=== PATIENT | male | born 1965 | race Caucasian/White ===

== ENCOUNTER 2019-02-21 02:42 | Inpatient (IN) | payer OTHER ==
[2019-02-21] VITALS (13 sets, daily range): BP systolic 119–141; BP diastolic 60–78
[~2019-02-21] VITALS: Ht 182.9 cm; Wt 207.9 kg
[2019-02-21] MEDS ORDERED: DEXTROSE 50% 25 GM / 50ML DISP.SYRIN. IV ONE ×2 (03:08→04:30)
[2019-02-21 03:31] LABS: BASO # 0.1 x10^3/uL (0.0-0.2); BASO % 0 % (0-3); EOS # 0.3 x10^3/uL (0.0-0.7); EOS % 1 % (0-3); HEMATOCRIT 38.1 % (39.0-53.0); HEMOGLOBIN 12.5 g/dL (13.0-17.5); LYMPH # 1.2 x10^3/uL (1.0-4.8); LYMPH % 4 % (24-48); MEAN CORPUSCULAR HEMOGLOBIN 31 pg (25-35); MEAN CORPUSCULAR HGB CONC 33 g/dL (31-37); MEAN CORPUSCULAR VOLUME 94 fL (79-100); MONO # 0.1 x10^3/uL (0.0-1.1); MONO % 0 % (0-9); NEUT # 27.2 x10^3/uL (1.8-7.7); NEUT % 94 % (31-73); PLATELET COUNT 352 x10^3/uL (140-400); RED BLOOD COUNT 4.07 x10^6/uL (4.30-5.70); RED CELL DISTRIBUTION WIDTH 15.9 % (11.5-14.5); WHITE BLOOD COUNT 28.8 x10^3/uL (4.0-11.0)
[2019-02-21 03:44] LABS: PROTHROMBIN TIME PATIENT 17.1 SEC (11.7-14.0)
[2019-02-21 04:07] LABS: % BANDS 9 % (0-9); % LYMPHS 5 % (24-48); % METAS 1 % (0-0); % MONOS 3 % (0-10); % SEGS 82 % (35-66); PLT ESTIMATE ADEQUATE (ADEQUATE); TOXIC GRANULATION MOD; TOXIC VACUOLATION MOD
[2019-02-21 04:16] LABS: CALCIUM 8.9 mg/dL (8.5-10.1); CREATININE 2.8 mg/dL (0.7-1.3); GFR 23.7; POTASSIUM 3.3 mmol/L (3.5-5.1)
--- NOTE | 2019-02-21 04:23 | PHYS DOC ---
Past Medical History Past Medical History: Anxiety, Arthritis, Depression, Diabetes-Type II, High Cholesterol, Vascular Disease, Other Past Surgical History: Other Additional Past Surgical Histo: Knees Alcohol Use: Heavy Additional Information: States he drinks ETOH everyday Drug Use: None Adult General Chief Complaint Chief Complaint: HYPOGLYCEMIA HPI HPI Patient is a 53 year old male who was brought here from home by EMS after he was found on the floor at his house by his neighbor. he said he was probably on the floor for about 12 hours. He was too weak to get up. He was not sure why he was on the floor. Patient has not eating anything all day. His blood sugar was in the 20 per EMS. They tried to give him oral glucose and he was gradually woke up, became awake, alert then. Patient denies any headache or neck pain. Patient complaint of aching and cramping in his muscle. He denies any chest pain, Appear to have trouble breathing however he is very poor historian. aLL OTHER ros IS NEGATIVE UNLESS OTHERWISE NOTED IN hpi Review of Systems Review of Systems See above Current Medications Current Medications Current Medications Medications (Trade) Dose Ordered Sig/Lilliam Start Time Stop Time Status Last Admin Dose Admin Acetaminophen (Tylenol) 650 mg PRN Q4HRS PRN 02/21/19 05:30 02/22/19 05:29 Albuterol/ Ipratropium (Duoneb) 3 ml RTQID 02/21/19 08:00 02/22/19 07:59 Dextrose 500 ml @ 150 mls/hr 1X ONCE 02/21/19 04:30 02/21/19 07:49 02/21/19 04:30 150 MLS/HR Dextrose (Dextrose 50%-Water Syringe) 25 gm 1X ONCE 02/21/19 04:30 02/21/19 04:31 DC Methylprednisolone Sodium Succinate (SOLU-Medrol 125MG VIAL) 125 mg 1X ONCE 02/21/19 04:30 02/21/19 04:31 DC 02/21/19 04:11 125 MG Morphine Sulfate (Morphine Sulfate) 4 mg PRN Q2HR PRN 02/21/19 05:30 02/22/19 05:29 Ondansetron HCl (Zofran) 4 mg PRN Q8HRS PRN 02/21/19 05:30 02/22/19 05:29 Piperacillin Sod/ Tazobactam Sod 3.375 gm/Sodium Chloride 50 ml @ 100 mls/hr 1X ONCE 02/21/19 06:00 02/21/19 06:29 02/21/19 05:47 100 MLS/HR Sodium Chloride 1,000 ml @ 100 mls/hr Q10H 02/21/19 06:00 02/22/19 05:59 Vancomycin HCl 2 gm/Sodium Chloride 500 ml @ 250 mls/hr 1X ONCE 02/21/19 04:30 02/21/19 06:29 02/21/19 04:49 250 MLS/HR Allergies Allergies Allergies Coded Allergies Type Severity Reaction Last Updated Verified No Known Drug Allergies 02/21/19 No Physical Exam Physical Exam See above Constitutional: Well developed, well nourished, no acute distress, non-toxic appearance. OBESE. HENT: Normocephalic, atraumatic, bilateral external ears normal, oropharynx moist, no oral exudates, nose normal. NO EVIDENCE OF HEAD INJURY, NO SCALP CONTUSION. Eyes: PERRLA, EOMI, conjunctiva normal, no discharge. [] Neck: Normal range of motion, no tenderness, supple, no stridor. [] Cardiovascular:Heart rate regular rhythm, no murmur [] Lungs & Thorax: DIFFUSED WHEEZING IN ALL LUNG SOLIZ, TACHYPNIC. Abdomen: Bowel sounds normal, soft, no tenderness, no masses, no pulsatile masses. [] Skin: Warm, dry Back: No tenderness, no CVA tenderness. [] Extremities: RIGHT LEG WITH CHRONIC LYMPHADEMA SWELLING. There is a large nonhealing wound with purulent drainage on anterior RIGHT leg area. There is erythema from the inner part of right thigh spreading to right leg. There is skin abrasion on anterior part of left knee. BILATERAL ELBOWS ARE TENDER TO PALPATION, NO DEFORMITY.... Neurologic: Alert but confused, normal motor function, normal sensory function, no focal deficits noted. [] Psychologic: Affect normal, judgement normal, mood normal. [] Current Patient Data Vital Signs Vital Signs Date Time Temp Pulse Resp B/P (MAP) Pulse Ox O2 Delivery O2 Flow Rate FiO2 02/21/19 04:17 BiPAP/CPAP 02/21/19 03:08 97.5 85 28 133/71 (91) 97 2.0 97.5 Lab Values Laboratory Tests Test 02/21/19 02:58 02/21/19 03:12 02/21/19 03:15 02/21/19 03:50 Glucose (Fingerstick) 29 mg/dL (70-99) *L 93 mg/dL (70-99) 63 mg/dL (70-99) L White Blood Count 28.8 x10^3/uL (4.0-11.0) H Red Blood Count 4.07 x10^6/uL (4.30-5.70) L Hemoglobin 12.5 g/dL (13.0-17.5) L Hematocrit 38.1 % (39.0-53.0) L Mean Corpuscular Volume 94 fL (79-100) Mean Corpuscular Hemoglobin 31 pg (25-35) Mean Corpuscular Hemoglobin Concent 33 g/dL (31-37) Red Cell Distribution Width 15.9 % (11.5-14.5) H Platelet Count 352 x10^3/uL (140-400) Neutrophils (%) (Auto) 94 % (31-73) H Lymphocytes (%) (Auto) 4 % (24-48) L Monocytes (%) (Auto) 0 % (0-9) Eosinophils (%) (Auto) 1 % (0-3) Basophils (%) (Auto) 0 % (0-3) Neutrophils # (Auto) 27.2 x10^3/uL (1.8-7.7) H Lymphocytes # (Auto) 1.2 x10^3/uL (1.0-4.8) Monocytes # (Auto) 0.1 x10^3/uL (0.0-1.1) Eosinophils # (Auto) 0.3 x10^3/uL (0.0-0.7) Basophils # (Auto) 0.1 x10^3/uL (0.0-0.2) Segmented Neutrophils % 82 % (35-66) H Band Neutrophils % 9 % (0-9) Lymphocytes % 5 % (24-48) L Monocytes % 3 % (0-10) Metamyelocytes % 1 % (0-0) H Toxic Granulation Mod Toxic Vacuolation Mod Platelet Estimate Adequate (ADEQUATE) Prothrombin Time 17.1 SEC (11.7-14.0) H Prothrombin Time INR 1.4 (0.8-1.1) H Test 02/21/19 03:55 Sodium Level 135 mmol/L (136-145) L Potassium Level 3.3 mmol/L (3.5-5.1) L Chloride Level 96 mmol/L (98-107) L Carbon Dioxide Level 27 mmol/L (21-32) Anion Gap 12 (6-14) Blood Urea Nitrogen 56 mg/dL (8-26) H Creatinine 2.8 mg/dL (0.7-1.3) H Estimated GFR (Cockcroft-Gault) 23.7 BUN/Creatinine Ratio 20 (6-20) Glucose Level 76 mg/dL (70-99) Lactic Acid Level 2.2 mmol/L (0.4-2.0) H Calcium Level 8.9 mg/dL (8.5-10.1) Magnesium Level 2.0 mg/dL (1.8-2.4) Total Bilirubin 0.7 mg/dL (0.2-1.0) Aspartate Amino Transferase (AST) 91 U/L (15-37) H Alanine Aminotransferase (ALT) 30 U/L (16-63) Alkaline Phosphatase 98 U/L (46-116) Creatine Kinase 633 U/L (39-308) H Creatine Kinase MB (Mass) 3.1 ng/mL (0.0-3.6) Creatine Kinase MB Relative Index 0.5 % (0-4) Troponin I Quantitative < 0.017 ng/mL (0.000-0.055) JK-[id number]-M-Type Natriuretic Peptide 5369 pg/mL (0-124) H Total Protein 8.9 g/dL (6.4-8.2) H Albumin 1.5 g/dL (3.4-5.0) L Albumin/Globulin Ratio 0.2 (1.0-1.7) L Lipase 92 U/L (73-393) Ethyl Alcohol Level < 10 mg/dL (0-10) Laboratory Tests 02/21/19 03:15 Laboratory Tests 02/21/19 03:55 EKG EKG EKG WAS READ BY THIS PHYSICIAN AT 0346, RATE OF 87 BPM, NO STEMI. Radiology/Procedures Radiology/Procedures [][facility] [address] [place] [address] IMAGING REPORT Signed PATIENT: DANIELLE LOPEZ ACCOUNT: [id number] : 1965 LOCATION: ER AGE: 53 SEX: M EXAM STATUS: REG ER ORD. PHYSICIAN: JIMMY ZULETA DO REASON: FOUND UNRESPONSIVE ON FLOOR AT HIS HOUSE, HEADACHE, NECK PAIN, CONFUSED PROCEDURE: CT HEAD AND CERVICAL SPINE WO STUDY: CT head and cervical spine without contrast INDICATION: Found unresponsive. Headache, neck pain and confusion. COMPARISON: None. TECHNIQUE: Axial CT imaging through the head and cervical spine without the use of intravenous contrast. Sagittal and coronal reformats were obtained. One or more of the following individualized dose reduction techniques were utilized for this examination: 1. Automated exposure control 2. Adjustment of the mA and/or kV according to patient size 3. Use of iterative reconstruction technique. FINDINGS: CT head: No acute intracranial hemorrhage. No CT evidence for an acute cortical infarction. No mass effect, midline shift or hydrocephalus. White matter findings often seen in the setting of chronic microvascular ischemic change. Intact calvarium, visualized facial bones and skull base. No layering fluid within the paranasal sinuses. CT cervical spine: Significantly degraded study secondary to patient body habitus. This particularly limits evaluation of the osseous structures and central canal contents below C3. Maintained craniocervical and atlantoaxial alignment. No suspicious vertebral body height loss. Grossly maintained facet alignment. Prominent ventral osteophytes from C4 to C5 through C6-C7. Scattered degenerative changes. Bony neural foraminal encroachment at multiple levels. No large paraspinous hematoma. IMPRESSION: CT head: 1. No acute intracranial abnormality is identified by CT. CT cervical spine: 1. Degraded study secondary to patient body habitus. Limited evaluation for subtle fractures particularly below C3. Taking this into consideration, no acute fracture or traumatic malalignment. 2. Scattered degenerative changes without evidence for severe osseous central canal encroachment. Electronically signed by: TARIQ TRAVIS MD (02/21/2019 5:24 AM) [facility] DICTATED and SIGNED BY: TARIQ TRAVIS MD DATE: 02/21/19 0524 Course & Med Decision Making Course & Med Decision Making Pertinent Labs and Imaging studies reviewed. (See chart for details) Patient was found to met criteria for severe sepsis due to infected right leg wound, cellulitis. Patient is morbidly obese. Patient has dyspnea, chest xray shown some pulmomary edema pattern, Will treat his severe sepsis fluid requirement base on ideal body weight of 70 kg. Critical care time was [60] minutes which includes time at bedside, spent in discussion of patient's care with specialist and/or family members, with interpretation of laboratory and/or radiological studies and is exclusive of procedures. Dragon Disclaimer Dragon Disclaimer This electronic medical record was generated, in whole or in part, using a voice recognition dictation system. Departure Departure Impression: Primary Impression: Severe sepsis Additional Impressions: Cellulitis of right leg Hypoglycemia Acute renal failure Dehydration Dyspnea Disposition: ADMITTED INPATIENT Admitting Physician: LUCIANO (DR. DUKES) Condition: STABLE Referrals: NO PCP (PCP) Problem Qualifiers JIMMY ZULETA DO Feb 21, 2019 04:23
[2019-02-21 04:25] LABS: ALBUMIN 1.5 g/dL (3.4-5.0); ALBUMIN/GLOBULIN RATIO 0.2 (1.0-1.7); TOTAL BILIRUBIN 0.7 mg/dL (0.2-1.0); TOTAL PROTEIN 8.9 g/dL (6.4-8.2)
[2019-02-21] MEDS ORDERED: IV NORMAL SALINE 1000ML BAG 1,000 ML IV SCH ×2 (04:30→06:00)
[2019-02-21] MEDS ORDERED: IPRATRPIUM/ALBUTEROL 0.5/2.5MG 3 ML NEBU. NEB ONE (04:30)
[2019-02-21] MEDS ORDERED: methylPREDNISolone SOD SUCC PF 125 MG/2 ML VIAL. IV ONE (04:30)
[2019-02-21] MEDS ORDERED: IV DEXTROSE 10% 500 ML IV ONE (04:30)
[2019-02-21] MEDS ORDERED: VANCOMYCIN 2 GM in IV NORMAL SALINE 500ML BAG 500 ML IV ONE (04:30)
--- NOTE | 2019-02-21 05:26 | RAD ---
STUDY: CT head and cervical spine without contrast INDICATION: Found unresponsive. Headache, neck pain and confusion. COMPARISON: None. TECHNIQUE: Axial CT imaging through the head and cervical spine without the use of intravenous contrast. Sagittal and coronal reformats were obtained. One or more of the following individualized dose reduction techniques were utilized for this examination: 1. Automated exposure control 2. Adjustment of the mA and/or kV according to patient size 3. Use of iterative reconstruction technique. FINDINGS: CT head: No acute intracranial hemorrhage. No CT evidence for an acute cortical infarction. No mass effect, midline shift or hydrocephalus. White matter findings often seen in the setting of chronic microvascular ischemic change. Intact calvarium, visualized facial bones and skull base. No layering fluid within the paranasal sinuses. CT cervical spine: Significantly degraded study secondary to patient body habitus. This particularly limits evaluation of the osseous structures and central canal contents below C3. Maintained craniocervical and atlantoaxial alignment. No suspicious vertebral body height loss. Grossly maintained facet alignment. Prominent ventral osteophytes from C4 to C5 through C6-C7. Scattered degenerative changes. Bony neural foraminal encroachment at multiple levels. No large paraspinous hematoma. IMPRESSION: CT head: 1. No acute intracranial abnormality is identified by CT. CT cervical spine: 1. Degraded study secondary to patient body habitus. Limited evaluation for subtle fractures particularly below C3. Taking this into consideration, no acute fracture or traumatic malalignment. 2. Scattered degenerative changes without evidence for severe osseous central canal encroachment. Electronically signed by: TARIQ TRAVIS MD (02/21/2019 5:24 AM) [facility]
[2019-02-21] MEDS ORDERED: ONDANSETRON PF 4 MG/2 ML VIAL. IV PRN ×2 (05:30→11:15)
[2019-02-21] MEDS ORDERED: MORPHINE SULFATE 4 MG/ML VIAL. IV PRN (05:30)
[2019-02-21] MEDS ORDERED: ACETAMINOPHEN 325 MG TABLET. PO PRN (05:30)
[2019-02-21] MEDS ORDERED: IV NORMAL SALINE 1000ML BAG 1,000 ML IV ONE (05:30)
[2019-02-21] MEDS ORDERED: PIPERACILLIN/TAZOBACTAM 3.375 GM in IV NORMAL SALINE 50ML 50 ML IV ONE (06:00)
--- NOTE | 2019-02-21 07:21 | RAD ---
EXAM: CHEST ONE VIEW. HISTORY: Shortness of breath. COMPARISON: None. FINDINGS: A frontal view of the chest is obtained. Inspiration is small with mild basilar atelectasis. There are no confluent infiltrates. There is no pneumothorax or pleural effusion. The heart is moderately enlarged. IMPRESSION: 1. Small inspiration. Moderate cardiomegaly. Electronically signed by: Rosales To MD (02/21/2019 7:19 AM) [facility]
--- NOTE | 2019-02-21 07:24 | RAD ---
EXAM: LEFT KNEE, 3 VIEWS. HISTORY: Left knee pain after injury. COMPARISON: None. FINDINGS: No fractures are identified. There are moderate osteophytes along all 3 compartments, most notably along the patella. The medial and lateral compartmental joint spaces appear preserved. The patellofemoral compartmental joint space is at least mildly narrowed. Alignment is normal. There is no joint effusion. There is diffuse subcutaneous edema. IMPRESSION: 1. [id number] tricompartmental osteoarthritis. 2. Diffuse subcutaneous edema. Correlate for a regional or systemic edematous process. Electronically signed by: Rosales To MD (02/21/2019 7:21 AM) [facility]
--- NOTE | 2019-02-21 07:26 | RAD ---
EXAM: ELBOW BILAT 3V. HISTORY: Fall. Bilateral elbow pain. COMPARISON: None. FINDINGS: No fractures are appreciated at the left elbow. There are small to moderate osteophytes along all 3 compartments with relative preservation of joint spaces. There is ossification at the triceps tendon insertion. There is no joint effusion. Alignment is maintained. No fractures are appreciated at the right elbow. There are small osteophytes. Ossification is noted at the insertion of the triceps tendon. There is no joint effusion. Alignment is maintained. IMPRESSION: 1. No fracture bilaterally. 2. Mild osteoarthritis on the left greater than right. Electronically signed by: Rosales To MD (02/21/2019 7:23 AM) [facility]
--- NOTE | 2019-02-21 09:11 | PDOC1 ---
History and Physical Date of Admission Date of Admission DATE: 02/21/19 TIME: 09:11 Identification/Chief Complaint Chief Complaint SEEN IN ER , Patient is a 53 year old male who was brought here from home by EMS after he was found on the floor at his house by his neighbor. he said he was probably on the floor for about 12 hours. He was too weak to get up. He was not sure why he was on the floor. Patient has not eating anything all day. His blood sugar was in the 20 per EMS. They tried to give him oral glucose and he was gradually woke up, became awake, alert, DRINKS 14 OZ WHISKY A DAY USES CPAP Q HS SINCE 2010, HAS NO DOCTOR PCP NOW Past Medical History Past Medical History Past Medical History Past Medical History Past Medical History: Anxiety, Arthritis, Depression, Diabetes-Type II, High Cholesterol, Vascular Disease, Other Past Surgical History: Other Additional Past Surgical Histo: Knees Alcohol Use: Heavy Additional Information: States he drinks ETOH everyday Drug Use: None FHX OBESITY Cardiovascular: HTN, Hyperlipidemia Endocrine: Diabetes Family History Family History: High Cholestrol, Hypertension Social History Smoke: No ALCOHOL: heavy Drugs: None Current Problem List Problem List Problems Medical Problems: (1) Acute renal failure Status: Acute (2) Cellulitis of right leg Status: Acute (3) Dehydration Status: Acute (4) Dyspnea Status: Acute (5) Hypoglycemia Status: Acute (6) Severe sepsis Status: Acute Current Medications Current Medications Current Medications Dextrose (Dextrose 50%-Water Syringe) 25 gm STK-MED ONCE IV ; Start 02/21/19 at 03:08; Stop 02/21/19 at 03:08; Status DC Dextrose (Dextrose 50%-Water Syringe) 25 gm 1X ONCE IV Last administered on 02/21/19at 05:59; Start 02/21/19 at 04:30; Stop 02/21/19 at 04:31; Status DC Sodium Chloride 1,000 ml @ 1,000 mls/hr Q1H IV Last administered on 02/21/19at 04:44; Start 02/21/19 at 04:30; Stop 02/21/19 at 05:29; Status DC Albuterol/ Ipratropium (Duoneb) 3 ml 1X ONCE NEB Last administered on 02/21/19at 04:19; Start 02/21/19 at 04:30; Stop 02/21/19 at 04:31; Status DC Methylprednisolone Sodium Succinate (SOLU-Medrol 125MG VIAL) 125 mg 1X ONCE IV Last administered on 02/21/19at 04:11; Start 02/21/19 at 04:30; Stop 02/21/19 at 04:31; Status DC Dextrose 500 ml @ 150 mls/hr 1X ONCE IV Last administered on 02/21/19at 04:30; Start 02/21/19 at 04:30; Stop 02/21/19 at 07:49; Status DC Vancomycin HCl 2 gm/Sodium Chloride 500 ml @ 250 mls/hr 1X ONCE IV Last administered on 02/21/19at 04:49; Start 02/21/19 at 04:30; Stop 02/21/19 at 06:29; Status DC Sodium Chloride 1,000 ml @ 1,000 mls/hr 1X ONCE IV ; Start 02/21/19 at 05:30; Stop 02/21/19 at 06:29; Status DC Ondansetron HCl (Zofran) 4 mg PRN Q8HRS PRN IV NAUSEA/VOMITING 1ST CHOICE; Start 02/21/19 at 05:30; Stop 02/22/19 at 05:29 Morphine Sulfate (Morphine Sulfate) 4 mg PRN Q2HR PRN IV SEVERE PAIN 7-10 Last administered on 02/21/19at 09:07; Start 02/21/19 at 05:30; Stop 02/22/19 at 05:29 Sodium Chloride 1,000 ml @ 100 mls/hr Q10H IV ; Start 02/21/19 at 06:00; Stop 02/22/19 at 05:59 Acetaminophen (Tylenol) 650 mg PRN Q4HRS PRN PO FEVER; Start 02/21/19 at 05:30; Stop 02/22/19 at 05:29 Albuterol/ Ipratropium (Duoneb) 3 ml RTQID NEB ; Start 02/21/19 at 08:00; Stop 02/22/19 at 07:59 Piperacillin Sod/ Tazobactam Sod 3.375 gm/Sodium Chloride 50 ml @ 100 mls/hr 1X ONCE IV Last administered on 02/21/19at 05:47; Start 02/21/19 at 06:00; Stop 02/21/19 at 06:29; Status DC Allergies Allergies: Coded Allergies: No Known Drug Allergies (Unverified , 1/4/20) Physical Exam Physical Exam Constitutional: Well developed, well nourished, no acute distress, non-toxic appearance. OBESE. POOR DENTITION HENT: Normocephalic, atraumatic, bilateral external ears normal, oropharynx moist, no oral exudates, nose normal. NO EVIDENCE OF HEAD INJURY, NO SCALP CONTUSION. Eyes: PERRLA, EOMI, conjunctiva normal, no discharge. [] Neck: Normal range of motion, no tenderness, supple, no stridor. [] Cardiovascular:Heart rate regular rhythm, no murmur [] Lungs & Thorax: DIFFUSE, LESS WHEEZING IN ALL LUNG SOLIZ, Abdomen: Bowel sounds normal, soft, no tenderness, no masses, no pulsatile masses VERY OBESE. [] Skin: Warm, dry Back: No tenderness, no CVA tenderness. [] Extremities: RIGHT LEG WITH CHRONIC LYMPHEDEMA SWELLING. There is a large nonhealing wound with purulent drainage on anterior RIGHT leg area. There is erythema from the inner part of right thigh spreading to right leg. There is skin abrasion on anterior part of left knee. BILATERAL ELBOWS ARE TENDER TO PALPATION, NO DEFORMITY.... General: Alert, Oriented X3, Cooperative, mild distress Lungs: Normal air movement Heart: RRR Breasts: Not examined Abdomen: Normal bowel sounds, Soft Rectal Exam: not examined Neuro: Normal speech, Cranial nerves 3-12 NL Psych/Mental Status: Mental status NL, Mood NL Vitals Vitals Vital Signs Date Time Temp Pulse Resp B/P (MAP) Pulse Ox O2 Delivery O2 Flow Rate FiO2 02/21/19 09:07 16 94 Nasal Cannula 2.0 02/21/19 08:34 97.5 104 119/60 (79) 97.5 Labs Labs Laboratory Tests Test 02/21/19 02:58 02/21/19 03:12 02/21/19 03:15 02/21/19 03:50 Glucose (Fingerstick) 29 mg/dL (70-99) 93 mg/dL (70-99) 63 mg/dL (70-99) White Blood Count 28.8 x10^3/uL (4.0-11.0) Red Blood Count 4.07 x10^6/uL (4.30-5.70) Hemoglobin 12.5 g/dL (13.0-17.5) Hematocrit 38.1 % (39.0-53.0) Mean Corpuscular Volume 94 fL (79-100) Mean Corpuscular Hemoglobin 31 pg (25-35) Mean Corpuscular Hemoglobin Concent 33 g/dL (31-37) Red Cell Distribution Width 15.9 % (11.5-14.5) Platelet Count 352 x10^3/uL (140-400) Neutrophils (%) (Auto) 94 % (31-73) Lymphocytes (%) (Auto) 4 % (24-48) Monocytes (%) (Auto) 0 % (0-9) Eosinophils (%) (Auto) 1 % (0-3) Basophils (%) (Auto) 0 % (0-3) Neutrophils # (Auto) 27.2 x10^3/uL (1.8-7.7) Lymphocytes # (Auto) 1.2 x10^3/uL (1.0-4.8) Monocytes # (Auto) 0.1 x10^3/uL (0.0-1.1) Eosinophils # (Auto) 0.3 x10^3/uL (0.0-0.7) Basophils # (Auto) 0.1 x10^3/uL (0.0-0.2) Segmented Neutrophils % 82 % (35-66) Band Neutrophils % 9 % (0-9) Lymphocytes % 5 % (24-48) Monocytes % 3 % (0-10) Metamyelocytes % 1 % (0-0) Toxic Granulation Mod Toxic Vacuolation Mod Platelet Estimate Adequate (ADEQUATE) Prothrombin Time 17.1 SEC (11.7-14.0) Prothromb Time International Ratio 1.4 (0.8-1.1) Test 02/21/19 03:55 02/21/19 05:41 02/21/19 06:06 Sodium Level 135 mmol/L (136-145) Potassium Level 3.3 mmol/L (3.5-5.1) Chloride Level 96 mmol/L (98-107) Carbon Dioxide Level 27 mmol/L (21-32) Anion Gap 12 (6-14) Blood Urea Nitrogen 56 mg/dL (8-26) Creatinine 2.8 mg/dL (0.7-1.3) Estimated GFR (Cockcroft-Gault) 23.7 BUN/Creatinine Ratio 20 (6-20) Glucose Level 76 mg/dL (70-99) Lactic Acid Level 2.2 mmol/L (0.4-2.0) Calcium Level 8.9 mg/dL (8.5-10.1) Magnesium Level 2.0 mg/dL (1.8-2.4) Total Bilirubin 0.7 mg/dL (0.2-1.0) Aspartate Amino Transf (AST/SGOT) 91 U/L (15-37) Alanine Aminotransferase (ALT/SGPT) 30 U/L (16-63) Alkaline Phosphatase 98 U/L (46-116) Creatine Kinase 633 U/L (39-308) Creatine Kinase MB (Mass) 3.1 ng/mL (0.0-3.6) Creatine Kinase MB Relative Index 0.5 % (0-4) Troponin I Quantitative < 0.017 ng/mL (0.000-0.055) KP-Ofe-W-Type Natriuretic Peptide 5369 pg/mL (0-124) Total Protein 8.9 g/dL (6.4-8.2) Albumin 1.5 g/dL (3.4-5.0) Albumin/Globulin Ratio 0.2 (1.0-1.7) Lipase 92 U/L (73-393) Ethyl Alcohol Level < 10 mg/dL (0-10) Glucose (Fingerstick) 48 mg/dL (70-99) 114 mg/dL (70-99) Laboratory Tests Test 02/21/19 02:58 02/21/19 03:12 02/21/19 03:15 02/21/19 03:50 Glucose (Fingerstick) 29 mg/dL (70-99) 93 mg/dL (70-99) 63 mg/dL (70-99) White Blood Count 28.8 x10^3/uL (4.0-11.0) Red Blood Count 4.07 x10^6/uL (4.30-5.70) Hemoglobin 12.5 g/dL (13.0-17.5) Hematocrit 38.1 % (39.0-53.0) Mean Corpuscular Volume 94 fL (79-100) Mean Corpuscular Hemoglobin 31 pg (25-35) Mean Corpuscular Hemoglobin Concent 33 g/dL (31-37) Red Cell Distribution Width 15.9 % (11.5-14.5) Platelet Count 352 x10^3/uL (140-400) Neutrophils (%) (Auto) 94 % (31-73) Lymphocytes (%) (Auto) 4 % (24-48) Monocytes (%) (Auto) 0 % (0-9) Eosinophils (%) (Auto) 1 % (0-3) Basophils (%) (Auto) 0 % (0-3) Neutrophils # (Auto) 27.2 x10^3/uL (1.8-7.7) Lymphocytes # (Auto) 1.2 x10^3/uL (1.0-4.8) Monocytes # (Auto) 0.1 x10^3/uL (0.0-1.1) Eosinophils # (Auto) 0.3 x10^3/uL (0.0-0.7) Basophils # (Auto) 0.1 x10^3/uL (0.0-0.2) Segmented Neutrophils % 82 % (35-66) Band Neutrophils % 9 % (0-9) Lymphocytes % 5 % (24-48) Monocytes % 3 % (0-10) Metamyelocytes % 1 % (0-0) Toxic Granulation Mod Toxic Vacuolation Mod Platelet Estimate Adequate (ADEQUATE) Prothrombin Time 17.1 SEC (11.7-14.0) Prothromb Time International Ratio 1.4 (0.8-1.1) Test 02/21/19 03:55 02/21/19 05:41 02/21/19 06:06 Sodium Level 135 mmol/L (136-145) Potassium Level 3.3 mmol/L (3.5-5.1) Chloride Level 96 mmol/L (98-107) Carbon Dioxide Level 27 mmol/L (21-32) Anion Gap 12 (6-14) Blood Urea Nitrogen 56 mg/dL (8-26) Creatinine 2.8 mg/dL (0.7-1.3) Estimated GFR (Cockcroft-Gault) 23.7 BUN/Creatinine Ratio 20 (6-20) Glucose Level 76 mg/dL (70-99) Lactic Acid Level 2.2 mmol/L (0.4-2.0) Calcium Level 8.9 mg/dL (8.5-10.1) Magnesium Level 2.0 mg/dL (1.8-2.4) Total Bilirubin 0.7 mg/dL (0.2-1.0) Aspartate Amino Transf (AST/SGOT) 91 U/L (15-37) Alanine Aminotransferase (ALT/SGPT) 30 U/L (16-63) Alkaline Phosphatase 98 U/L (46-116) Creatine Kinase 633 U/L (39-308) Creatine Kinase MB (Mass) 3.1 ng/mL (0.0-3.6) Creatine Kinase MB Relative Index 0.5 % (0-4) Troponin I Quantitative < 0.017 ng/mL (0.000-0.055) PM-Kla-Z-Type Natriuretic Peptide 5369 pg/mL (0-124) Total Protein 8.9 g/dL (6.4-8.2) Albumin 1.5 g/dL (3.4-5.0) Albumin/Globulin Ratio 0.2 (1.0-1.7) Lipase 92 U/L (73-393) Ethyl Alcohol Level < 10 mg/dL (0-10) Glucose (Fingerstick) 48 mg/dL (70-99) 114 mg/dL (70-99) Images Images EXAM: ELBOW BILAT 3V. HISTORY: Fall. Bilateral elbow pain. COMPARISON: None. FINDINGS: No fractures are appreciated at the left elbow. There are small to moderate osteophytes along all 3 compartments with relative preservation of joint spaces. There is ossification at the triceps tendon insertion. There is no joint effusion. Alignment is maintained. No fractures are appreciated at the right elbow. There are small osteophytes. Ossification is noted at the insertion of the triceps tendon. There is no joint effusion. Alignment is maintained. IMPRESSION: 1. No fracture bilaterally. 2. Mild osteoarthritis on the left greater than right. Electronically signed by: Rosales To MD (02/21/2019 7:23 AM) [facility] DICTATED and SIGNED BY: MUSTAPHA TO MD EXAM: LEFT KNEE, 3 VIEWS. HISTORY: Left knee pain after injury. COMPARISON: None. FINDINGS: No fractures are identified. There are moderate osteophytes along all 3 compartments, most notably along the patella. The medial and lateral compartmental joint spaces appear preserved. The patellofemoral compartmental joint space is at least mildly narrowed. Alignment is normal. There is no joint effusion. There is diffuse subcutaneous edema. IMPRESSION: 1. [id number] tricompartmental osteoarthritis. 2. Diffuse subcutaneous edema. Correlate for a regional or systemic edematous process. Electronically signed by: Rosales To MD (02/21/2019 7:21 AM) [facility] DICTATED and SIGNED BY: MUSTAPHA TO MD DATE: 02/21/19 0721 STUDY: CT head and cervical spine without contrast INDICATION: Found unresponsive. Headache, neck pain and confusion. COMPARISON: None. TECHNIQUE: Axial CT imaging through the head and cervical spine without the use of intravenous contrast. Sagittal and coronal reformats were obtained. One or more of the following individualized dose reduction techniques were utilized for this examination: 1. Automated exposure control 2. Adjustment of the mA and/or kV according to patient size 3. Use of iterative reconstruction technique. FINDINGS: CT head: No acute intracranial hemorrhage. No CT evidence for an acute cortical infarction. No mass effect, midline shift or hydrocephalus. White matter findings often seen in the setting of chronic microvascular ischemic change. Intact calvarium, visualized facial bones and skull base. No layering fluid within the paranasal sinuses. CT cervical spine: Significantly degraded study secondary to patient body habitus. This particularly limits evaluation of the osseous structures and central canal contents below C3. Maintained craniocervical and atlantoaxial alignment. No suspicious vertebral body height loss. Grossly maintained facet alignment. Prominent ventral osteophytes from C4 to C5 through C6-C7. Scattered degenerative changes. Bony neural foraminal encroachment at multiple levels. No large paraspinous hematoma. IMPRESSION: CT head: 1. No acute intracranial abnormality is identified by CT. CT cervical spine: 1. Degraded study secondary to patient body habitus. Limited evaluation for subtle fractures particularly below C3. Taking this into consideration, no acute fracture or traumatic malalignment. 2. Scattered degenerative changes without evidence for severe osseous central canal encroachment. Electronically signed by: TARIQ TRAVIS MD (02/21/2019 5:24 AM) [facility] DICTATED and SIGNED BY: TARIQ TRAVIS MD DATE: 02/21/19 0524 EXAM: CHEST ONE VIEW. HISTORY: Shortness of breath. COMPARISON: None. FINDINGS: A frontal view of the chest is obtained. Inspiration is small with mild basilar atelectasis. There are no confluent infiltrates. There is no pneumothorax or pleural effusion. The heart is moderately enlarged. IMPRESSION: 1. Small inspiration. Moderate cardiomegaly. Electronically signed by: Rosales To MD (02/21/2019 7:19 AM) [facility] DICTATED and SIGNED BY: MUSTAPHA TO MD DATE: 02/21/19 0719 VTE Prophylaxis Ordered VTE Prophylaxis Devices: Contraindicated VTE Pharmacological Prophylaxi: Yes Assessment/Plan Assessment/Plan Impression: Severe sepsis EXTREME MORBID OBESITY SLEEP APNEA Cellulitis of right leg, severe with lymphedema, chronic venous stasis Hypoglycemia SEC TO METFORMIN, GLIPIZIDE Acute renal failure Dehydration Dyspnea HYPOGLYCEMIA SEVERE ALCOHOL ABUSE FALL AT HOME SEVERE DEBILITY CHF ADMITTED ICU BED CONSULT PULM CONSULT ID BLOOD CULT ABG ciwa protocol hold metformin and glipizide consult CARDIOLOGY PT/OT WOUND CARE NURSE CONSULT CONSIDER ECHO DVT PROPHYLAXIS GI PROPHYLAXIS NEPHROLOGY CONSULT 33 min cc time CORTNEY PEÑA MD Feb 21, 2019 09:11
[2019-02-21] MEDS: IPRATRPIUM/ALBUTEROL 0.5/2.5MG 3 ML NEBU. NEB SCH ×4 (09:28→20:16)
[2019-02-21 09:31] LABS: BASE EXCESS COOX -2 mmol/L (-3-3); HCO3 COOX 23 mmol/L (21-28); METHEMOGLOBIN 0.3 % (0.0-1.9); OXYHEMOGLOBIN 92.8 %; PCO2 COOX 39 mmHg (35-46); PO2 COOX 78 mmHg (75-108); SAT O2 COOX 94 % (92-99)
[2019-02-21] MEDS ORDERED: METF10007 PO (09:50)
[2019-02-21] MEDS ORDERED: ATEN50TA PO (09:50)
[2019-02-21] MEDS ORDERED: CHLO25TA10 PO (09:50)
[2019-02-21] MEDS ORDERED: GLIP5TAB10 PO (09:50)
[2019-02-21] MEDS ORDERED: BISACODYL 10 MG SUPP.RECT. PR PRN (11:15)
[2019-02-21] MEDS ORDERED: 0.9 % SODIUM CHLORIDE 10 ML DISP.SYRIN. IV PRN (11:15)
[2019-02-21] MEDS ORDERED: LORazepam 1 MG TABLET PO PRN ×2 (11:30)
[2019-02-21] MEDS ORDERED: cloNIDine HCL 0.1 MG TABLET PO PRN (11:30)
[2019-02-21] MEDS ORDERED: HALOPERIDOL LACTATE 5 MG/ML VIAL. IVP PRN (11:30)
--- NOTE | 2019-02-21 11:49 | NUR ---
PT ORIENTED TO ROOM AND UNIT, JOVITA LOW AND LOCKED, SIDE RAILS UP X3, MILLER AND CENTRAL LINE PLACED. ALL CONSULTS CALLED IN. WILL CONTINUE TO ASSESS.
--- NOTE | 2019-02-21 11:52 | PDOC ---
Date and Time Called for central line about 0800. I was supervising a section until 914 and was aked to first place another (difficult) central line from 0930- 1100. Patient with ED diagnosis of severe sepsis transferred to ICU with inadequate IV access R neck ultrasound unable to obtain adequate view of carotid or IJ (6cm max depth on Sono). Cecil approach after sterile prep, large drape and 1% lidocaine local. Mask,Hat,Gloves and gown. RIJ identified on first attempt, wire, 3 lumen placed and sutured in. Free flow all 3 ports, biopatch and sterile dressing. No apparent complications CXR tip at SVC RA junction. No pneumothorax. Current Medications Current Medications Dextrose (Dextrose 50%-Water Syringe) 25 gm STK-MED ONCE IV ; Start 02/21/19 at 03:08; Stop 02/21/19 at 03:08; Status DC Dextrose (Dextrose 50%-Water Syringe) 25 gm 1X ONCE IV Last administered on 02/21/19at 05:59; Start 02/21/19 at 04:30; Stop 02/21/19 at 04:31; Status DC Sodium Chloride 1,000 ml @ 1,000 mls/hr Q1H IV Last administered on 02/21/19at 04:44; Start 02/21/19 at 04:30; Stop 02/21/19 at 05:29; Status DC Albuterol/ Ipratropium (Duoneb) 3 ml 1X ONCE NEB Last administered on 02/21/19at 04:19; Start 02/21/19 at 04:30; Stop 02/21/19 at 04:31; Status DC Methylprednisolone Sodium Succinate (SOLU-Medrol 125MG VIAL) 125 mg 1X ONCE IV Last administered on 02/21/19at 04:11; Start 02/21/19 at 04:30; Stop 02/21/19 at 04:31; Status DC Dextrose 500 ml @ 150 mls/hr 1X ONCE IV Last administered on 02/21/19at 04:30; Start 02/21/19 at 04:30; Stop 02/21/19 at 07:49; Status DC Vancomycin HCl 2 gm/Sodium Chloride 500 ml @ 250 mls/hr 1X ONCE IV Last administered on 02/21/19at 04:49; Start 02/21/19 at 04:30; Stop 02/21/19 at 06:29; Status DC Sodium Chloride 1,000 ml @ 1,000 mls/hr 1X ONCE IV ; Start 02/21/19 at 05:30; Stop 02/21/19 at 06:29; Status DC Ondansetron HCl (Zofran) 4 mg PRN Q8HRS PRN IV NAUSEA/VOMITING 1ST CHOICE; Start 02/21/19 at 05:30; Stop 02/21/19 at 11:17; Status DC Morphine Sulfate (Morphine Sulfate) 4 mg PRN Q2HR PRN IV SEVERE PAIN 7-10 Last administered on 02/21/19at 09:07; Start 02/21/19 at 05:30; Stop 02/22/19 at 05:29 Sodium Chloride 1,000 ml @ 100 mls/hr Q10H IV ; Start 02/21/19 at 06:00; Stop 02/22/19 at 05:59 Acetaminophen (Tylenol) 650 mg PRN Q4HRS PRN PO FEVER; Start 02/21/19 at 05:30; Stop 02/21/19 at 11:18; Status DC Albuterol/ Ipratropium (Duoneb) 3 ml RTQID NEB Last administered on 02/21/19at 09:28; Start 02/21/19 at 08:00; Stop 02/22/19 at 07:59 Piperacillin Sod/ Tazobactam Sod 3.375 gm/Sodium Chloride 50 ml @ 100 mls/hr 1X ONCE IV Last administered on 02/21/19at 05:47; Start 02/21/19 at 06:00; Stop 02/21/19 at 06:29; Status DC Acetaminophen (Tylenol) 650 mg PRN Q6HRS PRN PO Headaches, Temp > 101.5'; Start 02/21/19 at 11:15 Ondansetron HCl (Zofran) 4 mg PRN Q6HRS PRN IV NAUSEA/VOMITING; Start 02/21/19 at 11:15 Famotidine (Pepcid Vial) 20 mg BID IVP ; Start 02/21/19 at 11:30 Info (Icu Electrolyte Protocol) 1 ea DAILY MC ; Start 02/22/19 at 09:00 Heparin Sodium (Porcine) (Heparin Sodium) 5,000 unit Q8HRS SQ ; Start 02/21/19 at 14:00 Sodium Chloride (Normal Saline Flush) 3 ml QSHIFT PRN IV AFTER MEDS AND BLOOD DRAWS; Start 02/21/19 at 11:15 Docusate Sodium (Colace) 100 mg BID PO ; Start 02/21/19 at 12:00 Bisacodyl (Dulcolax Supp) 10 mg PRN DAILY PRN [place] CONSTIPATION; Start 02/21/19 at 11:15 Atenolol (Tenormin) 50 mg DAILY PO ; Start 02/21/19 at 12:00 Chlorthalidone (Thalitone) 25 mg DAILY PO ; Start 02/21/19 at 12:00 Multivitamins (Thera M Plus) 1 tab DAILY PO ; Start 02/21/19 at 12:00 Folic Acid (Folic Acid) 1 mg DAILY PO ; Start 02/21/19 at 12:00 Thiamine Mononitrate (Vitamin B-1) 100 mg DAILY PO ; Start 02/21/19 at 12:00 Lorazepam (Ativan) 4 mg PRN Q1HR PRN PO For CIWA 8-14; Start 02/21/19 at 11:30 Lorazepam (Ativan) 8 mg PRN Q1HR PRN PO For CIWA 15 or greater; Start 02/21/19 at 11:30 Lorazepam (Ativan Inj) 2 mg PRN Q1HR PRN IV For CIWA 8-14; Start 02/21/19 at 11:30 Lorazepam (Ativan Inj) 4 mg PRN Q1HR PRN IV For CIWA 15 or greater; Start 02/21/19 at 11:30 Haloperidol Lactate (Haldol Inj) 5 mg PRN Q4HRS PRN IVP Hallucinatns,Confusn,Delirium; Start 02/21/19 at 11:30 Clonidine HCl (Catapres) 0.1 mg PRN Q1HR PRN PO SBP > 180 or DBP > 100, MRX3; Start 02/21/19 at 11:30 Lorazepam (Ativan Inj) 2 mg PRN Q15MIN PRN IV SEE COMMENTS; Start 02/21/19 at 11:30 Lorazepam (Ativan Inj) 4 mg PRN Q15MIN PRN IV SEE COMMENTS; Start 02/21/19 at 11:30 Potassium Chloride (Klor-Con) 20 meq 1X ONCE PO ; Start 02/21/19 at 12:00; Stop 02/21/19 at 12:01 Active Scripts Active Reported Glipizide 5 Mg Tablet 1 Tab PO BID Metformin Hcl 1,000 Mg Tablet 1,000 Mg PO BIDWMEALS Atenolol 50 Mg Tablet 1 Tab PO DAILY Chlorthalidone (Chlorthalidone) 25 Mg Tablet 25 Mg PO DAILY Pertinent Labs/Test Laboratory Tests Test 02/21/19 02:58 02/21/19 03:12 02/21/19 03:15 02/21/19 03:50 Glucose (Fingerstick) 29 mg/dL (70-99) 93 mg/dL (70-99) 63 mg/dL (70-99) White Blood Count 28.8 x10^3/uL (4.0-11.0) Red Blood Count 4.07 x10^6/uL (4.30-5.70) Hemoglobin 12.5 g/dL (13.0-17.5) Hematocrit 38.1 % (39.0-53.0) Mean Corpuscular Volume 94 fL (79-100) Mean Corpuscular Hemoglobin 31 pg (25-35) Mean Corpuscular Hemoglobin Concent 33 g/dL (31-37) Red Cell Distribution Width 15.9 % (11.5-14.5) Platelet Count 352 x10^3/uL (140-400) Neutrophils (%) (Auto) 94 % (31-73) Lymphocytes (%) (Auto) 4 % (24-48) Monocytes (%) (Auto) 0 % (0-9) Eosinophils (%) (Auto) 1 % (0-3) Basophils (%) (Auto) 0 % (0-3) Neutrophils # (Auto) 27.2 x10^3/uL (1.8-7.7) Lymphocytes # (Auto) 1.2 x10^3/uL (1.0-4.8) Monocytes # (Auto) 0.1 x10^3/uL (0.0-1.1) Eosinophils # (Auto) 0.3 x10^3/uL (0.0-0.7) Basophils # (Auto) 0.1 x10^3/uL (0.0-0.2) Segmented Neutrophils % 82 % (35-66) Band Neutrophils % 9 % (0-9) Lymphocytes % 5 % (24-48) Monocytes % 3 % (0-10) Metamyelocytes % 1 % (0-0) Toxic Granulation Mod Toxic Vacuolation Mod Platelet Estimate Adequate (ADEQUATE) Prothrombin Time 17.1 SEC (11.7-14.0) Prothromb Time International Ratio 1.4 (0.8-1.1) Test 02/21/19 03:55 02/21/19 05:41 02/21/19 06:06 02/21/19 08:55 Sodium Level 135 mmol/L (136-145) Potassium Level 3.3 mmol/L (3.5-5.1) Chloride Level 96 mmol/L (98-107) Carbon Dioxide Level 27 mmol/L (21-32) Anion Gap 12 (6-14) Blood Urea Nitrogen 56 mg/dL (8-26) Creatinine 2.8 mg/dL (0.7-1.3) Estimated GFR (Cockcroft-Gault) 23.7 BUN/Creatinine Ratio 20 (6-20) Glucose Level 76 mg/dL (70-99) Lactic Acid Level 2.2 mmol/L (0.4-2.0) 1.9 mmol/L (0.4-2.0) Calcium Level 8.9 mg/dL (8.5-10.1) Magnesium Level 2.0 mg/dL (1.8-2.4) Total Bilirubin 0.7 mg/dL (0.2-1.0) Aspartate Amino Transf (AST/SGOT) 91 U/L (15-37) Alanine Aminotransferase (ALT/SGPT) 30 U/L (16-63) Alkaline Phosphatase 98 U/L (46-116) Creatine Kinase 633 U/L (39-308) Creatine Kinase MB (Mass) 3.1 ng/mL (0.0-3.6) Creatine Kinase MB Relative Index 0.5 % (0-4) Troponin I Quantitative < 0.017 ng/mL (0.000-0.055) IZ-Maz-H-Type Natriuretic Peptide 5369 pg/mL (0-124) Total Protein 8.9 g/dL (6.4-8.2) Albumin 1.5 g/dL (3.4-5.0) Albumin/Globulin Ratio 0.2 (1.0-1.7) Lipase 92 U/L (73-393) Ethyl Alcohol Level < 10 mg/dL (0-10) Glucose (Fingerstick) 48 mg/dL (70-99) 114 mg/dL (70-99) Test 02/21/19 09:13 02/21/19 09:29 O2 Saturation 94 % (92-99) Arterial Blood pH 7.38 (7.35-7.45) Arterial Blood pCO2 at Patient Temp 39 mmHg (35-46) Arterial Blood pO2 at Patient Temp 78 mmHg (75-108) Arterial Blood HCO3 23 mmol/L (21-28) Arterial Blood Base Excess -2 mmol/L (-3-3) Oxyhemoglobin 92.8 % Methemoglobin 0.3 % (0.0-1.9) Carbon Monoxide, Quantitative 0.7 % (0.0-1.9) FiO2 2l n.c. Glucose (Fingerstick) 126 mg/dL (70-99) Laboratory Tests Test 02/21/19 02:58 02/21/19 03:12 02/21/19 03:15 02/21/19 03:50 Glucose (Fingerstick) 29 mg/dL (70-99) 93 mg/dL (70-99) 63 mg/dL (70-99) White Blood Count 28.8 x10^3/uL (4.0-11.0) Red Blood Count 4.07 x10^6/uL (4.30-5.70) Hemoglobin 12.5 g/dL (13.0-17.5) Hematocrit 38.1 % (39.0-53.0) Mean Corpuscular Volume 94 fL (79-100) Mean Corpuscular Hemoglobin 31 pg (25-35) Mean Corpuscular Hemoglobin Concent 33 g/dL (31-37) Red Cell Distribution Width 15.9 % (11.5-14.5) Platelet Count 352 x10^3/uL (140-400) Neutrophils (%) (Auto) 94 % (31-73) Lymphocytes (%) (Auto) 4 % (24-48) Monocytes (%) (Auto) 0 % (0-9) Eosinophils (%) (Auto) 1 % (0-3) Basophils (%) (Auto) 0 % (0-3) Neutrophils # (Auto) 27.2 x10^3/uL (1.8-7.7) Lymphocytes # (Auto) 1.2 x10^3/uL (1.0-4.8) Monocytes # (Auto) 0.1 x10^3/uL (0.0-1.1) Eosinophils # (Auto) 0.3 x10^3/uL (0.0-0.7) Basophils # (Auto) 0.1 x10^3/uL (0.0-0.2) Segmented Neutrophils % 82 % (35-66) Band Neutrophils % 9 % (0-9) Lymphocytes % 5 % (24-48) Monocytes % 3 % (0-10) Metamyelocytes % 1 % (0-0) Toxic Granulation Mod Toxic Vacuolation Mod Platelet Estimate Adequate (ADEQUATE) Prothrombin Time 17.1 SEC (11.7-14.0) Prothromb Time International Ratio 1.4 (0.8-1.1) Test 02/21/19 03:55 02/21/19 05:41 02/21/19 06:06 02/21/19 08:55 Sodium Level 135 mmol/L (136-145) Potassium Level 3.3 mmol/L (3.5-5.1) Chloride Level 96 mmol/L (98-107) Carbon Dioxide Level 27 mmol/L (21-32) Anion Gap 12 (6-14) Blood Urea Nitrogen 56 mg/dL (8-26) Creatinine 2.8 mg/dL (0.7-1.3) Estimated GFR (Cockcroft-Gault) 23.7 BUN/Creatinine Ratio 20 (6-20) Glucose Level 76 mg/dL (70-99) Lactic Acid Level 2.2 mmol/L (0.4-2.0) 1.9 mmol/L (0.4-2.0) Calcium Level 8.9 mg/dL (8.5-10.1) Magnesium Level 2.0 mg/dL (1.8-2.4) Total Bilirubin 0.7 mg/dL (0.2-1.0) Aspartate Amino Transf (AST/SGOT) 91 U/L (15-37) Alanine Aminotransferase (ALT/SGPT) 30 U/L (16-63) Alkaline Phosphatase 98 U/L (46-116) Creatine Kinase 633 U/L (39-308) Creatine Kinase MB (Mass) 3.1 ng/mL (0.0-3.6) Creatine Kinase MB Relative Index 0.5 % (0-4) Troponin I Quantitative < 0.017 ng/mL (0.000-0.055) PO-Bfp-S-Type Natriuretic Peptide 5369 pg/mL (0-124) Total Protein 8.9 g/dL (6.4-8.2) Albumin 1.5 g/dL (3.4-5.0) Albumin/Globulin Ratio 0.2 (1.0-1.7) Lipase 92 U/L (73-393) Ethyl Alcohol Level < 10 mg/dL (0-10) Glucose (Fingerstick) 48 mg/dL (70-99) 114 mg/dL (70-99) Test 02/21/19 09:13 02/21/19 09:29 O2 Saturation 94 % (92-99) Arterial Blood pH 7.38 (7.35-7.45) Arterial Blood pCO2 at Patient Temp 39 mmHg (35-46) Arterial Blood pO2 at Patient Temp 78 mmHg (75-108) Arterial Blood HCO3 23 mmol/L (21-28) Arterial Blood Base Excess -2 mmol/L (-3-3) Oxyhemoglobin 92.8 % Methemoglobin 0.3 % (0.0-1.9) Carbon Monoxide, Quantitative 0.7 % (0.0-1.9) FiO2 2l n.c. Glucose (Fingerstick) 126 mg/dL (70-99) LAST VITALS Vital Signs Date Time Temp Pulse Resp B/P (MAP) Pulse Ox O2 Delivery O2 Flow Rate FiO2 02/21/19 09:33 97.5 103 20 122/65 (84) 94 Nasal Cannula 2.0 97.5 ISABEL HAINES MD Feb 21, 2019 11:52
--- NOTE | 2019-02-21 11:58 | RAD ---
AP chest. HISTORY: Right IJ line placement AP view was taken of the chest. There is a right jugular line which extends to the distal brachiocephalic vein or just into the superior vena cava. The heart is enlarged. There is no pneumothorax. No new infiltrates are noted. IMPRESSION: 1. Right IJ line extends to the top of the superior vena cava. 2. No other change. Electronically signed by: Arik Pearson MD (02/21/2019 11:55 AM) [id number]
[2019-02-21] MEDS ORDERED: POTASSIUM CHLORIDE 20 MEQ TABLET.ER. PO ONE (12:00)
[2019-02-21] MEDS ORDERED: CHLORTHALIDONE 25 MG TABLET. PO SCH (12:00)
--- NOTE | 2019-02-21 12:18 | PDOC2 ---
CONSULT Date of Consult Date of Consult DATE: 02/21/19 TIME: 12:18 Reason for Consult Reason for Consult: possible congestive heart failure Referring Physician Referring Physician: Dr. Larson Identification/Chief Complaint Chief Complaint Cellulitis Source Source: Chart review, Patient History of Present Illness Reason for Visit: 53-year-old male was brought by EMS after he was found on the floor of his house by his neighbor. He was apparently on the floor for approximately 12 hours since she was weak to get up. He was diagnosed with hypoglycemia with BMS 20 per EMS. He he has history of diabetes and takes metformin and glipizide but apparently was not eating anything all day. He was also diagnosed with cellulitis of right leg and admitted for further management. Cardiology has been consulted for el evated BNP level. Patient denied any change in his baseline dyspnea on exertion. He also denied any chest pain or palpitations. He does not have any previous cardiac history. Past Medical History Cardiovascular: HTN, Hyperlipidemia Endocrine: Diabetes Family History Family History: High Cholestrol, Hypertension Social History No ALCOHOL: heavy Drugs: None Current Problem List Problem List Problems Medical Problems: (1) Acute renal failure Status: Acute (2) Cellulitis of right leg Status: Acute (3) Dehydration Status: Acute (4) Dyspnea Status: Acute (5) Hypoglycemia Status: Acute (6) Severe sepsis Status: Acute Current Medications Current Medications Current Medications Dextrose (Dextrose 50%-Water Syringe) 25 gm STK-MED ONCE IV ; Start 02/21/19 at 03:08; Stop 02/21/19 at 03:08; Status DC Dextrose (Dextrose 50%-Water Syringe) 25 gm 1X ONCE IV Last administered on 02/21/19at 05:59; Start 02/21/19 at 04:30; Stop 02/21/19 at 04:31; Status DC Sodium Chloride 1,000 ml @ 1,000 mls/hr Q1H IV Last administered on 02/21/19at 04:44; Start 02/21/19 at 04:30; Stop 02/21/19 at 05:29; Status DC Albuterol/ Ipratropium (Duoneb) 3 ml 1X ONCE NEB Last administered on 02/21/19at 04:19; Start 02/21/19 at 04:30; Stop 02/21/19 at 04:31; Status DC Methylprednisolone Sodium Succinate (SOLU-Medrol 125MG VIAL) 125 mg 1X ONCE IV Last administered on 02/21/19at 04:11; Start 02/21/19 at 04:30; Stop 02/21/19 at 04:31; Status DC Dextrose 500 ml @ 150 mls/hr 1X ONCE IV Last administered on 02/21/19at 04:30; Start 02/21/19 at 04:30; Stop 02/21/19 at 07:49; Status DC Vancomycin HCl 2 gm/Sodium Chloride 500 ml @ 250 mls/hr 1X ONCE IV Last administered on 02/21/19at 04:49; Start 02/21/19 at 04:30; Stop 02/21/19 at 06:29; Status DC Sodium Chloride 1,000 ml @ 1,000 mls/hr 1X ONCE IV ; Start 02/21/19 at 05:30; Stop 02/21/19 at 06:29; Status DC Ondansetron HCl (Zofran) 4 mg PRN Q8HRS PRN IV NAUSEA/VOMITING 1ST CHOICE; Start 02/21/19 at 05:30; Stop 02/21/19 at 11:17; Status DC Morphine Sulfate (Morphine Sulfate) 4 mg PRN Q2HR PRN IV SEVERE PAIN 7-10 Last administered on 02/21/19at 09:07; Start 02/21/19 at 05:30; Stop 02/22/19 at 05:29 Sodium Chloride 1,000 ml @ 100 mls/hr Q10H IV ; Start 02/21/19 at 06:00; Stop 02/22/19 at 05:59 Acetaminophen (Tylenol) 650 mg PRN Q4HRS PRN PO FEVER; Start 02/21/19 at 05:30; Stop 02/21/19 at 11:18; Status DC Albuterol/ Ipratropium (Duoneb) 3 ml RTQID NEB Last administered on 02/21/19at 12:00; Start 02/21/19 at 08:00; Stop 02/22/19 at 07:59 Piperacillin Sod/ Tazobactam Sod 3.375 gm/Sodium Chloride 50 ml @ 100 mls/hr 1X ONCE IV Last administered on 02/21/19at 05:47; Start 02/21/19 at 06:00; Stop 02/21/19 at 06:29; Status DC Acetaminophen (Tylenol) 650 mg PRN Q6HRS PRN PO Headaches, Temp > 101.5'; Start 02/21/19 at 11:15 Ondansetron HCl (Zofran) 4 mg PRN Q6HRS PRN IV NAUSEA/VOMITING; Start 02/21/19 at 11:15 Famotidine (Pepcid Vial) 20 mg BID IVP ; Start 02/21/19 at 11:30 Info (Icu Electrolyte Protocol) 1 ea DAILY MC ; Start 02/22/19 at 09:00 Heparin Sodium (Porcine) (Heparin Sodium) 5,000 unit Q8HRS SQ ; Start 02/21/19 at 14:00 Sodium Chloride (Normal Saline Flush) 3 ml QSHIFT PRN IV AFTER MEDS AND BLOOD DRAWS; Start 02/21/19 at 11:15 Docusate Sodium (Colace) 100 mg BID PO ; Start 02/21/19 at 12:00 Bisacodyl (Dulcolax Supp) 10 mg PRN DAILY PRN [place] CONSTIPATION; Start 02/21/19 at 11:15 Atenolol (Tenormin) 50 mg DAILY PO ; Start 02/21/19 at 12:00 Chlorthalidone (Thalitone) 25 mg DAILY PO ; Start 02/21/19 at 12:00 Multivitamins (Thera M Plus) 1 tab DAILY PO ; Start 02/21/19 at 12:00 Folic Acid (Folic Acid) 1 mg DAILY PO ; Start 02/21/19 at 12:00 Thiamine Mononitrate (Vitamin B-1) 100 mg DAILY PO ; Start 02/21/19 at 12:00 Lorazepam (Ativan) 4 mg PRN Q1HR PRN PO For CIWA 8-14; Start 02/21/19 at 11:30 Lorazepam (Ativan) 8 mg PRN Q1HR PRN PO For CIWA 15 or greater; Start 02/21/19 at 11:30 Lorazepam (Ativan Inj) 2 mg PRN Q1HR PRN IV For CIWA 8-14; Start 02/21/19 at 11:30 Lorazepam (Ativan Inj) 4 mg PRN Q1HR PRN IV For CIWA 15 or greater; Start 02/21/19 at 11:30 Haloperidol Lactate (Haldol Inj) 5 mg PRN Q4HRS PRN IVP Hallucinatns,Confu sn,Delirium; Start 02/21/19 at 11:30 Clonidine HCl (Catapres) 0.1 mg PRN Q1HR PRN PO SBP > 180 or DBP > 100, MRX3; Start 02/21/19 at 11:30 Lorazepam (Ativan Inj) 2 mg PRN Q15MIN PRN IV SEE COMMENTS; Start 02/21/19 at 11:30 Lorazepam (Ativan Inj) 4 mg PRN Q15MIN PRN IV SEE COMMENTS; Start 02/21/19 at 11:30 Potassium Chloride (Klor-Con) 20 meq 1X ONCE PO ; Start 02/21/19 at 12:00; Stop 02/21/19 at 12:01; Status DC Active Scripts Active Reported Glipizide 5 Mg Tablet 1 Tab PO BID Metformin Hcl 1,000 Mg Tablet 1,000 Mg PO BIDWMEALS Atenolol 50 Mg Tablet 1 Tab PO DAILY Chlorthalidone (Chlorthalidone) 25 Mg Tablet 25 Mg PO DAILY Allergies Allergies: Coded Allergies: No Known Drug Allergies (Unverified , 02/21/19) ROS General: YES: Fatigue, Malaise, Appetite (loss of) PSYCHOLOGICAL ROS: No: Hallucinations Eyes: No Loss of vision HEENT: No: Epistaxis Respiratory: No: Hemoptysis Cardiovascular: No Chest Pain Gastrointestinal: No Vomiting Genitourinary: No Incontinence Musculoskeletal: Yes Other (3+ edema with cellulitis and chronic changes right leg, 1+ edema with pigmentation left leg) Vitals VITALS Vital Signs Date Time Temp Pulse Resp B/P (MAP) Pulse Ox O2 Delivery O2 Flow Rate FiO2 02/21/19 12:15 95 Nasal Cannula 2.0 02/21/19 09:33 97.5 103 20 122/65 (84) 97.5 Labs Labs Laboratory Tests Test 02/21/19 02:58 02/21/19 03:12 02/21/19 03:15 02/21/19 03:50 Glucose (Fingerstick) 29 mg/dL (70-99) 93 mg/dL (70-99) 63 mg/dL (70-99) White Blood Count 28.8 x10^3/uL (4.0-11.0) Red Blood Count 4.07 x10^6/uL (4.30-5.70) Hemoglobin 12.5 g/dL (13.0-17.5) Hematocrit 38.1 % (39.0-53.0) Mean Corpuscular Volume 94 fL (79-100) Mean Corpuscular Hemoglobin 31 pg (25-35) Mean Corpuscular Hemoglobin Concent 33 g/dL (31-37) Red Cell Distribution Width 15.9 % (11.5-14.5) Platelet Count 352 x10^3/uL (140-400) Neutrophils (%) (Auto) 94 % (31-73) Lymphocytes (%) (Auto) 4 % (24-48) Monocytes (%) (Auto) 0 % (0-9) Eosinophils (%) (Auto) 1 % (0-3) Basophils (%) (Auto) 0 % (0-3) Neutrophils # (Auto) 27.2 x10^3/uL (1.8-7.7) Lymphocytes # (Auto) 1.2 x10^3/uL (1.0-4.8) Monocytes # (Auto) 0.1 x10^3/uL (0.0-1.1) Eosinophils # (Auto) 0.3 x10^3/uL (0.0-0.7) Basophils # (Auto) 0.1 x10^3/uL (0.0-0.2) Segmented Neutrophils % 82 % (35-66) Band Neutrophils % 9 % (0-9) Lymphocytes % 5 % (24-48) Monocytes % 3 % (0-10) Metamyelocytes % 1 % (0-0) Toxic Granulation Mod Toxic Vacuolation Mod Platelet Estimate Adequate (ADEQUATE) Prothrombin Time 17.1 SEC (11.7-14.0) Prothromb Time International Ratio 1.4 (0.8-1.1) Test 02/21/19 03:55 02/21/19 05:41 02/21/19 06:06 02/21/19 08:55 Sodium Level 135 mmol/L (136-145) Potassium Level 3.3 mmol/L (3.5-5.1) Chloride Level 96 mmol/L (98-107) Carbon Dioxide Level 27 mmol/L (21-32) Anion Gap 12 (6-14) Blood Urea Nitrogen 56 mg/dL (8-26) Creatinine 2.8 mg/dL (0.7-1.3) Estimated GFR (Cockcroft-Gault) 23.7 BUN/Creatinine Ratio 20 (6-20) Glucose Level 76 mg/dL (70-99) Lactic Acid Level 2.2 mmol/L (0.4-2.0) 1.9 mmol/L (0.4-2.0) Calcium Level 8.9 mg/dL (8.5-10.1) Magnesium Level 2.0 mg/dL (1.8-2.4) Total Bilirubin 0.7 mg/dL (0.2-1.0) Aspartate Amino Transf (AST/SGOT) 91 U/L (15-37) Alanine Aminotransferase (ALT/SGPT) 30 U/L (16-63) Alkaline Phosphatase 98 U/L (46-116) Creatine Kinase 633 U/L (39-308) Creatine Kinase MB (Mass) 3.1 ng/mL (0.0-3.6) Creatine Kinase MB Relative Index 0.5 % (0-4) Troponin I Quantitative < 0.017 ng/mL (0.000-0.055) MY-Rpq-I-Type Natriuretic Peptide 5369 pg/mL (0-124) Total Protein 8.9 g/dL (6.4-8.2) Albumin 1.5 g/dL (3.4-5.0) Albumin/Globulin Ratio 0.2 (1.0-1.7) Lipase 92 U/L (73-393) Ethyl Alcohol Level < 10 mg/dL (0-10) Glucose (Fingerstick) 48 mg/dL (70-99) 114 mg/dL (70-99) Test 02/21/19 09:13 02/21/19 09:29 O2 Saturation 94 % (92-99) Arterial Blood pH 7.38 (7.35-7.45) Arterial Blood pCO2 at Patient Temp 39 mmHg (35-46) Arterial Blood pO2 at Patient Temp 78 mmHg (75-108) Arterial Blood HCO3 23 mmol/L (21-28) Arterial Blood Base Excess -2 mmol/L (-3-3) Oxyhemoglobin 92.8 % Methemoglobin 0.3 % (0.0-1.9) Carbon Monoxide, Quantitative 0.7 % (0.0-1.9) FiO2 2l n.c. Glucose (Fingerstick) 126 mg/dL (70-99) Laboratory Tests Test 02/21/19 02:58 02/21/19 03:12 02/21/19 03:15 02/21/19 03:50 Glucose (Fingerstick) 29 mg/dL (70-99) 93 mg/dL (70-99) 63 mg/dL (70-99) White Blood Count 28.8 x10^3/uL (4.0-11.0) Red Blood Count 4.07 x10^6/uL (4.30-5.70) Hemoglobin 12.5 g/dL (13.0-17.5) Hematocrit 38.1 % (39.0-53.0) Mean Corpuscular Volume 94 fL (79-100) Mean Corpuscular Hemoglobin 31 pg (25-35) Mean Corpuscular Hemoglobin Concent 33 g/dL (31-37) Red Cell Distribution Width 15.9 % (11.5-14.5) Platelet Count 352 x10^3/uL (140-400) Neutrophils (%) (Auto) 94 % (31-73) Lymphocytes (%) (Auto) 4 % (24-48) Monocytes (%) (Auto) 0 % (0-9) Eosinophils (%) (Auto) 1 % (0-3) Basophils (%) (Auto) 0 % (0-3) Neutrophils # (Auto) 27.2 x10^3/uL (1.8-7.7) Lymphocytes # (Auto) 1.2 x10^3/uL (1.0-4.8) Monocytes # (Auto) 0.1 x10^3/uL (0.0-1.1) Eosinophils # (Auto) 0.3 x10^3/uL (0.0-0.7) Basophils # (Auto) 0.1 x10^3/uL (0.0-0.2) Segmented Neutrophils % 82 % (35-66) Band Neutrophils % 9 % (0-9) Lymphocytes % 5 % (24-48) Monocytes % 3 % (0-10) Metamyelocytes % 1 % (0-0) Toxic Granulation Mod Toxic Vacuolation Mod Platelet Estimate Adequate (ADEQUATE) Prothrombin Time 17.1 SEC (11.7-14.0) Prothromb Time International Ratio 1.4 (0.8-1.1) Test 02/21/19 03:55 02/21/19 05:41 02/21/19 06:06 02/21/19 08:55 Sodium Level 135 mmol/L (136-145) Potassium Level 3.3 mmol/L (3.5-5.1) Chloride Level 96 mmol/L (98-107) Carbon Dioxide Level 27 mmol/L (21-32) Anion Gap 12 (6-14) Blood Urea Nitrogen 56 mg/dL (8-26) Creatinine 2.8 mg/dL (0.7-1.3) Estimated GFR (Cockcroft-Gault) 23.7 BUN/Creatinine Ratio 20 (6-20) Glucose Level 76 mg/dL (70-99) Lactic Acid Level 2.2 mmol/L (0.4-2.0) 1.9 mmol/L (0.4-2.0) Calcium Level 8.9 mg/dL (8.5-10.1) Magnesium Level 2.0 mg/dL (1.8-2.4) Total Bilirubin 0.7 mg/dL (0.2-1.0) Aspartate Amino Transf (AST/SGOT) 91 U/L (15-37) Alanine Aminotransferase (ALT/SGPT) 30 U/L (16-63) Alkaline Phosphatase 98 U/L (46-116) Creatine Kinase 633 U/L (39-308) Creatine Kinase MB (Mass) 3.1 ng/mL (0.0-3.6) Creatine Kinase MB Relative Index 0.5 % (0-4) Troponin I Quantitative < 0.017 ng/mL (0.000-0.055) NR-Rar-E-Type Natriuretic Peptide 5369 pg/mL (0-124) Total Protein 8.9 g/dL (6.4-8.2) Albumin 1.5 g/dL (3.4-5.0) Albumin/Globulin Ratio 0.2 (1.0-1.7) Lipase 92 U/L (73-393) Ethyl Alcohol Level < 10 mg/dL (0-10) Glucose (Fingerstick) 48 mg/dL (70-99) 114 mg/dL (70-99) Test 02/21/19 09:13 02/21/19 09:29 O2 Saturation 94 % (92-99) Arterial Blood pH 7.38 (7.35-7.45) Arterial Blood pCO2 at Patient Temp 39 mmHg (35-46) Arterial Blood pO2 at Patient Temp 78 mmHg (75-108) Arterial Blood HCO3 23 mmol/L (21-28) Arterial Blood Base Excess -2 mmol/L (-3-3) Oxyhemoglobin 92.8 % Methemoglobin 0.3 % (0.0-1.9) Carbon Monoxide, Quantitative 0.7 % (0.0-1.9) FiO2 2l n.c. Glucose (Fingerstick) 126 mg/dL (70-99) Assessment/Plan Assessment/Plan 1. Cellulitis right lower extremity: Continue antibiotics per ID team. Physical exam consistent with significant venous insufficiency and lymphedema. Consider venous reflux study as an outpatient. 2. Elevated BNP level. Chest x-ray however did not show any acute cardiopulmonary process. Check 2-D echo to assess LV systolic function. 3. Severe hypoglycemia in a patient with diabetes and loss of appetite: Improved. Hold metformin and glipizide. Further evaluation and treatment per IM 4. Acute on chronic renal insufficiency, mild rhabdomyolysis from fall: Nephr ology following 5. Alcohol abuse: Advised on abstinence. Monitor for withdrawal Thank you for your consultation YOBANI BROWN MD Feb 21, 2019 12:18
[2019-02-21 12:41] LABS: BILIRUBIN,URINE MODERATE (NEG); CLARITY,URINE TURBID; PROTEIN,URINE 30 mg/dL (NEG-TRACE)
--- NOTE | 2019-02-21 12:43 | PDOC2 ---
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 He told the ER that he was probably on the floor for about 12 hours. He appears to have been laying on his left upper extremity which he is having difficulty moving currently. He reports that he was too weak to get up himself. He was not sure why he was on the floor, or if he fell. He does not remember passing out. He admits that he's been weak for the last few days. He also feels like he was coming down with the flu. He was having some difficulty urinating. Patient had not been drinking or eating the last few days. His blood sugar was in the 20 per EMS. He responded to correction of the same. He does complaint of aching and cramping in his back. Presentation his CPK was noted to be 633 Patient is known to have diabetes for at least 10 years. He does not follow with a primary care provider that he is aware off area does not know what his A1c her baseline creatinine is. He does think he has had some recent visual difficulties. He is not aware of diabetic retinopathy per se. He does admit to recent Tylenol use and denies NSAIDs. He is felt to be a heavy drinker also. Kimbrough catheter was placed and is currently noted to drain significantly turbid discolored looking urine Past Medical History Past Medical History Morbid obesity Possible lymph edema right lower extremity Cardiovascular: HTN, Hyperlipidemia Musculoskeletal: low back pain, Osteoarthritis Endocrine: Diabetes Family History Family History: High Cholestrol, Hypertension, Kidney Disease (son has reflux nephropathy, required nephrectomy) Social History No ALCOHOL: heavy Drugs: None Lives: with Family Current Problem List Problem List Problems Medical Problems: (1) Acute renal failure Status: Acute (2) Cellulitis of right leg Status: Acute (3) Dehydration Status: Acute (4) Dyspnea Status: Acute (5) Hypoglycemia Status: Acute (6) Severe sepsis Status: Acute Current Medications Current Medications Current Medications Dextrose (Dextrose 50%-Water Syringe) 25 gm STK-MED ONCE IV ; Start 02/21/19 at 03:08; Stop 02/21/19 at 03:08; Status DC Dextrose (Dextrose 50%-Water Syringe) 25 gm 1X ONCE IV Last administered on 02/21/19at 05:59; Start 02/21/19 at 04:30; Stop 02/21/19 at 04:31; Status DC Sodium Chloride 1,000 ml @ 1,000 mls/hr Q1H IV Last administered on 02/21/19at 04:44; Start 02/21/19 at 04:30; Stop 02/21/19 at 05:29; Status DC Albuterol/ Ipratropium (Duoneb) 3 ml 1X ONCE NEB Last administered on 02/21/19at 04:19; Start 02/21/19 at 04:30; Stop 02/21/19 at 04:31; Status DC Methylprednisolone Sodium Succinate (SOLU-Medrol 125MG VIAL) 125 mg 1X ONCE IV Last administered on 02/21/19at 04:11; Start 02/21/19 at 04:30; Stop 02/21/19 at 04:31; Status DC Dextrose 500 ml @ 150 mls/hr 1X ONCE IV Last administered on 02/21/19at 04:30; Start 02/21/19 at 04:30; Stop 02/21/19 at 07:49; Status DC Vancomycin HCl 2 gm/Sodium Chloride 500 ml @ 250 mls/hr 1X ONCE IV Last administered on 02/21/19at 04:49; Start 02/21/19 at 04:30; Stop 02/21/19 at 06:29; Status DC Sodium Chloride 1,000 ml @ 1,000 mls/hr 1X ONCE IV ; Start 02/21/19 at 05:30; Stop 02/21/19 at 06:29; Status DC Ondansetron HCl (Zofran) 4 mg PRN Q8HRS PRN IV NAUSEA/VOMITING 1ST CHOICE; Start 02/21/19 at 05:30; Stop 02/21/19 at 11:17; Status DC Morphine Sulfate (Morphine Sulfate) 4 mg PRN Q2HR PRN IV SEVERE PAIN 7-10 Last administered on 02/21/19at 09:07; Start 02/21/19 at 05:30; Stop 02/22/19 at 05:29 Sodium Chloride 1,000 ml @ 100 mls/hr Q10H IV ; Start 02/21/19 at 06:00; Stop 02/22/19 at 05:59 Acetaminophen (Tylenol) 650 mg PRN Q4HRS PRN PO FEVER; Start 02/21/19 at 05:30; Stop 02/21/19 at 11:18; Status DC Albuterol/ Ipratropium (Duoneb) 3 ml RTQID NEB Last administered on 02/21/19at 12:00; Start 02/21/19 at 08:00; Stop 02/22/19 at 07:59 Piperacillin Sod/ Tazobactam Sod 3.375 gm/Sodium Chloride 50 ml @ 100 mls/hr 1X ONCE IV Last administered on 02/21/19at 05:47; Start 02/21/19 at 06:00; Stop 02/21/19 at 06:29; Status DC Acetaminophen (Tylenol) 650 mg PRN Q6HRS PRN PO Headaches, Temp > 101.5'; Start 02/21/19 at 11:15 Ondansetron HCl (Zofran) 4 mg PRN Q6HRS PRN IV NAUSEA/VOMITING; Start 02/21/19 at 11:15 Famotidine (Pepcid Vial) 20 mg BID IVP ; Start 02/21/19 at 11:30 Info (Icu Electrolyte Protocol) 1 ea DAILY MC ; Start 02/22/19 at 09:00 Heparin Sodium (Porcine) (Heparin Sodium) 5,000 unit Q8HRS SQ ; Start 02/21/19 at 14:00 Sodium Chloride (Normal Saline Flush) 3 ml QSHIFT PRN IV AFTER MEDS AND BLOOD DRAWS; Start 02/21/19 at 11:15 Docusate Sodium (Colace) 100 mg BID PO ; Start 02/21/19 at 12:00 Bisacodyl (Dulcolax Supp) 10 mg PRN DAILY PRN RI CONSTIPATION; Start 02/21/19 at 11:15 Atenolol (Tenormin) 50 mg DAILY PO ; Start 02/21/19 at 12:00 Chlorthalidone (Thalitone) 25 mg DAILY PO ; Start 02/21/19 at 12:00 Multivitamins (Thera M Plus) 1 tab DAILY PO ; Start 02/21/19 at 12:00 Folic Acid (Folic Acid) 1 mg DAILY PO ; Start 02/21/19 at 12:00 Thiamine Mononitrate (Vitamin B-1) 100 mg DAILY PO ; Start 02/21/19 at 12:00 Lorazepam (Ativan) 4 mg PRN Q1HR PRN PO For CIWA 8-14; Start 02/21/19 at 11:30 Lorazepam (Ativan) 8 mg PRN Q1HR PRN PO For CIWA 15 or greater; Start 02/21/19 at 11:30 Lorazepam (Ativan Inj) 2 mg PRN Q1HR PRN IV For CIWA 8-14; Start 02/21/19 at 11:30 Lorazepam (Ativan Inj) 4 mg PRN Q1HR PRN IV For CIWA 15 or greater; Start 02/21/19 at 11:30 Haloperidol Lactate (Haldol Inj) 5 mg PRN Q4HRS PRN IVP Hallucinatns,Confusn,Delirium; Start 02/21/19 at 11:30 Clonidine HCl (Catapres) 0.1 mg PRN Q1HR PRN PO SBP > 180 or DBP > 100, MRX3; Start 02/21/19 at 11:30 Lorazepam (Ativan Inj) 2 mg PRN Q15MIN PRN IV SEE COMMENTS; Start 02/21/19 at 11:30 Lorazepam (Ativan Inj) 4 mg PRN Q15MIN PRN IV SEE COMMENTS; Start 02/21/19 at 11:30 Potassium Chloride (Klor-Con) 20 meq 1X ONCE PO ; Start 02/21/19 at 12:00; Stop 02/21/19 at 12:01; Status DC Active Scripts Active Reported Glipizide 5 Mg Tablet 1 Tab PO BID Metformin Hcl 1,000 Mg Tablet 1,000 Mg PO BIDWMEALS Atenolol 50 Mg Tablet 1 Tab PO DAILY Chlorthalidone (Chlorthalidone) 25 Mg Tablet 25 Mg PO DAILY Allergies Allergies: Coded Allergies: No Known Drug Allergies (Unverified , 02/21/19) ROS Review of System 14 point systems were reviewed with the patient and positives are as in history of present illness otherwise negative Physical Exam Physical Exam General Appearance: Awake Alert Oriented x 3 In no Distress, morbidly obese Eyes: VIsion Unchanged Conjunctiva Normal EN: No EN Drainage Mucous Memb. Dryish Neck: no JVD no JVP Supple no Thyromegaly, short thick neck CVS: S1 S2 no audible Murmur No Gallop No Rub chronic lymph Edema with some erythema right lower extremity Resp: no Rales no Rhonchi no Acc. Muscle use GI: BAS +ve NO Bruit Non Tender Non Distended morbidly obese : no CVA tenderness; no Suprapubic Tenderness on a Kimbrough catheter in place SKIN: + Edematous Rash right lower extremity Breast Exam deferred Mu.Sk: Adequate ROM except left upper arm, no Muscle Atrophy Heme: Unable to palpate Obvious LAD no palpable Splenomegaly given obesity NEURO: Good Strength (except left upper extremity) and Tone Cranial Nerves II - XII grossly intact Psych: not Depressed no Active hallucination Vital Signs Vital Signs Date Time Temp Pulse Resp B/P (MAP) Pulse Ox O2 Delivery O2 Flow Rate FiO2 02/21/19 12:15 95 Nasal Cannula 2.0 02/21/19 09:33 97.5 103 20 122/65 (84) 97.5 Assessment & Plan ARF: Possible ATN versus pyelonephritis (acute interstitial nephritis): Current FLuid and E-lyte status does not necessitate emergent need for Dialysis. Continue gentle IV fluids as you've doing. We'll trend CPK Possible intravascular volume depletion cannot be ruled out. I will hold off on chlorthalidone for now Possible rhabdomyolysis: (Either due to downtime versus due to hypoglycemia) IV fluids as ordered Possible UTI/sepsis cannot be ruled out: Check UA C&S as ordered. Has received empiric antibiotics will continue same for now HTN: Current BP meds reviewed. On chlorthalidone for now Hypokalemia: We'll place as ordered. Magnesium is normal. Hold chlorthalidone for now Severe hypoalbuminemia: We'll check UA for proteinuria. Unclear if patient's alcoholism may be graduating to liver disease and low albumin. Recent onset anorexia: Unclear Etiology AbNormal-appearing urine: Possible UTI. Highly likely that reveals fine some protein in there Significant protein gap: Unclear if this is due to infection Discussed Plan of Care and prognosis etc. at length with family. Labs Labs Laboratory Tests Test 02/21/19 02:58 02/21/19 03:12 02/21/19 03:15 02/21/19 03:50 Glucose (Fingerstick) 29 mg/dL (70-99) 93 mg/dL (70-99) 63 mg/dL (70-99) White Blood Count 28.8 x10^3/uL (4.0-11.0) Red Blood Count 4.07 x10^6/uL (4.30-5.70) Hemoglobin 12.5 g/dL (13.0-17.5) Hematocrit 38.1 % (39.0-53.0) Mean Corpuscular Volume 94 fL (79-100) Mean Corpuscular Hemoglobin 31 pg (25-35) Mean Corpuscular Hemoglobin Concent 33 g/dL (31-37) Red Cell Distribution Width 15.9 % (11.5-14.5) Platelet Count 352 x10^3/uL (140-400) Neutrophils (%) (Auto) 94 % (31-73) Lymphocytes (%) (Auto) 4 % (24-48) Monocytes (%) (Auto) 0 % (0-9) Eosinophils (%) (Auto) 1 % (0-3) Basophils (%) (Auto) 0 % (0-3) Neutrophils # (Auto) 27.2 x10^3/uL (1.8-7.7) Lymphocytes # (Auto) 1.2 x10^3/uL (1.0-4.8) Monocytes # (Auto) 0.1 x10^3/uL (0.0-1.1) Eosinophils # (Auto) 0.3 x10^3/uL (0.0-0.7) Basophils # (Auto) 0.1 x10^3/uL (0.0-0.2) Segmented Neutrophils % 82 % (35-66) Band Neutrophils % 9 % (0-9) Lymphocytes % 5 % (24-48) Monocytes % 3 % (0-10) Metamyelocytes % 1 % (0-0) Toxic Granulation Mod Toxic Vacuolation Mod Platelet Estimate Adequate (ADEQUATE) Prothrombin Time 17.1 SEC (11.7-14.0) Prothromb Time International Ratio 1.4 (0.8-1.1) Test 02/21/19 03:55 02/21/19 05:41 02/21/19 06:06 02/21/19 08:55 Sodium Level 135 mmol/L (136-145) Potassium Level 3.3 mmol/L (3.5-5.1) Chloride Level 96 mmol/L (98-107) Carbon Dioxide Level 27 mmol/L (21-32) Anion Gap 12 (6-14) Blood Urea Nitrogen 56 mg/dL (8-26) Creatinine 2.8 mg/dL (0.7-1.3) Estimated GFR (Cockcroft-Gault) 23.7 BUN/Creatinine Ratio 20 (6-20) Glucose Level 76 mg/dL (70-99) Lactic Acid Level 2.2 mmol/L (0.4-2.0) 1.9 mmol/L (0.4-2.0) Calcium Level 8.9 mg/dL (8.5-10.1) Magnesium Level 2.0 mg/dL (1.8-2.4) Total Bilirubin 0.7 mg/dL (0.2-1.0) Aspartate Amino Transf (AST/SGOT) 91 U/L (15-37) Alanine Aminotransferase (ALT/SGPT) 30 U/L (16-63) Alkaline Phosphatase 98 U/L (46-116) Creatine Kinase 633 U/L (39-308) Creatine Kinase MB (Mass) 3.1 ng/mL (0.0-3.6) Creatine Kinase MB Relative Index 0.5 % (0-4) Troponin I Quantitative < 0.017 ng/mL (0.000-0.055) GF-Uum-G-Type Natriuretic Peptide 5369 pg/mL (0-124) Total Protein 8.9 g/dL (6.4-8.2) Albumin 1.5 g/dL (3.4-5.0) Albumin/Globulin Ratio 0.2 (1.0-1.7) Lipase 92 U/L (73-393) Ethyl Alcohol Level < 10 mg/dL (0-10) Glucose (Fingerstick) 48 mg/dL (70-99) 114 mg/dL (70-99) Test 02/21/19 09:13 02/21/19 09:29 O2 Saturation 94 % (92-99) Arterial Blood pH 7.38 (7.35-7.45) Arterial Blood pCO2 at Patient Temp 39 mmHg (35-46) Arterial Blood pO2 at Patient Temp 78 mmHg (75-108) Arterial Blood HCO3 23 mmol/L (21-28) Arterial Blood Base Excess -2 mmol/L (-3-3) Oxyhemoglobin 92.8 % Methemoglobin 0.3 % (0.0-1.9) Carbon Monoxide, Quantitative 0.7 % (0.0-1.9) FiO2 2l n.c. Glucose (Fingerstick) 126 mg/dL (70-99) Laboratory Tests Test 02/21/19 02:58 02/21/19 03:12 02/21/19 03:15 02/21/19 03:50 Glucose (Fingerstick) 29 mg/dL (70-99) 93 mg/dL (70-99) 63 mg/dL (70-99) White Blood Count 28.8 x10^3/uL (4.0-11.0) Red Blood Count 4.07 x10^6/uL (4.30-5.70) Hemoglobin 12.5 g/dL (13.0-17.5) Hematocrit 38.1 % (39.0-53.0) Mean Corpuscular Volume 94 fL (79-100) Mean Corpuscular Hemoglobin 31 pg (25-35) Mean Corpuscular Hemoglobin Concent 33 g/dL (31-37) Red Cell Distribution Width 15.9 % (11.5-14.5) Platelet Count 352 x10^3/uL (140-400) Neutrophils (%) (Auto) 94 % (31-73) Lymphocytes (%) (Auto) 4 % (24-48) Monocytes (%) (Auto) 0 % (0-9) Eosinophils (%) (Auto) 1 % (0-3) Basophils (%) (Auto) 0 % (0-3) Neutrophils # (Auto) 27.2 x10^3/uL (1.8-7.7) Lymphocytes # (Auto) 1.2 x10^3/uL (1.0-4.8) Monocytes # (Auto) 0.1 x10^3/uL (0.0-1.1) Eosinophils # (Auto) 0.3 x10^3/uL (0.0-0.7) Basophils # (Auto) 0.1 x10^3/uL (0.0-0.2) Segmented Neutrophils % 82 % (35-66) Band Neutrophils % 9 % (0-9) Lymphocytes % 5 % (24-48) Monocytes % 3 % (0-10) Metamyelocytes % 1 % (0-0) Toxic Granulation Mod Toxic Vacuolation Mod Platelet Estimate Adequate (ADEQUATE) Prothrombin Time 17.1 SEC (11.7-14.0) Prothromb Time International Ratio 1.4 (0.8-1.1) Test 02/21/19 03:55 02/21/19 05:41 02/21/19 06:06 02/21/19 08:55 Sodium Level 135 mmol/L (136-145) Potassium Level 3.3 mmol/L (3.5-5.1) Chloride Level 96 mmol/L (98-107) Carbon Dioxide Level 27 mmol/L (21-32) Anion Gap 12 (6-14) Blood Urea Nitrogen 56 mg/dL (8-26) Creatinine 2.8 mg/dL (0.7-1.3) Estimated GFR (Cockcroft-Gault) 23.7 BUN/Creatinine Ratio 20 (6-20) Glucose Level 76 mg/dL (70-99) Lactic Acid Level 2.2 mmol/L (0.4-2.0) 1.9 mmol/L (0.4-2.0) Calcium Level 8.9 mg/dL (8.5-10.1) Magnesium Level 2.0 mg/dL (1.8-2.4) Total Bilirubin 0.7 mg/dL (0.2-1.0) Aspartate Amino Transf (AST/SGOT) 91 U/L (15-37) Alanine Aminotransferase (ALT/SGPT) 30 U/L (16-63) Alkaline Phosphatase 98 U/L (46-116) Creatine Kinase 633 U/L (39-308) Creatine Kinase MB (Mass) 3.1 ng/mL (0.0-3.6) Creatine Kinase MB Relative Index 0.5 % (0-4) Troponin I Quantitative < 0.017 ng/mL (0.000-0.055) JJ-Zvy-J-Type Natriuretic Peptide 5369 pg/mL (0-124) Total Protein 8.9 g/dL (6.4-8.2) Albumin 1.5 g/dL (3.4-5.0) Albumin/Globulin Ratio 0.2 (1.0-1.7) Lipase 92 U/L (73-393) Ethyl Alcohol Level < 10 mg/dL (0-10) Glucose (Fingerstick) 48 mg/dL (70-99) 114 mg/dL (70-99) Test 02/21/19 09:13 02/21/19 09:29 O2 Saturation 94 % (92-99) Arterial Blood pH 7.38 (7.35-7.45) Arterial Blood pCO2 at Patient Temp 39 mmHg (35-46) Arterial Blood pO2 at Patient Temp 78 mmHg (75-108) Arterial Blood HCO3 23 mmol/L (21-28) Arterial Blood Base Excess -2 mmol/L (-3-3) Oxyhemoglobin 92.8 % Methemoglobin 0.3 % (0.0-1.9) Carbon Monoxide, Quantitative 0.7 % (0.0-1.9) FiO2 2l n.c. Glucose (Fingerstick) 126 mg/dL (70-99) Review All relevant outside records, renal labs, imaging studies, telemetry/EKG's were reviewed. Images Images FINDINGS: A frontal view of the chest is obtained. Inspiration is small with mild basilar atelectasis. There are no confluent infiltrates. There is no pneumothorax or pleural effusion. The heart is moderately enlarged. IMPRESSION: 1. Small inspiration. Moderate cardiomegaly. SILVIA COUGHLIN MD Feb 21, 2019 12:43
[2019-02-21 12:48] LABS: BARBITURATES NEG (NEG); BENZODIAZEPINES NEG (NEG); CANNABINOIDS NEG (NEG); COCAINE NEG (NEG); METHADONE NEG (NEG); OPIATES POS (NEG); PHENCYCLIDINE NEG (NEG)
[2019-02-21 12:49] LABS: AMPHETAMINE/METHAMPHETAMINE NEG (NEG)
[2019-02-21 12:51] LABS: COLOR,URINE DK YELLOW
[2019-02-21 12:52] LABS: HYALINE CASTS, URINE MODERATE /HPF
[2019-02-21] MEDS ORDERED: MAGNESIUM SULFATE 2GM 50 ML IV PRN (13:00)
[2019-02-21] MEDS ORDERED: IV RINGERS,LACTATED 1000ML 1,000 ML IV SCH (13:00)
--- NOTE | 2019-02-21 13:09 | PDOC ---
Infectious Disease Note Vital Sign Vital Signs Vital Signs Date Time Temp Pulse Resp B/P (MAP) Pulse Ox O2 Delivery O2 Flow Rate FiO2 02/21/19 12:15 95 Nasal Cannula 2.0 02/21/19 10:00 17 02/21/19 09:33 97.5 103 122/65 (84) 97.5 Labs Lab Laboratory Tests Test 02/21/19 02:58 02/21/19 03:12 02/21/19 03:15 02/21/19 03:50 Glucose (Fingerstick) 29 mg/dL (70-99) 93 mg/dL (70-99) 63 mg/dL (70-99) White Blood Count 28.8 x10^3/uL (4.0-11.0) Red Blood Count 4.07 x10^6/uL (4.30-5.70) Hemoglobin 12.5 g/dL (13.0-17.5) Hematocrit 38.1 % (39.0-53.0) Mean Corpuscular Volume 94 fL (79-100) Mean Corpuscular Hemoglobin 31 pg (25-35) Mean Corpuscular Hemoglobin Concent 33 g/dL (31-37) Red Cell Distribution Width 15.9 % (11.5-14.5) Platelet Count 352 x10^3/uL (140-400) Neutrophils (%) (Auto) 94 % (31-73) Lymphocytes (%) (Auto) 4 % (24-48) Monocytes (%) (Auto) 0 % (0-9) Eosinophils (%) (Auto) 1 % (0-3) Basophils (%) (Auto) 0 % (0-3) Neutrophils # (Auto) 27.2 x10^3/uL (1.8-7.7) Lymphocytes # (Auto) 1.2 x10^3/uL (1.0-4.8) Monocytes # (Auto) 0.1 x10^3/uL (0.0-1.1) Eosinophils # (Auto) 0.3 x10^3/uL (0.0-0.7) Basophils # (Auto) 0.1 x10^3/uL (0.0-0.2) Segmented Neutrophils % 82 % (35-66) Band Neutrophils % 9 % (0-9) Lymphocytes % 5 % (24-48) Monocytes % 3 % (0-10) Metamyelocytes % 1 % (0-0) Toxic Granulation Mod Toxic Vacuolation Mod Platelet Estimate Adequate (ADEQUATE) Prothrombin Time 17.1 SEC (11.7-14.0) Prothromb Time International Ratio 1.4 (0.8-1.1) Test 02/21/19 03:55 02/21/19 05:41 02/21/19 06:06 02/21/19 08:55 Sodium Level 135 mmol/L (136-145) Potassium Level 3.3 mmol/L (3.5-5.1) Chloride Level 96 mmol/L (98-107) Carbon Dioxide Level 27 mmol/L (21-32) Anion Gap 12 (6-14) Blood Urea Nitrogen 56 mg/dL (8-26) Creatinine 2.8 mg/dL (0.7-1.3) Estimated GFR (Cockcroft-Gault) 23.7 BUN/Creatinine Ratio 20 (6-20) Glucose Level 76 mg/dL (70-99) Lactic Acid Level 2.2 mmol/L (0.4-2.0) 1.9 mmol/L (0.4-2.0) Calcium Level 8.9 mg/dL (8.5-10.1) Magnesium Level 2.0 mg/dL (1.8-2.4) Total Bilirubin 0.7 mg/dL (0.2-1.0) Aspartate Amino Transf (AST/SGOT) 91 U/L (15-37) Alanine Aminotransferase (ALT/SGPT) 30 U/L (16-63) Alkaline Phosphatase 98 U/L (46-116) Creatine Kinase 633 U/L (39-308) Creatine Kinase MB (Mass) 3.1 ng/mL (0.0-3.6) Creatine Kinase MB Relative Index 0.5 % (0-4) Troponin I Quantitative < 0.017 ng/mL (0.000-0.055) LV-Dic-Q-Type Natriuretic Peptide 5369 pg/mL (0-124) Total Protein 8.9 g/dL (6.4-8.2) Albumin 1.5 g/dL (3.4-5.0) Albumin/Globulin Ratio 0.2 (1.0-1.7) Lipase 92 U/L (73-393) Ethyl Alcohol Level < 10 mg/dL (0-10) Glucose (Fingerstick) 48 mg/dL (70-99) 114 mg/dL (70-99) Thyroid Stimulating Hormone (TSH) 0.961 uIU/mL (0.358-3.74) Test 02/21/19 09:13 02/21/19 09:29 02/21/19 12:15 O2 Saturation 94 % (92-99) Arterial Blood pH 7.38 (7.35-7.45) Arterial Blood pCO2 at Patient Temp 39 mmHg (35-46) Arterial Blood pO2 at Patient Temp 78 mmHg (75-108) Arterial Blood HCO3 23 mmol/L (21-28) Arterial Blood Base Excess -2 mmol/L (-3-3) Oxyhemoglobin 92.8 % Methemoglobin 0.3 % (0.0-1.9) Carbon Monoxide, Quantitative 0.7 % (0.0-1.9) FiO2 2l n.c. Glucose (Fingerstick) 126 mg/dL (70-99) Urine Opiates Screen Pos (NEG) Urine Methadone Screen Neg (NEG) Urine Barbiturates Neg (NEG) Urine Phencyclidine Screen Neg (NEG) Urine Amphetamine/Methamphetamine Neg (NEG) Urine Benzodiazepines Screen Neg (NEG) Urine Cocaine Screen Neg (NEG) Urine Cannabinoids Screen Neg (NEG) Urine Ethyl Alcohol Neg (NEG) Objective Assessment pt seen, consult dictated Plan Plan of Care / ANA LUISA COUGHLIN MD Feb 21, 2019 13:09
[2019-02-21 13:17] LABS: AMORPHOUS SEDIMENT,UR PRESENT /HPF; BACTERIA,URINE 0 /HPF (0-FEW); NITRITE,URINE NEGATIVE (NEG); RBC,URINE 0 /HPF (0-2); WBC,URINE 0 /HPF (0-4)
[2019-02-21] MEDS: FOLIC ACID 1 MG TABLET. PO SCH (13:40)
[2019-02-21] MEDS: LINEZOLID 600 MG TABLET PO SCH ×2 (13:41→21:19)
[2019-02-21] MEDS: ATENOLOL 50 MG TABLET. PO SCH (13:41)
[2019-02-21] MEDS: DOCUSATE SODIUM 100 MG CAPSULE. PO SCH ×2 (13:41→21:19)
[2019-02-21] MEDS: FAMOTIDINE 20 MG/2 ML VIAL IVP SCH ×2 (13:42→21:19)
[2019-02-21] MEDS: PIPERACILLIN/TAZOBACTAM 3.375 GM in IV NORMAL SALINE 50ML 50 ML IV SCH ×2 (13:46→18:13)
[2019-02-21 13:50] LABS: ALBUMIN 1.3 g/dL (3.4-5.0); DIRECT BILIRUBIN 0.4 mg/dL (0.0-0.2); TOTAL BILIRUBIN 0.6 mg/dL (0.2-1.0); TOTAL PROTEIN 6.7 g/dL (6.4-8.2)
[2019-02-21] MEDS: HEPARIN for SUB-Q USE 5,000 UNIT/ML VIAL. SQ SCH ×2 (13:52→21:20)
[2019-02-21] MEDS: THIAMINE 100 MG TABLET. PO SCH (13:53)
[2019-02-21] MEDS: MULTIVITAMIN with MINERAL TABLET. PO SCH (13:53)
[2019-02-21] MEDS ORDERED: ASPIRIN CHEWABLE 81 MG TABLET. PO SCH (15:30)
[2019-02-21] MEDS: IV NORMAL SALINE 1000ML BAG 1,000 ML IV SCH (16:24)
--- NOTE | 2019-02-21 16:44 | PDOC2 ---
NEUROLOGY CONSULT Date of Admission Date of Admission DATE: 02/21/19 TIME: 16:29 Reason for Consult Reason for Consult: IMPRESSION: Left side weakness. CVA syndrome. Metabolic encephalopathy. Lactic acidosis. Hypoglycemia, glucose level 20. Leukocytosis, WBC 28.8 Renal failure or SEEMA. Fall on the floor? DM. HTN. HLD. Alcohol use/abuse. Cellulitis, LE. Morbid obesity. RECOMMENDATIONS/PLAN: Life support in ICU. Treat medical diseases. ASA daily. Brain MRI w/o contrast when stable. Lab: see orders. Consulted ID. History of Present Illness Patient is a 53-year-old morbidly obese male patient (who is a adult crossing guard with [employer] ) with comorbidities as outlined under past medical history was brought here from home by EMS after he was found on the floor at his house by his neighbor. He told the ER that he was probably on the floor for about 12 hours. He appears to have been laying on his left upper extremity which he is having difficulty moving currently. He reported that he was too weak to get up himself. He was not sure why he was on the floor, or if he fell. He does not remember passing out. He admits that he's been weak for the last few days. His blood sugar was in the 20 per EMS. neurology consultation was requested due to his left side weakness and metabolic encephalopathy. Past Medical History Morbid obesity Possible lymph edema right lower extremity Cardiovascular: HTN, Hyperlipidemia Musculoskeletal: low back pain, Osteoarthritis Endocrine: Diabetes Past Surgical History Knee surgery. Family History High Cholestrol, Hypertension, Kidney Disease (son has reflux nephropathy, required nephrectomy). Social History ALCOHOL: heavy Drugs: None Lives: with Family ALLERGY: NKDA MEDICATIONS: Refer to MAR REVIEW OF SYSTEMS: Constitutional: Morbid obesity. Head: No acute traumatic brain or head injury. Skin: No edema, or rash. Ear: No infection. Eyes: No vision loss or color blindness. Nose: No bleeding or purulent discharges. Hearing: Mild hearing decrease. Neck: No injury. Cardiac: HTN, HLD. Pulmonary: No COPD. GI: No GI ulcer, GI bleeding. Urinary/genital: No dysuria, incontinence, urinary retention. Endocrinologic: Diabetes Mellitus, morbid obesity. Skeletomuscular: No muscular atrophy, deformity. Neurological: see HP. Psychiatric: ETOH use/abuse. Otherwise, not [id number] review of systems. PHYSICAL EXAMINATION: General appearance is in acute distress. HEENT: Normocephalic and nontraumatic. Eyes, nose, ears, and throat are unremarkable. Neck is supple. No lymphadenopathy. No crepitus. Cardiovascular: S1, S2, regular rate and rhythm. Pulmonary: Decreased to auscultation bilaterally. Abdomen: Bowel sounds are positive. Extremities: Lesions and skin changes noted. NEUROLOGICAL EXAMINATION: Drowsiness. Not fully oriented to time, place and person. PERRL. EOMI. CN: no focal findings. Muscle tone: Decreased. Muscle strength: 2 left UE and 2-3 left LE, 4+ right side. DTR: 0-1 due to obesity. Plantar reflex: Neutral response bilaterally Gait: not examined in bed. Sensory exam: no abnormal findings. No cerebellar signs elicited. F-T-N test not performed due to not able to move left UE.. Current Medications Current Medications Current Medications Dextrose (Dextrose 50%-Water Syringe) 25 gm STK-MED ONCE IV ; Start 02/21/19 at 03:08; Stop 02/21/19 at 03:08; Status DC Dextrose (Dextrose 50%-Water Syringe) 25 gm 1X ONCE IV Last administered on 02/21/19at 05:59; Start 02/21/19 at 04:30; Stop 02/21/19 at 04:31; Status DC Sodium Chloride 1,000 ml @ 1,000 mls/hr Q1H IV Last administered on 02/21/19at 04:44; Start 02/21/19 at 04:30; Stop 02/21/19 at 05:29; Status DC Albuterol/ Ipratropium (Duoneb) 3 ml 1X ONCE NEB Last administered on 02/21/19at 04:19; Start 02/21/19 at 04:30; Stop 02/21/19 at 04:31; Status DC Methylprednisolone Sodium Succinate (SOLU-Medrol 125MG VIAL) 125 mg 1X ONCE IV Last administered on 02/21/19at 04:11; Start 02/21/19 at 04:30; Stop 02/21/19 at 04:31; Status DC Dextrose 500 ml @ 150 mls/hr 1X ONCE IV Last administered on 02/21/19at 04:30; Start 02/21/19 at 04:30; Stop 02/21/19 at 07:49; Status DC Vancomycin HCl 2 gm/Sodium Chloride 500 ml @ 250 mls/hr 1X ONCE IV Last administered on 02/21/19at 04:49; Start 02/21/19 at 04:30; Stop 02/21/19 at 06:29; Status DC Sodium Chloride 1,000 ml @ 1,000 mls/hr 1X ONCE IV ; Start 02/21/19 at 05:30; Stop 02/21/19 at 06:29; Status DC Ondansetron HCl (Zofran) 4 mg PRN Q8HRS PRN IV NAUSEA/VOMITING 1ST CHOICE; Start 02/21/19 at 05:30; Stop 02/21/19 at 11:17; Status DC Morphine Sulfate (Morphine Sulfate) 4 mg PRN Q2HR PRN IV SEVERE PAIN 7-10 Last administered on 02/21/19at 09:07; Start 02/21/19 at 05:30; Stop 02/22/19 at 05:29 Sodium Chloride 1,000 ml @ 100 mls/hr Q10H IV ; Start 02/21/19 at 06:00; Stop 02/21/19 at 12:45; Status DC Acetaminophen (Tylenol) 650 mg PRN Q4HRS PRN PO FEVER; Start 02/21/19 at 05:30; Stop 02/21/19 at 11:18; Status DC Albuterol/ Ipratropium (Duoneb) 3 ml RTQID NEB Last administered on 02/21/19at 15:56; Start 02/21/19 at 08:00; Stop 02/22/19 at 07:59 Piperacillin Sod/ Tazobactam Sod 3.375 gm/Sodium Chloride 50 ml @ 100 mls/hr 1X ONCE IV Last administered on 02/21/19at 05:47; Start 02/21/19 at 06:00; Stop 02/21/19 at 06:29; Status DC Acetaminophen (Tylenol) 650 mg PRN Q6HRS PRN PO Headaches, Temp > 101.5'; Start 02/21/19 at 11:15 Ondansetron HCl (Zofran) 4 mg PRN Q6HRS PRN IV NAUSEA/VOMITING; Start 02/21/19 at 11:15 Famotidine (Pepcid Vial) 20 mg BID IVP Last administered on 02/21/19at 13:42; Start 02/21/19 at 11:30 Info (Icu Electrolyte Protocol) 1 ea DAILY MC ; Start 02/22/19 at 09:00 Heparin Sodium (Porcine) (Heparin Sodium) 5,000 unit Q8HRS SQ Last administered on 02/21/19at 13:52; Start 02/21/19 at 14:00 Sodium Chloride (Normal Saline Flush) 3 ml QSHIFT PRN IV AFTER MEDS AND BLOOD DRAWS; Start 02/21/19 at 11:15 Docusate Sodium (Colace) 100 mg BID PO Last administered on 02/21/19at 13:41; Start 02/21/19 at 12:00 Bisacodyl (Dulcolax Supp) 10 mg PRN DAILY PRN MO CONSTIPATION; Start 02/21/19 at 11:15 Atenolol (Tenormin) 50 mg DAILY PO Last administered on 02/21/19at 13:41; Start 02/21/19 at 12:00 Chlorthalidone (Thalitone) 25 mg DAILY PO ; Start 02/21/19 at 12:00; Stop 02/21/19 at 12:45; Status DC Multivitamins (Thera M Plus) 1 tab DAILY PO Last administered on 02/21/19at 13:53; Start 02/21/19 at 12:00 Folic Acid (Folic Acid) 1 mg DAILY PO Last administered on 02/21/19at 13:40; Start 02/21/19 at 12:00 Thiamine Mononitrate (Vitamin B-1) 100 mg DAILY PO Last administered on 02/21/19at 13:53; Start 02/21/19 at 12:00 Lorazepam (Ativan) 4 mg PRN Q1HR PRN PO For CIWA 8-14; Start 02/21/19 at 11:30 Lorazepam (Ativan) 8 mg PRN Q1HR PRN PO For CIWA 15 or greater; Start 02/21/19 at 11:30 Lorazepam (Ativan Inj) 2 mg PRN Q1HR PRN IV For CIWA 8-14; Start 02/21/19 at 11:30 Lorazepam (Ativan Inj) 4 mg PRN Q1HR PRN IV For CIWA 15 or greater; Start 02/21/19 at 11:30 Haloperidol Lactate (Haldol Inj) 5 mg PRN Q4HRS PRN IVP Hallucinatns, Confusn,Delirium; Start 02/21/19 at 11:30 Clonidine HCl (Catapres) 0.1 mg PRN Q1HR PRN PO SBP > 180 or DBP > 100, MRX3; Start 02/21/19 at 11:30 Lorazepam (Ativan Inj) 2 mg PRN Q15MIN PRN IV SEE COMMENTS; Start 02/21/19 at 11:30 Lorazepam (Ativan Inj) 4 mg PRN Q15MIN PRN IV SEE COMMENTS; Start 02/21/19 at 11:30 Potassium Chloride (Klor-Con) 20 meq 1X ONCE PO Last administered on 02/21/19at 13:53; Start 02/21/19 at 12:00; Stop 02/21/19 at 12:01; Status DC Ringer's Solution 1,000 ml @ 75 mls/hr [id number] IV Last administered on 02/21/19at 13:54; Start 02/21/19 at 13:00; Stop 02/21/19 at 16:07; Status DC Magnesium Sulfate 50 ml @ 25 mls/hr PRN DAILY PRN IV for Mag < 1.7 on am labs; Start 02/21/19 at 13:00 Linezolid (Zyvox) 600 mg BID PO Last administered on 02/21/19at 13:41; Start 02/21/19 at 13:30 Piperacillin Sod/ Tazobactam Sod 3.375 gm/Sodium Chloride 50 ml @ 100 mls/hr Q6HRS IV Last administered on 02/21/19at 13:46; Start 02/21/19 at 13:30 Lactobacillus Rhamnosus (Culturelle) 1 cap BID PO ; Start 02/21/19 at 21:00 Aspirin (Children'S Aspirin) 81 mg [id number] PO Last administered on 02/21/19at 16:23; Start 02/21/19 at 15:30 Sodium Chloride 1,000 ml @ 75 mls/hr [id number] IV ; Start 02/22/19 at 03:00; Stop 02/21/19 at 16:14; Status DC Sodium Chloride 1,000 ml @ 75 mls/hr [id number] IV Last administered on 02/21/19at 16:24; Start 02/21/19 at 17:00 Active Scripts Active Reported Glipizide 5 Mg Tablet 1 Tab PO BID Metformin Hcl 1,000 Mg Tablet 1,000 Mg PO BIDWMEALS Atenolol 50 Mg Tablet 1 Tab PO DAILY Chlorthalidone (Chlorthalidone) 25 Mg Tablet 25 Mg PO DAILY Allergies Allergies: Allergies Coded Allergies Type Severity Reaction Last Updated Verified No Known Drug Allergies 02/21/19 No ROS Review of System The patient denies any associated fevers, chills, headache, ear pain, r hinorrhea, sore throat, stiff neck, productive cough, chest pain, shortness of breath, back or flank pain, abdominal pain, nausea, vomiting, diarrhea, constipation, dysuria, rash, numbness, weakness, tingling, incontinence, difficulty ambulating, or diaphoresis. Physical Exam Physical Exam General: Well developed, well nourished, no acute distress, well appearing HEENT: Pupils equally round and reactive to light, EOMI, no discharge, normal conjunctiva Neck: Supple, no nuchal rigidity, no JVD, trachea midline, no tenderness Cardiac: RRR, no murmurs, no gallops, no rubs Chest/Lungs: CTAB, no wheeze, no rhonchi, no crackles Abdomen: soft, non-distended, no guarding, no peritoneal signs, non-tender Back: No tenderness Extremities: no edema, pulses intact, non-tender,capillary refill <3 sec bilateral upper and lower extremities, Neuro: Alert and oriented x 4, no focal deficits, normal speech Vitals Vitals: Vital Signs Date Time Temp Pulse Resp B/P (MAP) Pulse Ox O2 Delivery O2 Flow Rate FiO2 02/21/19 15:57 95 Nasal Cannula 2.0 02/21/19 15:35 97.8 89 17 128/63 (84) 97.8 Labs Labs Laboratory Tests Test 02/21/19 02:58 02/21/19 03:12 02/21/19 03:15 02/21/19 03:50 Glucose (Fingerstick) 29 mg/dL (70-99) 93 mg/dL (70-99) 63 mg/dL (70-99) White Blood Count 28.8 x10^3/uL (4.0-11.0) Red Blood Count 4.07 x10^6/uL (4.30-5.70) Hemoglobin 12.5 g/dL (13.0-17.5) Hematocrit 38.1 % (39.0-53.0) Mean Corpuscular Volume 94 fL (79-100) Mean Corpuscular Hemoglobin 31 pg (25-35) Mean Corpuscular Hemoglobin Concent 33 g/dL (31-37) Red Cell Distribution Width 15.9 % (11.5-14.5) Platelet Count 352 x10^3/uL (140-400) Neutrophils (%) (Auto) 94 % (31-73) Lymphocytes (%) (Auto) 4 % (24-48) Monocytes (%) (Auto) 0 % (0-9) Eosinophils (%) (Auto) 1 % (0-3) Basophils (%) (Auto) 0 % (0-3) Neutrophils # (Auto) 27.2 x10^3/uL (1.8-7.7) Lymphocytes # (Auto) 1.2 x10^3/uL (1.0-4.8) Monocytes # (Auto) 0.1 x10^3/uL (0.0-1.1) Eosinophils # (Auto) 0.3 x10^3/uL (0.0-0.7) Basophils # (Auto) 0.1 x10^3/uL (0.0-0.2) Segmented Neutrophils % 82 % (35-66) Band Neutrophils % 9 % (0-9) Lymphocytes % 5 % (24-48) Monocytes % 3 % (0-10) Metamyelocytes % 1 % (0-0) Toxic Granulation Mod Toxic Vacuolation Mod Platelet Estimate Adequate (ADEQUATE) Prothrombin Time 17.1 SEC (11.7-14.0) Prothromb Time International Ratio 1.4 (0.8-1.1) Test 02/21/19 03:55 02/21/19 05:41 02/21/19 06:06 02/21/19 08:55 Sodium Level 135 mmol/L (136-145) Potassium Level 3.3 mmol/L (3.5-5.1) Chloride Level 96 mmol/L (98-107) Carbon Dioxide Level 27 mmol/L (21-32) Anion Gap 12 (6-14) Blood Urea Nitrogen 56 mg/dL (8-26) Creatinine 2.8 mg/dL (0.7-1.3) Estimated GFR (Cockcroft-Gault) 23.7 BUN/Creatinine Ratio 20 (6-20) Glucose Level 76 mg/dL (70-99) Lactic Acid Level 2.2 mmol/L (0.4-2.0) 1.9 mmol/L (0.4-2.0) Calcium Level 8.9 mg/dL (8.5-10.1) Magnesium Level 2.0 mg/dL (1.8-2.4) Total Bilirubin 0.7 mg/dL (0.2-1.0) 0.6 mg/dL (0.2-1.0) Aspartate Amino Transf (AST/SGOT) 91 U/L (15-37) 78 U/L (15-37) Alanine Aminotransferase (ALT/SGPT) 30 U/L (16-63) 29 U/L (16-63) Alkaline Phosphatase 98 U/L (46-116) 92 U/L (46-116) Creatine Kinase 633 U/L (39-308) Creatine Kinase MB (Mass) 3.1 ng/mL (0.0-3.6) Creatine Kinase MB Relative Index 0.5 % (0-4) Troponin I Quantitative < 0.017 ng/mL (0.000-0.055) [id number]-Type Natriuretic Peptide 5369 pg/mL (0-124) Total Protein 8.9 g/dL (6.4-8.2) 6.7 g/dL (6.4-8.2) Albumin 1.5 g/dL (3.4-5.0) 1.3 g/dL (3.4-5.0) Albumin/Globulin Ratio 0.2 (1.0-1.7) Lipase 92 U/L (73-393) Ethyl Alcohol Level < 10 mg/dL (0-10) Glucose (Fingerstick) 48 mg/dL (70-99) 114 mg/dL (70-99) Direct Bilirubin 0.4 mg/dL (0.0-0.2) Thyroid Stimulating Hormone (TSH) 0.961 uIU/mL (0.358-3.74) Test 02/21/19 09:13 02/21/19 09:29 02/21/19 12:15 02/21/19 15:58 O2 Saturation 94 % (92-99) Arterial Blood pH 7.38 (7.35-7.45) Arterial Blood pCO2 at Patient Temp 39 mmHg (35-46) Arterial Blood pO2 at Patient Temp 78 mmHg (75-108) Arterial Blood HCO3 23 mmol/L (21-28) Arterial Blood Base Excess -2 mmol/L (-3-3) Oxyhemoglobin 92.8 % Methemoglobin 0.3 % (0.0-1.9) Carbon Monoxide, Quantitative 0.7 % (0.0-1.9) FiO2 2l n.c. Glucose (Fingerstick) 126 mg/dL (70-99) 224 mg/dL (70-99) Urine Collection Type Unknown Urine Color Dk yellow Urine Clarity Turbid Urine pH 5.0 Urine Specific Maxwell 1.020 Urine Protein 30 mg/dL (NEG-TRACE) Urine Glucose (UA) Negative mg/dL (NEG) Urine Ketones (Stick) Trace mg/dL (NEG) Urine Blood Moderate (NEG) Urine Nitrite Negative (NEG) Urine Bilirubin Moderate (NEG) Urine Urobilinogen Dipstick 1.0 mg/dL (0.2 mg/dL) Urine Leukocyte Esterase Negative (NEG) Urine RBC 0 /HPF (0-2) Urine WBC 0 /HPF (0-4) Urine Amorphous Sediment Present /HPF Urine Bacteria 0 /HPF (0-FEW) Urine Hyaline Casts Moderate /HPF Urine Mucus Mod /LPF Creatine Kinase 332 U/L (39-308) Troponin I Quantitative < 0.017 ng/mL (0.000-0.055) Urine Opiates Screen Pos (NEG) Urine Methadone Screen Neg (NEG) Urine Barbiturates Neg (NEG) Urine Phencyclidine Screen Neg (NEG) Urine Amphetamine/Methamphetamine Neg (NEG) Urine Benzodiazepines Screen Neg (NEG) Urine Cocaine Screen Neg (NEG) Urine Cannabinoids Screen Neg (NEG) Urine Ethyl Alcohol Neg (NEG) Laboratory Tests Test 02/21/19 02:58 02/21/19 03:12 02/21/19 03:15 02/21/19 03:50 Glucose (Fingerstick) 29 mg/dL (70-99) 93 mg/dL (70-99) 63 mg/dL (70-99) White Blood Count 28.8 x10^3/uL (4.0-11.0) Red Blood Count 4.07 x10^6/uL (4.30-5.70) Hemoglobin 12.5 g/dL (13.0-17.5) Hematocrit 38.1 % (39.0-53.0) Mean Corpuscular Volume 94 fL (79-100) Mean Corpuscular Hemoglobin 31 pg (25-35) Mean Corpuscular Hemoglobin Concent 33 g/dL (31-37) Red Cell Distribution Width 15.9 % (11.5-14.5) Platelet Count 352 x10^3/uL (140-400) Neutrophils (%) (Auto) 94 % (31-73) Lymphocytes (%) (Auto) 4 % (24-48) Monocytes (%) (Auto) 0 % (0-9) Eosinophils (%) (Auto) 1 % (0-3) Basophils (%) (Auto) 0 % (0-3) Neutrophils # (Auto) 27.2 x10^3/uL (1.8-7.7) Lymphocytes # (Auto) 1.2 x10^3/uL (1.0-4.8) Monocytes # (Auto) 0.1 x10^3/uL (0.0-1.1) Eosinophils # (Auto) 0.3 x10^3/uL (0.0-0.7) Basophils # (Auto) 0.1 x10^3/uL (0.0-0.2) Segmented Neutrophils % 82 % (35-66) Band Neutrophils % 9 % (0-9) Lymphocytes % 5 % (24-48) Monocytes % 3 % (0-10) Metamyelocytes % 1 % (0-0) Toxic Granulation Mod Toxic Vacuolation Mod Platelet Estimate Adequate (ADEQUATE) Prothrombin Time 17.1 SEC (11.7-14.0) Prothromb Time International Ratio 1.4 (0.8-1.1) Test 02/21/19 03:55 02/21/19 05:41 02/21/19 06:06 02/21/19 08:55 Sodium Level 135 mmol/L (136-145) Potassium Level 3.3 mmol/L (3.5-5.1) Chloride Level 96 mmol/L (98-107) Carbon Dioxide Level 27 mmol/L (21-32) Anion Gap 12 (6-14) Blood Urea Nitrogen 56 mg/dL (8-26) Creatinine 2.8 mg/dL (0.7-1.3) Estimated GFR (Cockcroft-Gault) 23.7 BUN/Creatinine Ratio 20 (6-20) Glucose Level 76 mg/dL (70-99) Lactic Acid Level 2.2 mmol/L (0.4-2.0) 1.9 mmol/L (0.4-2.0) Calcium Level 8.9 mg/dL (8.5-10.1) Magnesium Level 2.0 mg/dL (1.8-2.4) Total Bilirubin 0.7 mg/dL (0.2-1.0) 0.6 mg/dL (0.2-1.0) Aspartate Amino Transf (AST/SGOT) 91 U/L (15-37) 78 U/L (15-37) Alanine Aminotransferase (ALT/SGPT) 30 U/L (16-63) 29 U/L (16-63) Alkaline Phosphatase 98 U/L (46-116) 92 U/L (46-116) Creatine Kinase 633 U/L (39-308) Creatine Kinase MB (Mass) 3.1 ng/mL (0.0-3.6) Creatine Kinase MB Relative Index 0.5 % (0-4) Troponin I Quantitative < 0.017 ng/mL (0.000-0.055) [id number]-Type Natriuretic Peptide 5369 pg/mL (0-124) Total Protein 8.9 g/dL (6.4-8.2) 6.7 g/dL (6.4-8.2) Albumin 1.5 g/dL (3.4-5.0) 1.3 g/dL (3.4-5.0) Albumin/Globulin Ratio 0.2 (1.0-1.7) Lipase 92 U/L (73-393) Ethyl Alcohol Level < 10 mg/dL (0-10) Glucose (Fingerstick) 48 mg/dL (70-99) 114 mg/dL (70-99) Direct Bilirubin 0.4 mg/dL (0.0-0.2) Thyroid Stimulating Hormone (TSH) 0.961 uIU/mL (0.358-3.74) Test 02/21/19 09:13 02/21/19 09:29 02/21/19 12:15 02/21/19 15:58 O2 Saturation 94 % (92-99) Arterial Blood pH 7.38 (7.35-7.45) Arterial Blood pCO2 at Patient Temp 39 mmHg (35-46) Arterial Blood pO2 at Patient Temp 78 mmHg (75-108) Arterial Blood HCO3 23 mmol/L (21-28) Arterial Blood Base Excess -2 mmol/L (-3-3) Oxyhemoglobin 92.8 % Methemoglobin 0.3 % (0.0-1.9) Carbon Monoxide, Quantitative 0.7 % (0.0-1.9) FiO2 2l n.c. Glucose (Fingerstick) 126 mg/dL (70-99) 224 mg/dL (70-99) Urine Collection Type Unknown Urine Color Dk yellow Urine Clarity Turbid Urine pH 5.0 Urine Specific Maxwell 1.020 Urine Protein 30 mg/dL (NEG-TRACE) Urine Glucose (UA) Negative mg/dL (NEG) Urine Ketones (Stick) Trace mg/dL (NEG) Urine Blood Moderate (NEG) Urine Nitrite Negative (NEG) Urine Bilirubin Moderate (NEG) Urine Urobilinogen Dipstick 1.0 mg/dL (0.2 mg/dL) Urine Leukocyte Esterase Negative (NEG) Urine RBC 0 /HPF (0-2) Urine WBC 0 /HPF (0-4) Urine Amorphous Sediment Present /HPF Urine Bacteria 0 /HPF (0-FEW) Urine Hyaline Casts Moderate /HPF Urine Mucus Mod /LPF Creatine Kinase 332 U/L (39-308) Troponin I Quantitative < 0.017 ng/mL (0.000-0.055) Urine Opiates Screen Pos (NEG) Urine Methadone Screen Neg (NEG) Urine Barbiturates Neg (NEG) Urine Phencyclidine Screen Neg (NEG) Urine Amphetamine/Methamphetamine Neg (NEG) Urine Benzodiazepines Screen Neg (NEG) Urine Cocaine Screen Neg (NEG) Urine Cannabinoids Screen Neg (NEG) Urine Ethyl Alcohol Neg (NEG) ADAIR DÍAZ MD Feb 21, 2019 16:44
[2019-02-21] MEDS: LACTOBACILLUS RHAMNOSUS GG 1 CAPSULE. PO SCH (21:19)
[2019-02-22] VITALS (16 sets, daily range): BP systolic 117–145; BP diastolic 62–87
[2019-02-22] MEDS: PIPERACILLIN/TAZOBACTAM 3.375 GM in IV NORMAL SALINE 50ML 50 ML IV SCH ×4 (00:25→18:51)
--- NOTE | 2019-02-22 00:31 | CONS ---
DATE OF CONSULTATION: 02/21/2019 REQUESTING PHYSICIAN: Dr. Larson. REASON FOR CONSULTATION: Cellulitis. HISTORY OF PRESENT ILLNESS: This is a 53-year-old gentleman, with a history of diabetes, hypertension, morbid obesity, who apparently after work a few days ago was going to his truck and he just slide down that he just could not get up. They had to help him much more and/or even ambulance, but then he made it to home and did not go to work for a couple of days and then he just could not get up and he was found on the floor by a neighbor. The patient was found to have extensive right leg cellulitis, leukocytosis and lactic acidosis. The patient denied any fever, although he says he felt hot and cold and he did not take his temperature. The patient was given one dose of vancomycin and one dose of Zosyn and consult has been requested. The patient denies any nausea, vomiting or diarrhea. Denies any chest pain, shortness of breath or abdominal pain right now. PAST MEDICAL HISTORY: Positive for morbid obesity, diabetes, hypertension, obstructive sleep apnea and venous insufficiency. SOCIAL HISTORY: Negative for smoking, alcohol, illicit drug use. ALLERGIES: No known drug allergies. CURRENT MEDICATIONS: Reviewed. REVIEW OF SYSTEMS: As per HPI, all other systems are reviewed and are negative. PHYSICAL EXAMINATION: GENERAL: Alert and oriented gentleman, not in any distress. VITAL SIGNS: Stable, afebrile. HEENT: Both pupils are round and reacting. No conjunctival lesion, no lesion in the mouth. NECK: Supple, no JVP, no lymphadenopathy. LUNGS: Clear. HEART: S1, S2 regular. ABDOMEN: Soft, nontender, no organomegaly. EXTREMITIES: Right leg is much larger, swollen and the redness is all the way from the foot to the right groin. Chronic venous insufficiency changes are also present. Stasis dermatitis present. He does have an ulcer on the left posterior thigh. NEUROLOGIC: The patient is neurologically alert, awake, appropriate. No focal neurologic deficit. LABORATORY DATA: White count is 28.8. BUN and creatinine is 56 and 2.8. Lactic acid is 2.2. Drug screen was positive for opioids. X-ray all reviewed. IMPRESSION: 1. Right lower extremity extensive cellulitis. 2. Leukocytosis. 3. Lactic acidosis with the early sepsis. 4. Morbid obesity. 5. Diabetes. 6. Hypertension. 7. Venous insufficiency and stasis dermatitis. RECOMMENDATIONS: We will use Zyvox and Zosyn, supportive care, leg elevation. PT, OT, hydration and we will continue to follow. Thank you very much, Dr. Larson, for giving me the opportunity to participate in this patient's care. ANA LUISA COUGHLIN MD DR: GAEL/manuel JOB#: [id number] / [id number]
[2019-02-22] MEDS ORDERED: IV NORMAL SALINE 1000ML BAG 1,000 ML IV SCH (03:00)
[2019-02-22] MEDS: HEPARIN for SUB-Q USE 5,000 UNIT/ML VIAL. SQ SCH ×3 (05:58→21:59)
[2019-02-22 06:27] LABS: BASO % 0 % (0-3); EOS % 0 % (0-3); HEMATOCRIT 32.6 % (39.0-53.0); HEMOGLOBIN 10.4 g/dL (13.0-17.5); LYMPH # 1.3 x10^3/uL (1.0-4.8); LYMPH % 6 % (24-48); MEAN CORPUSCULAR HEMOGLOBIN 30 pg (25-35); MEAN CORPUSCULAR HGB CONC 32 g/dL (31-37); MEAN CORPUSCULAR VOLUME 94 fL (79-100); MONO # 0.7 x10^3/uL (0.0-1.1); MONO % 3 % (0-9); NEUT # 19.4 x10^3/uL (1.8-7.7); NEUT % 91 % (31-73); PLATELET COUNT 357 x10^3/uL (140-400); RED BLOOD COUNT 3.49 x10^6/uL (4.30-5.70); RED CELL DISTRIBUTION WIDTH 16.3 % (11.5-14.5); WHITE BLOOD COUNT 21.4 x10^3/uL (4.0-11.0)
[2019-02-22 06:33] LABS: ALBUMIN/GLOBULIN RATIO 0.2 (1.0-1.7); CHOLESTEROL/HDL RATIO 6.8; CREATININE 2.2 mg/dL (0.7-1.3); GFR 31.3; POTASSIUM 3.4 mmol/L (3.5-5.1); TOTAL BILIRUBIN 0.5 mg/dL (0.2-1.0); TOTAL PROTEIN 7.4 g/dL (6.4-8.2)
[2019-02-22 06:38] LABS: PHOSPHORUS 5.1 mg/dL (2.6-4.7)
[2019-02-22] MEDS: IPRATRPIUM/ALBUTEROL 0.5/2.5MG 3 ML NEBU. NEB SCH ×5 (07:51→20:27)
[2019-02-22] MEDS: IV NORMAL SALINE 1000ML BAG 1,000 ML IV SCH (07:58)
[2019-02-22] MEDS: ELECTROLYTE (ICU) PROTOCOL. MC SCH (08:07)
[2019-02-22] MEDS: LACTOBACILLUS RHAMNOSUS GG 1 CAPSULE. PO SCH ×2 (08:15→22:00)
[2019-02-22] MEDS ORDERED: POTASSIUM CHLORIDE 20 MEQ TABLET.ER. PO ONE (08:15)
[2019-02-22] MEDS: ATENOLOL 50 MG TABLET. PO SCH (08:16)
[2019-02-22] MEDS: ASPIRIN 325 MG TABLET PO SCH (08:16)
[2019-02-22] MEDS: LINEZOLID 600 MG TABLET PO SCH ×2 (08:16→21:48)
[2019-02-22] MEDS: MULTIVITAMIN with MINERAL TABLET. PO SCH (08:16)
[2019-02-22] MEDS: FOLIC ACID 1 MG TABLET. PO SCH (08:16)
[2019-02-22] MEDS: THIAMINE 100 MG TABLET. PO SCH (08:16)
[2019-02-22] MEDS: DOCUSATE SODIUM 100 MG CAPSULE. PO SCH ×3 (08:16→21:59)
[2019-02-22] MEDS: FAMOTIDINE 20 MG/2 ML VIAL IVP SCH ×2 (08:17→21:47)
--- NOTE | 2019-02-22 08:22 | PDOC ---
Infectious Disease Note Subjective Subjective Still in MICU No fevers last 24 hours SpO2 95% on RA + cough c/o left arm weakness, unable to lift up Denies N/V/D ROS ROS per HPI Vital Sign Vital Signs Vital Signs Date Time Temp Pulse Resp B/P (MAP) Pulse Ox O2 Delivery O2 Flow Rate FiO2 02/22/19 07:52 96 Nasal Cannula 2.0 02/22/19 06:00 78 21 126/62 (83) 02/22/19 04:00 97.8 97.8 Physical Exam PHYSICAL EXAM GENERAL: Propped up in bed, alert, in NAD HEENT: Pupils are round and reacting. No conjunctival lesion, Oral cavity clear NECK: Supple, no JVP, no lymphadenopathy. LUNGS: Clear. HEART: S1, S2 regular. ABDOMEN: Obese, soft, nontender : Kimbrough in place, urine cloudy EXTREMITIES: Right swollen and red extending to groin area. Chronic venous insufficiency and stasis dermatitis changes present. An ulcer on the left posterior thigh. NEUROLOGIC: ALert, appropriate. Unable to lift left arm off bed, + wiggles fingers, sensation intact RIJ clean LEJ ok Labs Lab Laboratory Tests Test 02/21/19 08:55 02/21/19 09:13 02/21/19 09:29 02/21/19 12:15 Lactic Acid Level 1.9 mmol/L (0.4-2.0) Total Bilirubin 0.6 mg/dL (0.2-1.0) Direct Bilirubin 0.4 mg/dL (0.0-0.2) Aspartate Amino Transf (AST/SGOT) 78 U/L (15-37) Alanine Aminotransferase (ALT/SGPT) 29 U/L (16-63) Alkaline Phosphatase 92 U/L (46-116) Total Protein 6.7 g/dL (6.4-8.2) Albumin 1.3 g/dL (3.4-5.0) Thyroid Stimulating Hormone (TSH) 0.961 uIU/mL (0.358-3.74) O2 Saturation 94 % (92-99) Arterial Blood pH 7.38 (7.35-7.45) Arterial Blood pCO2 at Patient Temp 39 mmHg (35-46) Arterial Blood pO2 at Patient Temp 78 mmHg (75-108) Arterial Blood HCO3 23 mmol/L (21-28) Arterial Blood Base Excess -2 mmol/L (-3-3) Oxyhemoglobin 92.8 % Methemoglobin 0.3 % (0.0-1.9) Carbon Monoxide, Quantitative 0.7 % (0.0-1.9) FiO2 2l n.c. Glucose (Fingerstick) 126 mg/dL (70-99) Urine Collection Type Unknown Urine Color Dk yellow Urine Clarity Turbid Urine pH 5.0 Urine Specific [place] 1.020 Urine Protein 30 mg/dL (NEG-TRACE) Urine Glucose (UA) Negative mg/dL (NEG) Urine Ketones (Stick) Trace mg/dL (NEG) Urine Blood Moderate (NEG) Urine Nitrite Negative (NEG) Urine Bilirubin Moderate (NEG) Urine Urobilinogen Dipstick 1.0 mg/dL (0.2 mg/dL) Urine Leukocyte Esterase Negative (NEG) Urine RBC 0 /HPF (0-2) Urine WBC 0 /HPF (0-4) Urine Amorphous Sediment Present /HPF Urine Bacteria 0 /HPF (0-FEW) Urine Hyaline Casts Moderate /HPF Urine Mucus Mod /LPF Creatine Kinase 332 U/L (39-308) Troponin I Quantitative < 0.017 ng/mL (0.000-0.055) Urine Opiates Screen Pos (NEG) Urine Methadone Screen Neg (NEG) Urine Barbiturates Neg (NEG) Urine Phencyclidine Screen Neg (NEG) Urine Amphetamine/Methamphetamine Neg (NEG) Urine Benzodiazepines Screen Neg (NEG) Urine Cocaine Screen Neg (NEG) Urine Cannabinoids Screen Neg (NEG) Urine Ethyl Alcohol Neg (NEG) Test 02/21/19 15:58 02/21/19 20:16 02/22/19 06:00 Glucose (Fingerstick) 224 mg/dL (70-99) 258 mg/dL (70-99) White Blood Count 21.4 x10^3/uL (4.0-11.0) Red Blood Count 3.49 x10^6/uL (4.30-5.70) Hemoglobin 10.4 g/dL (13.0-17.5) Hematocrit 32.6 % (39.0-53.0) Mean Corpuscular Volume 94 fL (79-100) Mean Corpuscular Hemoglobin 30 pg (25-35) Mean Corpuscular Hemoglobin Concent 32 g/dL (31-37) Red Cell Distribution Width 16.3 % (11.5-14.5) Platelet Count 357 x10^3/uL (140-400) Neutrophils (%) (Auto) 91 % (31-73) Lymphocytes (%) (Auto) 6 % (24-48) Monocytes (%) (Auto) 3 % (0-9) Eosinophils (%) (Auto) 0 % (0-3) Basophils (%) (Auto) 0 % (0-3) Neutrophils # (Auto) 19.4 x10^3/uL (1.8-7.7) Lymphocytes # (Auto) 1.3 x10^3/uL (1.0-4.8) Monocytes # (Auto) 0.7 x10^3/uL (0.0-1.1) Eosinophils # (Auto) 0.0 x10^3/uL (0.0-0.7) Basophils # (Auto) 0.0 x10^3/uL (0.0-0.2) Prothrombin Time 17.0 SEC (11.7-14.0) Prothromb Time International Ratio 1.4 (0.8-1.1) Activated Partial Thromboplast Time 30 SEC (24-38) Sodium Level 137 mmol/L (136-145) Potassium Level 3.4 mmol/L (3.5-5.1) Chloride Level 100 mmol/L (98-107) Carbon Dioxide Level 29 mmol/L (21-32) Anion Gap 8 (6-14) Blood Urea Nitrogen 59 mg/dL (8-26) Creatinine 2.2 mg/dL (0.7-1.3) Estimated GFR (Cockcroft-Gault) 31.3 BUN/Creatinine Ratio 27 (6-20) Glucose Level 293 mg/dL (70-99) Calcium Level 8.0 mg/dL (8.5-10.1) Phosphorus Level 5.1 mg/dL (2.6-4.7) Magnesium Level 2.3 mg/dL (1.8-2.4) Total Bilirubin 0.5 mg/dL (0.2-1.0) Aspartate Amino Transf (AST/SGOT) 31 U/L (15-37) Alanine Aminotransferase (ALT/SGPT) 20 U/L (16-63) Alkaline Phosphatase 78 U/L (46-116) Creatine Kinase 90 U/L (39-308) Total Protein 7.4 g/dL (6.4-8.2) Albumin 1.0 g/dL (3.4-5.0) Albumin/Globulin Ratio 0.2 (1.0-1.7) Triglycerides Level 117 mg/dL (0-150) Cholesterol Level 75 mg/dL (0-200) LDL Cholesterol, Calculated 41 mg/dL (0-100) VLDL Cholesterol, Calculated 23 mg/dL (0-40) Non-HDL Cholesterol Calculated 64 mg/dL (0-129) HDL Cholesterol 11 mg/dL (40-60) Cholesterol/HDL Ratio 6.8 Micro Microbiology 02/21/19 Blood Culture - Preliminary, Resulted NO GROWTH AFTER 1 DAY Objective Assessment Right lower extremity extensive cellulitis. Leukocytosis - some better Lactic acidosis with the early sepsis. Morbid obesity. Diabetes. Hypertension. Venous insufficiency and stasis dermatitis. Left arm weakness Plan Plan of Care Continue Zyvox (02/21) and Zosyn Probiotics Leg elevation PT/OT Attending Co-Sign The patient was seen and interviewed as well as examined at the bedside. The chart was reviewed. The case was discussed. Agree with the plan of care. FRANCESCA VIGIL APRN Feb 22, 2019 08:22 ANA LUISA COUGHILN MD Feb 22, 2019 12:29
[2019-02-22] MEDS: POTASSIUM CHLORIDE 20MEQ 100 ML IV SCH ×2 (09:00→10:00)
--- NOTE | 2019-02-22 09:04 | PDOC ---
SUBJECTIVE ROS Follow-up for acute renal failure Renal sonogram was canceled for unknown reasons. Patient claims is still unable to move his left arm. Denies any other pain. He is feeling better. CVS: no Orthopnea, no CP RESP: no SOB, no PADRON GI: no Nausea, no Vomiting : no Dysuria, no Urgency - Kimbrough catheter in place OBJECTIVE Vital Signs Vital Signs Date Time Temp Pulse Resp B/P (MAP) Pulse Ox O2 Delivery O2 Flow Rate FiO2 02/22/19 08:16 80 140/74 02/22/19 07:52 96 Nasal Cannula 2.0 02/22/19 06:00 21 02/22/19 04:00 97.8 97.8 I & 0 Intake and Output 02/22/19 07:00 Intake Total 3418.91 ml Output Total 1435 ml Balance 1983.91 ml Intake Oral 1140 ml IV Total 2278.91 ml Output Urine Total 1435 ml PHYSICAL EXAM Physical Exam General Appearance: Awake Alert Oriented x 3 In no Distress, morbidly obese Eyes: VIsion Unchanged Conjunctiva Normal EN: No EN Drainage Mucous Memb. Moist Neck: no JVD no JVP Supple no Thyromegaly, short thick neck CVS: S1 S2 no audible Murmur No Gallop No Rub chronic lymph Edema with some erythema right lower extremity Resp: no Rales no Rhonchi no Acc. Muscle use GI: BS +ve NO Bruit Non Tender Non Distended morbidly obese : no CVA tenderness; no Suprapubic Tenderness on a Kimbrough catheter in place Assessment & Plan ARF: Possible ATN : Creatinine slightly improved with IV fluids as ordered.Current FLuid and E-lyte status does not necessitate emergent need for Dialysis. Continue gentle IV fluids as you've doing. CPKs not impressively elevated Possible intravascular volume depletion: Appears to be adequately replete now HTN: Current BP meds reviewed. Off chlorthalidone for now Hypokalemia: We'll place as ordered. Magnesium is normal. Hold chlorthalidone for now Severe hypoalbuminemia: We'll check UA for proteinuria. Unclear if patient's alcoholism may be graduating to liver disease and low albumin. We'll begin 24- hour urine collection for UPEP Recent onset anorexia: Unclear Etiology, but it appears to be improving Grossly AbNormal-appearing urine: Possible UTI. He remains on antibiotics for his cellulitis. We'll await urine cultures. Despite discrepancy in blood and RBC, CPK is relatively normal. Hyaline casts do suggest intravascular volume depletion Significant protein gap: Unclear if this is due to infection. Proceed with paraprotein evaluation Discussed Plan of Care and prognosis etc. at length with family. COMMENT/RELEVANT DATA Meds Current Medications Medications (Trade) Dose Ordered Sig/Lilliam Start Time Stop Time Status Last Admin Dose Admin Acetaminophen (Tylenol) 650 mg PRN Q6HRS PRN 02/21/19 11:15 Albuterol/ Ipratropium (Duoneb) 3 ml RTQID 02/22/19 08:00 Aspirin (Flavia Aspirin) 325 mg [id number] 02/22/19 08:00 02/22/19 08:16 325 MG Aspirin (Children'S Aspirin) 81 mg [id number] 02/21/19 15:30 02/21/19 16:46 DC 02/21/19 16:23 81 MG Atenolol (Tenormin) 50 mg DAILY 02/21/19 12:00 02/22/19 08:16 50 MG Bisacodyl (Dulcolax Supp) 10 mg PRN DAILY PRN 02/21/19 11:15 Chlorthalidone (Thalitone) 25 mg DAILY 02/21/19 12:00 02/21/19 12:45 DC Clonidine HCl (Catapres) 0.1 mg PRN Q1HR PRN 02/21/19 11:30 Dextrose 500 ml @ 150 mls/hr 1X ONCE 02/21/19 04:30 02/21/19 07:49 DC 02/21/19 04:30 150 MLS/HR Dextrose (Dextrose 50%-Water Syringe) 25 gm 1X ONCE 02/21/19 04:30 02/21/19 04:31 DC 02/21/19 05:59 25 GM Docusate Sodium (Colace) 100 mg BID 02/21/19 12:00 02/22/19 08:16 100 MG Famotidine (Pepcid Vial) 20 mg BID 02/21/19 11:30 02/22/19 08:17 20 MG Folic Acid (Folic Acid) 1 mg DAILY 02/21/19 12:00 02/22/19 08:16 1 MG Haloperidol Lactate (Haldol Inj) 5 mg PRN Q4HRS PRN 02/21/19 11:30 Heparin Sodium (Porcine) (Heparin Sodium) 5,000 unit Q8HRS 02/21/19 14:00 02/22/19 05:58 5,000 UNIT Info (Icu Electrolyte Protocol) 1 ea DAILY 02/22/19 09:00 02/22/19 08:07 1 EA Lactobacillus Rhamnosus (Culturelle) 1 cap BID 02/21/19 21:00 02/22/19 08:15 1 CAP Linezolid (Zyvox) 600 mg BID 02/21/19 13:30 02/22/19 08:16 600 MG Lorazepam (Ativan Inj) 4 mg PRN Q15MIN PRN 02/21/19 11:30 Lorazepam (Ativan) 8 mg PRN Q1HR PRN 02/21/19 11:30 Magnesium Sulfate 50 ml @ 25 mls/hr PRN DAILY PRN 02/21/19 13:00 Methylprednisolone Sodium Succinate (SOLU-Medrol 125MG VIAL) 125 mg 1X ONCE 02/21/19 04:30 02/21/19 04:31 DC 02/21/19 04:11 125 MG Morphine Sulfate (Morphine Sulfate) 4 mg PRN Q2HR PRN 02/21/19 05:30 02/22/19 05:29 DC 02/21/19 09:07 4 MG Multivitamins (Thera M Plus) 1 tab DAILY 02/21/19 12:00 02/22/19 08:16 1 TAB Ondansetron HCl (Zofran) 4 mg PRN Q6HRS PRN 02/21/19 11:15 Piperacillin Sod/ Tazobactam Sod 3.375 gm/Sodium Chloride 50 ml @ 100 mls/hr Q6HRS 02/21/19 13:30 02/22/19 05:56 100 MLS/HR Potassium Chloride (Klor-Con) 40 meq 1X ONCE 02/22/19 08:15 02/22/19 08:16 DC 02/22/19 08:16 40 MEQ Ringer's Solution 1,000 ml @ 75 mls/hr [id number] 02/21/19 13:00 02/21/19 16:07 DC 02/21/19 13:54 75 MLS/HR Sodium Chloride 1,000 ml @ 75 mls/hr [id number] 02/21/19 17:00 02/22/19 07:58 75 MLS/HR Sodium Chloride (Normal Saline Flush) 3 ml QSHIFT PRN 02/21/19 11:15 Thiamine Mononitrate (Vitamin B-1) 100 mg DAILY 02/21/19 12:00 02/22/19 08:16 100 MG Vancomycin HCl 2 gm/Sodium Chloride 500 ml @ 250 mls/hr 1X ONCE 02/21/19 04:30 02/21/19 06:29 DC 02/21/19 04:49 250 MLS/HR Lab Laboratory Tests Test 02/21/19 08:55 02/21/19 09:13 02/21/19 09:29 02/21/19 12:15 Lactic Acid Level 1.9 mmol/L (0.4-2.0) Total Bilirubin 0.6 mg/dL (0.2-1.0) Direct Bilirubin 0.4 mg/dL (0.0-0.2) Aspartate Amino Transf (AST/SGOT) 78 U/L (15-37) Alanine Aminotransferase (ALT/SGPT) 29 U/L (16-63) Alkaline Phosphatase 92 U/L (46-116) Total Protein 6.7 g/dL (6.4-8.2) Albumin 1.3 g/dL (3.4-5.0) Thyroid Stimulating Hormone (TSH) 0.961 uIU/mL (0.358-3.74) O2 Saturation 94 % (92-99) Arterial Blood pH 7.38 (7.35-7.45) Arterial Blood pCO2 at Patient Temp 39 mmHg (35-46) Arterial Blood pO2 at Patient Temp 78 mmHg (75-108) Arterial Blood HCO3 23 mmol/L (21-28) Arterial Blood Base Excess -2 mmol/L (-3-3) Oxyhemoglobin 92.8 % Methemoglobin 0.3 % (0.0-1.9) Carbon Monoxide, Quantitative 0.7 % (0.0-1.9) FiO2 2l n.c. Glucose (Fingerstick) 126 mg/dL (70-99) Urine Collection Type Unknown Urine Color Dk yellow Urine Clarity Turbid Urine pH 5.0 Urine Specific [place] 1.020 Urine Protein 30 mg/dL (NEG-TRACE) Urine Glucose (UA) Negative mg/dL (NEG) Urine Ketones (Stick) Trace mg/dL (NEG) Urine Blood Moderate (NEG) Urine Nitrite Negative (NEG) Urine Bilirubin Moderate (NEG) Urine Urobilinogen Dipstick 1.0 mg/dL (0.2 mg/dL) Urine Leukocyte Esterase Negative (NEG) Urine RBC 0 /HPF (0-2) Urine WBC 0 /HPF (0-4) Urine Amorphous Sediment Present /HPF Urine Bacteria 0 /HPF (0-FEW) Urine Hyaline Casts Moderate /HPF Urine Mucus Mod /LPF Creatine Kinase 332 U/L (39-308) Troponin I Quantitative < 0.017 ng/mL (0.000-0.055) Urine Opiates Screen Pos (NEG) Urine Methadone Screen Neg (NEG) Urine Barbiturates Neg (NEG) Urine Phencyclidine Screen Neg (NEG) Urine Amphetamine/Methamphetamine Neg (NEG) Urine Benzodiazepines Screen Neg (NEG) Urine Cocaine Screen Neg (NEG) Urine Cannabinoids Screen Neg (NEG) Urine Ethyl Alcohol Neg (NEG) Test 02/21/19 15:58 02/21/19 20:16 02/22/19 06:00 Glucose (Fingerstick) 224 mg/dL (70-99) 258 mg/dL (70-99) White Blood Count 21.4 x10^3/uL (4.0-11.0) Red Blood Count 3.49 x10^6/uL (4.30-5.70) Hemoglobin 10.4 g/dL (13.0-17.5) Hematocrit 32.6 % (39.0-53.0) Mean Corpuscular Volume 94 fL (79-100) Mean Corpuscular Hemoglobin 30 pg (25-35) Mean Corpuscular Hemoglobin Concent 32 g/dL (31-37) Red Cell Distribution Width 16.3 % (11.5-14.5) Platelet Count 357 x10^3/uL (140-400) Neutrophils (%) (Auto) 91 % (31-73) Lymphocytes (%) (Auto) 6 % (24-48) Monocytes (%) (Auto) 3 % (0-9) Eosinophils (%) (Auto) 0 % (0-3) Basophils (%) (Auto) 0 % (0-3) Neutrophils # (Auto) 19.4 x10^3/uL (1.8-7.7) Lymphocytes # (Auto) 1.3 x10^3/uL (1.0-4.8) Monocytes # (Auto) 0.7 x10^3/uL (0.0-1.1) Eosinophils # (Auto) 0.0 x10^3/uL (0.0-0.7) Basophils # (Auto) 0.0 x10^3/uL (0.0-0.2) Prothrombin Time 17.0 SEC (11.7-14.0) Prothromb Time International Ratio 1.4 (0.8-1.1) Activated Partial Thromboplast Time 30 SEC (24-38) Sodium Level 137 mmol/L (136-145) Potassium Level 3.4 mmol/L (3.5-5.1) Chloride Level 100 mmol/L (98-107) Carbon Dioxide Level 29 mmol/L (21-32) Anion Gap 8 (6-14) Blood Urea Nitrogen 59 mg/dL (8-26) Creatinine 2.2 mg/dL (0.7-1.3) Estimated GFR (Cockcroft-Gault) 31.3 BUN/Creatinine Ratio 27 (6-20) Glucose Level 293 mg/dL (70-99) Calcium Level 8.0 mg/dL (8.5-10.1) Phosphorus Level 5.1 mg/dL (2.6-4.7) Magnesium Level 2.3 mg/dL (1.8-2.4) Total Bilirubin 0.5 mg/dL (0.2-1.0) Aspartate Amino Transf (AST/SGOT) 31 U/L (15-37) Alanine Aminotransferase (ALT/SGPT) 20 U/L (16-63) Alkaline Phosphatase 78 U/L (46-116) Creatine Kinase 90 U/L (39-308) Total Protein 7.4 g/dL (6.4-8.2) Albumin 1.0 g/dL (3.4-5.0) Albumin/Globulin Ratio 0.2 (1.0-1.7) Triglycerides Level 117 mg/dL (0-150) Cholesterol Level 75 mg/dL (0-200) LDL Cholesterol, Calculated 41 mg/dL (0-100) VLDL Cholesterol, Calculated 23 mg/dL (0-40) Non-HDL Cholesterol Calculated 64 mg/dL (0-129) HDL Cholesterol 11 mg/dL (40-60) Cholesterol/HDL Ratio 6.8 Results All relevant outside records, renal labs, imaging studies, telemetry/EKG's were reviewed. SILVIA COUGHLIN MD Feb 22, 2019 09:04
--- NOTE | 2019-02-22 09:16 | PDOC ---
PROGRESS NOTES History of Present Illness History of Present Illness VTE Prophylaxis Ordered VTE Prophylaxis Devices: Contraindicated VTE Pharmacological Prophylaxi: Yes Assessment/Plan Assessment/Plan Impression: Severe sepsis EXTREME MORBID OBESITY SLEEP APNEA Cellulitis of right leg, severe with lymphedema, chronic venous stasis Hypoglycemia SEC TO METFORMIN, GLIPIZIDE Acute renal failure Dehydration Dyspnea HYPOGLYCEMIA SEVERE ALCOHOL ABUSE FALL AT HOME SEVERE DEBILITY CHF ADMITTED ICU BED CONSULT PULM CONSULT ID BLOOD CULT ABG ciwa protocol hold metformin and glipizide consult CARDIOLOGY PT/OT WOUND CARE NURSE CONSULT CONSIDER ECHO DVT PROPHYLAXIS GI PROPHYLAXIS NEPHROLOGY CONSULT 33 min cc time Vitals Vitals Vital Signs Date Time Temp Pulse Resp B/P (MAP) Pulse Ox O2 Delivery O2 Flow Rate FiO2 02/22/19 08:16 80 140/74 02/22/19 07:52 96 Nasal Cannula 2.0 02/22/19 06:00 21 02/22/19 04:00 97.8 97.8 Physical Exam Physical Exam GENERAL: Propped up in bed, alert, in NAD HEENT: Pupils are round and reacting. No conjunctival lesion, Oral cavity clear NECK: Supple, no JVP, no lymphadenopathy. LUNGS: Clear. HEART: S1, S2 regular. ABDOMEN: Obese, soft, nontender : Kimbrough in place, urine cloudy EXTREMITIES: Right swollen and red extending to groin area. Chronic venous insufficiency and stasis dermatitis changes present. An ulcer on the left posterior thigh. NEUROLOGIC: ALert, appropriate. Unable to lift left arm off bed, + wiggles fingers, sensation intact RIJ clean LEJ ok General: Alert, Oriented X3, Cooperative, mild distress Abdomen: Normal bowel sounds, Soft Labs LABS Laboratory Tests Test 02/21/19 09:29 02/21/19 12:15 02/21/19 15:58 02/21/19 20:16 Glucose (Fingerstick) 126 mg/dL (70-99) 224 mg/dL (70-99) 258 mg/dL (70-99) Urine Collection Type Unknown Urine Color Dk yellow Urine Clarity Turbid Urine pH 5.0 Urine Specific [place] 1.020 Urine Protein 30 mg/dL (NEG-TRACE) Urine Glucose (UA) Negative mg/dL (NEG) Urine Ketones (Stick) Trace mg/dL (NEG) Urine Blood Moderate (NEG) Urine Nitrite Negative (NEG) Urine Bilirubin Moderate (NEG) Urine Urobilinogen Dipstick 1.0 mg/dL (0.2 mg/dL) Urine Leukocyte Esterase Negative (NEG) Urine RBC 0 /HPF (0-2) Urine WBC 0 /HPF (0-4) Urine Amorphous Sediment Present /HPF Urine Bacteria 0 /HPF (0-FEW) Urine Hyaline Casts Moderate /HPF Urine Mucus Mod /LPF Creatine Kinase 332 U/L (39-308) Troponin I Quantitative < 0.017 ng/mL (0.000-0.055) Urine Opiates Screen Pos (NEG) Urine Methadone Screen Neg (NEG) Urine Barbiturates Neg (NEG) Urine Phencyclidine Screen Neg (NEG) Urine Amphetamine/Methamphetamine Neg (NEG) Urine Benzodiazepines Screen Neg (NEG) Urine Cocaine Screen Neg (NEG) Urine Cannabinoids Screen Neg (NEG) Urine Ethyl Alcohol Neg (NEG) Test 02/22/19 06:00 White Blood Count 21.4 x10^3/uL (4.0-11.0) Red Blood Count 3.49 x10^6/uL (4.30-5.70) Hemoglobin 10.4 g/dL (13.0-17.5) Hematocrit 32.6 % (39.0-53.0) Mean Corpuscular Volume 94 fL (79-100) Mean Corpuscular Hemoglobin 30 pg (25-35) Mean Corpuscular Hemoglobin Concent 32 g/dL (31-37) Red Cell Distribution Width 16.3 % (11.5-14.5) Platelet Count 357 x10^3/uL (140-400) Neutrophils (%) (Auto) 91 % (31-73) Lymphocytes (%) (Auto) 6 % (24-48) Monocytes (%) (Auto) 3 % (0-9) Eosinophils (%) (Auto) 0 % (0-3) Basophils (%) (Auto) 0 % (0-3) Neutrophils # (Auto) 19.4 x10^3/uL (1.8-7.7) Lymphocytes # (Auto) 1.3 x10^3/uL (1.0-4.8) Monocytes # (Auto) 0.7 x10^3/uL (0.0-1.1) Eosinophils # (Auto) 0.0 x10^3/uL (0.0-0.7) Basophils # (Auto) 0.0 x10^3/uL (0.0-0.2) Prothrombin Time 17.0 SEC (11.7-14.0) Prothromb Time International Ratio 1.4 (0.8-1.1) Activated Partial Thromboplast Time 30 SEC (24-38) Sodium Level 137 mmol/L (136-145) Potassium Level 3.4 mmol/L (3.5-5.1) Chloride Level 100 mmol/L (98-107) Carbon Dioxide Level 29 mmol/L (21-32) Anion Gap 8 (6-14) Blood Urea Nitrogen 59 mg/dL (8-26) Creatinine 2.2 mg/dL (0.7-1.3) Estimated GFR (Cockcroft-Gault) 31.3 BUN/Creatinine Ratio 27 (6-20) Glucose Level 293 mg/dL (70-99) Calcium Level 8.0 mg/dL (8.5-10.1) Phosphorus Level 5.1 mg/dL (2.6-4.7) Magnesium Level 2.3 mg/dL (1.8-2.4) Total Bilirubin 0.5 mg/dL (0.2-1.0) Aspartate Amino Transf (AST/SGOT) 31 U/L (15-37) Alanine Aminotransferase (ALT/SGPT) 20 U/L (16-63) Alkaline Phosphatase 78 U/L (46-116) Creatine Kinase 90 U/L (39-308) Total Protein 7.4 g/dL (6.4-8.2) Albumin 1.0 g/dL (3.4-5.0) Albumin/Globulin Ratio 0.2 (1.0-1.7) Triglycerides Level 117 mg/dL (0-150) Cholesterol Level 75 mg/dL (0-200) LDL Cholesterol, Calculated 41 mg/dL (0-100) VLDL Cholesterol, Calculated 23 mg/dL (0-40) Non-HDL Cholesterol Calculated 64 mg/dL (0-129) HDL Cholesterol 11 mg/dL (40-60) Cholesterol/HDL Ratio 6.8 Assessment and Plan Assessmemt and Plan Problems Medical Problems: (1) Acute renal failure Status: Acute (2) Cellulitis of right leg Status: Acute (3) Dehydration Status: Acute (4) Dyspnea Status: Acute (5) Hypoglycemia Status: Acute (6) Severe sepsis Status: Acute Comment Review of Relevant I have reviewed the following items robert (where applicable) has been applied. Labs Laboratory Tests Test 02/21/19 02:58 02/21/19 03:12 02/21/19 03:15 02/21/19 03:50 Glucose (Fingerstick) 29 mg/dL (70-99) 93 mg/dL (70-99) 63 mg/dL (70-99) White Blood Count 28.8 x10^3/uL (4.0-11.0) Red Blood Count 4.07 x10^6/uL (4.30-5.70) Hemoglobin 12.5 g/dL (13.0-17.5) Hematocrit 38.1 % (39.0-53.0) Mean Corpuscular Volume 94 fL (79-100) Mean Corpuscular Hemoglobin 31 pg (25-35) Mean Corpuscular Hemoglobin Concent 33 g/dL (31-37) Red Cell Distribution Width 15.9 % (11.5-14.5) Platelet Count 352 x10^3/uL (140-400) Neutrophils (%) (Auto) 94 % (31-73) Lymphocytes (%) (Auto) 4 % (24-48) Monocytes (%) (Auto) 0 % (0-9) Eosinophils (%) (Auto) 1 % (0-3) Basophils (%) (Auto) 0 % (0-3) Neutrophils # (Auto) 27.2 x10^3/uL (1.8-7.7) Lymphocytes # (Auto) 1.2 x10^3/uL (1.0-4.8) Monocytes # (Auto) 0.1 x10^3/uL (0.0-1.1) Eosinophils # (Auto) 0.3 x10^3/uL (0.0-0.7) Basophils # (Auto) 0.1 x10^3/uL (0.0-0.2) Segmented Neutrophils % 82 % (35-66) Band Neutrophils % 9 % (0-9) Lymphocytes % 5 % (24-48) Monocytes % 3 % (0-10) Metamyelocytes % 1 % (0-0) Toxic Granulation Mod Toxic Vacuolation Mod Platelet Estimate Adequate (ADEQUATE) Prothrombin Time 17.1 SEC (11.7-14.0) Prothromb Time International Ratio 1.4 (0.8-1.1) Test 02/21/19 03:55 02/21/19 05:41 02/21/19 06:06 02/21/19 07:21 Sodium Level 135 mmol/L (136-145) Potassium Level 3.3 mmol/L (3.5-5.1) Chloride Level 96 mmol/L (98-107) Carbon Dioxide Level 27 mmol/L (21-32) Anion Gap 12 (6-14) Blood Urea Nitrogen 56 mg/dL (8-26) Creatinine 2.8 mg/dL (0.7-1.3) Estimated GFR (Cockcroft-Gault) 23.7 BUN/Creatinine Ratio 20 (6-20) Glucose Level 76 mg/dL (70-99) Lactic Acid Level 2.2 mmol/L (0.4-2.0) Calcium Level 8.9 mg/dL (8.5-10.1) Magnesium Level 2.0 mg/dL (1.8-2.4) Total Bilirubin 0.7 mg/dL (0.2-1.0) Aspartate Amino Transf (AST/SGOT) 91 U/L (15-37) Alanine Aminotransferase (ALT/SGPT) 30 U/L (16-63) Alkaline Phosphatase 98 U/L (46-116) Creatine Kinase 633 U/L (39-308) Creatine Kinase MB (Mass) 3.1 ng/mL (0.0-3.6) Creatine Kinase MB Relative Index 0.5 % (0-4) Troponin I Quantitative < 0.017 ng/mL (0.000-0.055) LP-Xgc-[id number]-Type Natriuretic Peptide 5369 pg/mL (0-124) Total Protein 8.9 g/dL (6.4-8.2) Albumin 1.5 g/dL (3.4-5.0) Albumin/Globulin Ratio 0.2 (1.0-1.7) Lipase 92 U/L (73-393) Ethyl Alcohol Level < 10 mg/dL (0-10) Glucose (Fingerstick) 48 mg/dL (70-99) 114 mg/dL (70-99) 107 mg/dL (70-99) Test 02/21/19 08:55 02/21/19 09:13 02/21/19 09:29 02/21/19 12:15 Lactic Acid Level 1.9 mmol/L (0.4-2.0) Total Bilirubin 0.6 mg/dL (0.2-1.0) Direct Bilirubin 0.4 mg/dL (0.0-0.2) Aspartate Amino Transf (AST/SGOT) 78 U/L (15-37) Alanine Aminotransferase (ALT/SGPT) 29 U/L (16-63) Alkaline Phosphatase 92 U/L (46-116) Total Protein 6.7 g/dL (6.4-8.2) Albumin 1.3 g/dL (3.4-5.0) Thyroid Stimulating Hormone (TSH) 0.961 uIU/mL (0.358-3.74) O2 Saturation 94 % (92-99) Arterial Blood pH 7.38 (7.35-7.45) Arterial Blood pCO2 at Patient Temp 39 mmHg (35-46) Arterial Blood pO2 at Patient Temp 78 mmHg (75-108) Arterial Blood HCO3 23 mmol/L (21-28) Arterial Blood Base Excess -2 mmol/L (-3-3) Oxyhemoglobin 92.8 % Methemoglobin 0.3 % (0.0-1.9) Carbon Monoxide, Quantitative 0.7 % (0.0-1.9) FiO2 2l n.c. Glucose (Fingerstick) 126 mg/dL (70-99) Urine Collection Type Unknown Urine Color Dk yellow Urine Clarity Turbid Urine pH 5.0 Urine Specific [place] 1.020 Urine Protein 30 mg/dL (NEG-TRACE) Urine Glucose (UA) Negative mg/dL (NEG) Urine Ketones (Stick) Trace mg/dL (NEG) Urine Blood Moderate (NEG) Urine Nitrite Negative (NEG) Urine Bilirubin Moderate (NEG) Urine Urobilinogen Dipstick 1.0 mg/dL (0.2 mg/dL) Urine Leukocyte Esterase Negative (NEG) Urine RBC 0 /HPF (0-2) Urine WBC 0 /HPF (0-4) Urine Amorphous Sediment Present /HPF Urine Bacteria 0 /HPF (0-FEW) Urine Hyaline Casts Moderate /HPF Urine Mucus Mod /LPF Creatine Kinase 332 U/L (39-308) Troponin I Quantitative < 0.017 ng/mL (0.000-0.055) Urine Opiates Screen Pos (NEG) Urine Methadone Screen Neg (NEG) Urine Barbiturates Neg (NEG) Urine Phencyclidine Screen Neg (NEG) Urine Amphetamine/Methamphetamine Neg (NEG) Urine Benzodiazepines Screen Neg (NEG) Urine Cocaine Screen Neg (NEG) Urine Cannabinoids Screen Neg (NEG) Urine Ethyl Alcohol Neg (NEG) Test 02/21/19 15:58 02/21/19 20:16 02/22/19 06:00 Glucose (Fingerstick) 224 mg/dL (70-99) 258 mg/dL (70-99) White Blood Count 21.4 x10^3/uL (4.0-11.0) Red Blood Count 3.49 x10^6/uL (4.30-5.70) Hemoglobin 10.4 g/dL (13.0-17.5) Hematocrit 32.6 % (39.0-53.0) Mean Corpuscular Volume 94 fL (79-100) Mean Corpuscular Hemoglobin 30 pg (25-35) Mean Corpuscular Hemoglobin Concent 32 g/dL (31-37) Red Cell Distribution Width 16.3 % (11.5-14.5) Platelet Count 357 x10^3/uL (140-400) Neutrophils (%) (Auto) 91 % (31-73) Lymphocytes (%) (Auto) 6 % (24-48) Monocytes (%) (Auto) 3 % (0-9) Eosinophils (%) (Auto) 0 % (0-3) Basophils (%) (Auto) 0 % (0-3) Neutrophils # (Auto) 19.4 x10^3/uL (1.8-7.7) Lymphocytes # (Auto) 1.3 x10^3/uL (1.0-4.8) Monocytes # (Auto) 0.7 x10^3/uL (0.0-1.1) Eosinophils # (Auto) 0.0 x10^3/uL (0.0-0.7) Basophils # (Auto) 0.0 x10^3/uL (0.0-0.2) Prothrombin Time 17.0 SEC (11.7-14.0) Prothromb Time International Ratio 1.4 (0.8-1.1) Activated Partial Thromboplast Time 30 SEC (24-38) Sodium Level 137 mmol/L (136-145) Potassium Level 3.4 mmol/L (3.5-5.1) Chloride Level 100 mmol/L (98-107) Carbon Dioxide Level 29 mmol/L (21-32) Anion Gap 8 (6-14) Blood Urea Nitrogen 59 mg/dL (8-26) Creatinine 2.2 mg/dL (0.7-1.3) Estimated GFR (Cockcroft-Gault) 31.3 BUN/Creatinine Ratio 27 (6-20) Glucose Level 293 mg/dL (70-99) Calcium Level 8.0 mg/dL (8.5-10.1) Phosphorus Level 5.1 mg/dL (2.6-4.7) Magnesium Level 2.3 mg/dL (1.8-2.4) Total Bilirubin 0.5 mg/dL (0.2-1.0) Aspartate Amino Transf (AST/SGOT) 31 U/L (15-37) Alanine Aminotransferase (ALT/SGPT) 20 U/L (16-63) Alkaline Phosphatase 78 U/L (46-116) Creatine Kinase 90 U/L (39-308) Total Protein 7.4 g/dL (6.4-8.2) Albumin 1.0 g/dL (3.4-5.0) Albumin/Globulin Ratio 0.2 (1.0-1.7) Triglycerides Level 117 mg/dL (0-150) Cholesterol Level 75 mg/dL (0-200) LDL Cholesterol, Calculated 41 mg/dL (0-100) VLDL Cholesterol, Calculated 23 mg/dL (0-40) Non-HDL Cholesterol Calculated 64 mg/dL (0-129) HDL Cholesterol 11 mg/dL (40-60) Cholesterol/HDL Ratio 6.8 Laboratory Tests Test 02/21/19 09:29 02/21/19 12:15 02/21/19 15:58 02/21/19 20:16 Glucose (Fingerstick) 126 mg/dL (70-99) 224 mg/dL (70-99) 258 mg/dL (70-99) Urine Collection Type Unknown Urine Color Dk yellow Urine Clarity Turbid Urine pH 5.0 Urine Specific [place] 1.020 Urine Protein 30 mg/dL (NEG-TRACE) Urine Glucose (UA) Negative mg/dL (NEG) Urine Ketones (Stick) Trace mg/dL (NEG) Urine Blood Moderate (NEG) Urine Nitrite Negative (NEG) Urine Bilirubin Moderate (NEG) Urine Urobilinogen Dipstick 1.0 mg/dL (0.2 mg/dL) Urine Leukocyte Esterase Negative (NEG) Urine RBC 0 /HPF (0-2) Urine WBC 0 /HPF (0-4) Urine Amorphous Sediment Present /HPF Urine Bacteria 0 /HPF (0-FEW) Urine Hyaline Casts Moderate /HPF Urine Mucus Mod /LPF Creatine Kinase 332 U/L (39-308) Troponin I Quantitative < 0.017 ng/mL (0.000-0.055) Urine Opiates Screen Pos (NEG) Urine Methadone Screen Neg (NEG) Urine Barbiturates Neg (NEG) Urine Phencyclidine Screen Neg (NEG) Urine Amphetamine/Methamphetamine Neg (NEG) Urine Benzodiazepines Screen Neg (NEG) Urine Cocaine Screen Neg (NEG) Urine Cannabinoids Screen Neg (NEG) Urine Ethyl Alcohol Neg (NEG) Test 02/22/19 06:00 White Blood Count 21.4 x10^3/uL (4.0-11.0) Red Blood Count 3.49 x10^6/uL (4.30-5.70) Hemoglobin 10.4 g/dL (13.0-17.5) Hematocrit 32.6 % (39.0-53.0) Mean Corpuscular Volume 94 fL (79-100) Mean Corpuscular Hemoglobin 30 pg (25-35) Mean Corpuscular Hemoglobin Concent 32 g/dL (31-37) Red Cell Distribution Width 16.3 % (11.5-14.5) Platelet Count 357 x10^3/uL (140-400) Neutrophils (%) (Auto) 91 % (31-73) Lymphocytes (%) (Auto) 6 % (24-48) Monocytes (%) (Auto) 3 % (0-9) Eosinophils (%) (Auto) 0 % (0-3) Basophils (%) (Auto) 0 % (0-3) Neutrophils # (Auto) 19.4 x10^3/uL (1.8-7.7) Lymphocytes # (Auto) 1.3 x10^3/uL (1.0-4.8) Monocytes # (Auto) 0.7 x10^3/uL (0.0-1.1) Eosinophils # (Auto) 0.0 x10^3/uL (0.0-0.7) Basophils # (Auto) 0.0 x10^3/uL (0.0-0.2) Prothrombin Time 17.0 SEC (11.7-14.0) Prothromb Time International Ratio 1.4 (0.8-1.1) Activated Partial Thromboplast Time 30 SEC (24-38) Sodium Level 137 mmol/L (136-145) Potassium Level 3.4 mmol/L (3.5-5.1) Chloride Level 100 mmol/L (98-107) Carbon Dioxide Level 29 mmol/L (21-32) Anion Gap 8 (6-14) Blood Urea Nitrogen 59 mg/dL (8-26) Creatinine 2.2 mg/dL (0.7-1.3) Estimated GFR (Cockcroft-Gault) 31.3 BUN/Creatinine Ratio 27 (6-20) Glucose Level 293 mg/dL (70-99) Calcium Level 8.0 mg/dL (8.5-10.1) Phosphorus Level 5.1 mg/dL (2.6-4.7) Magnesium Level 2.3 mg/dL (1.8-2.4) Total Bilirubin 0.5 mg/dL (0.2-1.0) Aspartate Amino Transf (AST/SGOT) 31 U/L (15-37) Alanine Aminotransferase (ALT/SGPT) 20 U/L (16-63) Alkaline Phosphatase 78 U/L (46-116) Creatine Kinase 90 U/L (39-308) Total Protein 7.4 g/dL (6.4-8.2) Albumin 1.0 g/dL (3.4-5.0) Albumin/Globulin Ratio 0.2 (1.0-1.7) Triglycerides Level 117 mg/dL (0-150) Cholesterol Level 75 mg/dL (0-200) LDL Cholesterol, Calculated 41 mg/dL (0-100) VLDL Cholesterol, Calculated 23 mg/dL (0-40) Non-HDL Cholesterol Calculated 64 mg/dL (0-129) HDL Cholesterol 11 mg/dL (40-60) Cholesterol/HDL Ratio 6.8 Microbiology 02/21/19 Blood Culture - Preliminary, Resulted NO GROWTH AFTER 1 DAY Medications Current Medications Dextrose (Dextrose 50%-Water Syringe) 25 gm STK-MED ONCE IV ; Start 02/21/19 at 03:08; Stop 02/21/19 at 03:08; Status DC Dextrose (Dextrose 50%-Water Syringe) 25 gm 1X ONCE IV Last administered on 02/21/19at 05:59; Start 02/21/19 at 04:30; Stop 02/21/19 at 04:31; Status DC Sodium Chloride 1,000 ml @ 1,000 mls/hr Q1H IV Last administered on 02/21/19at 04:44; Start 02/21/19 at 04:30; Stop 02/21/19 at 05:29; Status DC Albuterol/ Ipratropium (Duoneb) 3 ml 1X ONCE NEB Last administered on 02/21/19at 04:19; Start 02/21/19 at 04:30; Stop 02/21/19 at 04:31; Status DC Methylprednisolone Sodium Succinate (SOLU-Medrol 125MG VIAL) 125 mg 1X ONCE IV Last administered on 02/21/19at 04:11; Start 02/21/19 at 04:30; Stop 02/21/19 at 04:31; Status DC Dextrose 500 ml @ 150 mls/hr 1X ONCE IV Last administered on 02/21/19at 04:30; Start 02/21/19 at 04:30; Stop 02/21/19 at 07:49; Status DC Vancomycin HCl 2 gm/Sodium Chloride 500 ml @ 250 mls/hr 1X ONCE IV Last administered on 02/21/19at 04:49; Start 02/21/19 at 04:30; Stop 02/21/19 at 06:29; Status DC Sodium Chloride 1,000 ml @ 1,000 mls/hr 1X ONCE IV ; Start 02/21/19 at 05:30; Stop 02/21/19 at 06:29; Status DC Ondansetron HCl (Zofran) 4 mg PRN Q8HRS PRN IV NAUSEA/VOMITING 1ST CHOICE; Start 02/21/19 at 05:30; Stop 02/21/19 at 11:17; Status DC Morphine Sulfate (Morphine Sulfate) 4 mg PRN Q2HR PRN IV SEVERE PAIN 7-10 Last administered on 02/21/19at 09:07; Start 02/21/19 at 05:30; Stop 02/22/19 at 05:29; Status DC Sodium Chloride 1,000 ml @ 100 mls/hr Q10H IV ; Start 02/21/19 at 06:00; Stop 02/21/19 at 12:45; Status DC Acetaminophen (Tylenol) 650 mg PRN Q4HRS PRN PO FEVER; Start 02/21/19 at 05:30; Stop 02/21/19 at 11:18; Status DC Albuterol/ Ipratropium (Duoneb) 3 ml RTQID NEB Last administered on 02/22/19at 07:51; Start 02/21/19 at 08:00; Stop 02/22/19 at 07:59; Status DC Piperacillin Sod/ Tazobactam Sod 3.375 gm/Sodium Chloride 50 ml @ 100 mls/hr 1X ONCE IV Last administered on 02/21/19at 05:47; Start 02/21/19 at 06:00; Stop 02/21/19 at 06:29; Status DC Acetaminophen (Tylenol) 650 mg PRN Q6HRS PRN PO Headaches, Temp > 101.5'; Start 02/21/19 at 11:15 Ondansetron HCl (Zofran) 4 mg PRN Q6HRS PRN IV NAUSEA/VOMITING; Start 02/21/19 at 11:15 Famotidine (Pepcid Vial) 20 mg BID IVP Last administered on 02/22/19at 08:17; Start 02/21/19 at 11:30 Info (Icu Electrolyte Protocol) 1 ea DAILY MC Last administered on 02/22/19at 08:07; Start 02/22/19 at 09:00 Heparin Sodium (Porcine) (Heparin Sodium) 5,000 unit Q8HRS SQ Last administered on 02/22/19at 05:58; Start 02/21/19 at 14:00 Sodium Chloride (Normal Saline Flush) 3 ml QSHIFT PRN IV AFTER MEDS AND BLOOD DRAWS; Start 02/21/19 at 11:15 Docusate Sodium (Colace) 100 mg BID PO Last administered on 02/22/19at 08:16; Start 02/21/19 at 12:00 Bisacodyl (Dulcolax Supp) 10 mg PRN DAILY PRN MD CONSTIPATION; Start 02/21/19 at 11:15 Atenolol (Tenormin) 50 mg DAILY PO Last administered on 02/22/19at 08:16; Start 02/21/19 at 12:00 Chlorthalidone (Thalitone) 25 mg DAILY PO ; Start 02/21/19 at 12:00; Stop 02/21/19 at 12:45; Status DC Multivitamins (Thera M Plus) 1 tab DAILY PO Last administered on 02/22/19at 08:16; Start 02/21/19 at 12:00 Folic Acid (Folic Acid) 1 mg DAILY PO Last administered on 02/22/19at 08:16; Start 02/21/19 at 12:00 Thiamine Mononitrate (Vitamin B-1) 100 mg DAILY PO Last administered on at 08:16; Start 02/21/19 at 12:00 Lorazepam (Ativan) 4 mg PRN Q1HR PRN PO For CIWA 8-14; Start 02/21/19 at 11:30 Lorazepam (Ativan) 8 mg PRN Q1HR PRN PO For CIWA 15 or greater; Start 02/21/19 at 11:30 Lorazepam (Ativan Inj) 2 mg PRN Q1HR PRN IV For CIWA 8-14; Start 02/21/19 at 11:30 Lorazepam (Ativan Inj) 4 mg PRN Q1HR PRN IV For CIWA 15 or greater; Start 02/21/19 at 11:30 Haloperidol Lactate (Haldol Inj) 5 mg PRN Q4HRS PRN IVP Hallucinatns,Confusn,Delirium; Start 02/21/19 at 11:30 Clonidine HCl (Catapres) 0.1 mg PRN Q1HR PRN PO SBP > 180 or DBP > 100, MRX3; Start 02/21/19 at 11:30 Lorazepam (Ativan Inj) 2 mg PRN Q15MIN PRN IV SEE COMMENTS; Start 02/21/19 at 11:30 Lorazepam (Ativan Inj) 4 mg PRN Q15MIN PRN IV SEE COMMENTS; Start 02/21/19 at 11:30 Potassium Chloride (Klor-Con) 20 meq 1X ONCE PO Last administered on 02/21/19at 13:53; Start 02/21/19 at 12:00; Stop 02/21/19 at 12:01; Status DC Ringer's Solution 1,000 ml @ 75 mls/hr [id number] IV Last administered on 02/21/19at 13:54; Start 02/21/19 at 13:00; Stop 02/21/19 at 16:07; Status DC Magnesium Sulfate 50 ml @ 25 mls/hr PRN DAILY PRN IV for Mag < 1.7 on am labs; Start 02/21/19 at 13:00 Linezolid (Zyvox) 600 mg BID PO Last administered on 02/22/19at 08:16; Start 02/21/19 at 13:30 Piperacillin Sod/ Tazobactam Sod 3.375 gm/Sodium Chloride 50 ml @ 100 mls/hr Q6HRS IV Last administered on 02/22/19at 05:56; Start 02/21/19 at 13:30 Lactobacillus Rhamnosus (Culturelle) 1 cap BID PO Last administered on 02/22/19at 08:15; Start 02/21/19 at 21:00 Aspirin (Children'S Aspirin) 81 mg [id number] PO Last administered on 02/21/19at 16:23; Start 02/21/19 at 15:30; Stop 02/21/19 at 16:46; Status DC Sodium Chloride 1,000 ml @ 75 mls/hr [id number] IV ; Start 02/22/19 at 03:00; Stop 02/21/19 at 16:14; Status DC Sodium Chloride 1,000 ml @ 75 mls/hr [id number] IV Last administered on 02/22/19at 07:58; Start 02/21/19 at 17:00; Stop 02/22/19 at 08:57; Status DC Aspirin (Flavia Aspirin) 325 mg [id number] PO Last administered on 02/22/19at 08:16; Start 02/22/19 at 08:00 Albuterol/ Ipratropium (Duoneb) 3 ml RTQID NEB ; Start 02/22/19 at 08:00 Potassium Chloride (Klor-Con) 40 meq 1X ONCE PO Last administered on 02/22/19at 08:16; Start 02/22/19 at 08:15; Stop 02/22/19 at 08:16; Status DC Potassium Chloride/Water 100 ml @ 100 mls/hr Q1H IV ; Start 02/22/19 at 09:00; Stop 02/22/19 at 10:59 Active Scripts Active Reported Glipizide 5 Mg Tablet 1 Tab PO BID Metformin Hcl 1,000 Mg Tablet 1,000 Mg PO BIDWMEALS Atenolol 50 Mg Tablet 1 Tab PO DAILY Chlorthalidone (Chlorthalidone) 25 Mg Tablet 25 Mg PO DAILY Vitals/I & O Vital Sign - Last 24 Hours 02/21/19 02/21/19 02/21/19 02/21/19 09:30 09:30 09:33 10:00 Temp 97.5 97.5 Pulse 103 Resp 20 17 B/P (MAP) 122/65 (84) Pulse Ox 94 94 95 O2 Delivery Nasal Cannula Nasal Cannula Nasal Cannula Nasal Cannula O2 Flow Rate 2.0 2.0 2.0 2.0 02/21/19 02/21/19 02/21/19 02/21/19 12:00 12:15 13:41 14:02 Temp 97.5 97.5 Pulse 89 89 Resp 19 B/P (MAP) 129/67 130/70 (90) Pulse Ox 95 95 O2 Delivery Nasal Cannula Nasal Cannula Nasal Cannula O2 Flow Rate 2.0 2.0 2.0 02/21/19 02/21/19 02/21/19 02/21/19 14:02 15:35 15:57 16:00 Temp 97.8 97.8 97.8 97.8 Pulse 89 89 Resp 20 17 B/P (MAP) 125/77 (93) 128/63 (84) Pulse Ox 95 95 95 O2 Delivery Nasal Cannula Nasal Cannula Nasal Cannula Nasal Cannula O2 Flow Rate 2.0 2.0 2.0 2.0 02/21/19 02/21/19 02/21/19 02/21/19 16:33 17:58 18:28 19:00 Temp 97.8 97.8 97.8 97.8 97.8 97.8 Pulse 94 91 91 86 Resp 17 18 18 19 B/P (MAP) 129/78 (95) 129/70 (89) 132/63 (86) 139/78 (98) Pulse Ox 95 95 95 94 O2 Delivery Nasal Cannula Nasal Cannula Nasal Cannula Nasal Cannula O2 Flow Rate 2.0 2.0 2.0 2.0 02/21/19 02/21/19 02/21/19 02/21/19 20:00 20:00 20:16 20:16 Temp 97.8 97.8 Pulse 71 Resp 22 B/P (MAP) 141/64 (89) Pulse Ox 98 95 97 O2 Delivery Bi-pap BiPAP/CPAP Nasal Cannula BiPAP/CPAP O2 Flow Rate 2.0 02/21/19 02/21/19 02/21/19 02/21/19 21:00 22:00 23:00 23:09 Pulse 70 68 66 Resp 24 22 23 B/P (MAP) 140/72 (94) 141/66 (91) 141/72 (95) Pulse Ox 98 97 97 97 O2 Delivery BiPAP/CPAP BiPAP/CPAP BiPAP/CPAP BiPAP/CPAP 02/21/19 02/22/19 02/22/19 02/22/19 23:59 00:33 01:00 02:00 Temp 98.2 98.2 Pulse 70 80 79 Resp 22 24 21 B/P (MAP) 144/75 (98) 145/84 (104) 140/72 (94) Pulse Ox 99 95 98 O2 Delivery Bi-pap BiPAP/CPAP BiPAP/CPAP BiPAP/CPAP 02/22/19 02/22/19 02/22/19 02/22/19 03:00 03:59 04:00 04:00 Temp 97.8 97.8 Pulse 78 66 Resp 20 21 B/P (MAP) 135/75 (95) 129/69 (89) Pulse Ox 98 98 100 O2 Delivery BiPAP/CPAP Bi-pap BiPAP/CPAP 02/22/19 02/22/19 02/22/19 02/22/19 05:00 05:48 06:00 07:52 Pulse 78 78 Resp 20 21 B/P (MAP) 127/64 (85) 126/62 (83) Pulse Ox 96 97 97 96 O2 Delivery Nasal Cannula BiPAP/CPAP Nasal Cannula Nasal Cannula O2 Flow Rate 2.0 2.0 2.0 02/22/19 08:16 Pulse 80 B/P (MAP) 140/74 Intake and Output 02/21/19 02/21/19 02/22/19 15:00 23:00 07:00 Intake Total 1050 ml 1205 ml 1163.91 ml Output Total 1005 ml 430 ml Balance 1050 ml 200 ml 733.91 ml CORTNEY PEÑA MD Feb 22, 2019 09:15
--- NOTE | 2019-02-22 11:51 | PDOC ---
PROGRESS NOTES Subjective Subjective No new complaints. Denied any chest pain. Objective Objective Vital Signs Date Time Temp Pulse Resp B/P (MAP) Pulse Ox O2 Delivery O2 Flow Rate FiO2 02/22/19 08:16 80 140/74 02/22/19 07:52 96 Nasal Cannula 2.0 02/22/19 06:00 21 02/22/19 04:00 97.8 97.8 Intake and Output 02/22/19 07:00 Intake Total 3418.91 ml Output Total 1435 ml Balance 1983.91 ml Intake Oral 1140 ml IV Total 2278.91 ml Output Urine Total 1435 ml Physical Exam Abdomen: Normal bowel sounds, Soft Heart: Regular rate Extremities: Other (2-3+ pitting edema with chronic changes and hyperemia RLE, 1+ edema with hyperpigmentation LLE) General: Alert, Cooperative, mild distress Lungs: Normal air movement Neuro: Normal speech Psych/Mental Status: Mental status NL, Mood NL Assessment Assessment 1. Cellulitis right lower extremity: Continue antibiotics per ID team. Physical exam consistent with significant venous insufficiency and lymphedema. Consider venous reflux study as an outpatient. 2. Elevated BNP level. Chest x-ray however did not show any acute cardiopulmonary process. 2-D echo showed normal LV function without any wall motion abnormalities. Ischemic workup could be considered as an outpatient. 3. Severe hypoglycemia in a patient with diabetes and loss of appetite: Improved. Hold metformin and glipizide. Further evaluation and treatment per IM 4. Acute on chronic renal insufficiency, mild rhabdomyolysis from fall: Nephrology following 5. Alcohol abuse: Advised on abstinence. Monitor for withdrawal Plan Plan of Care Problems Medical Problems: (1) Acute renal failure Status: Acute (2) Cellulitis of right leg Status: Acute (3) Dehydration Status: Acute (4) Dyspnea Status: Acute (5) Hypoglycemia Status: Acute (6) Severe sepsis Status: Acute Comment Review of Relevant I have reviewed the following items robert (where applicable) has been applied. Labs Laboratory Tests Test 02/21/19 12:15 02/21/19 15:58 02/21/19 20:16 02/22/19 06:00 Urine Collection Type Unknown Urine Color Dk yellow Urine Clarity Turbid Urine pH 5.0 Urine Specific [place] 1.020 Urine Protein 30 mg/dL (NEG-TRACE) Urine Glucose (UA) Negative mg/dL (NEG) Urine Ketones (Stick) Trace mg/dL (NEG) Urine Blood Moderate (NEG) Urine Nitrite Negative (NEG) Urine Bilirubin Moderate (NEG) Urine Urobilinogen Dipstick 1.0 mg/dL (0.2 mg/dL) Urine Leukocyte Esterase Negative (NEG) Urine RBC 0 /HPF (0-2) Urine WBC 0 /HPF (0-4) Urine Amorphous Sediment Present /HPF Urine Bacteria 0 /HPF (0-FEW) Urine Hyaline Casts Moderate /HPF Urine Mucus Mod /LPF Creatine Kinase 332 U/L (39-308) 90 U/L (39-308) Troponin I Quantitative < 0.017 ng/mL (0.000-0.055) Urine Opiates Screen Pos (NEG) Urine Methadone Screen Neg (NEG) Urine Barbiturates Neg (NEG) Urine Phencyclidine Screen Neg (NEG) Urine Amphetamine/Methamphetamine Neg (NEG) Urine Benzodiazepines Screen Neg (NEG) Urine Cocaine Screen Neg (NEG) Urine Cannabinoids Screen Neg (NEG) Urine Ethyl Alcohol Neg (NEG) Glucose (Fingerstick) 224 mg/dL (70-99) 258 mg/dL (70-99) White Blood Count 21.4 x10^3/uL (4.0-11.0) Red Blood Count 3.49 x10^6/uL (4.30-5.70) Hemoglobin 10.4 g/dL (13.0-17.5) Hematocrit 32.6 % (39.0-53.0) Mean Corpuscular Volume 94 fL (79-100) Mean Corpuscular Hemoglobin 30 pg (25-35) Mean Corpuscular Hemoglobin Concent 32 g/dL (31-37) Red Cell Distribution Width 16.3 % (11.5-14.5) Platelet Count 357 x10^3/uL (140-400) Neutrophils (%) (Auto) 91 % (31-73) Lymphocytes (%) (Auto) 6 % (24-48) Monocytes (%) (Auto) 3 % (0-9) Eosinophils (%) (Auto) 0 % (0-3) Basophils (%) (Auto) 0 % (0-3) Neutrophils # (Auto) 19.4 x10^3/uL (1.8-7.7) Lymphocytes # (Auto) 1.3 x10^3/uL (1.0-4.8) Monocytes # (Auto) 0.7 x10^3/uL (0.0-1.1) Eosinophils # (Auto) 0.0 x10^3/uL (0.0-0.7) Basophils # (Auto) 0.0 x10^3/uL (0.0-0.2) Prothrombin Time 17.0 SEC (11.7-14.0) Prothromb Time International Ratio 1.4 (0.8-1.1) Activated Partial Thromboplast Time 30 SEC (24-38) Sodium Level 137 mmol/L (136-145) Potassium Level 3.4 mmol/L (3.5-5.1) Chloride Level 100 mmol/L (98-107) Carbon Dioxide Level 29 mmol/L (21-32) Anion Gap 8 (6-14) Blood Urea Nitrogen 59 mg/dL (8-26) Creatinine 2.2 mg/dL (0.7-1.3) Estimated GFR (Cockcroft-Gault) 31.3 BUN/Creatinine Ratio 27 (6-20) Glucose Level 293 mg/dL (70-99) Calcium Level 8.0 mg/dL (8.5-10.1) Phosphorus Level 5.1 mg/dL (2.6-4.7) Magnesium Level 2.3 mg/dL (1.8-2.4) Total Bilirubin 0.5 mg/dL (0.2-1.0) Aspartate Amino Transf (AST/SGOT) 31 U/L (15-37) Alanine Aminotransferase (ALT/SGPT) 20 U/L (16-63) Alkaline Phosphatase 78 U/L (46-116) Total Protein 7.4 g/dL (6.4-8.2) Albumin 1.0 g/dL (3.4-5.0) Albumin/Globulin Ratio 0.2 (1.0-1.7) Triglycerides Level 117 mg/dL (0-150) Cholesterol Level 75 mg/dL (0-200) LDL Cholesterol, Calculated 41 mg/dL (0-100) VLDL Cholesterol, Calculated 23 mg/dL (0-40) Non-HDL Cholesterol Calculated 64 mg/dL (0-129) HDL Cholesterol 11 mg/dL (40-60) Cholesterol/HDL Ratio 6.8 Microbiology 02/21/19 Blood Culture - Preliminary, Resulted NO GROWTH AFTER 1 DAY Medications Current Medications Albuterol/ Ipratropium (Duoneb) 3 ml RTQID NEB ; Start 02/22/19 at 08:00 Aspirin (Flavia Aspirin) 325 mg DAILYWBKFT PO Last administered on 02/22/19 08:16; Start 02/22/19 at 08:00 Aspirin (Children'S Aspirin) 81 mg DAILYWBKFT PO Last administered on 02/21/19at 16:23; Start 02/21/19 at 15:30; Stop 02/21/19 at 16:46; Status DC Atenolol (Tenormin) 50 mg DAILY PO Last administered on 02/22/19 08:16; Start 02/21/19 at 12:00 Chlorthalidone (Thalitone) 25 mg DAILY PO ; Start 02/21/19 at 12:00; Stop 02/21/19 at 12:45; Status DC Docusate Sodium (Colace) 100 mg BID PO Last administered on 02/22/19at 08:16; Start 02/21/19 at 12:00 Folic Acid (Folic Acid) 1 mg DAILY PO Last administered on 02/22/19at 08:16; Start 02/21/19 at 12:00 Heparin Sodium (Porcine) (Heparin Sodium) 5,000 unit Q8HRS SQ Last administered on 02/22/19at 05:58; Start 02/21/19 at 14:00 Info (Icu Electrolyte Protocol) 1 ea DAILY MC Last administered on 02/22/19at 08:07; Start 02/22/19 at 09:00 Lactobacillus Rhamnosus (Culturelle) 1 cap BID PO Last administered on 02/22/19at 08:15; Start 02/21/19 at 21:00 Linezolid (Zyvox) 600 mg BID PO Last administered on 02/22/19 08:16; Start 02/21/19 at 13:30 Magnesium Sulfate 50 ml @ 25 mls/hr PRN DAILY PRN IV for Mag < 1.7 on am labs; Start 02/21/19 at 13:00 Multivitamins (Thera M Plus) 1 tab DAILY PO Last administered on 02/22/19at 08:16; Start 02/21/19 at 12:00 Piperacillin Sod/ Tazobactam Sod 3.375 gm/Sodium Chloride 50 ml @ 100 mls/hr Q6HRS IV Last administered on 02/22/19at 05:56; Start 02/21/19 at 13:30 Potassium Chloride/Water 100 ml @ 100 mls/hr Q1H IV ; Start 02/22/19 at 09:00; Stop 02/22/19 at 10:59; Status DC Potassium Chloride (Klor-Con) 20 meq 1X ONCE PO Last administered on 02/21/19at 13:53; Start 02/21/19 at 12:00; Stop 02/21/19 at 12:01; Status DC Potassium Chloride (Klor-Con) 40 meq 1X ONCE PO Last administered on 02/22/19at 08:16; Start 02/22/19 at 08:15; Stop 02/22/19 at 08:16; Status DC Ringer's Solution 1,000 ml @ 75 mls/hr [id number] IV Last administered on 02/21/19at 13:54; Start 02/21/19 at 13:00; Stop 02/21/19 at 16:07; Status DC Sodium Chloride 1,000 ml @ 75 mls/hr [id number] IV Last administered on 02/22/19at 07:58; Start 02/21/19 at 17:00; Stop 02/22/19 at 08:57; Status DC Sodium Chloride 1,000 ml @ 75 mls/hr [id number] IV ; Start 02/22/19 at 03:00; Stop 02/21/19 at 16:14; Status DC Thiamine Mononitrate (Vitamin B-1) 100 mg DAILY PO Last administered on 02/22/19at 08:16; Start 02/21/19 at 12:00 Vitals/I & O Vital Sign - Last 24 Hours 02/21/19 02/21/19 02/21/19 02/21/19 12:00 12:15 13:41 14:02 Temp 97.5 97.5 Pulse 89 89 Resp 19 B/P (MAP) 129/67 130/70 (90) Pulse Ox 95 95 O2 Delivery Nasal Cannula Nasal Cannula Nasal Cannula O2 Flow Rate 2.0 2.0 2.0 02/21/19 02/21/19 02/21/19 02/21/19 14:02 15:35 15:57 16:00 Temp 97.8 97.8 97.8 97.8 Pulse 89 89 Resp 20 17 B/P (MAP) 125/77 (93) 128/63 (84) Pulse Ox 95 95 95 O2 Delivery Nasal Cannula Nasal Cannula Nasal Cannula Nasal Cannula O2 Flow Rate 2.0 2.0 2.0 2.0 02/21/19 02/21/19 02/21/19 02/21/19 16:33 17:58 18:28 19:00 Temp 97.8 97.8 97.8 97.8 97.8 97.8 Pulse 94 91 91 86 Resp 17 18 18 19 B/P (MAP) 129/78 (95) 129/70 (89) 132/63 (86) 139/78 (98) Pulse Ox 95 95 95 94 O2 Delivery Nasal Cannula Nasal Cannula Nasal Cannula Nasal Cannula O2 Flow Rate 2.0 2.0 2.0 2.0 02/21/19 02/21/19 02/21/19 02/21/19 20:00 20:00 20:16 20:16 Temp 97.8 97.8 Pulse 71 Resp 22 B/P (MAP) 141/64 (89) Pulse Ox 98 95 97 O2 Delivery Bi-pap BiPAP/CPAP Nasal Cannula BiPAP/CPAP O2 Flow Rate 2.0 02/21/19 02/21/19 02/21/19 02/21/19 21:00 22:00 23:00 23:09 Pulse 70 68 66 Resp 24 23 B/P (MAP) 140/72 (94) 141/66 (91) 141/72 (95) Pulse Ox 98 97 97 97 O2 Delivery BiPAP/CPAP BiPAP/CPAP BiPAP/CPAP BiPAP/CPAP 02/21/19 02/22/19 02/22/19 02/22/19 23:59 00:33 01:00 02:00 Temp 98.2 98.2 Pulse 70 80 79 Resp 22 24 21 B/P (MAP) 144/75 (98) 145/84 (104) 140/72 (94) Pulse Ox 99 95 98 O2 Delivery Bi-pap BiPAP/CPAP BiPAP/CPAP BiPAP/CPAP 02/22/19 02/22/19 02/22/19 02/22/19 03:00 03:59 04:00 04:00 Temp 97.8 97.8 Pulse 78 66 Resp 21 B/P (MAP) 135/75 (95) 129/69 (89) Pulse Ox 98 98 100 O2 Delivery BiPAP/CPAP Bi-pap BiPAP/CPAP 02/22/19 02/22/19 02/22/19 02/22/19 05:00 05:48 06:00 07:52 Pulse 78 78 Resp 20 21 B/P (MAP) 127/64 (85) 126/62 (83) Pulse Ox 96 97 97 96 O2 Delivery Nasal Cannula BiPAP/CPAP Nasal Cannula Nasal Cannula O2 Flow Rate 2.0 2.0 2.0 02/22/19 08:16 Pulse 80 B/P (MAP) 140/74 Intake and Output 02/21/19 02/21/19 02/22/19 15:00 23:00 07:00 Intake Total 1050 ml 1205 ml 1163.91 ml Output Total 1005 ml 430 ml Balance 1050 ml 200 ml 733.91 ml YOBANI BROWN MD Feb 22, 2019 11:51
--- NOTE | 2019-02-22 12:03 | CARD ---
MR#: [id number] Date of Study: 02/22/2019 Ordering Physician: YOBANI GUTIÉRREZ, Referring Physician: YOBANI GUTIÉRREZ, Tech: Lo Lynn JAUN APPROVED REPORT EXAM: Two-dimensional and M-mode echocardiogram with Doppler and color Doppler. Other Information Quality : Technically LimitedHR: 77bpm Rhythm : NSRTechnically limited study due to body habitus. INDICATION Sepsis 2D DIMENSIONS RVDd3.3 (2.9-3.5cm)Left Atrium(2D)3.2 (1.6-4.0cm) IVSd1.3 (0.7-1.1cm)Aortic Root(2D)3.5 (2.0-3.7cm) LVDd5.4 (3.9-5.9cm)LVOT Diameter2.4 (1.8-2.4cm) PWd1.6 (0.7-1.1cm)LVDs3.7 (2.5-4.0cm) FS (%) 31.2 %SV81.0 ml LVEF(%)58.5 (>50%) M-Mode DIMENSIONS Left Atrium(MM)3.96 (2.5-4.0cm)Aortic Root3.87 (2.2-3.7cm) Aortic Valve AoV Peak Hua.123.0cm/sAoV VTI20.4cm AO Peak GR.6.1mmHgLVOT VTI 15.68cm AO Mean GR.3mmHgAVA (VTI)2.60cm2 Mitral Valve MV E Oqkegryx19.3cm/sMV DECEL [id number] MV A Sbgbsret95.5cm/sE/A Ratio1.3 MV A [id number] Tricuspid Valve TR P. [id number]/sRAP [id number] TR Peak Gr.[id number] LEFT VENTRICLE The left ventricle is normal size. There is mild concentric left ventricular hypertrophy. The left ve ntricular systolic function is normal. The Ejection Fraction is 55-60%. There is normal LV segmental wall motion. RIGHT VENTRICLE The right ventricle is borderline dilated. There is normal right ventricular wall thickness. The righ t ventricular systolic function is normal. ATRIA The left atrium is borderline dilated. The right atrium is not well visualized. The interatrial septu m is intact with no evidence for an atrial septal defect or patent foramen ovale as noted on 2-D or D oppler imaging. AORTIC VALVE The aortic valve is mildly thickened but opens well. The aortic valve is trileaflet. Doppler and Tyler r Flow revealed no significant aortic regurgitation. There is no significant aortic valvular stenosis . There is no aortic valvular vegetation. MITRAL VALVE The mitral valve is normal in structure and function. There is no evidence of mitral valve prolapse. There is no mitral valve stenosis. Doppler and Color Flow revealed no mitral valve regurgitation note d. TRICUSPID VALVE The tricuspid valve is normal in structure and function. Doppler and Color Flow revealed trace to mil d tricuspid regurgitation. The PA pressure was estimated at 31 mmHg. There is no tricuspid valve prol apse or vegetation. There is no tricuspid valve stenosis. PULMONIC VALVE The pulmonic valve is not well visualized. GREAT VESSELS The aortic root is normal in size. The ascending aorta is Mildly dilated at 3.8cm. The IVC is dilated . PERICARDIAL EFFUSION There is no evidence of significant pericardial effusion. Critical Notification Critical Value: No <Conclusion> The left ventricular systolic function is normal. The Ejection Fraction is 55-60%. There is normal LV segmental wall motion. Trace to mild tricuspid regurgitation. The PA pressure was estimated at 31 mmHg. There is no evidence of significant pericardial effusion. Signed by : Yobani Gutiérrez, Electronically Approved : 02/22/2019 12:03:22
--- NOTE | 2019-02-22 12:50 | RAD ---
EXAM: Renal sonogram. HISTORY: Renal insufficiency. TECHNIQUE: Sonographic imaging the kidneys and bladder was performed. COMPARISON: None. FINDINGS: The exam is limited due to body habitus. The kidneys are large, measuring 14.7 cm [id number] on the right and 16.5 cm ongr-lv-[id number] on the left. No solid or cystic renal lesion is seen. There is no hydronephrosis. There is a Kimbrough catheter within the bladder. There is incidental hepatic steatosis. IMPRESSION: 1. Limited exam due to body habitus. The kidneys are large, likely appropriate for body habitus. 2. Kimbrough catheter within the bladder. 3. No acute finding or suspicious renal lesion. 4. Hepatic steatosis. Electronically signed by: Vikki Hopkins MD (02/22/2019 12:47 PM) [facility] [place]
--- NOTE | 2019-02-22 13:11 | PDOC2 ---
CONSULT Date of Consult Date of Consult DATE: 02/22/19 TIME: 13:07 Reason for Consult Reason for Consult: Chronic alcohol abuse History of Present Illness Reason for Visit: This is a 53-year-old gentleman with a history of morbid obesity and stasis dermatitis in his lower extremities. He was too weak to go to work and stayed at home. He presented to the hospital here and was admitted for sepsis and management of his stasis dermatitis and renal insufficiency. He admits toregular and heavy alcohol use but denies any knowledge of prior liver disease. Additionally he denies heartburn, abdominal pain, history of peptic ulcer disease, change in bowel pattern, melena, hematemesis or hematochezia. Past Medical History Cardiovascular: HTN, Hyperlipidemia Musculoskeletal: low back pain, Osteoarthritis Endocrine: Diabetes Family History Family History: High Cholestrol, Hypertension, Kidney Disease (son has reflux nephropathy, required nephrectomy) Social History No ALCOHOL: heavy Drugs: None Lives: with Family Current Problem List Problem List Problems Medical Problems: (1) Acute renal failure Status: Acute (2) Cellulitis of right leg Status: Acute (3) Dehydration Status: Acute (4) Dyspnea Status: Acute (5) Hypoglycemia Status: Acute (6) Severe sepsis Status: Acute Current Medications Current Medications Current Medications Dextrose (Dextrose 50%-Water Syringe) 25 gm STK-MED ONCE IV ; Start 02/21/19 at 03:08; Stop 02/21/19 at 03:08; Status DC Dextrose (Dextrose 50%-Water Syringe) 25 gm 1X ONCE IV Last administered on 02/21/19at 05:59; Start 02/21/19 at 04:30; Stop 02/21/19 at 04:31; Status DC Sodium Chloride 1,000 ml @ 1,000 mls/hr Q1H IV Last administered on 02/21/19at 04:44; Start 02/21/19 at 04:30; Stop 02/21/19 at 05:29; Status DC Albuterol/ Ipratropium (Duoneb) 3 ml 1X ONCE NEB Last administered on 02/21/19at 04:19; Start 02/21/19 at 04:30; Stop 02/21/19 at 04:31; Status DC Methylprednisolone Sodium Succinate (SOLU-Medrol 125MG VIAL) 125 mg 1X ONCE IV Last administered on 02/21/19at 04:11; Start 02/21/19 at 04:30; Stop 02/21/19 at 04:31; Status DC Dextrose 500 ml @ 150 mls/hr 1X ONCE IV Last administered on 02/21/19at 04:30; Start 02/21/19 at 04:30; Stop 02/21/19 at 07:49; Status DC Vancomycin HCl 2 gm/Sodium Chloride 500 ml @ 250 mls/hr 1X ONCE IV Last administered on 02/21/19at 04:49; Start 02/21/19 at 04:30; Stop 02/21/19 at 06:29; Status DC Sodium Chloride 1,000 ml @ 1,000 mls/hr 1X ONCE IV ; Start 02/21/19 at 05:30; Stop 02/21/19 at 06:29; Status DC Ondansetron HCl (Zofran) 4 mg PRN Q8HRS PRN IV NAUSEA/VOMITING 1ST CHOICE; Start 02/21/19 at 05:30; Stop 02/21/19 at 11:17; Status DC Morphine Sulfate (Morphine Sulfate) 4 mg PRN Q2HR PRN IV SEVERE PAIN 7-10 Last administered on 02/21/19at 09:07; Start 02/21/19 at 05:30; Stop 02/22/19 at 05:29; Status DC Sodium Chloride 1,000 ml @ 100 mls/hr Q10H IV ; Start 02/21/19 at 06:00; Stop 02/21/19 at 12:45; Status DC Acetaminophen (Tylenol) 650 mg PRN Q4HRS PRN PO FEVER; Start 02/21/19 at 05:30; Stop 02/21/19 at 11:18; Status DC Albuterol/ Ipratropium (Duoneb) 3 ml RTQID NEB Last administered on 02/22/19at 07:51; Start 02/21/19 at 08:00; Stop 02/22/19 at 07:59; Status DC Piperacillin Sod/ Tazobactam Sod 3.375 gm/Sodium Chloride 50 ml @ 100 mls/hr 1X ONCE IV Last administered on 02/21/19at 05:47; Start 02/21/19 at 06:00; Stop 02/21/19 at 06:29; Status DC Acetaminophen (Tylenol) 650 mg PRN Q6HRS PRN PO Headaches, Temp > 101.5'; Start 02/21/19 at 11:15 Ondansetron HCl (Zofran) 4 mg PRN Q6HRS PRN IV NAUSEA/VOMITING; Start 02/21/19 at 11:15 Famotidine (Pepcid Vial) 20 mg BID IVP Last administered on 02/22/19at 08:17; Start 02/21/19 at 11:30 Info (Icu Electrolyte Protocol) 1 ea DAILY MC Last administered on 02/22/19at 08:07; Start 02/22/19 at 09:00 Heparin Sodium (Porcine) (Heparin Sodium) 5,000 unit Q8HRS SQ Last administered on 02/22/19at 05:58; Start 02/21/19 at 14:00 Sodium Chloride (Normal Saline Flush) 3 ml QSHIFT PRN IV AFTER MEDS AND BLOOD DRAWS; Start 02/21/19 at 11:15 Docusate Sodium (Colace) 100 mg BID PO Last administered on 02/22/19at 08:16; Start 02/21/19 at 12:00 Bisacodyl (Dulcolax Supp) 10 mg PRN DAILY PRN [place] CONSTIPATION; Start 02/21/19 at 11:15 Atenolol (Tenormin) 50 mg DAILY PO Last administered on 02/22/19at 08:16; Start 02/21/19 at 12:00 Chlorthalidone (Thalitone) 25 mg DAILY PO ; Start 02/21/19 at 12:00; Stop 02/21/19 at 12:45; Status DC Multivitamins (Thera M Plus) 1 tab DAILY PO Last administered on 02/22/19at 08:16; Start 02/21/19 at 12:00 Folic Acid (Folic Acid) 1 mg DAILY PO Last administered on 02/22/19at 08:16; Start 02/21/19 at 12:00 Thiamine Mononitrate (Vitamin B-1) 100 mg DAILY PO Last administered on 02/22/19at 08:16; Start 02/21/19 at 12:00 Lorazepam (Ativan) 4 mg PRN Q1HR PRN PO For CIWA 8-14; Start 02/21/19 at 11:30 Lorazepam (Ativan) 8 mg PRN Q1HR PRN PO For CIWA 15 or greater; Start 02/21/19 at 11:30 Lorazepam (Ativan Inj) 2 mg PRN Q1HR PRN IV For CIWA 8-14; Start 02/21/19 at 11:30 Lorazepam (Ativan Inj) 4 mg PRN Q1HR PRN IV For CIWA 15 or greater; Start 02/21/19 at 11:30 Haloperidol Lactate (Haldol Inj) 5 mg PRN Q4HRS PRN IVP Hallucinatns,Confusn,Delirium; Start 02/21/19 at 11:30 Clonidine HCl (Catapres) 0.1 mg PRN Q1HR PRN PO SBP > 180 or DBP > 100, MRX3; Start 02/21/19 at 11:30 Lorazepam (Ativan Inj) 2 mg PRN Q15MIN PRN IV SEE COMMENTS; Start 02/21/19 at 11:30 Lorazepam (Ativan Inj) 4 mg PRN Q15MIN PRN IV SEE COMMENTS; Start 02/21/19 at 11:30 Potassium Chloride (Klor-Con) 20 meq 1X ONCE PO Last administered on 02/21/19at 13:53; Start 02/21/19 at 12:00; Stop 02/21/19 at 12:01; Status DC Ringer's Solution 1,000 ml @ 75 mls/hr [id number] IV Last administered on 02/21/19at 13:54; Start 02/21/19 at 13:00; Stop 02/21/19 at 16:07; Status DC Magnesium Sulfate 50 ml @ 25 mls/hr PRN DAILY PRN IV for Mag < 1.7 on am labs; Start 02/21/19 at 13:00 Linezolid (Zyvox) 600 mg BID PO Last administered on 02/22/19at 08:16; Start 02/21/19 at 13:30 Piperacillin Sod/ Tazobactam Sod 3.375 gm/Sodium Chloride 50 ml @ 100 mls/hr Q6HRS IV Last administered on 02/22/19at 12:46; Start 02/21/19 at 13:30 Lactobacillus Rhamnosus (Culturelle) 1 cap BID PO Last administered on 02/22/19at 08:15; Start 02/21/19 at 21:00 Aspirin (Children'S Aspirin) 81 mg [id number] PO Last administered on 02/21/19at 16:23; Start 02/21/19 at 15:30; Stop 02/21/19 at 16:46; Status DC Sodium Chloride 1,000 ml @ 75 mls/hr [id number] IV ; Start 02/22/19 at 03:00; Stop 02/21/19 at 16:14; Status DC Sodium Chloride 1,000 ml @ 75 mls/hr [id number] IV Last administered on 02/22/19at 07:58; Start 02/21/19 at 17:00; Stop 02/22/19 at 08:57; Status DC Aspirin (Flavia Aspirin) 325 mg [id number] PO Last administered on 02/22/19at 08:16; Start 02/22/19 at 08:00 Albuterol/ Ipratropium (Duoneb) 3 ml RTQID NEB Last administered on 02/22/19at 11:58; Start 02/22/19 at 08:00 Potassium Chloride (Klor-Con) 40 meq 1X ONCE PO Last administered on 02/22/19at 08:16; Start 02/22/19 at 08:15; Stop 02/22/19 at 08:16; Status DC Potassium Chloride/Water 100 ml @ 100 mls/hr Q1H IV ; Start 02/22/19 at 09:00; Stop 02/22/19 at 10:59; Status DC Active Scripts Active Reported Glipizide 5 Mg Tablet 1 Tab PO BID Metformin Hcl 1,000 Mg Tablet 1,000 Mg PO BIDWMEALS Atenolol 50 Mg Tablet 1 Tab PO DAILY Chlorthalidone (Chlorthalidone) 25 Mg Tablet 25 Mg PO DAILY Allergies Allergies: Coded Allergies: No Known Drug Allergies (Unverified , 02/21/19) Physical Exam General: Alert, Oriented X3 HEENT: Atraumatic, PERRLA Lungs: Clear to auscultation Heart: Regular rate, Normal S1, Normal S2 Abdomen: Normal bowel sounds, Soft, No tenderness, No hepatosplenomegaly, Other (morbidly obese) Extremities: Other (bilateral stasis dermatitis and swelling) Psych/Mental Status: Mental status NL Vitals VITALS Vital Signs Date Time Temp Pulse Resp B/P (MAP) Pulse Ox O2 Delivery O2 Flow Rate FiO2 02/22/19 12:00 96 Nasal Cannula 2.0 02/22/19 08:16 80 140/74 02/22/19 06:00 21 02/22/19 04:00 97.8 97.8 Labs Labs Laboratory Tests Test 02/21/19 02:58 02/21/19 03:12 02/21/19 03:15 02/21/19 03:50 Glucose (Fingerstick) 29 mg/dL (70-99) 93 mg/dL (70-99) 63 mg/dL (70-99) White Blood Count 28.8 x10^3/uL (4.0-11.0) Red Blood Count 4.07 x10^6/uL (4.30-5.70) Hemoglobin 12.5 g/dL (13.0-17.5) Hematocrit 38.1 % (39.0-53.0) Mean Corpuscular Volume 94 fL (79-100) Mean Corpuscular Hemoglobin 31 pg (25-35) Mean Corpuscular Hemoglobin Concent 33 g/dL (31-37) Red Cell Distribution Width 15.9 % (11.5-14.5) Platelet Count 352 x10^3/uL (140-400) Neutrophils (%) (Auto) 94 % (31-73) Lymphocytes (%) (Auto) 4 % (24-48) Monocytes (%) (Auto) 0 % (0-9) Eosinophils (%) (Auto) 1 % (0-3) Basophils (%) (Auto) 0 % (0-3) Neutrophils # (Auto) 27.2 x10^3/uL (1.8-7.7) Lymphocytes # (Auto) 1.2 x10^3/uL (1.0-4.8) Monocytes # (Auto) 0.1 x10^3/uL (0.0-1.1) Eosinophils # (Auto) 0.3 x10^3/uL (0.0-0.7) Basophils # (Auto) 0.1 x10^3/uL (0.0-0.2) Segmented Neutrophils % 82 % (35-66) Band Neutrophils % 9 % (0-9) Lymphocytes % 5 % (24-48) Monocytes % 3 % (0-10) Metamyelocytes % 1 % (0-0) Toxic Granulation Mod Toxic Vacuolation Mod Platelet Estimate Adequate (ADEQUATE) Prothrombin Time 17.1 SEC (11.7-14.0) Prothromb Time International Ratio 1.4 (0.8-1.1) Test 02/21/19 03:55 02/21/19 05:41 02/21/19 06:06 02/21/19 07:21 Sodium Level 135 mmol/L (136-145) Potassium Level 3.3 mmol/L (3.5-5.1) Chloride Level 96 mmol/L (98-107) Carbon Dioxide Level 27 mmol/L (21-32) Anion Gap 12 (6-14) Blood Urea Nitrogen 56 mg/dL (8-26) Creatinine 2.8 mg/dL (0.7-1.3) Estimated GFR (Cockcroft-Gault) 23.7 BUN/Creatinine Ratio 20 (6-20) Glucose Level 76 mg/dL (70-99) Lactic Acid Level 2.2 mmol/L (0.4-2.0) Calcium Level 8.9 mg/dL (8.5-10.1) Magnesium Level 2.0 mg/dL (1.8-2.4) Total Bilirubin 0.7 mg/dL (0.2-1.0) Aspartate Amino Transf (AST/SGOT) 91 U/L (15-37) Alanine Aminotransferase (ALT/SGPT) 30 U/L (16-63) Alkaline Phosphatase 98 U/L (46-116) Creatine Kinase 633 U/L (39-308) Creatine Kinase MB (Mass) 3.1 ng/mL (0.0-3.6) Creatine Kinase MB Relative Index 0.5 % (0-4) Troponin I Quantitative < 0.017 ng/mL (0.000-0.055) [id number]-Type Natriuretic Peptide 5369 pg/mL (0-124) Total Protein 8.9 g/dL (6.4-8.2) Albumin 1.5 g/dL (3.4-5.0) Albumin/Globulin Ratio 0.2 (1.0-1.7) Lipase 92 U/L (73-393) Ethyl Alcohol Level < 10 mg/dL (0-10) Glucose (Fingerstick) 48 mg/dL (70-99) 114 mg/dL (70-99) 107 mg/dL (70-99) Test 02/21/19 08:55 02/21/19 09:13 02/21/19 09:29 1/4/20 12:15 Lactic Acid Level 1.9 mmol/L (0.4-2.0) Total Bilirubin 0.6 mg/dL (0.2-1.0) Direct Bilirubin 0.4 mg/dL (0.0-0.2) Aspartate Amino Transf (AST/SGOT) 78 U/L (15-37) Alanine Aminotransferase (ALT/SGPT) 29 U/L (16-63) Alkaline Phosphatase 92 U/L (46-116) Total Protein 6.7 g/dL (6.4-8.2) Albumin 1.3 g/dL (3.4-5.0) Thyroid Stimulating Hormone (TSH) 0.961 uIU/mL (0.358-3.74) O2 Saturation 94 % (92-99) Arterial Blood pH 7.38 (7.35-7.45) Arterial Blood pCO2 at Patient Temp 39 mmHg (35-46) Arterial Blood pO2 at Patient Temp 78 mmHg (75-108) Arterial Blood HCO3 23 mmol/L (21-28) Arterial Blood Base Excess -2 mmol/L (-3-3) Oxyhemoglobin 92.8 % Methemoglobin 0.3 % (0.0-1.9) Carbon Monoxide, Quantitative 0.7 % (0.0-1.9) FiO2 2l n.c. Glucose (Fingerstick) 126 mg/dL (70-99) Urine Collection Type Unknown Urine Color Dk yellow Urine Clarity Turbid Urine pH 5.0 Urine Specific Dameron 1.020 Urine Protein 30 mg/dL (NEG-TRACE) Urine Glucose (UA) Negative mg/dL (NEG) Urine Ketones (Stick) Trace mg/dL (NEG) Urine Blood Moderate (NEG) Urine Nitrite Negative (NEG) Urine Bilirubin Moderate (NEG) Urine Urobilinogen Dipstick 1.0 mg/dL (0.2 mg/dL) Urine Leukocyte Esterase Negative (NEG) Urine RBC 0 /HPF (0-2) Urine WBC 0 /HPF (0-4) Urine Amorphous Sediment Present /HPF Urine Bacteria 0 /HPF (0-FEW) Urine Hyaline Casts Moderate /HPF Urine Mucus Mod /LPF Creatine Kinase 332 U/L (39-308) Troponin I Quantitative < 0.017 ng/mL (0.000-0.055) Urine Opiates Screen Pos (NEG) Urine Methadone Screen Neg (NEG) Urine Barbiturates Neg (NEG) Urine Phencyclidine Screen Neg (NEG) Urine Amphetamine/Methamphetamine Neg (NEG) Urine Benzodiazepines Screen Neg (NEG) Urine Cocaine Screen Neg (NEG) Urine Cannabinoids Screen Neg (NEG) Urine Ethyl Alcohol Neg (NEG) Test 02/21/19 15:58 02/21/19 20:16 02/22/19 06:00 02/22/19 12:36 Glucose (Fingerstick) 224 mg/dL (70-99) 258 mg/dL (70-99) 311 mg/dL (70-99) White Blood Count 21.4 x10^3/uL (4.0-11.0) Red Blood Count 3.49 x10^6/uL (4.30-5.70) Hemoglobin 10.4 g/dL (13.0-17.5) Hematocrit 32.6 % (39.0-53.0) Mean Corpuscular Volume 94 fL (79-100) Mean Corpuscular Hemoglobin 30 pg (25-35) Mean Corpuscular Hemoglobin Concent 32 g/dL (31-37) Red Cell Distribution Width 16.3 % (11.5-14.5) Platelet Count 357 x10^3/uL (140-400) Neutrophils (%) (Auto) 91 % (31-73) Lymphocytes (%) (Auto) 6 % (24-48) Monocytes (%) (Auto) 3 % (0-9) Eosinophils (%) (Auto) 0 % (0-3) Basophils (%) (Auto) 0 % (0-3) Neutrophils # (Auto) 19.4 x10^3/uL (1.8-7.7) Lymphocytes # (Auto) 1.3 x10^3/uL (1.0-4.8) Monocytes # (Auto) 0.7 x10^3/uL (0.0-1.1) Eosinophils # (Auto) 0.0 x10^3/uL (0.0-0.7) Basophils # (Auto) 0.0 x10^3/uL (0.0-0.2) Prothrombin Time 17.0 SEC (11.7-14.0) Prothromb Time International Ratio 1.4 (0.8-1.1) Activated Partial Thromboplast Time 30 SEC (24-38) Sodium Level 137 mmol/L (136-145) Potassium Level 3.4 mmol/L (3.5-5.1) Chloride Level 100 mmol/L (98-107) Carbon Dioxide Level 29 mmol/L (21-32) Anion Gap 8 (6-14) Blood Urea Nitrogen 59 mg/dL (8-26) Creatinine 2.2 mg/dL (0.7-1.3) Estimated GFR (Cockcroft-Gault) 31.3 BUN/Creatinine Ratio 27 (6-20) Glucose Level 293 mg/dL (70-99) Calcium Level 8.0 mg/dL (8.5-10.1) Phosphorus Level 5.1 mg/dL (2.6-4.7) Magnesium Level 2.3 mg/dL (1.8-2.4) Total Bilirubin 0.5 mg/dL (0.2-1.0) Aspartate Amino Transf (AST/SGOT) 31 U/L (15-37) Alanine Aminotransferase (ALT/SGPT) 20 U/L (16-63) Alkaline Phosphatase 78 U/L (46-116) Creatine Kinase 90 U/L (39-308) Total Protein 7.4 g/dL (6.4-8.2) Albumin 1.0 g/dL (3.4-5.0) Albumin/Globulin Ratio 0.2 (1.0-1.7) Triglycerides Level 117 mg/dL (0-150) Cholesterol Level 75 mg/dL (0-200) LDL Cholesterol, Calculated 41 mg/dL (0-100) VLDL Cholesterol, Calculated 23 mg/dL (0-40) Non-HDL Cholesterol Calculated 64 mg/dL (0-129) HDL Cholesterol 11 mg/dL (40-60) Cholesterol/HDL Ratio 6.8 Laboratory Tests Test 02/21/19 15:58 02/21/19 20:16 02/22/19 06:00 02/22/19 12:36 Glucose (Fingerstick) 224 mg/dL (70-99) 258 mg/dL (70-99) 311 mg/dL (70-99) White Blood Count 21.4 x10^3/uL (4.0-11.0) Red Blood Count 3.49 x10^6/uL (4.30-5.70) Hemoglobin 10.4 g/dL (13.0-17.5) Hematocrit 32.6 % (39.0-53.0) Mean Corpuscular Volume 94 fL (79-100) Mean Corpuscular Hemoglobin 30 pg (25-35) Mean Corpuscular Hemoglobin Concent 32 g/dL (31-37) Red Cell Distribution Width 16.3 % (11.5-14.5) Platelet Count 357 x10^3/uL (140-400) Neutrophils (%) (Auto) 91 % (31-73) Lymphocytes (%) (Auto) 6 % (24-48) Monocytes (%) (Auto) 3 % (0-9) Eosinophils (%) (Auto) 0 % (0-3) Basophils (%) (Auto) 0 % (0-3) Neutrophils # (Auto) 19.4 x10^3/uL (1.8-7.7) Lymphocytes # (Auto) 1.3 x10^3/uL (1.0-4.8) Monocytes # (Auto) 0.7 x10^3/uL (0.0-1.1) Eosinophils # (Auto) 0.0 x10^3/uL (0.0-0.7) Basophils # (Auto) 0.0 x10^3/uL (0.0-0.2) Prothrombin Time 17.0 SEC (11.7-14.0) Prothromb Time International Ratio 1.4 (0.8-1.1) Activated Partial Thromboplast Time 30 SEC (24-38) Sodium Level 137 mmol/L (136-145) Potassium Level 3.4 mmol/L (3.5-5.1) Chloride Level 100 mmol/L (98-107) Carbon Dioxide Level 29 mmol/L (21-32) Anion Gap 8 (6-14) Blood Urea Nitrogen 59 mg/dL (8-26) Creatinine 2.2 mg/dL (0.7-1.3) Estimated GFR (Cockcroft-Gault) 31.3 BUN/Creatinine Ratio 27 (6-20) Glucose Level 293 mg/dL (70-99) Calcium Level 8.0 mg/dL (8.5-10.1) Phosphorus Level 5.1 mg/dL (2.6-4.7) Magnesium Level 2.3 mg/dL (1.8-2.4) Total Bilirubin 0.5 mg/dL (0.2-1.0) Aspartate Amino Transf (AST/SGOT) 31 U/L (15-37) Alanine Aminotransferase (ALT/SGPT) 20 U/L (16-63) Alkaline Phosphatase 78 U/L (46-116) Creatine Kinase 90 U/L (39-308) Total Protein 7.4 g/dL (6.4-8.2) Albumin 1.0 g/dL (3.4-5.0) Albumin/Globulin Ratio 0.2 (1.0-1.7) Triglycerides Level 117 mg/dL (0-150) Cholesterol Level 75 mg/dL (0-200) LDL Cholesterol, Calculated 41 mg/dL (0-100) VLDL Cholesterol, Calculated 23 mg/dL (0-40) Non-HDL Cholesterol Calculated 64 mg/dL (0-129) HDL Cholesterol 11 mg/dL (40-60) Cholesterol/HDL Ratio 6.8 Assessment/Plan Assessment/Plan History of chronic alcohol abuse. His initial liver function studies are normal. Imaging of his liver with ultrasound may be appropriate at some point but due to his morbid obesity will likely be limited. Since his liver functions are normal at this time I would monitor them. Anemia. After hydration and treatment his hemoglobin dropped to 10 g but without overt bleeding. We will check his stool for blood and recommend stress gastritis prophylaxis IV Pepcid or Protonix. No further GI recommendations at this time ALISON GROVE MD Feb 22, 2019 13:11
[2019-02-22] MEDS ORDERED: IV DEXTROSE 5% 250 ML BAG. IV PRN (14:45)
[2019-02-22] MEDS ORDERED: DEXTROSE 50% 25 GM / 50ML DISP.SYRIN. IV PRN (14:45)
--- NOTE | 2019-02-22 14:47 | PDOC ---
PROGRESS NOTES Assessment Assessment Left side weakness. CVA syndrome. Metabolic encephalopathy. Lactic acidosis. Hypoglycemia, glucose level 20. Leukocytosis, WBC 28.8 Renal failure or SEEMA. Fall on the floor? DM. HTN. HLD. Alcohol use/abuse. Cellulitis, LE. Morbid obesity, BMI 62.6 RECOMMENDATIONS/PLAN: Life support in ICU. Treat medical diseases. ASA 325 mg daily. Still wait for brain MRI w/o contrast when stable. Carotid A US + Doppler. Echo + Bubble study. Consulted ID. Lab: see orders. OT/PT. 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 He told the ER that he was probably on the floor for about 12 hours. He appears to have been laying on his left upper extremity which he is having difficulty moving currently. He reported that he was too weak to get up himself. He was not sure why he was on the floor, or if he fell. He does not remember passing out. He admits that he's been weak for the last few days. His blood sugar was in the 20 per EMS. neurology consultation was requested due to his left side weakness and metabolic encephalopathy. 02/22/19: Left UE still weak. Past Medical History Morbid obesity Possible lymph edema right lower extremity Cardiovascular: HTN, Hyperlipidemia Musculoskeletal: low back pain, Osteoarthritis Endocrine: Diabetes Past Surgical History Knee surgery. Family History High Cholestrol, Hypertension, Kidney Disease (son has reflux nephropathy, required nephrectomy). Social History ALCOHOL: heavy Drugs: None Lives: with Family ALLERGY: NKDA MEDICATIONS: Refer to MAR REVIEW OF SYSTEMS: Constitutional: Morbid obesity. Head: No acute traumatic brain or head injury. Skin: No edema, or rash. Ear: No infection. Eyes: No vision loss or color blindness. Nose: No bleeding or purulent discharges. Hearing: Mild hearing decrease. Neck: No injury. Cardiac: HTN, HLD. Pulmonary: No COPD. GI: No GI ulcer, GI bleeding. Urinary/genital: No dysuria, incontinence, urinary retention. Endocrinologic: Diabetes Mellitus, morbid obesity. Skeletomuscular: No muscular atrophy, deformity. Neurological: see HP. Psychiatric: ETOH use/abuse. Otherwise, not [id number] review of systems. PHYSICAL EXAMINATION: General appearance is in subacute distress. HEENT: Normocephalic and nontraumatic. Eyes, nose, ears, and throat are unremarkable. Neck is supple. No lymphadenopathy. No crepitus. Cardiovascular: S1, S2, regular rate and rhythm. Pulmonary: Decreased to auscultation bilaterally. Abdomen: Bowel sounds are positive. Extremities: Lesions and skin changes noted. NEUROLOGICAL EXAMINATION: Awake. Not fully oriented to time, place and person. PERRL. EOMI. CN: no focal findings. Muscle tone: Decreased. Muscle strength: 2 left UE and 2-3 left LE, 4+ right side. DTR: 0-1 due to obesity. Plantar reflex: Neutral response bilaterally Gait: not examined in bed. Sensory exam: no abnormal findings. No cerebellar signs elicited. F-T-N test not performed due to not able to move left UE, right side is normal. Objective Objective Vital Signs Date Time Temp Pulse Resp B/P (MAP) Pulse Ox O2 Delivery O2 Flow Rate FiO2 02/22/19 13:00 78 138/79 (98) Nasal Cannula 2.0 02/22/19 12:00 96 02/22/19 12:00 98.1 98.1 02/22/19 06:00 21 Intake and Output 02/22/19 07:00 Intake Total 3418.91 ml Output Total 1585 ml Balance 1833.91 ml Intake Oral 1140 ml IV Total 2278.91 ml Output Urine Total 1585 ml Vitals Signs Vitals VS - Last 72 Hours, by Label Date Time Temp Pulse Resp B/P (MAP) Pulse Ox O2 Delivery O2 Flow Rate FiO2 02/22/19 13:00 78 138/79 (98) Nasal Cannula 2.0 02/22/19 12:00 96 Nasal Cannula 2.0 02/22/19 12:00 98.1 76 128/74 (92) Nasal Cannula 2.0 98.1 02/22/19 11:59 Nasal Cannula 2.0 02/22/19 11:00 76 127/67 (87) Nasal Cannula 2.0 02/22/19 10:00 82 117/73 (88) Nasal Cannula 2.0 02/22/19 09:00 80 128/72 (90) Nasal Cannula 2.0 02/22/19 08:16 80 140/74 02/22/19 08:00 98.0 79 140/74 (96) Nasal Cannula 2.0 98.0 02/22/19 07:52 96 Nasal Cannula 2.0 02/22/19 07:00 66 140/70 (93) Nasal Cannula 2.0 02/22/19 06:00 78 21 126/62 (83) 97 Nasal Cannula 2.0 02/22/19 05:48 97 BiPAP/CPAP 02/22/19 05:00 78 20 127/64 (85) 96 Nasal Cannula 2.0 02/22/19 04:00 97.8 66 21 129/69 (89) 100 BiPAP/CPAP 97.8 02/22/19 04:00 Bi-pap 02/22/19 03:59 98 02/22/19 03:00 78 20 135/75 (95) 98 BiPAP/CPAP 02/22/19 02:00 79 21 140/72 (94) 98 BiPAP/CPAP 02/22/19 01:00 80 24 145/84 (104) 95 BiPAP/CPAP 02/22/19 00:33 98.2 70 22 144/75 (98) 99 BiPAP/CPAP 98.2 02/21/19 23:59 Bi-pap 02/21/19 23:09 97 BiPAP/CPAP 02/21/19 23:00 66 23 141/72 (95) 97 BiPAP/CPAP 02/21/19 22:00 68 22 141/66 (91) 97 BiPAP/CPAP 02/21/19 21:00 70 24 140/72 (94) 98 BiPAP/CPAP 02/21/19 20:16 97 BiPAP/CPAP 02/21/19 20:16 95 Nasal Cannula 2.0 02/21/19 20:00 97.8 71 22 141/64 (89) 98 BiPAP/CPAP 97.8 02/21/19 20:00 Bi-pap 02/21/19 19:00 86 19 139/78 (98) 94 Nasal Cannula 2.0 02/21/19 18:28 97.8 91 18 132/63 (86) 95 Nasal Cannula 2.0 97.8 02/21/19 17:58 97.8 91 18 129/70 (89) 95 Nasal Cannula 2.0 97.8 02/21/19 16:33 97.8 94 17 129/78 (95) 95 Nasal Cannula 2.0 97.8 02/21/19 16:00 Nasal Cannula 2.0 02/21/19 15:57 95 Nasal Cannula 2.0 02/21/19 15:35 97.8 89 17 128/63 (84) 95 Nasal Cannula 2.0 97.8 02/21/19 14:02 97.8 89 20 125/77 (93) 95 Nasal Cannula 2.0 97.8 02/21/19 14:02 97.5 89 19 130/70 (90) 95 Nasal Cannula 2.0 97.5 02/21/19 13:41 89 129/67 02/21/19 12:15 95 Nasal Cannula 2.0 02/21/19 12:00 Nasal Cannula 2.0 02/21/19 10:00 17 95 Nasal Cannula 2.0 02/21/19 09:33 97.5 103 20 122/65 (84) 94 Nasal Cannula 2.0 97.5 02/21/19 09:30 94 Nasal Cannula 2.0 02/21/19 09:30 Nasal Cannula 2.0 02/21/19 09:07 16 94 Nasal Cannula 2.0 02/21/19 08:34 97.5 104 119/60 (79) 95 Nasal Cannula 2.0 97.5 02/21/19 08:24 97.5 104 24 119/60 (79) 95 Nasal Cannula 2.0 97.5 02/21/19 07:33 Nasal Cannula 2.0 02/21/19 07:04 87 30 144/68 (93) 98 BiPAP/CPAP Laboratory Laboratory Laboratory Tests Test 02/21/19 15:58 02/21/19 20:16 02/22/19 06:00 02/22/19 12:36 Glucose (Fingerstick) 224 mg/dL (70-99) 258 mg/dL (70-99) 311 mg/dL (70-99) White Blood Count 21.4 x10^3/uL (4.0-11.0) Red Blood Count 3.49 x10^6/uL (4.30-5.70) Hemoglobin 10.4 g/dL (13.0-17.5) Hematocrit 32.6 % (39.0-53.0) Mean Corpuscular Volume 94 fL (79-100) Mean Corpuscular Hemoglobin 30 pg (25-35) Mean Corpuscular Hemoglobin Concent 32 g/dL (31-37) Red Cell Distribution Width 16.3 % (11.5-14.5) Platelet Count 357 x10^3/uL (140-400) Neutrophils (%) (Auto) 91 % (31-73) Lymphocytes (%) (Auto) 6 % (24-48) Monocytes (%) (Auto) 3 % (0-9) Eosinophils (%) (Auto) 0 % (0-3) Basophils (%) (Auto) 0 % (0-3) Neutrophils # (Auto) 19.4 x10^3/uL (1.8-7.7) Lymphocytes # (Auto) 1.3 x10^3/uL (1.0-4.8) Monocytes # (Auto) 0.7 x10^3/uL (0.0-1.1) Eosinophils # (Auto) 0.0 x10^3/uL (0.0-0.7) Basophils # (Auto) 0.0 x10^3/uL (0.0-0.2) Prothrombin Time 17.0 SEC (11.7-14.0) Prothromb Time International Ratio 1.4 (0.8-1.1) Activated Partial Thromboplast Time 30 SEC (24-38) Sodium Level 137 mmol/L (136-145) Potassium Level 3.4 mmol/L (3.5-5.1) Chloride Level 100 mmol/L (98-107) Carbon Dioxide Level 29 mmol/L (21-32) Anion Gap 8 (6-14) Blood Urea Nitrogen 59 mg/dL (8-26) Creatinine 2.2 mg/dL (0.7-1.3) Estimated GFR (Cockcroft-Gault) 31.3 BUN/Creatinine Ratio 27 (6-20) Glucose Level 293 mg/dL (70-99) Calcium Level 8.0 mg/dL (8.5-10.1) Phosphorus Level 5.1 mg/dL (2.6-4.7) Magnesium Level 2.3 mg/dL (1.8-2.4) Total Bilirubin 0.5 mg/dL (0.2-1.0) Aspartate Amino Transf (AST/SGOT) 31 U/L (15-37) Alanine Aminotransferase (ALT/SGPT) 20 U/L (16-63) Alkaline Phosphatase 78 U/L (46-116) Creatine Kinase 90 U/L (39-308) Total Protein 7.4 g/dL (6.4-8.2) Albumin 1.0 g/dL (3.4-5.0) Albumin/Globulin Ratio 0.2 (1.0-1.7) Triglycerides Level 117 mg/dL (0-150) Cholesterol Level 75 mg/dL (0-200) LDL Cholesterol, Calculated 41 mg/dL (0-100) VLDL Cholesterol, Calculated 23 mg/dL (0-40) Non-HDL Cholesterol Calculated 64 mg/dL (0-129) HDL Cholesterol 11 mg/dL (40-60) Cholesterol/HDL Ratio 6.8 Microbiology 02/21/19 Blood Culture - Preliminary, Resulted NO GROWTH AFTER 1 DAY Medication Medications Current Medications Albuterol/ Ipratropium (Duoneb) 3 ml RTQID NEB Last administered on 02/22/19at 11:58; Start 02/22/19 at 08:00 Aspirin (Flavia Aspirin) 325 mg DAILYWBKFT PO Last administered on 02/22/19at 08:16; Start 02/22/19 at 08:00 Aspirin (Children'S Aspirin) 81 mg DAILYWBKFT PO Last administered on 02/21/19at 16:23; Start 02/21/19 at 15:30; Stop 02/21/19 at 16:46; Status DC Dextrose (Dextrose 50%-Water Syringe) 12.5 gm PRN Q15MIN PRN IV SEE COMMENTS; Start 02/22/19 at 14:45; Status UNV Dextrose (Iv Dextrose 5%) 250 ml PRN Q15MIN PRN IV SEE COMMENTS; Start 02/22/19 at 14:45; Status UNV Info (Icu Electrolyte Protocol) 1 ea DAILY MC Last administered on 02/22/19at 08:07; Start 02/22/19 at 09:00 Insulin Human Lispro (HumaLOG) 0-7 UNITS TIDWMEALS SQ ; Start 02/22/19 at 17:00; Status UNV Lactobacillus Rhamnosus (Culturelle) 1 cap BID PO Last administered on 02/22/19at 08:15; Start 02/21/19 at 21:00 Potassium Chloride/Water 100 ml @ 100 mls/hr Q1H IV ; Start 02/22/19 at 09:00; Stop 02/22/19 at 10:59; Status DC Potassium Chloride (Klor-Con) 40 meq 1X ONCE PO Last administered on 02/22/19at 08:16; Start 02/22/19 at 08:15; Stop 02/22/19 at 08:16; Status DC Sodium Chloride 1,000 ml @ 75 mls/hr [id number] IV Last administered on 02/22/19at 07:58; Start 02/21/19 at 17:00; Stop 02/22/19 at 08:57; Status DC Sodium Chloride 1,000 ml @ 75 mls/hr [id number] IV ; Start 02/22/19 at 03:00; Stop 02/21/19 at 16:14; Status DC Comment Review of Relevant I have reviewed the following items robert (where applicable) has been applied. ADAIR DÍAZ MD Feb 22, 2019 14:47
[2019-02-22] MEDS: INSULIN LISPRO 300 UNITS/3 ML VIAL. SQ SCH (17:00)
[2019-02-23] VITALS (7 sets, daily range): BP systolic 140–173; BP diastolic 85–106
[2019-02-23] MEDS: PIPERACILLIN/TAZOBACTAM 3.375 GM in IV NORMAL SALINE 50ML 50 ML IV SCH ×4 (01:10→17:37)
[2019-02-23 03:56] LABS: BASO # 0.1 x10^3/uL (0.0-0.2); BASO % 0 % (0-3); EOS % 0 % (0-3); HEMATOCRIT 34.5 % (39.0-53.0); LYMPH # 1.7 x10^3/uL (1.0-4.8); LYMPH % 8 % (24-48); MEAN CORPUSCULAR HEMOGLOBIN 30 pg (25-35); MEAN CORPUSCULAR HGB CONC 32 g/dL (31-37); MEAN CORPUSCULAR VOLUME 93 fL (79-100); MONO # 0.7 x10^3/uL (0.0-1.1); MONO % 3 % (0-9); NEUT # 18.2 x10^3/uL (1.8-7.7); NEUT % 88 % (31-73); PLATELET COUNT 396 x10^3/uL (140-400); RED BLOOD COUNT 3.69 x10^6/uL (4.30-5.70); RED CELL DISTRIBUTION WIDTH 16.3 % (11.5-14.5); WHITE BLOOD COUNT 20.6 x10^3/uL (4.0-11.0)
[2019-02-23 04:10] LABS: ALBUMIN 1.2 g/dL (3.4-5.0); CALCIUM 8.3 mg/dL (8.5-10.1); CREATININE 1.9 mg/dL (0.7-1.3); DIRECT BILIRUBIN 0.3 mg/dL (0.0-0.2); GFR 37.1; MAGNESIUM 2.2 mg/dL (1.8-2.4); PHOSPHORUS 3.2 mg/dL (2.6-4.7); POTASSIUM 3.9 mmol/L (3.5-5.1); TOTAL BILIRUBIN 0.5 mg/dL (0.2-1.0); TOTAL PROTEIN 8.1 g/dL (6.4-8.2)
[2019-02-23] MEDS: HEPARIN for SUB-Q USE 5,000 UNIT/ML VIAL. SQ SCH ×3 (06:00→20:34)
--- NOTE | 2019-02-23 07:31 | EKG ---
[facility] [address] [place] [address] Test Date: 2019-02-21 Test Time: 03:46:46 Pat Name: DANIELLE LOPEZ Department: Room: Gender: M Diploma Pharmacy Technician: : [id number] Requested By: JIMMY ZULETA Order Number: [id number] Reading MD: Measurements Intervals [place] Rate: 87 P: 24 NM: 190 QRS: 23 QRSD: 108 T: 65 QT: 406 QTc: 489 Interpretive Statements SINUS RHYTHM QRS(T) CONTOUR ABNORMALITY CONSIDER INFERIOR MYOCARDIAL DAMAGE T ABNORMALITY IN HIGH LATERAL LEADS PROLONGED QT ABNORMAL ECG RI6.01 No previous ECG available for comparison
[2019-02-23] MEDS: INSULIN LISPRO 300 UNITS/3 ML VIAL. SQ SCH ×3 (08:00→17:00)
[2019-02-23] MEDS: IPRATRPIUM/ALBUTEROL 0.5/2.5MG 3 ML NEBU. NEB SCH ×4 (08:07→20:00)
[2019-02-23] MEDS: ELECTROLYTE (ICU) PROTOCOL. MC SCH (09:00)
[2019-02-23] MEDS: FAMOTIDINE 20 MG/2 ML VIAL IVP SCH (09:39)
[2019-02-23] MEDS: FOLIC ACID 1 MG TABLET. PO SCH (09:39)
[2019-02-23] MEDS: THIAMINE 100 MG TABLET. PO SCH (09:39)
[2019-02-23] MEDS: ASPIRIN 325 MG TABLET PO SCH (09:39)
[2019-02-23] MEDS: LINEZOLID 600 MG TABLET PO SCH ×2 (09:39→20:23)
[2019-02-23] MEDS: MULTIVITAMIN with MINERAL TABLET. PO SCH (09:40)
[2019-02-23] MEDS: ATENOLOL 50 MG TABLET. PO SCH (09:40)
[2019-02-23] MEDS: LACTOBACILLUS RHAMNOSUS GG 1 CAPSULE. PO SCH ×2 (09:40→20:23)
[2019-02-23] MEDS: DOCUSATE SODIUM 100 MG CAPSULE. PO SCH ×2 (09:40→20:22)
--- NOTE | 2019-02-23 11:53 | PDOC ---
Renal-Progress Notes Subjective Notes Notes NO NEW COMPLAINTS History of Present Illness Hx of present illness STABLE Vitals Vitals Vital Signs Date Time Temp Pulse Resp B/P (MAP) Pulse Ox O2 Delivery O2 Flow Rate FiO2 02/23/19 09:40 80 153/95 02/23/19 08:08 95 Nasal Cannula 2.0 02/23/19 08:00 98.6 20 98.6 Weight Weight [ ] I.O. Intake and Output Intake and Output 02/23/19 07:00 Intake Total 3166 ml Output Total 1990 ml Balance 1176 ml Intake Oral 2880 ml IV Total 286 ml Output Urine Total 1990 ml Labs Labs Laboratory Tests Test 02/22/19 12:36 02/22/19 16:33 02/22/19 20:48 02/23/19 03:48 Glucose (Fingerstick) 311 mg/dL (70-99) 312 mg/dL (70-99) 278 mg/dL (70-99) White Blood Count 20.6 x10^3/uL (4.0-11.0) Red Blood Count 3.69 x10^6/uL (4.30-5.70) Hemoglobin 11.0 g/dL (13.0-17.5) Hematocrit 34.5 % (39.0-53.0) Mean Corpuscular Volume 93 fL (79-100) Mean Corpuscular Hemoglobin 30 pg (25-35) Mean Corpuscular Hemoglobin Concent 32 g/dL (31-37) Red Cell Distribution Width 16.3 % (11.5-14.5) Platelet Count 396 x10^3/uL (140-400) Neutrophils (%) (Auto) 88 % (31-73) Lymphocytes (%) (Auto) 8 % (24-48) Monocytes (%) (Auto) 3 % (0-9) Eosinophils (%) (Auto) 0 % (0-3) Basophils (%) (Auto) 0 % (0-3) Neutrophils # (Auto) 18.2 x10^3/uL (1.8-7.7) Lymphocytes # (Auto) 1.7 x10^3/uL (1.0-4.8) Monocytes # (Auto) 0.7 x10^3/uL (0.0-1.1) Eosinophils # (Auto) 0.0 x10^3/uL (0.0-0.7) Basophils # (Auto) 0.1 x10^3/uL (0.0-0.2) Sodium Level 136 mmol/L (136-145) Potassium Level 3.9 mmol/L (3.5-5.1) Chloride Level 101 mmol/L (98-107) Carbon Dioxide Level 29 mmol/L (21-32) Anion Gap 6 (6-14) Blood Urea Nitrogen 59 mg/dL (8-26) Creatinine 1.9 mg/dL (0.7-1.3) Estimated GFR (Cockcroft-Gault) 37.1 Glucose Level 211 mg/dL (70-99) Calcium Level 8.3 mg/dL (8.5-10.1) Phosphorus Level 3.2 mg/dL (2.6-4.7) Magnesium Level 2.2 mg/dL (1.8-2.4) Total Bilirubin 0.5 mg/dL (0.2-1.0) Direct Bilirubin 0.3 mg/dL (0.0-0.2) Aspartate Amino Transf (AST/SGOT) 39 U/L (15-37) Alanine Aminotransferase (ALT/SGPT) 26 U/L (16-63) Alkaline Phosphatase 96 U/L (46-116) Total Protein 8.1 g/dL (6.4-8.2) Albumin 1.2 g/dL (3.4-5.0) Test 02/23/19 07:40 02/23/19 11:35 Glucose (Fingerstick) 160 mg/dL (70-99) 152 mg/dL (70-99) Micro Micro Microbiology 02/21/19 Blood Culture - Preliminary, Resulted NO GROWTH AFTER 1 DAY Review of Systems Constitutional: yes: weakness, alert Ears/Nose/Throat: Yes: no symptom reported Pulmonary: Yes no symptom reported Cardiovascular: Yes edema Gastrointestional: Yes: no symptom reported Genitourinary: Yes: no symptom reported Musculoskeletal: Yes: joint pain, muscle pain, muscle stiffness Psychiatric/Neurological: Yes: no symptom reported Physical Exam General Appearance: no apparent distress Skin: warm Respiratory: decreased breath sounds Heart: S1S2 Genitourinary: distended bladder Extremities: edema Neurology: alert Assessment Assessment IMP SEEMA WITH CR IMPROVED FROM 2.8 TO 1.9 PROB EXTRACELLULAR VOLUME DEPLETION RLE CELLULITIS 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
[2019-02-23 12:07] LABS: BASE EXCESS ABG 4 mmol/L (-3-3); HCO3 ABG 30 mmol/L (21-28); PCO2 ABG 50 mmHg (35-46); PO2 ABG 160 mmHg (75-108); SAT O2 ABG 99 % (92-99)
[2019-02-23 12:08] LABS: FIO2 ABG 40
--- NOTE | 2019-02-23 12:15 | PDOC ---
PROGRESS NOTES Assessment Problems Medical Problems: (1) Acute renal failure Status: Acute (2) Cellulitis of right leg Status: Acute (3) Dehydration Status: Acute (4) Dyspnea Status: Acute (5) Hypoglycemia Status: Acute (6) Severe sepsis Status: Acute Left side weakness, possible stroke. Metabolic encephalopathy. Lactic acidosis. Hypoglycemia, glucose level 20. Leukocytosis, WBC 28.8 Renal failure or SEEMA. Fall DM. HTN. HLD. Alcohol use/abuse. Cellulitis, right leg. Morbid obesity, BMI 62.6 Venous insufficiency and stasis dermatitis. Plan Aspirin No need for statin, normal lipids! Can't do brain MRI, too heavy. Couldn't do carotid Doppler, not a good candidate for crime to direct the anywa y. Echo + Bubble study. As per ID. OT/PT. Subjective Denies pain Objective Vital Signs Date Time Temp Pulse Resp B/P (MAP) Pulse Ox O2 Delivery O2 Flow Rate FiO2 02/23/19 11:53 BiPAP/CPAP 02/23/19 09:40 80 153/95 02/23/19 08:08 95 2.0 02/23/19 08:00 98.6 20 98.6 Intake and Output 02/23/19 07:00 Intake Total 3166 ml Output Total 1990 ml Balance 1176 ml Intake Oral 2880 ml IV Total 286 ml Output Urine Total 1990 ml PHYSICAL EXAM Alert. Oriented to time, place and person. PERRL. EOMI. CN: no focal findings. Muscle tone: normal. Muscle strength: 3/5, weaker on left DTR: 0-1+ Plantar reflex: flexor Gait: not examined in bed. Sensory exam: stocking loss. No cerebellar signs elicited. Review of Relevant I have reviewed the following items robert (where applicable) has been applied. Labs Laboratory Tests Test 02/21/19 12:15 02/21/19 15:58 02/21/19 20:16 02/22/19 06:00 Urine Collection Type Unknown Urine Color Dk yellow Urine Clarity Turbid Urine pH 5.0 Urine Specific Dale 1.020 Urine Protein 30 mg/dL (NEG-TRACE) Urine Glucose (UA) Negative mg/dL (NEG) Urine Ketones (Stick) Trace mg/dL (NEG) Urine Blood Moderate (NEG) Urine Nitrite Negative (NEG) Urine Bilirubin Moderate (NEG) Urine Urobilinogen Dipstick 1.0 mg/dL (0.2 mg/dL) Urine Leukocyte Esterase Negative (NEG) Urine RBC 0 /HPF (0-2) Urine WBC 0 /HPF (0-4) Urine Amorphous Sediment Present /HPF Urine Bacteria 0 /HPF (0-FEW) Urine Hyaline Casts Moderate /HPF Urine Mucus Mod /LPF Urine Random Sodium <20 mmol/L (Not Estab.) Creatine Kinase 332 U/L (39-308) 90 U/L (39-308) Troponin I Quantitative < 0.017 ng/mL (0.000-0.055) Urine Opiates Screen Pos (NEG) Urine Methadone Screen Neg (NEG) Urine Barbiturates Neg (NEG) Urine Phencyclidine Screen Neg (NEG) Urine Amphetamine/Methamphetamine Neg (NEG) Urine Benzodiazepines Screen Neg (NEG) Urine Cocaine Screen Neg (NEG) Urine Cannabinoids Screen Neg (NEG) Urine Ethyl Alcohol Neg (NEG) Glucose (Fingerstick) 224 mg/dL (70-99) 258 mg/dL (70-99) White Blood Count 21.4 x10^3/uL (4.0-11.0) Red Blood Count 3.49 x10^6/uL (4.30-5.70) Hemoglobin 10.4 g/dL (13.0-17.5) Hematocrit 32.6 % (39.0-53.0) Mean Corpuscular Volume 94 fL (79-100) Mean Corpuscular Hemoglobin 30 pg (25-35) Mean Corpuscular Hemoglobin Concent 32 g/dL (31-37) Red Cell Distribution Width 16.3 % (11.5-14.5) Platelet Count 357 x10^3/uL (140-400) Neutrophils (%) (Auto) 91 % (31-73) Lymphocytes (%) (Auto) 6 % (24-48) Monocytes (%) (Auto) 3 % (0-9) Eosinophils (%) (Auto) 0 % (0-3) Basophils (%) (Auto) 0 % (0-3) Neutrophils # (Auto) 19.4 x10^3/uL (1.8-7.7) Lymphocytes # (Auto) 1.3 x10^3/uL (1.0-4.8) Monocytes # (Auto) 0.7 x10^3/uL (0.0-1.1) Eosinophils # (Auto) 0.0 x10^3/uL (0.0-0.7) Basophils # (Auto) 0.0 x10^3/uL (0.0-0.2) Prothrombin Time 17.0 SEC (11.7-14.0) Prothromb Time International Ratio 1.4 (0.8-1.1) Activated Partial Thromboplast Time 30 SEC (24-38) Sodium Level 137 mmol/L (136-145) Potassium Level 3.4 mmol/L (3.5-5.1) Chloride Level 100 mmol/L (98-107) Carbon Dioxide Level 29 mmol/L (21-32) Anion Gap 8 (6-14) Blood Urea Nitrogen 59 mg/dL (8-26) Creatinine 2.2 mg/dL (0.7-1.3) Estimated GFR (Cockcroft-Gault) 31.3 BUN/Creatinine Ratio 27 (6-20) Glucose Level 293 mg/dL (70-99) Calcium Level 8.0 mg/dL (8.5-10.1) Phosphorus Level 5.1 mg/dL (2.6-4.7) Magnesium Level 2.3 mg/dL (1.8-2.4) Total Bilirubin 0.5 mg/dL (0.2-1.0) Aspartate Amino Transf (AST/SGOT) 31 U/L (15-37) Alanine Aminotransferase (ALT/SGPT) 20 U/L (16-63) Alkaline Phosphatase 78 U/L (46-116) Total Protein 7.4 g/dL (6.4-8.2) Albumin 1.0 g/dL (3.4-5.0) Albumin/Globulin Ratio 0.2 (1.0-1.7) Triglycerides Level 117 mg/dL (0-150) Cholesterol Level 75 mg/dL (0-200) LDL Cholesterol, Calculated 41 mg/dL (0-100) VLDL Cholesterol, Calculated 23 mg/dL (0-40) Non-HDL Cholesterol Calculated 64 mg/dL (0-129) HDL Cholesterol 11 mg/dL (40-60) Cholesterol/HDL Ratio 6.8 Test 02/22/19 12:36 02/22/19 16:33 02/22/19 20:48 02/23/19 03:48 Glucose (Fingerstick) 311 mg/dL (70-99) 312 mg/dL (70-99) 278 mg/dL (70-99) White Blood Count 20.6 x10^3/uL (4.0-11.0) Red Blood Count 3.69 x10^6/uL (4.30-5.70) Hemoglobin 11.0 g/dL (13.0-17.5) Hematocrit 34.5 % (39.0-53.0) Mean Corpuscular Volume 93 fL (79-100) Mean Corpuscular Hemoglobin 30 pg (25-35) Mean Corpuscular Hemoglobin Concent 32 g/dL (31-37) Red Cell Distribution Width 16.3 % (11.5-14.5) Platelet Count 396 x10^3/uL (140-400) Neutrophils (%) (Auto) 88 % (31-73) Lymphocytes (%) (Auto) 8 % (24-48) Monocytes (%) (Auto) 3 % (0-9) Eosinophils (%) (Auto) 0 % (0-3) Basophils (%) (Auto) 0 % (0-3) Neutrophils # (Auto) 18.2 x10^3/uL (1.8-7.7) Lymphocytes # (Auto) 1.7 x10^3/uL (1.0-4.8) Monocytes # (Auto) 0.7 x10^3/uL (0.0-1.1) Eosinophils # (Auto) 0.0 x10^3/uL (0.0-0.7) Basophils # (Auto) 0.1 x10^3/uL (0.0-0.2) Sodium Level 136 mmol/L (136-145) Potassium Level 3.9 mmol/L (3.5-5.1) Chloride Level 101 mmol/L (98-107) Carbon Dioxide Level 29 mmol/L (21-32) Anion Gap 6 (6-14) Blood Urea Nitrogen 59 mg/dL (8-26) Creatinine 1.9 mg/dL (0.7-1.3) Estimated GFR (Cockcroft-Gault) 37.1 Glucose Level 211 mg/dL (70-99) Calcium Level 8.3 mg/dL (8.5-10.1) Phosphorus Level 3.2 mg/dL (2.6-4.7) Magnesium Level 2.2 mg/dL (1.8-2.4) Total Bilirubin 0.5 mg/dL (0.2-1.0) Direct Bilirubin 0.3 mg/dL (0.0-0.2) Aspartate Amino Transf (AST/SGOT) 39 U/L (15-37) Alanine Aminotransferase (ALT/SGPT) 26 U/L (16-63) Alkaline Phosphatase 96 U/L (46-116) Total Protein 8.1 g/dL (6.4-8.2) Albumin 1.2 g/dL (3.4-5.0) Test 02/23/19 07:40 02/23/19 11:35 Glucose (Fingerstick) 160 mg/dL (70-99) 152 mg/dL (70-99) Laboratory Tests Test 02/22/19 12:36 02/22/19 16:33 02/22/19 20:48 02/23/19 03:48 Glucose (Fingerstick) 311 mg/dL (70-99) 312 mg/dL (70-99) 278 mg/dL (70-99) White Blood Count 20.6 x10^3/uL (4.0-11.0) Red Blood Count 3.69 x10^6/uL (4.30-5.70) Hemoglobin 11.0 g/dL (13.0-17.5) Hematocrit 34.5 % (39.0-53.0) Mean Corpuscular Volume 93 fL (79-100) Mean Corpuscular Hemoglobin 30 pg (25-35) Mean Corpuscular Hemoglobin Concent 32 g/dL (31-37) Red Cell Distribution Width 16.3 % (11.5-14.5) Platelet Count 396 x10^3/uL (140-400) Neutrophils (%) (Auto) 88 % (31-73) Lymphocytes (%) (Auto) 8 % (24-48) Monocytes (%) (Auto) 3 % (0-9) Eosinophils (%) (Auto) 0 % (0-3) Basophils (%) (Auto) 0 % (0-3) Neutrophils # (Auto) 18.2 x10^3/uL (1.8-7.7) Lymphocytes # (Auto) 1.7 x10^3/uL (1.0-4.8) Monocytes # (Auto) 0.7 x10^3/uL (0.0-1.1) Eosinophils # (Auto) 0.0 x10^3/uL (0.0-0.7) Basophils # (Auto) 0.1 x10^3/uL (0.0-0.2) Sodium Level 136 mmol/L (136-145) Potassium Level 3.9 mmol/L (3.5-5.1) Chloride Level 101 mmol/L (98-107) Carbon Dioxide Level 29 mmol/L (21-32) Anion Gap 6 (6-14) Blood Urea Nitrogen 59 mg/dL (8-26) Creatinine 1.9 mg/dL (0.7-1.3) Estimated GFR (Cockcroft-Gault) 37.1 Glucose Level 211 mg/dL (70-99) Calcium Level 8.3 mg/dL (8.5-10.1) Phosphorus Level 3.2 mg/dL (2.6-4.7) Magnesium Level 2.2 mg/dL (1.8-2.4) Total Bilirubin 0.5 mg/dL (0.2-1.0) Direct Bilirubin 0.3 mg/dL (0.0-0.2) Aspartate Amino Transf (AST/SGOT) 39 U/L (15-37) Alanine Aminotransferase (ALT/SGPT) 26 U/L (16-63) Alkaline Phosphatase 96 U/L (46-116) Total Protein 8.1 g/dL (6.4-8.2) Albumin 1.2 g/dL (3.4-5.0) Test 02/23/19 07:40 02/23/19 11:35 Glucose (Fingerstick) 160 mg/dL (70-99) 152 mg/dL (70-99) Microbiology 02/21/19 Blood Culture - Preliminary, Resulted NO GROWTH AFTER 1 DAY Medications Current Medications Dextrose (Dextrose 50%-Water Syringe) 25 gm STK-MED ONCE IV ; Start 02/21/19 at 03:08; Stop 02/21/19 at 03:08; Status DC Dextrose (Dextrose 50%-Water Syringe) 25 gm 1X ONCE IV Last administered on 02/21/19at 05:59; Start 02/21/19 at 04:30; Stop 02/21/19 at 04:31; Status DC Sodium Chloride 1,000 ml @ 1,000 mls/hr Q1H IV Last administered on 02/21/19at 04:44; Start 02/21/19 at 04:30; Stop 02/21/19 at 05:29; Status DC Albuterol/ Ipratropium (Duoneb) 3 ml 1X ONCE NEB Last administered on 02/21/19at 04:19; Start 02/21/19 at 04:30; Stop 02/21/19 at 04:31; Status DC Methylprednisolone Sodium Succinate (SOLU-Medrol 125MG VIAL) 125 mg 1X ONCE IV Last administered on 02/21/19at 04:11; Start 02/21/19 at 04:30; Stop 02/21/19 at 04:31; Status DC Dextrose 500 ml @ 150 mls/hr 1X ONCE IV Last administered on 02/21/19at 04:30; Start 02/21/19 at 04:30; Stop 02/21/19 at 07:49; Status DC Vancomycin HCl 2 gm/Sodium Chloride 500 ml @ 250 mls/hr 1X ONCE IV Last administered on 02/21/19at 04:49; Start 02/21/19 at 04:30; Stop 02/21/19 at 06:29; Status DC Sodium Chloride 1,000 ml @ 1,000 mls/hr 1X ONCE IV ; Start 02/21/19 at 05:30; Stop 02/21/19 at 06:29; Status DC Ondansetron HCl (Zofran) 4 mg PRN Q8HRS PRN IV NAUSEA/VOMITING 1ST CHOICE; Start 02/21/19 at 05:30; Stop 02/21/19 at 11:17; Status DC Morphine Sulfate (Morphine Sulfate) 4 mg PRN Q2HR PRN IV SEVERE PAIN 7-10 Last administered on 02/21/19at 09:07; Start 02/21/19 at 05:30; Stop 02/22/19 at 05:29; Status DC Sodium Chloride 1,000 ml @ 100 mls/hr Q10H IV ; Start 02/21/19 at 06:00; Stop 02/21/19 at 12:45; Status DC Acetaminophen (Tylenol) 650 mg PRN Q4HRS PRN PO FEVER; Start 02/21/19 at 05:30; Stop 02/21/19 at 11:18; Status DC Albuterol/ Ipratropium (Duoneb) 3 ml RTQID NEB Last administered on 02/22/19at 07:51; Start 02/21/19 at 08:00; Stop 02/22/19 at 07:59; Status DC Piperacillin Sod/ Tazobactam Sod 3.375 gm/Sodium Chloride 50 ml @ 100 mls/hr 1X ONCE IV Last administered on 02/21/19at 05:47; Start 02/21/19 at 06:00; Stop 02/21/19 at 06:29; Status DC Acetaminophen (Tylenol) 650 mg PRN Q6HRS PRN PO Headaches, Temp > 101.5'; Start 02/21/19 at 11:15 Ondansetron HCl (Zofran) 4 mg PRN Q6HRS PRN IV NAUSEA/VOMITING; Start 02/21/19 at 11:15 Famotidine (Pepcid Vial) 20 mg BID IVP Last administered on 02/23/19at 09:39; Start 02/21/19 at 11:30 Info (Icu Electrolyte Protocol) 1 ea DAILY MC Last administered on 02/22/19at 08:07; Start 02/22/19 at 09:00 Heparin Sodium (Porcine) (Heparin Sodium) 5,000 unit Q8HRS SQ Last administered on 02/23/19at 06:00; Start 02/21/19 at 14:00 Sodium Chloride (Normal Saline Flush) 3 ml QSHIFT PRN IV AFTER MEDS AND BLOOD DRAWS; Start 02/21/19 at 11:15 Docusate Sodium (Colace) 100 mg BID PO Last administered on 02/23/19at 09:40; Start 02/21/19 at 12:00 Bisacodyl (Dulcolax Supp) 10 mg PRN DAILY PRN NV CONSTIPATION; Start 02/21/19 at 11:15 Atenolol (Tenormin) 50 mg DAILY PO Last administered on 02/23/19at 09:40; Start 02/21/19 at 12:00 Chlorthalidone (Thalitone) 25 mg DAILY PO ; Start 02/21/19 at 12:00; Stop 02/21/19 at 12:45; Status DC Multivitamins (Thera M Plus) 1 tab DAILY PO Last administered on 02/23/19at 09:40; Start 02/21/19 at 12:00 Folic Acid (Folic Acid) 1 mg DAILY PO Last administered on 02/23/19at 09:39; Start 02/21/19 at 12:00 Thiamine Mononitrate (Vitamin B-1) 100 mg DAILY PO Last administered on 02/23/19at 09:39; Start 02/21/19 at 12:00 Lorazepam (Ativan) 4 mg PRN Q1HR PRN PO For CIWA 8-14; Start 02/21/19 at 11:30 Lorazepam (Ativan) 8 mg PRN Q1HR PRN PO For CIWA 15 or greater; Start 02/21/19 at 11:30 Lorazepam (Ativan Inj) 2 mg PRN Q1HR PRN IV For CIWA 8-14; Start 02/21/19 at 11:30 Lorazepam (Ativan Inj) 4 mg PRN Q1HR PRN IV For CIWA 15 or greater; Start 02/21/19 at 11:30 Haloperidol Lactate (Haldol Inj) 5 mg PRN Q4HRS PRN IVP Hallucinatns,Confusn,Delirium; Start 02/21/19 at 11:30 Clonidine HCl (Catapres) 0.1 mg PRN Q1HR PRN PO SBP > 180 or DBP > 100, MRX3; Start 02/21/19 at 11:30 Lorazepam (Ativan Inj) 2 mg PRN Q15MIN PRN IV SEE COMMENTS; Start 02/21/19 at 11:30 Lorazepam (Ativan Inj) 4 mg PRN Q15MIN PRN IV SEE COMMENTS; Start 02/21/19 at 11:30 Potassium Chloride (Klor-Con) 20 meq 1X ONCE PO Last administered on 02/21/19at 13:53; Start 02/21/19 at 12:00; Stop 02/21/19 at 12:01; Status DC Ringer's Solution 1,000 ml @ 75 mls/hr [id number] IV Last administered on 02/21/19at 13:54; Start 02/21/19 at 13:00; Stop 02/21/19 at 16:07; Status DC Magnesium Sulfate 50 ml @ 25 mls/hr PRN DAILY PRN IV for Mag < 1.7 on am labs; Start 02/21/19 at 13:00 Linezolid (Zyvox) 600 mg BID PO Last administered on 02/23/19at 09:39; Start 02/21/19 at 13:30 Piperacillin Sod/ Tazobactam Sod 3.375 gm/Sodium Chloride 50 ml @ 100 mls/hr Q6HRS IV Last administered on 02/23/19at 07:29; Start 02/21/19 at 13:30 Lactobacillus Rhamnosus (Culturelle) 1 cap BID PO Last administered on 02/23/19at 09:40; Start 02/21/19 at 21:00 Aspirin (Children'S Aspirin) 81 mg [id number] PO Last administered on 02/21/19at 16:23; Start 02/21/19 at 15:30; Stop 02/21/19 at 16:46; Status DC Sodium Chloride 1,000 ml @ 75 mls/hr [id number] IV ; Start 02/22/19 at 03:00; Stop 02/21/19 at 16:14; Status DC Sodium Chloride 1,000 ml @ 75 mls/hr [id number] IV Last administered on 02/22/19at 07:58; Start 02/21/19 at 17:00; Stop 02/22/19 at 08:57; Status DC Aspirin (Flavia Aspirin) 325 mg DAILYWBKFT PO Last administered on 02/23/19at 09:39; Start 02/22/19 at 08:00 Albuterol/ Ipratropium (Duoneb) 3 ml RTQID NEB Last administered on 02/23/19at 08:07; Start 02/22/19 at 08:00 Potassium Chloride (Klor-Con) 40 meq 1X ONCE PO Last administered on 02/22/19at 08:16; Start 02/22/19 at 08:15; Stop 02/22/19 at 08:16; Status DC Potassium Chloride/Water 100 ml @ 100 mls/hr Q1H IV ; Start 02/22/19 at 09:00; Stop 02/22/19 at 10:59; Status DC Insulin Human Lispro (HumaLOG) 0-7 UNITS TIDWMEALS SQ ; Start 02/22/19 at 17:00 Dextrose (Dextrose 50%-Water Syringe) 12.5 gm PRN Q15MIN PRN IV SEE COMMENTS; Start 02/22/19 at 14:45 Dextrose (Iv Dextrose 5%) 250 ml PRN Q15MIN PRN IV SEE COMMENTS; Start 02/22/19 at 14:45 Active Scripts Active Reported Glipizide 5 Mg Tablet 1 Tab PO BID Metformin Hcl 1,000 Mg Tablet 1,000 Mg PO BIDWMEALS Atenolol 50 Mg Tablet 1 Tab PO DAILY Chlorthalidone (Chlorthalidone) 25 Mg Tablet 25 Mg PO DAILY Vitals/I & O Vital Sign - Last 24 Hours 02/22/19 02/22/19 02/22/19 02/22/19 13:00 15:29 16:00 20:22 Temp 98.4 98.4 Pulse 78 77 Resp 22 B/P (MAP) 138/79 (98) 145/87 (106) Pulse Ox 92 O2 Delivery Nasal Cannula Nasal Cannula Nasal Cannula Nasal Cannula O2 Flow Rate 2.0 2.0 2.0 02/22/19 02/22/19 02/22/19 02/23/19 20:29 20:59 23:43 00:23 Temp 98.2 97.9 98.2 97.9 Pulse 82 82 Resp 24 24 B/P (MAP) 139/74 (95) 155/95 (115) Pulse Ox 98 90 97 92 O2 Delivery Nasal Cannula Nasal Cannula BiPAP/CPAP Nasal Cannula O2 Flow Rate 2.0 2.0 2.0 02/23/19 02/23/19 02/23/19 02/23/19 03:56 04:22 08:00 08:08 Temp 97.6 98.6 97.6 98.6 Pulse 81 80 Resp 24 20 B/P (MAP) 140/85 (103) 153/95 (114) Pulse Ox 90 93 95 O2 Delivery Nasal Cannula BiPAP/CPAP Nasal Cannula Nasal Cannula O2 Flow Rate 2.0 2.0 02/23/19 02/23/19 09:40 11:53 Pulse 80 B/P (MAP) 153/95 O2 Delivery BiPAP/CPAP Intake and Output 02/22/19 02/22/19 02/23/19 15:00 23:00 07:00 Intake Total 1566 ml 1600 ml Output Total 440 ml 1550 ml Balance 1126 ml 50 ml Images Echo: LEFT VENTRICLE The left ventricle is normal size. There is mild concentric left ventricular hyp ertrophy. The left ventricular systolic function is normal. The Ejection Fraction is 55-60%. There is normal LV segmental wall motion. RIGHT VENTRICLE The right ventricle is borderline dilated. There is normal right ventricular wall thickness. The right ventricular systolic function is normal. ATRIA The left atrium is borderline dilated. The right atrium is not well visualized. The interatrial septum is intact with no evidence for an atrial septal defect or patent foramen ovale as noted on 2-D or Doppler imaging. AORTIC VALVE The aortic valve is mildly thickened but opens well. The aortic valve is trileaflet. Doppler and Color Flow revealed no significant aortic regurgitation. There is no significant aortic valvular stenosis. There is no aortic valvular vegetation. MITRAL VALVE The mitral valve is normal in structure and function. There is no evidence of mitral valve prolapse. There is no mitral valve stenosis. Doppler and Color Flow revealed no mitral valve regurgitation noted. TRICUSPID VALVE The tricuspid valve is normal in structure and function. Doppler and Color Flow revealed trace to mild tricuspid regurgitation. The PA pressure was estimated at 31 mmHg. There is no tricuspid valve prolapse or vegetation. There is no tricuspid valve stenosis. PULMONIC VALVE The pulmonic valve is not well visualized. GREAT VESSELS The aortic root is normal in size. The ascending aorta is Mildly dilated at 3.8cm. The IVC is dilated. PERICARDIAL EFFUSION There is no evidence of significant pericardial effusion. Critical Notification Critical Value: No <Conclusion> The left ventricular systolic function is normal. The Ejection Fraction is 55-60%. There is normal LV segmental wall motion. Trace to mild tricuspid regurgitation. The PA pressure was estimated at 31 mmHg. There is no evidence of significant pericardial effusion. MALINDA GORDILLO MD Feb 23, 2019 12:15
--- NOTE | 2019-02-23 12:15 | PDOC ---
[employer] PROGRESS NOTE Chief Complaint Chief Complaint Resp failure Severe sepsis Extreme morbid obesity Sleep apnea Cellulitis of right leg, severe with lymphedema, chronic venous stasis Hypoglycemia sec to metformin, glipizide Acute renal failure Dehydration Dyspnea Hypoglycemia Severe alcohol abuse Fall at home Severe debility CHF History of Present Illness History of Present Illness 02-23-19 Pt seen and examined Hes is quite ill. DW RN and RT Put him back on BiPAP DW pt code status. He wants Full Code Vitals/I&O Vitals/I&O: Vital Signs Date Time Temp Pulse Resp B/P (MAP) Pulse Ox O2 Delivery O2 Flow Rate FiO2 02/23/19 11:53 BiPAP/CPAP 02/23/19 09:40 80 153/95 02/23/19 08:08 95 2.0 02/23/19 08:00 98.6 20 98.6 I & O 02/22/19 02/22/19 02/23/19 15:00 23:00 07:00 Intake Total 1566 ml 1600 ml Output Total 440 ml 1550 ml Balance 1126 ml 50 ml Physical Exam Physical Exam: General: Cooperative, mild distress Heart: Regular rate, Normal S1 Lungs: Crackles Abdomen: Normal bowel sounds, Soft, No tenderness, No hepatosplenomegaly, Other (morbidly obese) Extremities: Other (2-3+ pitting edema with chronic changes and hyperemia RLE, 1+ edema with hyperpigmentation LLE) Skin: Other (massive rash on r leg) Labs Labs: Laboratory Tests Test 02/22/19 12:36 02/22/19 16:33 02/22/19 20:48 02/23/19 03:48 Glucose (Fingerstick) 311 mg/dL (70-99) 312 mg/dL (70-99) 278 mg/dL (70-99) White Blood Count 20.6 x10^3/uL (4.0-11.0) Red Blood Count 3.69 x10^6/uL (4.30-5.70) Hemoglobin 11.0 g/dL (13.0-17.5) Hematocrit 34.5 % (39.0-53.0) Mean Corpuscular Volume 93 fL (79-100) Mean Corpuscular Hemoglobin 30 pg (25-35) Mean Corpuscular Hemoglobin Concent 32 g/dL (31-37) Red Cell Distribution Width 16.3 % (11.5-14.5) Platelet Count 396 x10^3/uL (140-400) Neutrophils (%) (Auto) 88 % (31-73) Lymphocytes (%) (Auto) 8 % (24-48) Monocytes (%) (Auto) 3 % (0-9) Eosinophils (%) (Auto) 0 % (0-3) Basophils (%) (Auto) 0 % (0-3) Neutrophils # (Auto) 18.2 x10^3/uL (1.8-7.7) Lymphocytes # (Auto) 1.7 x10^3/uL (1.0-4.8) Monocytes # (Auto) 0.7 x10^3/uL (0.0-1.1) Eosinophils # (Auto) 0.0 x10^3/uL (0.0-0.7) Basophils # (Auto) 0.1 x10^3/uL (0.0-0.2) Sodium Level 136 mmol/L (136-145) Potassium Level 3.9 mmol/L (3.5-5.1) Chloride Level 101 mmol/L (98-107) Carbon Dioxide Level 29 mmol/L (21-32) Anion Gap 6 (6-14) Blood Urea Nitrogen 59 mg/dL (8-26) Creatinine 1.9 mg/dL (0.7-1.3) Estimated GFR (Cockcroft-Gault) 37.1 Glucose Level 211 mg/dL (70-99) Calcium Level 8.3 mg/dL (8.5-10.1) Phosphorus Level 3.2 mg/dL (2.6-4.7) Magnesium Level 2.2 mg/dL (1.8-2.4) Total Bilirubin 0.5 mg/dL (0.2-1.0) Direct Bilirubin 0.3 mg/dL (0.0-0.2) Aspartate Amino Transf (AST/SGOT) 39 U/L (15-37) Alanine Aminotransferase (ALT/SGPT) 26 U/L (16-63) Alkaline Phosphatase 96 U/L (46-116) Total Protein 8.1 g/dL (6.4-8.2) Albumin 1.2 g/dL (3.4-5.0) Test 02/23/19 07:40 02/23/19 11:35 Glucose (Fingerstick) 160 mg/dL (70-99) 152 mg/dL (70-99) Review of Systems Review of Systems: co soa co weakness Assessment and Plan Assessmemt and Plan Problems Medical Problems: (1) Acute renal failure Status: Acute (2) Cellulitis of right leg Status: Acute (3) Dehydration Status: Acute (4) Dyspnea Status: Acute (5) Hypoglycemia Status: Acute (6) Severe sepsis Status: Acute Assessment Resp failure Metabolic encephalopathy Severe sepsis Extreme morbid obesity Sleep apnea Cellulitis of right leg, severe with lymphedema, chronic venous stasis Hypoglycemia sec to metformin, glipizide Acute tubular necrosis Acute renal failure SEEMA Dehydration Dyspnea Hypoglycemia Severe alcohol abuse Fall at home Severe debility CHF Plan BiPAP tracer clerk Pulm /ID / Cards/ Neph following Blood culture ABG ciwa protocol Hold metformin and glipizide PT/OT when possible Wound care nurse consult DVT Prophylaxis GI Prophylaxis Comment Review of Relevant I have reviewed the following items robert (where applicable) has been applied. JESSICA BROOKS III DO Feb 23, 2019 12:15
--- NOTE | 2019-02-23 13:18 | NUR ---
SS following for discharge planning. Pt is from home with spouse and is currently requiring oxygen. PT recommended acute rehabilitation at discharge. SS met with pt to discuss discharge planning and acute rehabilitation. Pt agreeable to referral to [facility], ; fax [phone]. SS phoned and faxed referral to [facility]. SS will await acceptance decision and insurance determination and will proceed accordingly with discharge planning.
--- NOTE | 2019-02-23 13:55 | PDOC ---
Infectious Disease Note Subjective Subjective pt is feeling ok, very weak ROS ROS no n/v/d/sob Vital Sign Vital Signs Vital Signs Date Time Temp Pulse Resp B/P (MAP) Pulse Ox O2 Delivery O2 Flow Rate FiO2 02/23/19 11:53 BiPAP/CPAP 02/23/19 11:00 98.2 82 20 160/86 (110) 98 98.2 02/23/19 08:08 2.0 Physical Exam PHYSICAL EXAM GENERAL: Propped up in bed, alert, in NAD HEENT: Pupils are round and reacting. No conjunctival lesion, Oral cavity clear NECK: Supple, no JVP, no lymphadenopathy. LUNGS: Clear. HEART: S1, S2 regular. ABDOMEN: Obese, soft, nontender : Kimbrough in place, urine cloudy EXTREMITIES: Right swollen and red extending to groin area. Chronic venous insufficiency and stasis dermatitis changes present. An ulcer on the left posterior thigh. NEUROLOGIC: ALert, appropriate. Unable to lift left arm off bed, + wiggles fingers, sensation intact RIJ clean LEJ ok Labs Lab Laboratory Tests Test 02/22/19 16:33 02/22/19 20:48 02/23/19 03:48 02/23/19 07:40 Glucose (Fingerstick) 312 mg/dL (70-99) 278 mg/dL (70-99) 160 mg/dL (70-99) White Blood Count 20.6 x10^3/uL (4.0-11.0) Red Blood Count 3.69 x10^6/uL (4.30-5.70) Hemoglobin 11.0 g/dL (13.0-17.5) Hematocrit 34.5 % (39.0-53.0) Mean Corpuscular Volume 93 fL (79-100) Mean Corpuscular Hemoglobin 30 pg (25-35) Mean Corpuscular Hemoglobin Concent 32 g/dL (31-37) Red Cell Distribution Width 16.3 % (11.5-14.5) Platelet Count 396 x10^3/uL (140-400) Neutrophils (%) (Auto) 88 % (31-73) Lymphocytes (%) (Auto) 8 % (24-48) Monocytes (%) (Auto) 3 % (0-9) Eosinophils (%) (Auto) 0 % (0-3) Basophils (%) (Auto) 0 % (0-3) Neutrophils # (Auto) 18.2 x10^3/uL (1.8-7.7) Lymphocytes # (Auto) 1.7 x10^3/uL (1.0-4.8) Monocytes # (Auto) 0.7 x10^3/uL (0.0-1.1) Eosinophils # (Auto) 0.0 x10^3/uL (0.0-0.7) Basophils # (Auto) 0.1 x10^3/uL (0.0-0.2) Sodium Level 136 mmol/L (136-145) Potassium Level 3.9 mmol/L (3.5-5.1) Chloride Level 101 mmol/L (98-107) Carbon Dioxide Level 29 mmol/L (21-32) Anion Gap 6 (6-14) Blood Urea Nitrogen 59 mg/dL (8-26) Creatinine 1.9 mg/dL (0.7-1.3) Estimated GFR (Cockcroft-Gault) 37.1 Glucose Level 211 mg/dL (70-99) Calcium Level 8.3 mg/dL (8.5-10.1) Phosphorus Level 3.2 mg/dL (2.6-4.7) Magnesium Level 2.2 mg/dL (1.8-2.4) Total Bilirubin 0.5 mg/dL (0.2-1.0) Direct Bilirubin 0.3 mg/dL (0.0-0.2) Aspartate Amino Transf (AST/SGOT) 39 U/L (15-37) Alanine Aminotransferase (ALT/SGPT) 26 U/L (16-63) Alkaline Phosphatase 96 U/L (46-116) Total Protein 8.1 g/dL (6.4-8.2) Albumin 1.2 g/dL (3.4-5.0) Test 02/23/19 11:35 02/23/19 11:45 Glucose (Fingerstick) 152 mg/dL (70-99) O2 Saturation 99 % (92-99) Arterial Blood pH 7.39 (7.35-7.45) Arterial Blood pCO2 at Patient Temp 50 mmHg (35-46) Arterial Blood pO2 at Patient Temp 160 mmHg (75-108) Arterial Blood HCO3 30 mmol/L (21-28) Arterial Blood Base Excess 4 mmol/L (-3-3) FiO2 40 Micro Microbiology 02/21/19 Blood Culture - Preliminary, Resulted NO GROWTH AFTER 2 DAYS Objective Assessment Right lower extremity extensive cellulitis. Leukocytosis - some better Lactic acidosis with the early sepsis. Morbid obesity. Diabetes. Hypertension. Venous insufficiency and stasis dermatitis. Left arm weakness Plan Plan of Care Continue Zyvox (02/21) and Zosyn Probiotics Leg elevation PT/OT ANA LUISA COUGHLIN MD Feb 23, 2019 13:55
[2019-02-23] MEDS ORDERED: ELECTROLYTE (NON-ICU) PROTOCOL MC PRN (15:30)
--- NOTE | 2019-02-23 16:24 | NUR ---
Wound Care Wound care consult for LLE PU and RLE cellulitis. Pt has stage II PU to posterior left leg, packed with collagen and covered with foam dressing, recommend to change every 2-3 days. Pt has VLU with lymphedema to RLE that is open, sloughy and reddened. Cleansed wound and applied medihoney, xeroform and ABD pad with kerlix, recommend to change every other day. Pt has some superficial abrasions to BLE, left CARLOS ALBERTO. WC will follow up tomorrow with Dr Boles for bedside debridement.
[2019-02-23] MEDS: FAMOTIDINE 20 MG TABLET. PO SCH (20:24)
--- NOTE | 2019-02-23 23:03 | CONS ---
DATE OF CONSULTATION: 02/23/2019 ORTHOPEDIC CONSULTATION REQUESTING CONSULTATION: Dr. Slaughter. REASON FOR CONSULTATION: Left arm weakness. HISTORY OF PRESENT ILLNESS: The patient is a 53-year-old male who was found on the floor at his house by his neighbor and was brought into the hospital by ambulance as he was too weak to get up, he reported lying on his left side on the floor and was apparently found to be severely hypoglycemic at the time. He has since undergone admission to the Intensive Care Unit and had sepsis and indicates that he was able to use his left arm just fine prior to this episode, but since remembering lying on the floor for some extended period of time, perhaps approaching 12 hours. He said his arm has just been and he is really unable to move it. PAST MEDICAL HISTORY: Significant for type 2 diabetes, depression, anxiety, arthritis, vascular disease, hypercholesterolemia. PAST SURGICAL HISTORY: On his knees. FAMILY HISTORY: Hypertension and hypercholesterolemia. SOCIAL HISTORY: He denies smoking or drug use, but heavy consumption of alcohol. ALLERGIES: He has no known drug allergies. MEDICATIONS: List is reviewed. REVIEW OF SYSTEMS: Significant for his difficulty with ambulation, chronic leg swelling and leg wounds and the acute onset of left upper extremity weakness. PHYSICAL EXAMINATION: GENERAL: A 53-year-old male. He is pleasant, conversational and cooperative. EXTREMITIES: On examination of both upper extremities, he has full range of motion actively of the right arm, left arm is full passive range of motion of his shoulder, elbow and wrist bilaterally. He is able to flex his hand and extend his fingers, but he is not able to flex or extend his elbow and elevate the shoulder whatsoever whereas he has full active range of motion of his right elbow and right wrist. Grasp is present, but weak on the left side, normal on the right. Pinch grasp is similarly restricted on the left, very weak compared to normal on the right. He appears to have present sensation but relative paresthesia throughout the left upper extremity compared to the right. Capillary refill is all intact. While he has a very prominent and present reflex at the biceps tendon on the right side, it is absent completely on the left. I am really unable to elicit reflexes at the wrist on either arm and likewise have difficulty eliciting any triceps reflex on either side, but the biceps is very strikingly different present on the right, absent on the left. His compartments appear soft throughout both upper extremities and symmetric. There is really no abnormal swelling noted on the left arm compared to the right and his distal pulses are palpable and equal bilaterally. He does not appear to have any Spurling sign and really no evidence of Tinel's either at the cubital or carpal tunnel. There is no apprehension or instability, at especially his left shoulder joint. No instability noted at the elbow or wrist level on either side. X-rays on his admission shows some mild elbow osteoarthritis, but no evidence of fracture. CT of his head likewise shows no acute intracranial abnormality. IMPRESSION: 1. Left upper extremity weakness and relative paresthesia. 2. Absence of any joint pain. 3. Present biceps reflex on the right, absent on the left. TREATMENT PLAN: I really do not notice any pain elicited on my passive range of motion or testing of any stability issues of his shoulder, elbow or wrist. I do notice that his biceps tendon reflex is quite prominent on the right, absent on the left. He has relative paresthesias throughout the left upper extremity and his only motor function that he is able to elicit is flexing and extending his fingers. He is really not able to flex or extend the elbow actively against any gravity, flex or extend his wrist to any degree and he cannot activate his deltoid or elevate the shoulder whatsoever on the left. He appears to have really a global paresthesia, which may be consistent with him lying on his arm for an unknown period of time, probably causing some nerve compression. I do think this is definitely neurologic in origin rather than any joint damage and I really cannot suggest any specific imaging. Likewise my understanding of picking up something like this on EMG testing would likely be about 3 weeks out from an acute event before EMG would be helpful and further eliciting the location and severity of any specific compressive lesion of the nerves, which I think is likely to be the case. I, however, cannot exactly visualize how he has distal motor function intact and really is absent proximally almost completely in terms of a neurologic distribution; however, I am not localizing it to any specific joint such as shoulder or elbow, especially given the negative imaging and benign exam that is free from pain with any of my passive range of motion and testing. I will therefore see this is neurologic in etiology, perhaps an EMG down the road when it is expected to elicit some meaningful findings 3 weeks post-injury and otherwise observation and some gentle passive range of motion with physical therapy to keep his joints mobile and supple. Otherwise, I would be happy to follow along from an orthopedic standpoint, but I am not sure that I have anything more to offer at the present time. DOMINIC COLEMAN MD DR: VAN/manuel JOB#: [id number] / [id number]
[2019-02-24] MEDS: PIPERACILLIN/TAZOBACTAM 3.375 GM in IV NORMAL SALINE 50ML 50 ML IV SCH ×4 (00:06→18:00)
[2019-02-24 03:55] VITALS: BP 157/98
[2019-02-24 04:59] LABS: ALBUMIN 1.1 g/dL (3.4-5.0); CALCIUM 8.7 mg/dL (8.5-10.1); CREATININE 1.4 mg/dL (0.7-1.3); GFR 52.8; MAGNESIUM 2.3 mg/dL (1.8-2.4); PHOSPHORUS 4.1 mg/dL (2.6-4.7)
[2019-02-24] MEDS: HEPARIN for SUB-Q USE 5,000 UNIT/ML VIAL. SQ SCH (06:16)
[2019-02-24 07:35] LABS: BASO # 0.1 x10^3/uL (0.0-0.2); BASO % 1 % (0-3); EOS # 0.1 x10^3/uL (0.0-0.7); EOS % 1 % (0-3); HEMATOCRIT 34.4 % (39.0-53.0); HEMOGLOBIN 11.2 g/dL (13.0-17.5); LYMPH # 1.9 x10^3/uL (1.0-4.8); LYMPH % 13 % (24-48); MEAN CORPUSCULAR HEMOGLOBIN 31 pg (25-35); MEAN CORPUSCULAR HGB CONC 33 g/dL (31-37); MEAN CORPUSCULAR VOLUME 94 fL (79-100); MONO # 0.5 x10^3/uL (0.0-1.1); MONO % 4 % (0-9); NEUT # 12.6 x10^3/uL (1.8-7.7); NEUT % 83 % (31-73); PLATELET COUNT 420 x10^3/uL (140-400); RED BLOOD COUNT 3.68 x10^6/uL (4.30-5.70); RED CELL DISTRIBUTION WIDTH 16.6 % (11.5-14.5); WHITE BLOOD COUNT 15.2 x10^3/uL (4.0-11.0)
[2019-02-24 08:00] VITALS: BP 160/99
[2019-02-24] MEDS: IPRATRPIUM/ALBUTEROL 0.5/2.5MG 3 ML NEBU. NEB SCH ×4 (08:36→20:00)
[2019-02-24] MEDS: INSULIN LISPRO 300 UNITS/3 ML VIAL. SQ SCH ×3 (08:48→17:00)
[2019-02-24] MEDS: ASPIRIN 325 MG TABLET PO SCH (08:49)
[2019-02-24] MEDS: FAMOTIDINE 20 MG TABLET. PO SCH ×2 (08:49→21:00)
[2019-02-24] MEDS: MULTIVITAMIN with MINERAL TABLET. PO SCH ×2 (08:49→08:51)
[2019-02-24] MEDS: DOCUSATE SODIUM 100 MG CAPSULE. PO SCH ×2 (08:50→21:00)
[2019-02-24] MEDS: THIAMINE 100 MG TABLET. PO SCH (08:50)
[2019-02-24] MEDS: LACTOBACILLUS RHAMNOSUS GG 1 CAPSULE. PO SCH ×2 (08:50→21:00)
[2019-02-24] MEDS: LINEZOLID 600 MG TABLET PO SCH ×2 (08:50→21:00)
[2019-02-24] MEDS: ATENOLOL 50 MG TABLET. PO SCH (08:50)
[2019-02-24] MEDS: FOLIC ACID 1 MG TABLET. PO SCH (08:50)
--- NOTE | 2019-02-24 09:52 | NUR ---
Discussed d/c planning with pt. States he lives in [facility] and would like to return home and start rehab there. Discussed plan with his , she states he will not cooperate with staying in and would like help setting up transport arrangements and placement in [facility]. Will discuss w/ SS.
--- NOTE | 2019-02-24 09:54 | CONS ---
DATE OF CONSULTATION: 02/24/2019 ATTENDING PHYSICIAN: Chani Beaver MD REASON FOR CONSULTATION: Respiratory failure. HISTORY OF PRESENT ILLNESS: The patient is a 53-year-old morbidly obese male with a BMI of 62. He denies any significant tobacco history. He was brought into the hospital by EMS after he was found on the floor at his house by his neighbor. He was probably on the floor for about 12 hours, he was too weak to get up. The patient did not eat anything all day. His blood sugar was 20. The patient was given glucose. He did wake up. He also drinks 12 ounces of whiskey a day. On arrival, his chest x-ray was done, which was reviewed by me. There is cardiomegaly and mild cephalization of vessels. Arterial blood gases revealed a pH of 7.39, pCO2 of 50 and a pO2 of 160 on 40% FiO2. The patient did use BiPAP. He appears to be mildly dyspneic when they were trying to lie him flat to moving up the edge of the bed. The patient's BUN was 49 with a creatinine of 1.4. Albumin was very low at 1.1. His white cell count was 15.2. I have been asked to see him for further evaluation. He has history of obstructive sleep apnea. At present, compliance is questionable. The patient denies any chest pains. No headaches. No nausea, vomiting or diarrhea. PAST MEDICAL HISTORY: History of morbid obesity, history of obstructive sleep apnea/obesity hypoventilation syndrome, type 2 diabetes, dyslipidemia, vascular disease. PAST SURGICAL HISTORY: Knee surgery. SOCIAL HISTORY: Drinks alcohol every day. Denies significant tobacco history. FAMILY HISTORY: Dyslipidemia and hypertension. SOCIAL HISTORY: Denies tobacco history, but has heavy alcohol use. ALLERGIES: None. CURRENT MEDICATIONS: Reviewed as listed in the [facility]AD, including antibiotics, Zosyn, DuoNeb. REVIEW OF SYSTEMS: Ten-point system obtained. Pertinent positives discussed in my history of present illness, otherwise noncontributory. All systems that were negative were reviewed as well. PHYSICAL EXAMINATION: VITAL SIGNS: Reviewed. Blood pressure 160/99, afebrile, pulse ox 93% on room air. NECK: Supple. LUNGS: With diminished breath sounds with occasional anterior wheezes. CARDIOVASCULAR: Regular rate and rhythm. ABDOMEN: Soft, obese. EXTREMITIES: With bilateral pitting edema. LABORATORY DATA: Reviewed. White cell count was 28.8 on admission; now 15.2, hemoglobin is 11.2, platelets are 420. BUN 49, creatinine 1.4. Albumin 1.1. ABGs as discussed previously. IMPRESSION: 1. Acute on chronic respiratory failure secondary to multifactorial etiologies, including acute on chronic right heart failure, possible acute bronchitis. The patient is a nonsmoker. 2. Status post fall with profound weakness causing immobility for 12 hours. His BUN and creatinine suggesting a prerenal azotemia. 3. Severe protein-calorie malnutrition with an albumin level of 1.1. 4. Underlying obstructive sleep apnea with obesity hypoventilation syndrome. 5. Chronic compensated respiratory acidosis. RECOMMENDATIONS: 1. Discussed with RN. Continue with present oxygen. 2. BiPAP at bedtime and p.r.n. during the day. 3. Monitor white cell count. 4. Monitor renal function. At this point, we will withhold any diuretics. 5. Antibiotics per Infectious Disease. 6. Continue bronchodilators. 7. Add DVT prophylaxis. 8. Discussed with RN and we will follow along with you. He needs to lose weight. CRAYL PHILLIPS MD DR: GISELA/manuel JOB#: [id number] / [id number]
[2019-02-24] MEDS: ENOXAPARIN 40 MG/0.4 ML SYRINGE. SQ SCH (10:00)
--- NOTE | 2019-02-24 10:32 | PDOC ---
[facility] PROGRESS NOTE Chief Complaint Chief Complaint Resp failure Severe sepsis Extreme morbid obesity Sleep apnea Cellulitis of right leg, severe with lymphedema, chronic venous stasis Hypoglycemia sec to metformin, glipizide Acute renal failure Dehydration Dyspnea Hypoglycemia Severe alcohol abuse Fall at home Severe debility CHF History of Present Illness History of Present Illness 02/24/19 Pt seen and examined Pt is in bed, continuing to use accessory muscles for breathing He continues to be quite ill He needs to use BiPAP Reviewed pt's chart 02/23/19 Pt seen and examined Hes is quite ill. BARBARA RN and RT Put him back on BiPAP DW pt code status. He wants Full Code Vitals/I&O Vitals/I&O: Vital Signs Date Time Temp Pulse Resp B/P (MAP) Pulse Ox O2 Delivery O2 Flow Rate FiO2 02/24/19 08:50 83 160/99 02/24/19 08:36 93 Room Air 02/24/19 08:00 97.6 32 97.6 02/24/19 08:00 2.0 I & O 02/23/19 02/23/19 02/24/19 15:00 23:00 07:00 Intake Total 50 ml 200 ml Output Total 1550 ml 1100 ml Balance 50 ml -1350 ml -1100 ml Physical Exam General: Cooperative, mild distress Heart: Regular rate, Normal S1 Lungs: Crackles Abdomen: Normal bowel sounds, Soft, No tenderness, No hepatosplenomegaly, Other (morbidly obese) Extremities: Other (2-3+ pitting edema with chronic changes and hyperemia RLE, 1+ edema with hyperpigmentation LLE) Skin: Other (massive rash on r leg) Labs Labs: Laboratory Tests Test 02/23/19 11:35 02/23/19 11:45 02/23/19 16:52 02/23/19 20:48 Glucose (Fingerstick) 152 mg/dL (70-99) 127 mg/dL (70-99) 138 mg/dL (70-99) O2 Saturation 99 % (92-99) Arterial Blood pH 7.39 (7.35-7.45) Arterial Blood pCO2 at Patient Temp 50 mmHg (35-46) Arterial Blood pO2 at Patient Temp 160 mmHg (75-108) Arterial Blood HCO3 30 mmol/L (21-28) Arterial Blood Base Excess 4 mmol/L (-3-3) FiO2 40 Test 02/24/19 04:15 02/24/19 07:21 White Blood Count 15.2 x10^3/uL (4.0-11.0) Red Blood Count 3.68 x10^6/uL (4.30-5.70) Hemoglobin 11.2 g/dL (13.0-17.5) Hematocrit 34.4 % (39.0-53.0) Mean Corpuscular Volume 94 fL (79-100) Mean Corpuscular Hemoglobin 31 pg (25-35) Mean Corpuscular Hemoglobin Concent 33 g/dL (31-37) Red Cell Distribution Width 16.6 % (11.5-14.5) Platelet Count 420 x10^3/uL (140-400) Neutrophils (%) (Auto) 83 % (31-73) Lymphocytes (%) (Auto) 13 % (24-48) Monocytes (%) (Auto) 4 % (0-9) Eosinophils (%) (Auto) 1 % (0-3) Basophils (%) (Auto) 1 % (0-3) Neutrophils # (Auto) 12.6 x10^3/uL (1.8-7.7) Lymphocytes # (Auto) 1.9 x10^3/uL (1.0-4.8) Monocytes # (Auto) 0.5 x10^3/uL (0.0-1.1) Eosinophils # (Auto) 0.1 x10^3/uL (0.0-0.7) Basophils # (Auto) 0.1 x10^3/uL (0.0-0.2) Sodium Level 142 mmol/L (136-145) Potassium Level 4.0 mmol/L (3.5-5.1) Chloride Level 104 mmol/L (98-107) Carbon Dioxide Level 30 mmol/L (21-32) Anion Gap 8 (6-14) Blood Urea Nitrogen 49 mg/dL (8-26) Creatinine 1.4 mg/dL (0.7-1.3) Estimated GFR (Cockcroft-Gault) 52.8 Glucose Level 148 mg/dL (70-99) Calcium Level 8.7 mg/dL (8.5-10.1) Phosphorus Level 4.1 mg/dL (2.6-4.7) Magnesium Level 2.3 mg/dL (1.8-2.4) Albumin 1.1 g/dL (3.4-5.0) Glucose (Fingerstick) 140 mg/dL (70-99) Review of Systems Review of Systems: c/o SOB c/o pain Assessment and Plan Assessmemt and Plan Problems Medical Problems: (1) Acute renal failure Status: Acute (2) Cellulitis of right leg Status: Acute (3) Dehydration Status: Acute (4) Dyspnea Status: Acute (5) Hypoglycemia Status: Acute (6) Severe sepsis Status: Acute Assessment Resp failure Metabolic encephalopathy Severe sepsis Extreme morbid obesity Sleep apnea Cellulitis of right leg, severe with lymphedema, chronic venous stasis Hypoglycemia sec to metformin, glipizide Acute tubular necrosis Acute renal failure SEEMA Dehydration Dyspnea Hypoglycemia Severe alcohol abuse Fall at home Severe debility CHF Plan Continue BiPAP Continue monitoring specialist Pulm /ID / Cards/ Neph following Continue IV antibiotics CIWA protocol Hold metformin and glipizide PT/OT when possible Wound care nurse consult DVT Prophylaxis GI Prophylaxis Comment Review of Relevant I have reviewed the following items robert (where applicable) has been applied. Medications: Current Medications Medications (Trade) Dose Ordered Sig/Lilliam Route PRN Reason Start Time Stop Time Status Last Admin Dose Admin Famotidine (Pepcid) 20 mg BID PO 02/23/19 21:00 02/24/19 08:49 JESSICA BROOKS III DO Feb 24, 2019 10:32
--- NOTE | 2019-02-24 10:50 | PDOC ---
PROGRESS NOTES Assessment Problems Medical Problems: (1) Acute renal failure Status: Acute (2) Cellulitis of right leg Status: Acute (3) Dehydration Status: Acute (4) Dyspnea Status: Acute (5) Hypoglycemia Status: Acute (6) Severe sepsis Status: Acute Left side weakness, possible stroke, weakness way out of proportion and left arm, consider brachial plexopathy and also psychogenic conversion reaction. Metabolic encephalopathy. Lactic acidosis. Hypoglycemia, glucose level 20. Leukocytosis, WBC 28.8 Renal failure or SEEMA. Fall DM. HTN. HLD. Alcohol use/abuse. Cellulitis, right leg. Morbid obesity, BMI 62.6 Venous insufficiency and stasis dermatitis. Plan Aspirin No need for statin, normal lipids! Can't do brain MRI, too heavy. Couldn't do carotid Doppler, not a good candidate for carotid surgery anyway. Also has renal insufficiency making CT Instagram problematic As per ID. OT/PT. He wants to go home to [place] and have rehab there. Consider EMG if left arm no better in 3 weeks. Subjective No new complaints Objective Vital Signs Date Time Temp Pulse Resp B/P (MAP) Pulse Ox O2 Delivery O2 Flow Rate FiO2 02/24/19 08:50 83 160/99 02/24/19 08:36 93 Room Air 02/24/19 08:00 97.6 32 97.6 02/24/19 08:00 2.0 Intake and Output 02/24/19 07:00 Intake Total 250 ml Output Total 2650 ml Balance -2400 ml Intake Oral 250 ml Output Urine Total 2650 ml PHYSICAL EXAM Alert. Oriented to time, place and person. PERRL. EOMI. CN: no focal findings. Muscle tone: normal. Muscle strength: 3/5 right, 3-/5 left leg, 0/5 left arm DTR: 0-1+ Plantar reflex: flexor Gait: not examined in bed. Sensory exam: stocking loss. No cerebellar signs elicited. Review of Relevant I have reviewed the following items robert (where applicable) has been applied. Labs Laboratory Tests Test 02/22/19 12:36 02/22/19 16:33 02/22/19 20:48 02/23/19 03:48 Glucose (Fingerstick) 311 mg/dL (70-99) 312 mg/dL (70-99) 278 mg/dL (70-99) White Blood Count 20.6 x10^3/uL (4.0-11.0) Red Blood Count 3.69 x10^6/uL (4.30-5.70) Hemoglobin 11.0 g/dL (13.0-17.5) Hematocrit 34.5 % (39.0-53.0) Mean Corpuscular Volume 93 fL (79-100) Mean Corpuscular Hemoglobin 30 pg (25-35) Mean Corpuscular Hemoglobin Concent 32 g/dL (31-37) Red Cell Distribution Width 16.3 % (11.5-14.5) Platelet Count 396 x10^3/uL (140-400) Neutrophils (%) (Auto) 88 % (31-73) Lymphocytes (%) (Auto) 8 % (24-48) Monocytes (%) (Auto) 3 % (0-9) Eosinophils (%) (Auto) 0 % (0-3) Basophils (%) (Auto) 0 % (0-3) Neutrophils # (Auto) 18.2 x10^3/uL (1.8-7.7) Lymphocytes # (Auto) 1.7 x10^3/uL (1.0-4.8) Monocytes # (Auto) 0.7 x10^3/uL (0.0-1.1) Eosinophils # (Auto) 0.0 x10^3/uL (0.0-0.7) Basophils # (Auto) 0.1 x10^3/uL (0.0-0.2) Sodium Level 136 mmol/L (136-145) Potassium Level 3.9 mmol/L (3.5-5.1) Chloride Level 101 mmol/L (98-107) Carbon Dioxide Level 29 mmol/L (21-32) Anion Gap 6 (6-14) Blood Urea Nitrogen 59 mg/dL (8-26) Creatinine 1.9 mg/dL (0.7-1.3) Estimated GFR (Cockcroft-Gault) 37.1 Glucose Level 211 mg/dL (70-99) Calcium Level 8.3 mg/dL (8.5-10.1) Phosphorus Level 3.2 mg/dL (2.6-4.7) Magnesium Level 2.2 mg/dL (1.8-2.4) Total Bilirubin 0.5 mg/dL (0.2-1.0) Direct Bilirubin 0.3 mg/dL (0.0-0.2) Aspartate Amino Transf (AST/SGOT) 39 U/L (15-37) Alanine Aminotransferase (ALT/SGPT) 26 U/L (16-63) Alkaline Phosphatase 96 U/L (46-116) Total Protein 8.1 g/dL (6.4-8.2) Albumin 1.2 g/dL (3.4-5.0) Test 02/23/19 07:40 02/23/19 11:35 02/23/19 11:45 02/23/19 16:52 Glucose (Fingerstick) 160 mg/dL (70-99) 152 mg/dL (70-99) 127 mg/dL (70-99) O2 Saturation 99 % (92-99) Arterial Blood pH 7.39 (7.35-7.45) Arterial Blood pCO2 at Patient Temp 50 mmHg (35-46) Arterial Blood pO2 at Patient Temp 160 mmHg (75-108) Arterial Blood HCO3 30 mmol/L (21-28) Arterial Blood Base Excess 4 mmol/L (-3-3) FiO2 40 Test 02/23/19 20:48 02/24/19 04:15 02/24/19 07:21 Glucose (Fingerstick) 138 mg/dL (70-99) 140 mg/dL (70-99) White Blood Count 15.2 x10^3/uL (4.0-11.0) Red Blood Count 3.68 x10^6/uL (4.30-5.70) Hemoglobin 11.2 g/dL (13.0-17.5) Hematocrit 34.4 % (39.0-53.0) Mean Corpuscular Volume 94 fL (79-100) Mean Corpuscular Hemoglobin 31 pg (25-35) Mean Corpuscular Hemoglobin Concent 33 g/dL (31-37) Red Cell Distribution Width 16.6 % (11.5-14.5) Platelet Count 420 x10^3/uL (140-400) Neutrophils (%) (Auto) 83 % (31-73) Lymphocytes (%) (Auto) 13 % (24-48) Monocytes (%) (Auto) 4 % (0-9) Eosinophils (%) (Auto) 1 % (0-3) Basophils (%) (Auto) 1 % (0-3) Neutrophils # (Auto) 12.6 x10^3/uL (1.8-7.7) Lymphocytes # (Auto) 1.9 x10^3/uL (1.0-4.8) Monocytes # (Auto) 0.5 x10^3/uL (0.0-1.1) Eosinophils # (Auto) 0.1 x10^3/uL (0.0-0.7) Basophils # (Auto) 0.1 x10^3/uL (0.0-0.2) Sodium Level 142 mmol/L (136-145) Potassium Level 4.0 mmol/L (3.5-5.1) Chloride Level 104 mmol/L (98-107) Carbon Dioxide Level 30 mmol/L (21-32) Anion Gap 8 (6-14) Blood Urea Nitrogen 49 mg/dL (8-26) Creatinine 1.4 mg/dL (0.7-1.3) Estimated GFR (Cockcroft-Gault) 52.8 Glucose Level 148 mg/dL (70-99) Calcium Level 8.7 mg/dL (8.5-10.1) Phosphorus Level 4.1 mg/dL (2.6-4.7) Magnesium Level 2.3 mg/dL (1.8-2.4) Albumin 1.1 g/dL (3.4-5.0) Laboratory Tests Test 02/23/19 11:35 02/23/19 11:45 02/23/19 16:52 02/23/19 20:48 Glucose (Fingerstick) 152 mg/dL (70-99) 127 mg/dL (70-99) 138 mg/dL (70-99) O2 Saturation 99 % (92-99) Arterial Blood pH 7.39 (7.35-7.45) Arterial Blood pCO2 at Patient Temp 50 mmHg (35-46) Arterial Blood pO2 at Patient Temp 160 mmHg (75-108) Arterial Blood HCO3 30 mmol/L (21-28) Arterial Blood Base Excess 4 mmol/L (-3-3) FiO2 40 Test 02/24/19 04:15 02/24/19 07:21 White Blood Count 15.2 x10^3/uL (4.0-11.0) Red Blood Count 3.68 x10^6/uL (4.30-5.70) Hemoglobin 11.2 g/dL (13.0-17.5) Hematocrit 34.4 % (39.0-53.0) Mean Corpuscular Volume 94 fL (79-100) Mean Corpuscular Hemoglobin 31 pg (25-35) Mean Corpuscular Hemoglobin Concent 33 g/dL (31-37) Red Cell Distribution Width 16.6 % (11.5-14.5) Platelet Count 420 x10^3/uL (140-400) Neutrophils (%) (Auto) 83 % (31-73) Lymphocytes (%) (Auto) 13 % (24-48) Monocytes (%) (Auto) 4 % (0-9) Eosinophils (%) (Auto) 1 % (0-3) Basophils (%) (Auto) 1 % (0-3) Neutrophils # (Auto) 12.6 x10^3/uL (1.8-7.7) Lymphocytes # (Auto) 1.9 x10^3/uL (1.0-4.8) Monocytes # (Auto) 0.5 x10^3/uL (0.0-1.1) Eosinophils # (Auto) 0.1 x10^3/uL (0.0-0.7) Basophils # (Auto) 0.1 x10^3/uL (0.0-0.2) Sodium Level 142 mmol/L (136-145) Potassium Level 4.0 mmol/L (3.5-5.1) Chloride Level 104 mmol/L (98-107) Carbon Dioxide Level 30 mmol/L (21-32) Anion Gap 8 (6-14) Blood Urea Nitrogen 49 mg/dL (8-26) Creatinine 1.4 mg/dL (0.7-1.3) Estimated GFR (Cockcroft-Gault) 52.8 Glucose Level 148 mg/dL (70-99) Calcium Level 8.7 mg/dL (8.5-10.1) Phosphorus Level 4.1 mg/dL (2.6-4.7) Magnesium Level 2.3 mg/dL (1.8-2.4) Albumin 1.1 g/dL (3.4-5.0) Glucose (Fingerstick) 140 mg/dL (70-99) Microbiology 02/21/19 Blood Culture - Preliminary, Resulted NO GROWTH AFTER 2 DAYS Medications Current Medications Dextrose (Dextrose 50%-Water Syringe) 25 gm STK-MED ONCE IV ; Start 02/21/19 at 03:08; Stop 02/21/19 at 03:08; Status DC Dextrose (Dextrose 50%-Water Syringe) 25 gm 1X ONCE IV Last administered on 02/21/19at 05:59; Start 02/21/19 at 04:30; Stop 02/21/19 at 04:31; Status DC Sodium Chloride 1,000 ml @ 1,000 mls/hr Q1H IV Last administered on 02/21/19at 04:44; Start 02/21/19 at 04:30; Stop 02/21/19 at 05:29; Status DC Albuterol/ Ipratropium (Duoneb) 3 ml 1X ONCE NEB Last administered on 02/21/19at 04:19; Start 02/21/19 at 04:30; Stop 02/21/19 at 04:31; Status DC Methylprednisolone Sodium Succinate (SOLU-Medrol 125MG VIAL) 125 mg 1X ONCE IV Last administered on 02/21/19at 04:11; Start 02/21/19 at 04:30; Stop 02/21/19 at 04:31; Status DC Dextrose 500 ml @ 150 mls/hr 1X ONCE IV Last administered on 02/21/19at 04:30; Start 02/21/19 at 04:30; Stop 02/21/19 at 07:49; Status DC Vancomycin HCl 2 gm/Sodium Chloride 500 ml @ 250 mls/hr 1X ONCE IV Last administered on 02/21/19at 04:49; Start 02/21/19 at 04:30; Stop 02/21/19 at 06:29; Status DC Sodium Chloride 1,000 ml @ 1,000 mls/hr 1X ONCE IV ; Start 02/21/19 at 05:30; Stop 02/21/19 at 06:29; Status DC Ondansetron HCl (Zofran) 4 mg PRN Q8HRS PRN IV NAUSEA/VOMITING 1ST CHOICE; Start 02/21/19 at 05:30; Stop 02/21/19 at 11:17; Status DC Morphine Sulfate (Morphine Sulfate) 4 mg PRN Q2HR PRN IV SEVERE PAIN 7-10 Last administered on 02/21/19at 09:07; Start 02/21/19 at 05:30; Stop 02/22/19 at 05:29; Status DC Sodium Chloride 1,000 ml @ 100 mls/hr Q10H IV ; Start 02/21/19 at 06:00; Stop 02/21/19 at 12:45; Status DC Acetaminophen (Tylenol) 650 mg PRN Q4HRS PRN PO FEVER; Start 02/21/19 at 05:30; Stop 02/21/19 at 11:18; Status DC Albuterol/ Ipratropium (Duoneb) 3 ml RTQID NEB Last administered on 02/22/19at 07:51; Start 02/21/19 at 08:00; Stop 02/22/19 at 07:59; Status DC Piperacillin Sod/ Tazobactam Sod 3.375 gm/Sodium Chloride 50 ml @ 100 mls/hr 1X ONCE IV Last administered on 02/21/19at 05:47; Start 02/21/19 at 06:00; Stop 02/21/19 at 06:29; Status DC Acetaminophen (Tylenol) 650 mg PRN Q6HRS PRN PO Headaches, Temp > 101.5'; Start 02/21/19 at 11:15 Ondansetron HCl (Zofran) 4 mg PRN Q6HRS PRN IV NAUSEA/VOMITING; Start 02/21/19 at 11:15 Famotidine (Pepcid Vial) 20 mg BID IVP Last administered on 02/23/19at 09:39; Start 02/21/19 at 11:30; Stop 02/23/19 at 15:27; Status DC Info (Icu Electrolyte Protocol) 1 ea DAILY MC Last administered on 02/22/19at 08:07; Start 02/22/19 at 09:00; Stop 02/23/19 at 15:22; Status DC Heparin Sodium (Porcine) (Heparin Sodium) 5,000 unit Q8HRS SQ Last administered on 02/24/19at 06:16; Start 02/21/19 at 14:00; Stop 02/24/19 at 09:32; Status DC Sodium Chloride (Normal Saline Flush) 3 ml QSHIFT PRN IV AFTER MEDS AND BLOOD DRAWS; Start 02/21/19 at 11:15 Docusate Sodium (Colace) 100 mg BID PO Last administered on 02/24/19at 08:50; Start 02/21/19 at 12:00 Bisacodyl (Dulcolax Supp) 10 mg PRN DAILY PRN [place] CONSTIPATION; Start 02/21/19 at 11:15 Atenolol (Tenormin) 50 mg DAILY PO Last administered on 02/24/19at 08:50; Start 02/21/19 at 12:00 Chlorthalidone (Thalitone) 25 mg DAILY PO ; Start 02/21/19 at 12:00; Stop 02/21/19 at 12:45; Status DC Multivitamins (Thera M Plus) 1 tab DAILY PO Last administered on 02/24/19at 08:49; Start 02/21/19 at 12:00 Folic Acid (Folic Acid) 1 mg DAILY PO Last administered on 02/24/19at 08:50; Start 02/21/19 at 12:00 Thiamine Mononitrate (Vitamin B-1) 100 mg DAILY PO Last administered on 02/24/19at 08:50; Start 02/21/19 at 12:00 Lorazepam (Ativan) 4 mg PRN Q1HR PRN PO For CIWA 8-14 Last administered on 02/24/19at 08:49; Start 02/21/19 at 11:30 Lorazepam (Ativan) 8 mg PRN Q1HR PRN PO For CIWA 15 or greater; Start 02/21/19 at 11:30 Lorazepam (Ativan Inj) 2 mg PRN Q1HR PRN IV For CIWA 8-14 Last administered on 02/23/19at 20:46; Start 02/21/19 at 11:30 Lorazepam (Ativan Inj) 4 mg PRN Q1HR PRN IV For CIWA 15 or greater; Start 02/21/19 at 11:30 Haloperidol Lactate (Haldol Inj) 5 mg PRN Q4HRS PRN IVP Hallucinatns,Confusn,Delirium; Start 02/21/19 at 11:30 Clonidine HCl (Catapres) 0.1 mg PRN Q1HR PRN PO SBP > 180 or DBP > 100, MRX3 Last administered on 02/23/19at 20:24; Start 02/21/19 at 11:30 Lorazepam (Ativan Inj) 2 mg PRN Q15MIN PRN IV SEE COMMENTS; Start 02/21/19 at 11:30; Stop 02/23/19 at 15:23; Status DC Lorazepam (Ativan Inj) 4 mg PRN Q15MIN PRN IV SEE COMMENTS; Start 02/21/19 at 11:30; Stop 02/23/19 at 15:24; Status DC Potassium Chloride (Klor-Con) 20 meq 1X ONCE PO Last administered on 02/21/19at 13:53; Start 02/21/19 at 12:00; Stop 02/21/19 at 12:01; Status DC Ringer's Solution 1,000 ml @ 75 mls/hr [id number] IV Last administered on 02/21/19at 13:54; Start 02/21/19 at 13:00; Stop 02/21/19 at 16:07; Status DC Magnesium Sulfate 50 ml @ 25 mls/hr PRN DAILY PRN IV for Mag < 1.7 on am labs; Start 02/21/19 at 13:00 Linezolid (Zyvox) 600 mg BID PO Last administered on 02/24/19at 08:50; Start 02/21/19 at 13:30 Piperacillin Sod/ Tazobactam Sod 3.375 gm/Sodium Chloride 50 ml @ 100 mls/hr Q6HRS IV Last administered on 02/24/19at 06:09; Start 02/21/19 at 13:30 Lactobacillus Rhamnosus (Culturelle) 1 cap BID PO Last administered on 02/24/19at 08:50; Start 02/21/19 at 21:00 Aspirin (Children'S Aspirin) 81 mg [id number] PO Last administered on 02/21/19at 16:23; Start 02/21/19 at 15:30; Stop 02/21/19 at 16:46; Status DC Sodium Chloride 1,000 ml @ 75 mls/hr [id number] IV ; Start 02/22/19 at 03:00; Stop 02/21/19 at 16:14; Status DC Sodium Chloride 1,000 ml @ 75 mls/hr [id number] IV Last administered on 02/22/19at 07:58; Start 02/21/19 at 17:00; Stop 02/22/19 at 08:57; Status DC Aspirin (Flavia Aspirin) 325 mg [id number] PO Last administered on 02/24/19at 08:49; Start 02/22/19 at 08:00 Albuterol/ Ipratropium (Duoneb) 3 ml RTQID NEB Last administered on 02/24/19at 08:36; Start 02/22/19 at 08:00 Potassium Chloride (Klor-Con) 40 meq 1X ONCE PO Last administered on 02/22/19at 08:16; Start 02/22/19 at 08:15; Stop 02/22/19 at 08:16; Status DC Potassium Chloride/Water 100 ml @ 100 mls/hr Q1H IV ; Start 02/22/19 at 09:00; Stop 02/22/19 at 10:59; Status DC Insulin Human Lispro (HumaLOG) 0-7 UNITS TIDWMEALS SQ ; Start 02/22/19 at 17:00 Dextrose (Dextrose 50%-Water Syringe) 12.5 gm PRN Q15MIN PRN IV SEE COMMENTS; Start 02/22/19 at 14:45 Dextrose (Iv Dextrose 5%) 250 ml PRN Q15MIN PRN IV SEE COMMENTS; Start 02/22/19 at 14:45 Info (Non-Icu Electrolyte Protocol) 1 ea CONT PRN PRN MC SEE COMMENTS; Start 02/23/19 at 15:30 Famotidine (Pepcid) 20 mg BID PO Last administered on 02/24/19at 08:49; Start 02/23/19 at 21:00 Multivitamins (Thera M Plus) 1 tab DAILY PO ; Start 02/24/19 at 09:00 Enoxaparin Sodium (Lovenox 40mg Syringe) 40 mg Q24H SQ ; Start 02/24/19 at 10:00 Active Scripts Active Reported Glipizide 5 Mg Tablet 1 Tab PO BID Metformin Hcl 1,000 Mg Tablet 1,000 Mg PO BIDWMEALS Atenolol 50 Mg Tablet 1 Tab PO DAILY Chlorthalidone (Chlorthalidone) 25 Mg Tablet 25 Mg PO DAILY Vitals/I & O Vital Sign - Last 24 Hours 02/23/19 02/23/19 02/23/19 02/23/19 11:00 11:53 15:27 16:34 Temp 98.2 97.9 98.2 97.9 Pulse 82 82 Resp 20 22 B/P (MAP) 160/86 (110) 164/96 (118) Pulse Ox 98 92 93 O2 Delivery BiPAP/CPAP BiPAP/CPAP Room Air Room Air 02/23/19 02/23/19 02/23/19 02/23/19 20:00 20:00 20:04 20:24 Temp 99.3 99.3 Pulse 83 Resp 18 B/P (MAP) 173/106 (128) 173/106 Pulse Ox 95 O2 Delivery Room Air Room Air O2 Flow Rate 2.0 2.0 02/23/19 02/23/19 02/24/19 02/24/19 21:29 23:39 03:55 08:00 Pulse 79 83 Resp 24 20 B/P (MAP) 162/95 (117) 157/98 (117) Pulse Ox 97 99 95 O2 Delivery BiPAP/CPAP BiPAP/CPAP Room Air O2 Flow Rate 2.0 02/24/19 02/24/19 02/24/19 02/24/19 08:00 08:00 08:36 08:50 Temp 97.6 97.6 Pulse 83 83 Resp 32 B/P (MAP) 160/99 (119) 160/99 Pulse Ox 94 93 O2 Delivery Room Air Room Air Room Air Intake and Output 02/23/19 02/23/19 02/24/19 15:00 23:00 07:00 Intake Total 50 ml 200 ml Output Total 1550 ml 1100 ml Balance 50 ml -1350 ml -1100 ml MALINDA GORDILLO MD Feb 24, 2019 10:50
[2019-02-24 11:10] VITALS: BP 163/94
[2019-02-24 11:11] LABS: KAPPA FREE 187.7 mg/L (3.3-19.4); KAPPA LAMBDA RATIO 1.09 (0.26-1.65); LAMBDA FREE 171.8 mg/L (5.7-26.3)
--- NOTE | 2019-02-24 11:34 | PDOC ---
Infectious Disease Note Subjective Subjective pt is feeling ok, very weak ROS ROS no n/v/d/sob Vital Sign Vital Signs Vital Signs Date Time Temp Pulse Resp B/P (MAP) Pulse Ox O2 Delivery O2 Flow Rate FiO2 02/24/19 11:11 24 95 BiPAP/CPAP 02/24/19 11:10 98.5 86 163/94 (117) 98.5 02/24/19 08:00 2.0 Physical Exam PHYSICAL EXAM GENERAL: Propped up in bed, alert, in NAD HEENT: Pupils are round and reacting. No conjunctival lesion, Oral cavity clear NECK: Supple, no JVP, no lymphadenopathy. LUNGS: Clear. HEART: S1, S2 regular. ABDOMEN: Obese, soft, nontender : Kimbrough in place, urine cloudy EXTREMITIES: Right swollen and red extending to groin area. Chronic venous insufficiency and stasis dermatitis changes present. An ulcer on the left posterior thigh. NEUROLOGIC: ALert, appropriate. Unable to lift left arm off bed, + wiggles fingers, sensation intact RIJ clean LEJ ok Labs Lab Laboratory Tests Test 02/23/19 11:35 02/23/19 11:45 02/23/19 16:52 02/23/19 20:48 Glucose (Fingerstick) 152 mg/dL (70-99) 127 mg/dL (70-99) 138 mg/dL (70-99) O2 Saturation 99 % (92-99) Arterial Blood pH 7.39 (7.35-7.45) Arterial Blood pCO2 at Patient Temp 50 mmHg (35-46) Arterial Blood pO2 at Patient Temp 160 mmHg (75-108) Arterial Blood HCO3 30 mmol/L (21-28) Arterial Blood Base Excess 4 mmol/L (-3-3) FiO2 40 Test 02/24/19 04:15 02/24/19 07:21 02/24/19 10:32 White Blood Count 15.2 x10^3/uL (4.0-11.0) Red Blood Count 3.68 x10^6/uL (4.30-5.70) Hemoglobin 11.2 g/dL (13.0-17.5) Hematocrit 34.4 % (39.0-53.0) Mean Corpuscular Volume 94 fL (79-100) Mean Corpuscular Hemoglobin 31 pg (25-35) Mean Corpuscular Hemoglobin Concent 33 g/dL (31-37) Red Cell Distribution Width 16.6 % (11.5-14.5) Platelet Count 420 x10^3/uL (140-400) Neutrophils (%) (Auto) 83 % (31-73) Lymphocytes (%) (Auto) 13 % (24-48) Monocytes (%) (Auto) 4 % (0-9) Eosinophils (%) (Auto) 1 % (0-3) Basophils (%) (Auto) 1 % (0-3) Neutrophils # (Auto) 12.6 x10^3/uL (1.8-7.7) Lymphocytes # (Auto) 1.9 x10^3/uL (1.0-4.8) Monocytes # (Auto) 0.5 x10^3/uL (0.0-1.1) Eosinophils # (Auto) 0.1 x10^3/uL (0.0-0.7) Basophils # (Auto) 0.1 x10^3/uL (0.0-0.2) Sodium Level 142 mmol/L (136-145) Potassium Level 4.0 mmol/L (3.5-5.1) Chloride Level 104 mmol/L (98-107) Carbon Dioxide Level 30 mmol/L (21-32) Anion Gap 8 (6-14) Blood Urea Nitrogen 49 mg/dL (8-26) Creatinine 1.4 mg/dL (0.7-1.3) Estimated GFR (Cockcroft-Gault) 52.8 Glucose Level 148 mg/dL (70-99) Calcium Level 8.7 mg/dL (8.5-10.1) Phosphorus Level 4.1 mg/dL (2.6-4.7) Magnesium Level 2.3 mg/dL (1.8-2.4) Albumin 1.1 g/dL (3.4-5.0) Glucose (Fingerstick) 140 mg/dL (70-99) 162 mg/dL (70-99) Micro BC 1/3 G + cocci Objective Assessment Right lower extremity extensive cellulitis. Leukocytosis - some better Lactic acidosis with the early sepsis. Morbid obesity. Diabetes. Hypertension. Venous insufficiency and stasis dermatitis. Left arm weakness BC 1/3 likely contaminant, ID pending Plan Plan of Care Continue Zyvox (1/4) and Zosyn Probiotics Leg elevation PT/OT ANA LUISA COUGHLIN MD Feb 24, 2019 11:34
--- NOTE | 2019-02-24 12:31 | PDOC ---
Renal-Progress Notes Subjective Notes Notes NO NEW COMPLAINTS History of Present Illness Hx of present illness STABLE Vitals Vitals Vital Signs Date Time Temp Pulse Resp B/P (MAP) Pulse Ox O2 Delivery O2 Flow Rate FiO2 02/24/19 12:16 97 BiPAP/CPAP 02/24/19 11:11 24 02/24/19 11:10 98.5 86 163/94 (117) 98.5 02/24/19 08:00 2.0 Weight Weight [ ] I.O. Intake and Output Intake and Output 02/24/19 07:00 Intake Total 250 ml Output Total 2650 ml Balance -2400 ml Intake Oral 250 ml Output Urine Total 2650 ml Labs Labs Laboratory Tests Test 02/23/19 16:52 02/23/19 20:48 02/24/19 04:15 02/24/19 07:21 Glucose (Fingerstick) 127 mg/dL (70-99) 138 mg/dL (70-99) 140 mg/dL (70-99) White Blood Count 15.2 x10^3/uL (4.0-11.0) Red Blood Count 3.68 x10^6/uL (4.30-5.70) Hemoglobin 11.2 g/dL (13.0-17.5) Hematocrit 34.4 % (39.0-53.0) Mean Corpuscular Volume 94 fL (79-100) Mean Corpuscular Hemoglobin 31 pg (25-35) Mean Corpuscular Hemoglobin Concent 33 g/dL (31-37) Red Cell Distribution Width 16.6 % (11.5-14.5) Platelet Count 420 x10^3/uL (140-400) Neutrophils (%) (Auto) 83 % (31-73) Lymphocytes (%) (Auto) 13 % (24-48) Monocytes (%) (Auto) 4 % (0-9) Eosinophils (%) (Auto) 1 % (0-3) Basophils (%) (Auto) 1 % (0-3) Neutrophils # (Auto) 12.6 x10^3/uL (1.8-7.7) Lymphocytes # (Auto) 1.9 x10^3/uL (1.0-4.8) Monocytes # (Auto) 0.5 x10^3/uL (0.0-1.1) Eosinophils # (Auto) 0.1 x10^3/uL (0.0-0.7) Basophils # (Auto) 0.1 x10^3/uL (0.0-0.2) Sodium Level 142 mmol/L (136-145) Potassium Level 4.0 mmol/L (3.5-5.1) Chloride Level 104 mmol/L (98-107) Carbon Dioxide Level 30 mmol/L (21-32) Anion Gap 8 (6-14) Blood Urea Nitrogen 49 mg/dL (8-26) Creatinine 1.4 mg/dL (0.7-1.3) Estimated GFR (Cockcroft-Gault) 52.8 Glucose Level 148 mg/dL (70-99) Calcium Level 8.7 mg/dL (8.5-10.1) Phosphorus Level 4.1 mg/dL (2.6-4.7) Magnesium Level 2.3 mg/dL (1.8-2.4) Albumin 1.1 g/dL (3.4-5.0) Test 02/24/19 10:32 Glucose (Fingerstick) 162 mg/dL (70-99) Micro Micro Microbiology 02/21/19 Blood Culture - Final, Complete Review of Systems Constitutional: yes: weakness, alert Ears/Nose/Throat: Yes: no symptom reported Pulmonary: Yes no symptom reported Cardiovascular: Yes edema Gastrointestional: Yes: no symptom reported Genitourinary: Yes: no symptom reported Musculoskeletal: Yes: joint pain, muscle pain, muscle stiffness Psychiatric/Neurological: Yes: no symptom reported Physical Exam General Appearance: no apparent distress Skin: warm Respiratory: decreased breath sounds Heart: S1S2 Genitourinary: distended bladder Extremities: edema Neurology: alert Assessment Assessment IMP SEEMA WITH CR IMPROVED FROM 2.8 TO 1.4 PROB EXTRACELLULAR VOLUME DEPLETION RLE CELLULITIS RHABDOMYOLYSIS-RESOLVED MALNUTRITION D M II SUSPECT NEPHROTIC SYNDROME PLAN ANTIBIOTICS WOUND CARE ENC PO WILL FOLLOW JOSE BELL MD Feb 24, 2019 12:31
[2019-02-24 13:11] LABS: ALBUM 1.4 g/dL (2.9-4.4); ALPHA 1 0.6 g/dL (0.0-0.4); ALPHA 2 1.4 g/dL (0.4-1.0); IMMUNOGLOBULIN A 502 mg/dL (90-386); IMMUNOGLOBULIN G 2158 mg/dL (700-1600); IMMUNOGLOBULIN M 42 mg/dL (20-172); PROTEIN TOTAL 6.4 g/dL (6.0-8.5); SPEP AG RATIO 0.3 (0.7-1.7)
[2019-02-24 15:21] VITALS: BP 149/78
[2019-02-24 20:02] VITALS: BP 156/87
[2019-02-24 23:16] VITALS: BP 166/93
[2019-02-25] MEDS: PIPERACILLIN/TAZOBACTAM 3.375 GM in IV NORMAL SALINE 50ML 50 ML IV SCH ×2 (00:13→04:49)
[2019-02-25 03:53] VITALS: BP 161/92
[2019-02-25 05:51] LABS: ALBUMIN 1.1 g/dL (3.4-5.0); CALCIUM 8.4 mg/dL (8.5-10.1); CREATININE 1.1 mg/dL (0.7-1.3); GFR 69.8; MAGNESIUM 1.7 mg/dL (1.8-2.4); PHOSPHORUS 3.5 mg/dL (2.6-4.7)
[2019-02-25 08:00] VITALS: BP 162/97
[2019-02-25] MEDS: INSULIN LISPRO 300 UNITS/3 ML VIAL. SQ SCH ×3 (08:00→18:13)
[2019-02-25] MEDS: IPRATRPIUM/ALBUTEROL 0.5/2.5MG 3 ML NEBU. NEB SCH ×4 (08:14→20:32)
[2019-02-25] MEDS: MULTIVITAMIN with MINERAL TABLET. PO SCH ×2 (09:00→10:10)
[2019-02-25] MEDS: FOLIC ACID 1 MG TABLET. PO SCH (10:11)
[2019-02-25] MEDS: DOCUSATE SODIUM 100 MG CAPSULE. PO SCH ×2 (10:11→21:49)
[2019-02-25] MEDS: LINEZOLID 600 MG TABLET PO SCH ×2 (10:11→21:49)
[2019-02-25] MEDS: ASPIRIN 325 MG TABLET PO SCH (10:11)
[2019-02-25] MEDS: LACTOBACILLUS RHAMNOSUS GG 1 CAPSULE. PO SCH ×2 (10:11→21:49)
[2019-02-25] MEDS: ENOXAPARIN 40 MG/0.4 ML SYRINGE. SQ SCH (10:11)
[2019-02-25] MEDS: ATENOLOL 50 MG TABLET. PO SCH (10:11)
[2019-02-25] MEDS: THIAMINE 100 MG TABLET. PO SCH (10:11)
[2019-02-25] MEDS: FAMOTIDINE 20 MG TABLET. PO SCH ×2 (10:11→21:49)
[2019-02-25 11:00] VITALS: BP 171/95
--- NOTE | 2019-02-25 11:32 | PDOC ---
Infectious Disease Note Subjective Subjective pt is feeling ok, very weak ROS ROS no n/v/d/sob Vital Sign Vital Signs Vital Signs Date Time Temp Pulse Resp B/P (MAP) Pulse Ox O2 Delivery O2 Flow Rate FiO2 02/25/19 11:00 97.8 71 24 171/95 (120) 99 Nasal Cannula 2.0 97.8 Physical Exam PHYSICAL EXAM GENERAL: Propped up in bed, alert, in NAD HEENT: Pupils are round and reacting. No conjunctival lesion, Oral cavity clear NECK: Supple, no JVP, no lymphadenopathy. LUNGS: Clear. HEART: S1, S2 regular. ABDOMEN: Obese, soft, nontender : Kimbrough in place, urine cloudy EXTREMITIES: Right swollen and red extending to groin area. Chronic venous insufficiency and stasis dermatitis changes present. An ulcer on the left posterior thigh. NEUROLOGIC: ALert, appropriate. Unable to lift left arm off bed, + wiggles fingers, sensation intact RIJ clean LEJ ok Labs Lab Laboratory Tests Test 02/24/19 16:38 02/24/19 21:19 02/25/19 04:50 02/25/19 07:14 Glucose (Fingerstick) 133 mg/dL (70-99) 136 mg/dL (70-99) 133 mg/dL (70-99) Sodium Level 144 mmol/L (136-145) Potassium Level 4.0 mmol/L (3.5-5.1) Chloride Level 106 mmol/L (98-107) Carbon Dioxide Level 33 mmol/L (21-32) Anion Gap 5 (6-14) Blood Urea Nitrogen 35 mg/dL (8-26) Creatinine 1.1 mg/dL (0.7-1.3) Estimated GFR (Cockcroft-Gault) 69.8 Glucose Level 149 mg/dL (70-99) Calcium Level 8.4 mg/dL (8.5-10.1) Phosphorus Level 3.5 mg/dL (2.6-4.7) Magnesium Level 1.7 mg/dL (1.8-2.4) Albumin 1.1 g/dL (3.4-5.0) Micro BC 1/3 G + cocci Objective Assessment Right lower extremity extensive cellulitis. Leukocytosis - some better Lactic acidosis with the early sepsis. Morbid obesity. Diabetes. Hypertension. Venous insufficiency and stasis dermatitis. Left arm weakness BC 1/3 likely contaminant, ID pending Plan Plan of Care change Zyvox (02/21) and Zosyn to po zyvox and augmentin Probiotics Leg elevation PT/OT ANA LUISA COUGHLIN MD Feb 25, 2019 11:32
--- NOTE | 2019-02-25 11:52 | PDOC ---
PULMONARY PROGRESS NOTES Subjective no increase soa Vitals Vital Signs Date Time Temp Pulse Resp B/P (MAP) Pulse Ox O2 Delivery O2 Flow Rate FiO2 02/25/19 11:00 97.8 71 24 171/95 (120) 99 Nasal Cannula 2.0 97.8 General: Alert, No acute distress Lungs: Other (decrease bases) Cardiovascular: S1 Abdomen: Soft, Other (obese) Extremities: Other (lymphedema) Labs Laboratory Tests Test 02/23/19 16:52 02/23/19 20:48 02/24/19 04:15 02/24/19 07:21 Glucose (Fingerstick) 127 mg/dL (70-99) 138 mg/dL (70-99) 140 mg/dL (70-99) White Blood Count 15.2 x10^3/uL (4.0-11.0) Red Blood Count 3.68 x10^6/uL (4.30-5.70) Hemoglobin 11.2 g/dL (13.0-17.5) Hematocrit 34.4 % (39.0-53.0) Mean Corpuscular Volume 94 fL (79-100) Mean Corpuscular Hemoglobin 31 pg (25-35) Mean Corpuscular Hemoglobin Concent 33 g/dL (31-37) Red Cell Distribution Width 16.6 % (11.5-14.5) Platelet Count 420 x10^3/uL (140-400) Neutrophils (%) (Auto) 83 % (31-73) Lymphocytes (%) (Auto) 13 % (24-48) Monocytes (%) (Auto) 4 % (0-9) Eosinophils (%) (Auto) 1 % (0-3) Basophils (%) (Auto) 1 % (0-3) Neutrophils # (Auto) 12.6 x10^3/uL (1.8-7.7) Lymphocytes # (Auto) 1.9 x10^3/uL (1.0-4.8) Monocytes # (Auto) 0.5 x10^3/uL (0.0-1.1) Eosinophils # (Auto) 0.1 x10^3/uL (0.0-0.7) Basophils # (Auto) 0.1 x10^3/uL (0.0-0.2) Sodium Level 142 mmol/L (136-145) Potassium Level 4.0 mmol/L (3.5-5.1) Chloride Level 104 mmol/L (98-107) Carbon Dioxide Level 30 mmol/L (21-32) Anion Gap 8 (6-14) Blood Urea Nitrogen 49 mg/dL (8-26) Creatinine 1.4 mg/dL (0.7-1.3) Estimated GFR (Cockcroft-Gault) 52.8 Glucose Level 148 mg/dL (70-99) Calcium Level 8.7 mg/dL (8.5-10.1) Phosphorus Level 4.1 mg/dL (2.6-4.7) Magnesium Level 2.3 mg/dL (1.8-2.4) Albumin 1.1 g/dL (3.4-5.0) Test 02/24/19 10:32 02/24/19 16:38 02/24/19 21:19 02/25/19 04:50 Glucose (Fingerstick) 162 mg/dL (70-99) 133 mg/dL (70-99) 136 mg/dL (70-99) Sodium Level 144 mmol/L (136-145) Potassium Level 4.0 mmol/L (3.5-5.1) Chloride Level 106 mmol/L (98-107) Carbon Dioxide Level 33 mmol/L (21-32) Anion Gap 5 (6-14) Blood Urea Nitrogen 35 mg/dL (8-26) Creatinine 1.1 mg/dL (0.7-1.3) Estimated GFR (Cockcroft-Gault) 69.8 Glucose Level 149 mg/dL (70-99) Calcium Level 8.4 mg/dL (8.5-10.1) Phosphorus Level 3.5 mg/dL (2.6-4.7) Magnesium Level 1.7 mg/dL (1.8-2.4) Albumin 1.1 g/dL (3.4-5.0) Test 02/25/19 07:14 02/25/19 11:31 Glucose (Fingerstick) 133 mg/dL (70-99) 158 mg/dL (70-99) Laboratory Tests Test 02/24/19 16:38 02/24/19 21:19 02/25/19 04:50 02/25/19 07:14 Glucose (Fingerstick) 133 mg/dL (70-99) 136 mg/dL (70-99) 133 mg/dL (70-99) Sodium Level 144 mmol/L (136-145) Potassium Level 4.0 mmol/L (3.5-5.1) Chloride Level 106 mmol/L (98-107) Carbon Dioxide Level 33 mmol/L (21-32) Anion Gap 5 (6-14) Blood Urea Nitrogen 35 mg/dL (8-26) Creatinine 1.1 mg/dL (0.7-1.3) Estimated GFR (Cockcroft-Gault) 69.8 Glucose Level 149 mg/dL (70-99) Calcium Level 8.4 mg/dL (8.5-10.1) Phosphorus Level 3.5 mg/dL (2.6-4.7) Magnesium Level 1.7 mg/dL (1.8-2.4) Albumin 1.1 g/dL (3.4-5.0) Test 02/25/19 11:31 Glucose (Fingerstick) 158 mg/dL (70-99) Medications Active Scripts Medications Dose Route/Sig Max Daily Dose Days Date Category Glipizide 5 Mg Tablet 1 Tab PO BID 02/21/19 Reported Metformin Hcl 1,000 Mg Tablet 1,000 Mg PO BIDWMEALS 02/21/19 Reported Atenolol 50 Mg Tablet 1 Tab PO DAILY 02/21/19 Reported Chlorthalidone (Chlorthalidone) 25 Mg Tablet 25 Mg PO DAILY 02/21/19 Reported Impression . 1. Acute on chronic respiratory failure secondary to multifactorial etiologies, including acute on chronic right heart failure, possible acute bronchitis. The patient is a nonsmoker. 2. Status post fall with profound weakness causing immobility for 12 hours. His BUN and creatinine suggesting a prerenal azotemia. 3. Severe protein-calorie malnutrition with an albumin level of 1.1. 4. Underlying obstructive sleep apnea with obesity hypoventilation syndrome. 5. Chronic compensated respiratory acidosis. Plan . 1. Discussed with RN. Continue with present oxygen. 2. BiPAP at bedtime and p.r.n. during the day. 3. Monitor white cell count. 4. Monitor renal function. At this point, we will withhold any diuretics. 5. Antibiotics per Infectious Disease. 6. Continue bronchodilators. 7. DVT prophylaxis. 8. Discussed with RN and we will follow along with you. He needs to lose weight. CARYL PHILLIPS MD Feb 25, 2019 11:52
--- NOTE | 2019-02-25 12:00 | NUR ---
SS following up with discharge planning. SS received call from Pt's RN requesting referral to LTAC per Dr. Bob. SS phoned and faxed referral to [facility], ; fax [phone]. SS will await acceptance decision and will proceed accordingly with discharge planning.
--- NOTE | 2019-02-25 12:22 | PDOC ---
[facility] [facility] PROGRESS NOTE Chief Complaint Chief Complaint Resp failure Severe sepsis Extreme morbid obesity Sleep apnea Cellulitis of right leg, severe with lymphedema, chronic venous stasis Hypoglycemia sec to metformin, glipizide Acute renal failure Dehydration Dyspnea Hypoglycemia Severe alcohol abuse Fall at home Severe debility CHF History of Present Illness History of Present Illness 02/25/19 Pt seen and examined Pt is in bed, better today and was more responsive DW pt Reviewed pt's chart 02/24/19 Pt seen and examined Pt is in bed, continuing to use accessory muscles for breathing He continues to be quite ill He needs to use BiPAP Reviewed pt's chart 02/23/19 Pt seen and examined Hes is quite ill. DW RN and RT Put him back on BiPAP DW pt code status. He wants Full Code Vitals/I&O Vitals/I&O: Vital Signs Date Time Temp Pulse Resp B/P (MAP) Pulse Ox O2 Delivery O2 Flow Rate FiO2 02/25/19 11:50 97 Nasal Cannula 3.0 02/25/19 11:00 97.8 71 24 171/95 (120) 97.8 I & O 02/24/19 02/24/19 02/25/19 15:00 23:00 07:00 Intake Total 500 ml 0 ml 700 ml Output Total 1100 ml 1350 ml Balance -600 ml 0 ml -650 ml Physical Exam Physical Exam: GENERAL: Propped up in bed, alert, in NAD HEENT: Pupils are round and reacting. No conjunctival lesion, Oral cavity clear NECK: Supple, no JVP, no lymphadenopathy. LUNGS: Clear. HEART: S1, S2 regular. ABDOMEN: Obese, soft, nontender : Kimbrough in place, urine cloudy EXTREMITIES: Right swollen and red extending to groin area. Chronic venous insufficiency and stasis dermatitis changes present. An ulcer on the left posterior thigh. NEUROLOGIC: ALert, appropriate. Unable to lift left arm off bed, + wiggles fingers, sensation intact RIJ clean LEJ ok General: Cooperative, mild distress Heart: Regular rate, Normal S1 Lungs: Other (decrease bases) Abdomen: Normal bowel sounds, Soft, No tenderness, No hepatosplenomegaly, Other (morbidly obese) Extremities: Other (2-3+ pitting edema with chronic changes and hyperemia RLE, 1+ edema with hyperpigmentation LLE) Skin: Other (massive rash on r leg) Labs Labs: Laboratory Tests Test 02/24/19 16:38 02/24/19 21:19 02/25/19 04:50 02/25/19 07:14 Glucose (Fingerstick) 133 mg/dL (70-99) 136 mg/dL (70-99) 133 mg/dL (70-99) Sodium Level 144 mmol/L (136-145) Potassium Level 4.0 mmol/L (3.5-5.1) Chloride Level 106 mmol/L (98-107) Carbon Dioxide Level 33 mmol/L (21-32) Anion Gap 5 (6-14) Blood Urea Nitrogen 35 mg/dL (8-26) Creatinine 1.1 mg/dL (0.7-1.3) Estimated GFR (Cockcroft-Gault) 69.8 Glucose Level 149 mg/dL (70-99) Calcium Level 8.4 mg/dL (8.5-10.1) Phosphorus Level 3.5 mg/dL (2.6-4.7) Magnesium Level 1.7 mg/dL (1.8-2.4) Albumin 1.1 g/dL (3.4-5.0) Test 02/25/19 11:31 Glucose (Fingerstick) 158 mg/dL (70-99) Review of Systems Review of Systems: c/o hunger no c/o n/v Assessment and Plan Assessmemt and Plan Problems Medical Problems: (1) Acute renal failure Status: Acute (2) Cellulitis of right leg Status: Acute (3) Dehydration Status: Acute (4) Dyspnea Status: Acute (5) Hypoglycemia Status: Acute (6) Severe sepsis Status: Acute Assessment Resp failure Metabolic encephalopathy Severe sepsis Extreme morbid obesity Sleep apnea Cellulitis of right leg, severe with lymphedema, chronic venous stasis Hypoglycemia sec to metformin, glipizide Acute tubular necrosis Acute renal failure SEEMA Dehydration Dyspnea Hypoglycemia Severe alcohol abuse Fall at home Severe debility CHF Plan Pulm /ID/Cards/Neph/Neuro following Continue IV antibiotics Continue BiPAP Continue architectural technician CIWA protocol Hold metformin and glipizide PT/OT when possible DVT Prophylaxis GI Prophylaxis Full code Comment Review of Relevant I have reviewed the following items robert (where applicable) has been applied. JESSICA BROOKS III DO Feb 25, 2019 12:22
--- NOTE | 2019-02-25 13:04 | PDOC ---
PROGRESS NOTES Assessment Problems Medical Problems: (1) Acute renal failure Status: Acute (2) Cellulitis of right leg Status: Acute (3) Dehydration Status: Acute (4) Dyspnea Status: Acute (5) Hypoglycemia Status: Acute (6) Severe sepsis Status: Acute Left side weakness, possible stroke, weakness way out of proportion in left arm, consider brachial plexopathy and also psychogenic conversion reaction. Metabolic encephalopathy. Lactic acidosis. Hypoglycemia, glucose level 20. Leukocytosis, WBC 28.8 Renal failure or SEEMA. Fall DM. HTN. HLD. Alcohol use/abuse. Cellulitis, right leg. Morbid obesity, BMI 62.6 Venous insufficiency and stasis dermatitis. Plan Aspirin No need for statin, normal lipids! Can't do brain MRI, too heavy. Couldn't do carotid Doppler, not a good candidate for carotid surgery anyway. Also has renal insufficiency making CT angiogram problematic As per ID. OT/PT. He wants to go home to [place] and have rehab there. Consider EMG if left arm no better in 3 weeks. Subjective no new complaints Objective Vital Signs Date Time Temp Pulse Resp B/P (MAP) Pulse Ox O2 Delivery O2 Flow Rate FiO2 02/25/19 11:50 97 Nasal Cannula 3.0 02/25/19 11:00 97.8 71 24 171/95 (120) 97.8 Intake and Output 02/25/19 07:00 Intake Total 1200 ml Output Total 2450 ml Balance -1250 ml Intake Oral 1200 ml Output Urine Total 2450 ml PHYSICAL EXAM Alert. Oriented to time, place and person. PERRL. EOMI. CN: no focal findings. Muscle tone: normal. Muscle strength: 3/5 right, 3-/5 left leg, 0/5 left arm DTR: 0-1+ Plantar reflex: flexor Gait: not examined in bed. Sensory exam: stocking loss. No cerebellar signs elicited. Review of Relevant I have reviewed the following items robert (where applicable) has been applied. Labs Laboratory Tests Test 02/23/19 16:52 02/23/19 20:48 02/24/19 04:15 02/24/19 07:21 Glucose (Fingerstick) 127 mg/dL (70-99) 138 mg/dL (70-99) 140 mg/dL (70-99) White Blood Count 15.2 x10^3/uL (4.0-11.0) Red Blood Count 3.68 x10^6/uL (4.30-5.70) Hemoglobin 11.2 g/dL (13.0-17.5) Hematocrit 34.4 % (39.0-53.0) Mean Corpuscular Volume 94 fL (79-100) Mean Corpuscular Hemoglobin 31 pg (25-35) Mean Corpuscular Hemoglobin Concent 33 g/dL (31-37) Red Cell Distribution Width 16.6 % (11.5-14.5) Platelet Count 420 x10^3/uL (140-400) Neutrophils (%) (Auto) 83 % (31-73) Lymphocytes (%) (Auto) 13 % (24-48) Monocytes (%) (Auto) 4 % (0-9) Eosinophils (%) (Auto) 1 % (0-3) Basophils (%) (Auto) 1 % (0-3) Neutrophils # (Auto) 12.6 x10^3/uL (1.8-7.7) Lymphocytes # (Auto) 1.9 x10^3/uL (1.0-4.8) Monocytes # (Auto) 0.5 x10^3/uL (0.0-1.1) Eosinophils # (Auto) 0.1 x10^3/uL (0.0-0.7) Basophils # (Auto) 0.1 x10^3/uL (0.0-0.2) Sodium Level 142 mmol/L (136-145) Potassium Level 4.0 mmol/L (3.5-5.1) Chloride Level 104 mmol/L (98-107) Carbon Dioxide Level 30 mmol/L (21-32) Anion Gap 8 (6-14) Blood Urea Nitrogen 49 mg/dL (8-26) Creatinine 1.4 mg/dL (0.7-1.3) Estimated GFR (Cockcroft-Gault) 52.8 Glucose Level 148 mg/dL (70-99) Calcium Level 8.7 mg/dL (8.5-10.1) Phosphorus Level 4.1 mg/dL (2.6-4.7) Magnesium Level 2.3 mg/dL (1.8-2.4) Albumin 1.1 g/dL (3.4-5.0) Test 1/7/20 10:32 02/24/19 16:38 02/24/19 21:19 02/25/19 04:50 Glucose (Fingerstick) 162 mg/dL (70-99) 133 mg/dL (70-99) 136 mg/dL (70-99) Sodium Level 144 mmol/L (136-145) Potassium Level 4.0 mmol/L (3.5-5.1) Chloride Level 106 mmol/L (98-107) Carbon Dioxide Level 33 mmol/L (21-32) Anion Gap 5 (6-14) Blood Urea Nitrogen 35 mg/dL (8-26) Creatinine 1.1 mg/dL (0.7-1.3) Estimated GFR (Cockcroft-Gault) 69.8 Glucose Level 149 mg/dL (70-99) Calcium Level 8.4 mg/dL (8.5-10.1) Phosphorus Level 3.5 mg/dL (2.6-4.7) Magnesium Level 1.7 mg/dL (1.8-2.4) Albumin 1.1 g/dL (3.4-5.0) Test 02/25/19 07:14 02/25/19 11:31 Glucose (Fingerstick) 133 mg/dL (70-99) 158 mg/dL (70-99) Laboratory Tests Test 02/24/19 16:38 02/24/19 21:19 02/25/19 04:50 02/25/19 07:14 Glucose (Fingerstick) 133 mg/dL (70-99) 136 mg/dL (70-99) 133 mg/dL (70-99) Sodium Level 144 mmol/L (136-145) Potassium Level 4.0 mmol/L (3.5-5.1) Chloride Level 106 mmol/L (98-107) Carbon Dioxide Level 33 mmol/L (21-32) Anion Gap 5 (6-14) Blood Urea Nitrogen 35 mg/dL (8-26) Creatinine 1.1 mg/dL (0.7-1.3) Estimated GFR (Cockcroft-Gault) 69.8 Glucose Level 149 mg/dL (70-99) Calcium Level 8.4 mg/dL (8.5-10.1) Phosphorus Level 3.5 mg/dL (2.6-4.7) Magnesium Level 1.7 mg/dL (1.8-2.4) Albumin 1.1 g/dL (3.4-5.0) Test 02/25/19 11:31 Glucose (Fingerstick) 158 mg/dL (70-99) Microbiology 02/21/19 Blood Culture - Final, Complete Medications Current Medications Dextrose (Dextrose 50%-Water Syringe) 25 gm STK-MED ONCE IV ; Start 02/21/19 at 03:08; Stop 02/21/19 at 03:08; Status DC Dextrose (Dextrose 50%-Water Syringe) 25 gm 1X ONCE IV Last administered on 02/21/19at 05:59; Start 02/21/19 at 04:30; Stop 02/21/19 at 04:31; Status DC Sodium Chloride 1,000 ml @ 1,000 mls/hr Q1H IV Last administered on 02/21/19at 04:44; Start 02/21/19 at 04:30; Stop 02/21/19 at 05:29; Status DC Albuterol/ Ipratropium (Duoneb) 3 ml 1X ONCE NEB Last administered on 02/21/19at 04:19; Start 02/21/19 at 04:30; Stop 02/21/19 at 04:31; Status DC Methylprednisolone Sodium Succinate (SOLU-Medrol 125MG VIAL) 125 mg 1X ONCE IV Last administered on 02/21/19at 04:11; Start 02/21/19 at 04:30; Stop 02/21/19 at 04:31; Status DC Dextrose 500 ml @ 150 mls/hr 1X ONCE IV Last administered on 02/21/19at 04:30; Start 02/21/19 at 04:30; Stop 02/21/19 at 07:49; Status DC Vancomycin HCl 2 gm/Sodium Chloride 500 ml @ 250 mls/hr 1X ONCE IV Last administered on 02/21/19at 04:49; Start 02/21/19 at 04:30; Stop 02/21/19 at 06:29; Status DC Sodium Chloride 1,000 ml @ 1,000 mls/hr 1X ONCE IV ; Start 02/21/19 at 05:30; Stop 02/21/19 at 06:29; Status DC Ondansetron HCl (Zofran) 4 mg PRN Q8HRS PRN IV NAUSEA/VOMITING 1ST CHOICE; Start 02/21/19 at 05:30; Stop 02/21/19 at 11:17; Status DC Morphine Sulfate (Morphine Sulfate) 4 mg PRN Q2HR PRN IV SEVERE PAIN 7-10 Last administered on 02/21/19at 09:07; Start 02/21/19 at 05:30; Stop 02/22/19 at 05:29; Status DC Sodium Chloride 1,000 ml @ 100 mls/hr Q10H IV ; Start 02/21/19 at 06:00; Stop 02/21/19 at 12:45; Status DC Acetaminophen (Tylenol) 650 mg PRN Q4HRS PRN PO FEVER; Start 02/21/19 at 05:30; Stop 02/21/19 at 11:18; Status DC Albuterol/ Ipratropium (Duoneb) 3 ml RTQID NEB Last administered on 02/22/19at 07:51; Start 02/21/19 at 08:00; Stop 02/22/19 at 07:59; Status DC Piperacillin Sod/ Tazobactam Sod 3.375 gm/Sodium Chloride 50 ml @ 100 mls/hr 1X ONCE IV Last administered on 02/21/19at 05:47; Start 02/21/19 at 06:00; Stop 02/21/19 at 06:29; Status DC Acetaminophen (Tylenol) 650 mg PRN Q6HRS PRN PO Headaches, Temp > 101.5'; Start 02/21/19 at 11:15 Ondansetron HCl (Zofran) 4 mg PRN Q6HRS PRN IV NAUSEA/VOMITING; Start 02/21/19 at 11:15 Famotidine (Pepcid Vial) 20 mg BID IVP Last administered on 02/23/19at 09:39; Start 02/21/19 at 11:30; Stop 02/23/19 at 15:27; Status DC Info (Icu Electrolyte Protocol) 1 ea DAILY MC Last administered on 02/22/19at 08:07; Start 02/22/19 at 09:00; Stop 02/23/19 at 15:22; Status DC Heparin Sodium (Porcine) (Heparin Sodium) 5,000 unit Q8HRS SQ Last administered on 02/24/19at 06:16; Start 02/21/19 at 14:00; Stop 02/24/19 at 09:32; Status DC Sodium Chloride (Normal Saline Flush) 3 ml QSHIFT PRN IV AFTER MEDS AND BLOOD DRAWS; Start 02/21/19 at 11:15 Docusate Sodium (Colace) 100 mg BID PO Last administered on 02/25/19at 10:11; Start 02/21/19 at 12:00 Bisacodyl (Dulcolax Supp) 10 mg PRN DAILY PRN CO CONSTIPATION; Start 02/21/19 at 11:15 Atenolol (Tenormin) 50 mg DAILY PO Last administered on 02/25/19at 10:11; Start 02/21/19 at 12:00 Chlorthalidone (Thalitone) 25 mg DAILY PO ; Start 02/21/19 at 12:00; Stop 02/21/19 at 12:45; Status DC Multivitamins (Thera M Plus) 1 tab DAILY PO Last administered on 02/25/19at 10:10; Start 02/21/19 at 12:00 Folic Acid (Folic Acid) 1 mg DAILY PO Last administered on 02/25/19at 10:11; Start 02/21/19 at 12:00 Thiamine Mononitrate (Vitamin B-1) 100 mg DAILY PO Last administered on 02/25/19at 10:11; Start 02/21/19 at 12:00 Lorazepam (Ativan) 4 mg PRN Q1HR PRN PO For CIWA 8-14 Last administered on 02/24/19at 08:49; Start 02/21/19 at 11:30 Lorazepam (Ativan) 8 mg PRN Q1HR PRN PO For CIWA 15 or greater; Start 02/21/19 at 11:30 Lorazepam (Ativan Inj) 2 mg PRN Q1HR PRN IV For CIWA 8-14 Last administered on 02/23/19at 20:46; Start 02/21/19 at 11:30 Lorazepam (Ativan Inj) 4 mg PRN Q1HR PRN IV For CIWA 15 or greater; Start 02/21/19 at 11:30 Haloperidol Lactate (Haldol Inj) 5 mg PRN Q4HRS PRN IVP Hallucinatns,Confusn,Delirium; Start 02/21/19 at 11:30 Clonidine HCl (Catapres) 0.1 mg PRN Q1HR PRN PO SBP > 180 or DBP > 100, MRX3 Last administered on 02/23/19at 20:24; Start 02/21/19 at 11:30 Lorazepam (Ativan Inj) 2 mg PRN Q15MIN PRN IV SEE COMMENTS; Start 02/21/19 at 11:30; Stop 02/23/19 at 15:23; Status DC Lorazepam (Ativan Inj) 4 mg PRN Q15MIN PRN IV SEE COMMENTS; Start 02/21/19 at 11:30; Stop 02/23/19 at 15:24; Status DC Potassium Chloride (Klor-Con) 20 meq 1X ONCE PO Last administered on 02/21/19at 13:53; Start 02/21/19 at 12:00; Stop 02/21/19 at 12:01; Status DC Ringer's Solution 1,000 ml @ 75 mls/hr [id number] IV Last administered on 02/21/19at 13:54; Start 02/21/19 at 13:00; Stop 02/21/19 at 16:07; Status DC Magnesium Sulfate 50 ml @ 25 mls/hr PRN DAILY PRN IV for Mag < 1.7 on am labs; Start 02/21/19 at 13:00 Linezolid (Zyvox) 600 mg BID PO Last administered on 02/25/19at 10:11; Start 02/21/19 at 13:30 Piperacillin Sod/ Tazobactam Sod 3.375 gm/Sodium Chloride 50 ml @ 100 mls/hr Q6HRS IV Last administered on 02/25/19at 04:49; Start 02/21/19 at 13:30; Stop 02/25/19 at 11:36; Status DC Lactobacillus Rhamnosus (Culturelle) 1 cap BID PO Last administered on 02/25/19at 10:11; Start 02/21/19 at 21:00 Aspirin (Children'S Aspirin) 81 mg [id number] PO Last administered on 02/21/19at 16:23; Start 02/21/19 at 15:30; Stop 02/21/19 at 16:46; Status DC Sodium Chloride 1,000 ml @ 75 mls/hr [id number] IV ; Start 02/22/19 at 03:00; Stop 02/21/19 at 16:14; Status DC Sodium Chloride 1,000 ml @ 75 mls/hr [id number] IV Last administered on 02/22/19at 07:58; Start 02/21/19 at 17:00; Stop 02/22/19 at 08:57; Status DC Aspirin (Flavia Aspirin) 325 mg [id number] PO Last administered on 02/25/19at 10:11; Start 02/22/19 at 08:00 Albuterol/ Ipratropium (Duoneb) 3 ml RTQID NEB Last administered on 02/25/19at 11:49; Start 02/22/19 at 08:00 Potassium Chloride (Klor-Con) 40 meq 1X ONCE PO Last administered on 02/22/19at 08:16; Start 02/22/19 at 08:15; Stop 02/22/19 at 08:16; Status DC Potassium Chloride/Water 100 ml @ 100 mls/hr Q1H IV ; Start 02/22/19 at 09:00; Stop 02/22/19 at 10:59; Status DC Insulin Human Lispro (HumaLOG) 0-7 UNITS TIDWMEALS SQ Last administered on 02/25/19at 12:28; Start 02/22/19 at 17:00 Dextrose (Dextrose 50%-Water Syringe) 12.5 gm PRN Q15MIN PRN IV SEE COMMENTS; Start 02/22/19 at 14:45 Dextrose (Iv Dextrose 5%) 250 ml PRN Q15MIN PRN IV SEE COMMENTS; Start 02/22/19 at 14:45 Info (Non-Icu Electrolyte Protocol) 1 ea CONT PRN PRN MC SEE COMMENTS; Start 02/23/19 at 15:30 Famotidine (Pepcid) 20 mg BID PO Last administered on 02/25/19at 10:11; Start 02/23/19 at 21:00 Multivitamins (Thera M Plus) 1 tab DAILY PO ; Start 02/24/19 at 09:00 Enoxaparin Sodium (Lovenox 40mg Syringe) 40 mg Q24H SQ Last administered on 02/25/19at 10:11; Start 02/24/19 at 10:00 Amoxicillin/ Clavulanate Potassium (Augmentin 875/ 125mg) 1 tab BID PO ; Start 02/25/19 at 21:00 Active Scripts Active Reported Glipizide 5 Mg Tablet 1 Tab PO BID Metformin Hcl 1,000 Mg Tablet 1,000 Mg PO BIDWMEALS Atenolol 50 Mg Tablet 1 Tab PO DAILY Chlorthalidone (Chlorthalidone) 25 Mg Tablet 25 Mg PO DAILY Vitals/I & O Vital Sign - Last 24 Hours 02/24/19 02/24/19 02/24/19 02/24/19 15:21 16:30 20:00 20:00 Temp 99.0 99.0 Pulse 69 Resp 33 B/P (MAP) 149/78 (101) Pulse Ox 98 99 O2 Delivery BiPAP/CPAP BiPAP/CPAP Bi-pap O2 Flow Rate 2.0 2.0 02/24/19 02/24/19 02/24/19 02/25/19 20:02 20:12 23:16 03:53 Pulse 65 81 72 Resp 28 27 B/P (MAP) 156/87 (110) 166/93 (117) 161/92 (115) Pulse Ox 100 99 100 O2 Delivery BiPAP/CPAP BiPAP/CPAP BiPAP/CPAP 02/25/19 02/25/19 02/25/19 02/25/19 08:00 08:15 08:25 08:25 Temp 97.7 97.7 Pulse 70 Resp 32 B/P (MAP) 162/97 (118) Pulse Ox 99 98 O2 Delivery Nasal Cannula Nasal Cannula Nasal Cannula O2 Flow Rate 2.0 3.0 3.0 3.0 02/25/19 02/25/19 02/25/19 10:11 11:00 11:50 Temp 97.8 97.8 Pulse 70 71 Resp 24 B/P (MAP) 162/97 171/95 (120) Pulse Ox 99 97 O2 Delivery Nasal Cannula Nasal Cannula O2 Flow Rate 2.0 3.0 Intake and Output 02/24/19 02/24/19 02/25/19 15:00 23:00 07:00 Intake Total 500 ml 0 ml 700 ml Output Total 1100 ml 1350 ml Balance -600 ml 0 ml -650 ml MALINDA GORDILLO MD Feb 25, 2019 13:04
--- NOTE | 2019-02-25 13:05 | PDOC ---
Renal-Progress Notes Subjective Notes Notes NO NEW COMPLAINTS History of Present Illness Hx of present illness STABLE Vitals Vitals Vital Signs Date Time Temp Pulse Resp B/P (MAP) Pulse Ox O2 Delivery O2 Flow Rate FiO2 02/25/19 11:50 97 Nasal Cannula 3.0 02/25/19 11:00 97.8 71 24 171/95 (120) 97.8 Weight Weight [ ] I.O. Intake and Output Intake and Output 02/25/19 07:00 Intake Total 1200 ml Output Total 2450 ml Balance -1250 ml Intake Oral 1200 ml Output Urine Total 2450 ml Labs Labs Laboratory Tests Test 02/24/19 16:38 02/24/19 21:19 02/25/19 04:50 02/25/19 07:14 Glucose (Fingerstick) 133 mg/dL (70-99) 136 mg/dL (70-99) 133 mg/dL (70-99) Sodium Level 144 mmol/L (136-145) Potassium Level 4.0 mmol/L (3.5-5.1) Chloride Level 106 mmol/L (98-107) Carbon Dioxide Level 33 mmol/L (21-32) Anion Gap 5 (6-14) Blood Urea Nitrogen 35 mg/dL (8-26) Creatinine 1.1 mg/dL (0.7-1.3) Estimated GFR (Cockcroft-Gault) 69.8 Glucose Level 149 mg/dL (70-99) Calcium Level 8.4 mg/dL (8.5-10.1) Phosphorus Level 3.5 mg/dL (2.6-4.7) Magnesium Level 1.7 mg/dL (1.8-2.4) Albumin 1.1 g/dL (3.4-5.0) Test 02/25/19 11:31 Glucose (Fingerstick) 158 mg/dL (70-99) Micro Micro Microbiology 02/21/19 Blood Culture - Final, Complete Review of Systems Constitutional: yes: weakness, alert Ears/Nose/Throat: Yes: no symptom reported Pulmonary: Yes no symptom reported Cardiovascular: Yes edema Gastrointestional: Yes: no symptom reported Genitourinary: Yes: no symptom reported Musculoskeletal: Yes: joint pain, muscle pain, muscle stiffness Psychiatric/Neurological: Yes: no symptom reported Physical Exam General Appearance: no apparent distress Skin: warm Respiratory: decreased breath sounds Heart: S1S2 Genitourinary: distended bladder Extremities: edema Neurology: alert Assessment Assessment IMP SEEMA RESOLVED WITH CR OF 1.1 PROB EXTRACELLULAR VOLUME DEPLETION RLE CELLULITIS RHABDOMYOLYSIS-RESOLVED MALNUTRITION D M 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
[2019-02-25] MEDS ORDERED: MAGNESIUM SULFATE 2GM 50 ML IV ONE (13:45)
[2019-02-25 15:08] VITALS: BP 157/88
[2019-02-25 15:11] LABS: ALBUMIN UR 12.3 % (.); ALPHA 1 UR 2.3 % (.); ALPHA 2 UR 13.6 % (.); BETA UR 33.4 % (.); GAMMA UR 38.4 % (.); PROTEIN 24 UR 1220 mg/24 hr (30-150); PROTEIN UR 69.7 mg/dL (Not Estab.)
--- NOTE | 2019-02-25 16:01 | NUR ---
SS following up with discharge planning. Pt accepted at [facility], ; fax [phone], pending insurance authorization. SS will await insurance determination and will proceed accordingly with discharge planning.
[2019-02-25 19:42] VITALS: BP 147/83
[2019-02-25] MEDS: AMOXICILLIN/K CLAV 875/125MG TABLET. PO SCH (21:49)
[2019-02-25 23:44] VITALS: BP 149/81
[2019-02-26 03:01] VITALS: BP 167/89
[2019-02-26 06:18] LABS: BASO # 0.1 x10^3/uL (0.0-0.2); BASO % 1 % (0-3); EOS # 0.1 x10^3/uL (0.0-0.7); EOS % 1 % (0-3); HEMATOCRIT 34.4 % (39.0-53.0); HEMOGLOBIN 11.1 g/dL (13.0-17.5); LYMPH # 1.4 x10^3/uL (1.0-4.8); LYMPH % 12 % (24-48); MEAN CORPUSCULAR HEMOGLOBIN 29 pg (25-35); MEAN CORPUSCULAR HGB CONC 32 g/dL (31-37); MEAN CORPUSCULAR VOLUME 92 fL (79-100); MONO # 0.5 x10^3/uL (0.0-1.1); MONO % 4 % (0-9); NEUT # 9.4 x10^3/uL (1.8-7.7); NEUT % 82 % (31-73); PLATELET COUNT 387 x10^3/uL (140-400); RED BLOOD COUNT 3.75 x10^6/uL (4.30-5.70); RED CELL DISTRIBUTION WIDTH 16.2 % (11.5-14.5); WHITE BLOOD COUNT 11.5 x10^3/uL (4.0-11.0)
[2019-02-26 06:36] LABS: ALBUMIN 1.2 g/dL (3.4-5.0); CALCIUM 8.4 mg/dL (8.5-10.1); CREATININE 0.9 mg/dL (0.7-1.3); GFR 87.9; MAGNESIUM 1.4 mg/dL (1.8-2.4); PHOSPHORUS 2.7 mg/dL (2.6-4.7)
[2019-02-26] MEDS: IPRATRPIUM/ALBUTEROL 0.5/2.5MG 3 ML NEBU. NEB SCH ×4 (07:28→20:00)
[2019-02-26 08:00] VITALS: BP 164/93
[2019-02-26] MEDS: INSULIN LISPRO 300 UNITS/3 ML VIAL. SQ SCH ×3 (08:00→17:00)
[2019-02-26] MEDS: ASPIRIN 325 MG TABLET PO SCH (08:41)
[2019-02-26] MEDS: FOLIC ACID 1 MG TABLET. PO SCH (08:41)
[2019-02-26] MEDS: THIAMINE 100 MG TABLET. PO SCH (08:41)
[2019-02-26] MEDS: AMOXICILLIN/K CLAV 875/125MG TABLET. PO SCH ×2 (08:41→21:08)
[2019-02-26] MEDS: MULTIVITAMIN with MINERAL TABLET. PO SCH (08:41)
[2019-02-26] MEDS: FAMOTIDINE 20 MG TABLET. PO SCH ×2 (08:42→21:08)
[2019-02-26] MEDS: LINEZOLID 600 MG TABLET PO SCH ×2 (08:42→21:08)
[2019-02-26] MEDS: ATENOLOL 50 MG TABLET. PO SCH (08:42)
[2019-02-26] MEDS: LACTOBACILLUS RHAMNOSUS GG 1 CAPSULE. PO SCH ×2 (08:42→21:08)
[2019-02-26] MEDS: DOCUSATE SODIUM 100 MG CAPSULE. PO SCH ×2 (09:00→21:00)
--- NOTE | 2019-02-26 10:33 | PDOC ---
Infectious Disease Note Subjective Subjective pt is feeling ok, very weak ROS ROS no n/v/d/sob Vital Sign Vital Signs Vital Signs Date Time Temp Pulse Resp B/P (MAP) Pulse Ox O2 Delivery O2 Flow Rate FiO2 02/26/19 08:42 74 164/93 02/26/19 08:00 97.7 24 93 Nasal Cannula 2.0 97.7 Physical Exam PHYSICAL EXAM GENERAL: Propped up in bed, alert, in NAD HEENT: Pupils are round and reacting. No conjunctival lesion, Oral cavity clear NECK: Supple, no JVP, no lymphadenopathy. LUNGS: Clear. HEART: S1, S2 regular. ABDOMEN: Obese, soft, nontender : Kimbrough in place, urine cloudy EXTREMITIES: Right swollen and red extending to groin area. Chronic venous insufficiency and stasis dermatitis changes present. An ulcer on the left posterior thigh. NEUROLOGIC: ALert, appropriate. Unable to lift left arm off bed, + wiggles fingers, sensation intact RIJ clean LEJ ok Labs Lab Laboratory Tests Test 02/25/19 11:31 02/25/19 16:15 02/25/19 20:39 02/26/19 06:07 Glucose (Fingerstick) 158 mg/dL (70-99) 177 mg/dL (70-99) 153 mg/dL (70-99) White Blood Count 11.5 x10^3/uL (4.0-11.0) Red Blood Count 3.75 x10^6/uL (4.30-5.70) Hemoglobin 11.1 g/dL (13.0-17.5) Hematocrit 34.4 % (39.0-53.0) Mean Corpuscular Volume 92 fL (79-100) Mean Corpuscular Hemoglobin 29 pg (25-35) Mean Corpuscular Hemoglobin Concent 32 g/dL (31-37) Red Cell Distribution Width 16.2 % (11.5-14.5) Platelet Count 387 x10^3/uL (140-400) Neutrophils (%) (Auto) 82 % (31-73) Lymphocytes (%) (Auto) 12 % (24-48) Monocytes (%) (Auto) 4 % (0-9) Eosinophils (%) (Auto) 1 % (0-3) Basophils (%) (Auto) 1 % (0-3) Neutrophils # (Auto) 9.4 x10^3/uL (1.8-7.7) Lymphocytes # (Auto) 1.4 x10^3/uL (1.0-4.8) Monocytes # (Auto) 0.5 x10^3/uL (0.0-1.1) Eosinophils # (Auto) 0.1 x10^3/uL (0.0-0.7) Basophils # (Auto) 0.1 x10^3/uL (0.0-0.2) Sodium Level 138 mmol/L (136-145) Potassium Level 4.0 mmol/L (3.5-5.1) Chloride Level 102 mmol/L (98-107) Carbon Dioxide Level 35 mmol/L (21-32) Anion Gap 1 (6-14) Blood Urea Nitrogen 23 mg/dL (8-26) Creatinine 0.9 mg/dL (0.7-1.3) Estimated GFR (Cockcroft-Gault) 87.9 Glucose Level 137 mg/dL (70-99) Calcium Level 8.4 mg/dL (8.5-10.1) Phosphorus Level 2.7 mg/dL (2.6-4.7) Magnesium Level 1.4 mg/dL (1.8-2.4) Albumin 1.2 g/dL (3.4-5.0) Test 02/26/19 07:43 Glucose (Fingerstick) 133 mg/dL (70-99) Micro BC 1/3 G + cocci Objective Assessment Right lower extremity extensive cellulitis. Leukocytosis - some better Lactic acidosis with the early sepsis. Morbid obesity. Diabetes. Hypertension. Venous insufficiency and stasis dermatitis. Left arm weakness BC 1/3 likely contaminant, ID pending Plan Plan of Care po zyvox and augmentin Probiotics Leg elevation PT/OT ANA LUISA COUGHLIN MD Feb 26, 2019 10:33
[2019-02-26] MEDS: ENOXAPARIN 40 MG/0.4 ML SYRINGE. SQ SCH (11:11)
[2019-02-26 11:32] VITALS: BP 174/94
--- NOTE | 2019-02-26 12:02 | PDOC ---
[facility] PROGRESS NOTE Chief Complaint Chief Complaint Resp failure Severe sepsis Extreme morbid obesity Sleep apnea Cellulitis of right leg, severe with lymphedema, chronic venous stasis Hypoglycemia sec to metformin, glipizide Acute renal failure Dehydration Dyspnea Hypoglycemia Severe alcohol abuse Fall at home Severe debility CHF History of Present Illness History of Present Illness 02/26/19 Pt seen and examined Pt was up in his bed He was being seen by PT He looks good today DW pt Reviewed pt's chart 02/25/19 Pt seen and examined Pt is in bed, better today and was more responsive DW pt Reviewed pt's chart 02/24/19 Pt seen and examined Pt is in bed, continuing to use accessory muscles for breathing He continues to be quite ill He needs to use BiPAP Reviewed pt's chart 02/23/19 Pt seen and examined Hes is quite ill. BARBARA RN and RT Put him back on BiPAP DW pt code status. He wants Full Code Vitals/I&O Vitals/I&O: Vital Signs Date Time Temp Pulse Resp B/P (MAP) Pulse Ox O2 Delivery O2 Flow Rate FiO2 02/26/19 11:32 97.8 62 24 174/94 (120) 94 Nasal Cannula 2.0 97.8 I & O 02/25/19 02/25/19 02/26/19 15:00 23:00 07:00 Intake Total 1100 ml 800 ml Output Total 1400 ml 1400 ml Balance 1100 ml -600 ml -1400 ml Physical Exam Physical Exam: GENERAL: Propped up in bed, alert, in NAD HEENT: Pupils are round and reacting. No conjunctival lesion, Oral cavity clear NECK: Supple, no JVP, no lymphadenopathy. LUNGS: Clear. HEART: S1, S2 regular. ABDOMEN: Obese, soft, nontender : Kimbrough in place, urine cloudy EXTREMITIES: Right swollen and red extending to groin area. Chronic venous insufficiency and stasis dermatitis changes present. An ulcer on the left posterior thigh. NEUROLOGIC: ALert, appropriate. Unable to lift left arm off bed, + wiggles fingers, sensation intact RIJ clean LEJ ok General: Cooperative, mild distress Heart: Regular rate, Normal S1 Lungs: Other (decrease bases) Abdomen: Normal bowel sounds, Soft, No tenderness, No hepatosplenomegaly, Other (morbidly obese) Extremities: Other (2-3+ pitting edema with chronic changes and hyperemia RLE, 1+ edema with hyperpigmentation LLE) Skin: Other (massive rash on r leg) Labs Labs: Laboratory Tests Test 02/25/19 16:15 02/25/19 20:39 02/26/19 06:07 02/26/19 07:43 Glucose (Fingerstick) 177 mg/dL (70-99) 153 mg/dL (70-99) 133 mg/dL (70-99) White Blood Count 11.5 x10^3/uL (4.0-11.0) Red Blood Count 3.75 x10^6/uL (4.30-5.70) Hemoglobin 11.1 g/dL (13.0-17.5) Hematocrit 34.4 % (39.0-53.0) Mean Corpuscular Volume 92 fL (79-100) Mean Corpuscular Hemoglobin 29 pg (25-35) Mean Corpuscular Hemoglobin Concent 32 g/dL (31-37) Red Cell Distribution Width 16.2 % (11.5-14.5) Platelet Count 387 x10^3/uL (140-400) Neutrophils (%) (Auto) 82 % (31-73) Lymphocytes (%) (Auto) 12 % (24-48) Monocytes (%) (Auto) 4 % (0-9) Eosinophils (%) (Auto) 1 % (0-3) Basophils (%) (Auto) 1 % (0-3) Neutrophils # (Auto) 9.4 x10^3/uL (1.8-7.7) Lymphocytes # (Auto) 1.4 x10^3/uL (1.0-4.8) Monocytes # (Auto) 0.5 x10^3/uL (0.0-1.1) Eosinophils # (Auto) 0.1 x10^3/uL (0.0-0.7) Basophils # (Auto) 0.1 x10^3/uL (0.0-0.2) Sodium Level 138 mmol/L (136-145) Potassium Level 4.0 mmol/L (3.5-5.1) Chloride Level 102 mmol/L (98-107) Carbon Dioxide Level 35 mmol/L (21-32) Anion Gap 1 (6-14) Blood Urea Nitrogen 23 mg/dL (8-26) Creatinine 0.9 mg/dL (0.7-1.3) Estimated GFR (Cockcroft-Gault) 87.9 Glucose Level 137 mg/dL (70-99) Calcium Level 8.4 mg/dL (8.5-10.1) Phosphorus Level 2.7 mg/dL (2.6-4.7) Magnesium Level 1.4 mg/dL (1.8-2.4) Albumin 1.2 g/dL (3.4-5.0) Test 02/26/19 11:25 Glucose (Fingerstick) 165 mg/dL (70-99) Review of Systems Review of Systems: no c/o pain c/o hunger Assessment and Plan Assessmemt and Plan Problems Medical Problems: (1) Acute renal failure Status: Acute (2) Cellulitis of right leg Status: Acute (3) Dehydration Status: Acute (4) Dyspnea Status: Acute (5) Hypoglycemia Status: Acute (6) Severe sepsis Status: Acute Assessment Resp failure Metabolic encephalopathy Acute tubular necrosis SEEMA Acute renal failure Severe sepsis Extreme morbid obesity Sleep apnea Cellulitis of right leg, severe with lymphedema, chronic venous stasis Hypoglycemia sec to metformin, glipizide Dehydration Dyspnea Hypoglycemia Severe alcohol abuse Fall at home Severe debility CHF Plan Currently being followed by Pulm /ID/Cards/Neph/Neuro Continue antibiotics per ID Continue BiPAP use Continue youth nutritional monitor CIWA protocol Hold metformin and glipizide Continue PT/OT DVT Prophylaxis GI Prophylaxis Full code Comment Review of Relevant I have reviewed the following items robert (where applicable) has been applied. Medications: Current Medications Medications (Trade) Dose Ordered Sig/Lilliam Route PRN Reason Start Time Stop Time Status Last Admin Dose Admin Amoxicillin/ Clavulanate Potassium (Augmentin 875/ 125mg) 1 tab BID PO 02/25/19 21:00 02/26/19 08:41 Magnesium Sulfate 50 ml @ 25 mls/hr 1X ONCE IV 02/25/19 13:45 02/25/19 15:44 DC 02/25/19 15:00 JESSICA BROOKS III DO Feb 26, 2019 12:02
--- NOTE | 2019-02-26 12:55 | PDOC ---
PROGRESS NOTES Assessment Problems Medical Problems: (1) Acute renal failure Status: Acute (2) Cellulitis of right leg Status: Acute (3) Dehydration Status: Acute (4) Dyspnea Status: Acute (5) Hypoglycemia Status: Acute (6) Severe sepsis Status: Acute Left side weakness, possible stroke, weakness way out of proportion in left arm, consider brachial plexopathy. Strength is a little improved. I now doubt psychogenic conversion reaction. Metabolic encephalopathy. Lactic acidosis. Hypoglycemia, glucose level 20. Leukocytosis, WBC 28.8 Renal failure or SEEMA. Fall DM. HTN. HLD. Alcohol use/abuse. Cellulitis, right leg. Morbid obesity, BMI 62.6 Venous insufficiency and stasis dermatitis. Plan Aspirin No need for statin, normal lipids! Can't do brain MRI, too heavy. Couldn't do carotid Doppler, not a good candidate for carotid surgery anyway. Also has renal insufficiency making CT angiogram problematic As per ID. OT/PT. He wants to go home to [place] and have rehab there. Consider EMG if left arm no better in 3 weeks. Subjective still has diffuse pain Objective Vital Signs Date Time Temp Pulse Resp B/P (MAP) Pulse Ox O2 Delivery O2 Flow Rate FiO2 02/26/19 11:32 97.8 62 24 174/94 (120) 94 Nasal Cannula 2.0 97.8 Intake and Output0 02/26/19 07:00 Intake Total 1900 ml Output Total 2800 ml Balance -900 ml Intake Oral 1900 ml Output Urine Total 2800 ml PHYSICAL EXAM Alert. Oriented to time, place and person. PERRL. EOMI. CN: no focal findings. Muscle tone: normal. Muscle strength: 3/5 right, 3-/5 left leg, 1-2/5 left arm DTR: 0-1+ Plantar reflex: flexor Gait: not examined in bed. Sensory exam: stocking loss. No cerebellar signs elicited. Review of Relevant I have reviewed the following items robert (where applicable) has been applied. Labs Laboratory Tests Test 02/24/19 16:38 02/24/19 21:19 02/25/19 04:50 02/25/19 07:14 Glucose (Fingerstick) 133 mg/dL (70-99) 136 mg/dL (70-99) 133 mg/dL (70-99) Sodium Level 144 mmol/L (136-145) Potassium Level 4.0 mmol/L (3.5-5.1) Chloride Level 106 mmol/L (98-107) Carbon Dioxide Level 33 mmol/L (21-32) Anion Gap 5 (6-14) Blood Urea Nitrogen 35 mg/dL (8-26) Creatinine 1.1 mg/dL (0.7-1.3) Estimated GFR (Cockcroft-Gault) 69.8 Glucose Level 149 mg/dL (70-99) Calcium Level 8.4 mg/dL (8.5-10.1) Phosphorus Level 3.5 mg/dL (2.6-4.7) Magnesium Level 1.7 mg/dL (1.8-2.4) Albumin 1.1 g/dL (3.4-5.0) Test 02/25/19 11:31 02/25/19 16:15 02/25/19 20:39 02/26/19 06:07 Glucose (Fingerstick) 158 mg/dL (70-99) 177 mg/dL (70-99) 153 mg/dL (70-99) White Blood Count 11.5 x10^3/uL (4.0-11.0) Red Blood Count 3.75 x10^6/uL (4.30-5.70) Hemoglobin 11.1 g/dL (13.0-17.5) Hematocrit 34.4 % (39.0-53.0) Mean Corpuscular Volume 92 fL (79-100) Mean Corpuscular Hemoglobin 29 pg (25-35) Mean Corpuscular Hemoglobin Concent 32 g/dL (31-37) Red Cell Distribution Width 16.2 % (11.5-14.5) Platelet Count 387 x10^3/uL (140-400) Neutrophils (%) (Auto) 82 % (31-73) Lymphocytes (%) (Auto) 12 % (24-48) Monocytes (%) (Auto) 4 % (0-9) Eosinophils (%) (Auto) 1 % (0-3) Basophils (%) (Auto) 1 % (0-3) Neutrophils # (Auto) 9.4 x10^3/uL (1.8-7.7) Lymphocytes # (Auto) 1.4 x10^3/uL (1.0-4.8) Monocytes # (Auto) 0.5 x10^3/uL (0.0-1.1) Eosinophils # (Auto) 0.1 x10^3/uL (0.0-0.7) Basophils # (Auto) 0.1 x10^3/uL (0.0-0.2) Sodium Level 138 mmol/L (136-145) Potassium Level 4.0 mmol/L (3.5-5.1) Chloride Level 102 mmol/L (98-107) Carbon Dioxide Level 35 mmol/L (21-32) Anion Gap 1 (6-14) Blood Urea Nitrogen 23 mg/dL (8-26) Creatinine 0.9 mg/dL (0.7-1.3) Estimated GFR (Cockcroft-Gault) 87.9 Glucose Level 137 mg/dL (70-99) Calcium Level 8.4 mg/dL (8.5-10.1) Phosphorus Level 2.7 mg/dL (2.6-4.7) Magnesium Level 1.4 mg/dL (1.8-2.4) Albumin 1.2 g/dL (3.4-5.0) Test 02/26/19 07:43 02/26/19 11:25 Glucose (Fingerstick) 133 mg/dL (70-99) 165 mg/dL (70-99) Laboratory Tests Test 02/25/19 16:15 02/25/19 20:39 02/26/19 06:07 02/26/19 07:43 Glucose (Fingerstick) 177 mg/dL (70-99) 153 mg/dL (70-99) 133 mg/dL (70-99) White Blood Count 11.5 x10^3/uL (4.0-11.0) Red Blood Count 3.75 x10^6/uL (4.30-5.70) Hemoglobin 11.1 g/dL (13.0-17.5) Hematocrit 34.4 % (39.0-53.0) Mean Corpuscular Volume 92 fL (79-100) Mean Corpuscular Hemoglobin 29 pg (25-35) Mean Corpuscular Hemoglobin Concent 32 g/dL (31-37) Red Cell Distribution Width 16.2 % (11.5-14.5) Platelet Count 387 x10^3/uL (140-400) Neutrophils (%) (Auto) 82 % (31-73) Lymphocytes (%) (Auto) 12 % (24-48) Monocytes (%) (Auto) 4 % (0-9) Eosinophils (%) (Auto) 1 % (0-3) Basophils (%) (Auto) 1 % (0-3) Neutrophils # (Auto) 9.4 x10^3/uL (1.8-7.7) Lymphocytes # (Auto) 1.4 x10^3/uL (1.0-4.8) Monocytes # (Auto) 0.5 x10^3/uL (0.0-1.1) Eosinophils # (Auto) 0.1 x10^3/uL (0.0-0.7) Basophils # (Auto) 0.1 x10^3/uL (0.0-0.2) Sodium Level 138 mmol/L (136-145) Potassium Level 4.0 mmol/L (3.5-5.1) Chloride Level 102 mmol/L (98-107) Carbon Dioxide Level 35 mmol/L (21-32) Anion Gap 1 (6-14) Blood Urea Nitrogen 23 mg/dL (8-26) Creatinine 0.9 mg/dL (0.7-1.3) Estimated GFR (Cockcroft-Gault) 87.9 Glucose Level 137 mg/dL (70-99) Calcium Level 8.4 mg/dL (8.5-10.1) Phosphorus Level 2.7 mg/dL (2.6-4.7) Magnesium Level 1.4 mg/dL (1.8-2.4) Albumin 1.2 g/dL (3.4-5.0) Test 02/26/19 11:25 Glucose (Fingerstick) 165 mg/dL (70-99) Microbiology 02/21/19 Blood Culture - Final, Complete Medications Current Medications Dextrose (Dextrose 50%-Water Syringe) 25 gm STK-MED ONCE IV ; Start 02/21/19 at 03:08; Stop 02/21/19 at 03:08; Status DC Dextrose (Dextrose 50%-Water Syringe) 25 gm 1X ONCE IV Last administered on 02/21/19at 05:59; Start 02/21/19 at 04:30; Stop 02/21/19 at 04:31; Status DC Sodium Chloride 1,000 ml @ 1,000 mls/hr Q1H IV Last administered on 02/21/19at 04:44; Start 02/21/19 at 04:30; Stop 02/21/19 at 05:29; Status DC Albuterol/ Ipratropium (Duoneb) 3 ml 1X ONCE NEB Last administered on 02/21/19at 04:19; Start 02/21/19 at 04:30; Stop 02/21/19 at 04:31; Status DC Methylprednisolone Sodium Succinate (SOLU-Medrol 125MG VIAL) 125 mg 1X ONCE IV Last administered on 02/21/19at 04:11; Start 02/21/19 at 04:30; Stop 02/21/19 at 04:31; Status DC Dextrose 500 ml @ 150 mls/hr 1X ONCE IV Last administered on 02/21/19at 04:30; Start 02/21/19 at 04:30; Stop 02/21/19 at 07:49; Status DC Vancomycin HCl 2 gm/Sodium Chloride 500 ml @ 250 mls/hr 1X ONCE IV Last administered on 02/21/19at 04:49; Start 02/21/19 at 04:30; Stop 02/21/19 at 06:29; Status DC Sodium Chloride 1,000 ml @ 1,000 mls/hr 1X ONCE IV ; Start 02/21/19 at 05:30; Stop 02/21/19 at 06:29; Status DC Ondansetron HCl (Zofran) 4 mg PRN Q8HRS PRN IV NAUSEA/VOMITING 1ST CHOICE; Start 02/21/19 at 05:30; Stop 02/21/19 at 11:17; Status DC Morphine Sulfate (Morphine Sulfate) 4 mg PRN Q2HR PRN IV SEVERE PAIN 7-10 Last administered on 02/21/19at 09:07; Start 02/21/19 at 05:30; Stop 02/22/19 at 05:29; Status DC Sodium Chloride 1,000 ml @ 100 mls/hr Q10H IV ; Start 02/21/19 at 06:00; Stop 02/21/19 at 12:45; Status DC Acetaminophen (Tylenol) 650 mg PRN Q4HRS PRN PO FEVER; Start 02/21/19 at 05:30; Stop 02/21/19 at 11:18; Status DC Albuterol/ Ipratropium (Duoneb) 3 ml RTQID NEB Last administered on 02/22/19at 07:51; Start 02/21/19 at 08:00; Stop 02/22/19 at 07:59; Status DC Piperacillin Sod/ Tazobactam Sod 3.375 gm/Sodium Chloride 50 ml @ 100 mls/hr 1X ONCE IV Last administered on 02/21/19at 05:47; Start 02/21/19 at 06:00; Stop 02/21/19 at 06:29; Status DC Acetaminophen (Tylenol) 650 mg PRN Q6HRS PRN PO Headaches, Temp > 101.5'; Start 02/21/19 at 11:15 Ondansetron HCl (Zofran) 4 mg PRN Q6HRS PRN IV NAUSEA/VOMITING; Start 02/21/19 at 11:15 Famotidine (Pepcid Vial) 20 mg BID IVP Last administered on 02/23/19at 09:39; Start 02/21/19 at 11:30; Stop 02/23/19 at 15:27; Status DC Info (Icu Electrolyte Protocol) 1 ea DAILY MC Last administered on 02/22/19at 08:07; Start 02/22/19 at 09:00; Stop 02/23/19 at 15:22; Status DC Heparin Sodium (Porcine) (Heparin Sodium) 5,000 unit Q8HRS SQ Last administered on 02/24/19at 06:16; Start 02/21/19 at 14:00; Stop 02/24/19 at 09:32; Status DC Sodium Chloride (Normal Saline Flush) 3 ml QSHIFT PRN IV AFTER MEDS AND BLOOD DRAWS; Start 02/21/19 at 11:15 Docusate Sodium (Colace) 100 mg BID PO Last administered on 02/25/19at 21:49; Start 02/21/19 at 12:00 Bisacodyl (Dulcolax Supp) 10 mg PRN DAILY PRN [place] CONSTIPATION; Start 02/21/19 at 11:15 Atenolol (Tenormin) 50 mg DAILY PO Last administered on 02/26/19at 08:42; Start 02/21/19 at 12:00 Chlorthalidone (Thalitone) 25 mg DAILY PO ; Start 02/21/19 at 12:00; Stop 02/21/19 at 12:45; Status DC Multivitamins (Thera M Plus) 1 tab DAILY PO Last administered on 02/25/19at 10:10; Start 02/21/19 at 12:00; Stop 02/25/19 at 15:20; Status DC Folic Acid (Folic Acid) 1 mg DAILY PO Last administered on 02/26/19at 08:41; Start 02/21/19 at 12:00 Thiamine Mononitrate (Vitamin B-1) 100 mg DAILY PO Last administered on 02/26/19at 08:41; Start 02/21/19 at 12:00 Lorazepam (Ativan) 4 mg PRN Q1HR PRN PO For CIWA 8-14 Last administered on 02/24/19at 08:49; Start 02/21/19 at 11:30 Lorazepam (Ativan) 8 mg PRN Q1HR PRN PO For CIWA 15 or greater; Start 02/21/19 at 11:30 Lorazepam (Ativan Inj) 2 mg PRN Q1HR PRN IV For CIWA 8-14 Last administered on 02/23/19at 20:46; Start 02/21/19 at 11:30 Lorazepam (Ativan Inj) 4 mg PRN Q1HR PRN IV For CIWA 15 or greater; Start 02/21/19 at 11:30 Haloperidol Lactate (Haldol Inj) 5 mg PRN Q4HRS PRN IVP Hallucinatns,Confusn,Delirium; Start 02/21/19 at 11:30 Clonidine HCl (Catapres) 0.1 mg PRN Q1HR PRN PO SBP > 180 or DBP > 100, MRX3 Last administered on 02/23/19at 20:24; Start 02/21/19 at 11:30 Lorazepam (Ativan Inj) 2 mg PRN Q15MIN PRN IV SEE COMMENTS; Start 02/21/19 at 11:30; Stop 02/23/19 at 15:23; Status DC Lorazepam (Ativan Inj) 4 mg PRN Q15MIN PRN IV SEE COMMENTS; Start 02/21/19 at 11:30; Stop 02/23/19 at 15:24; Status DC Potassium Chloride (Klor-Con) 20 meq 1X ONCE PO Last administered on 02/21/19at 13:53; Start 02/21/19 at 12:00; Stop 02/21/19 at 12:01; Status DC Ringer's Solution 1,000 ml @ 75 mls/hr [id number] IV Last administered on 02/21/19at 13:54; Start 02/21/19 at 13:00; Stop 02/21/19 at 16:07; Status DC Magnesium Sulfate 50 ml @ 25 mls/hr PRN DAILY PRN IV for Mag < 1.7 on am labs Last administered on 02/26/19at 08:54; Start 02/21/19 at 13:00 Linezolid (Zyvox) 600 mg BID PO Last administered on 02/26/19at 08:42; Start 02/21/19 at 13:30 Piperacillin Sod/ Tazobactam Sod 3.375 gm/Sodium Chloride 50 ml @ 100 mls/hr Q6HRS IV Last administered on 02/25/19at 04:49; Start 02/21/19 at 13:30; Stop 02/25/19 at 11:36; Status DC Lactobacillus Rhamnosus (Culturelle) 1 cap BID PO Last administered on 02/26/19at 08:42; Start 02/21/19 at 21:00 Aspirin (Children'S Aspirin) 81 mg [id number] PO Last administered on 02/21/19at 16:23; Start 02/21/19 at 15:30; Stop 02/21/19 at 16:46; Status DC Sodium Chloride 1,000 ml @ 75 mls/hr [id number] IV ; Start 02/22/19 at 03:00; Stop 02/21/19 at 16:14; Status DC Sodium Chloride 1,000 ml @ 75 mls/hr [id number] IV Last administered on 02/22/19at 07:58; Start 02/21/19 at 17:00; Stop 02/22/19 at 08:57; Status DC Aspirin (Flavia Aspirin) 325 mg DAILYWBKFT PO Last administered on 02/26/19at 08:41; Start 02/22/19 at 08:00 Albuterol/ Ipratropium (Duoneb) 3 ml RTQID NEB Last administered on 02/26/19at 07:28; Start 02/22/19 at 08:00 Potassium Chloride (Klor-Con) 40 meq 1X ONCE PO Last administered on 02/22/19at 08:16; Start 02/22/19 at 08:15; Stop 02/22/19 at 08:16; Status DC Potassium Chloride/Water 100 ml @ 100 mls/hr Q1H IV ; Start 02/22/19 at 09:00; Stop 02/22/19 at 10:59; Status DC Insulin Human Lispro (HumaLOG) 0-7 UNITS TIDWMEALS SQ Last administered on 02/26/19at 12:39; Start 02/22/19 at 17:00 Dextrose (Dextrose 50%-Water Syringe) 12.5 gm PRN Q15MIN PRN IV SEE COMMENTS; Start 02/22/19 at 14:45 Dextrose (Iv Dextrose 5%) 250 ml PRN Q15MIN PRN IV SEE COMMENTS; Start 02/22/19 at 14:45 Info (Non-Icu Electrolyte Protocol) 1 ea CONT PRN PRN MC SEE COMMENTS; Start 02/23/19 at 15:30 Famotidine (Pepcid) 20 mg BID PO Last administered on 02/26/19at 08:42; Start 02/23/19 at 21:00 Multivitamins (Thera M Plus) 1 tab DAILY PO Last administered on 02/26/19at 08:41; Start 02/24/19 at 09:00 Enoxaparin Sodium (Lovenox 40mg Syringe) 40 mg Q24H SQ Last administered on 02/26/19at 11:11; Start 02/24/19 at 10:00 Amoxicillin/ Clavulanate Potassium (Augmentin 875/ 125mg) 1 tab BID PO Last administered on 02/26/19at 08:41; Start 02/25/19 at 21:00 Magnesium Sulfate 50 ml @ 25 mls/hr 1X ONCE IV Last administered on 02/25/19at 15:00; Start 02/25/19 at 13:45; Stop 02/25/19 at 15:44; Status DC Active Scripts Active Reported Glipizide 5 Mg Tablet 1 Tab PO BID Metformin Hcl 1,000 Mg Tablet 1,000 Mg PO BIDWMEALS Atenolol 50 Mg Tablet 1 Tab PO DAILY Chlorthalidone (Chlorthalidone) 25 Mg Tablet 25 Mg PO DAILY Vitals/I & O Vital Sign - Last 24 Hours 02/25/19 02/25/19 02/25/19 02/25/19 15:08 19:15 19:42 20:27 Temp 97.5 97.8 97.5 97.8 Pulse 79 70 Resp 22 20 B/P (MAP) 157/88 (111) 147/83 (104) Pulse Ox 95 95 99 O2 Delivery Nasal Cannula Nasal Cannula Nasal Cannula BiPAP/CPAP O2 Flow Rate 2.0 2.0 2.0 02/25/19 02/25/19 02/25/19 02/25/19 20:29 20:32 23:44 23:48 Temp 98.2 98.2 Pulse 80 Resp 24 B/P (MAP) 149/81 (103) Pulse Ox 95 99 90 96 O2 Delivery BiPAP/CPAP Nasal Cannula O2 Flow Rate 2.0 02/26/19 02/26/19 02/26/19 02/26/19 03:01 07:29 08:00 08:00 Temp 97.5 97.7 97.5 97.7 Pulse 82 74 Resp 20 24 B/P (MAP) 167/89 (115) 164/93 (116) Pulse Ox 95 97 93 O2 Delivery Nasal Cannula Nasal Cannula Nasal Cannula Nasal Cannula O2 Flow Rate 2.0 2.0 2.0 2.0 02/26/19 02/26/19 02/26/19 08:00 08:42 11:32 Temp 97.8 97.8 Pulse 74 62 Resp 24 B/P (MAP) 164/93 174/94 (120) Pulse Ox 94 O2 Delivery Nasal Cannula O2 Flow Rate 2.0 2.0 Intake and Output 02/25/19 02/25/19 02/26/19 15:00 23:00 07:00 Intake Total 1100 ml 800 ml Output Total 1400 ml 1400 ml Balance 1100 ml -600 ml -1400 ml MALINDA GORDILLO MD Feb 26, 2019 12:55
--- NOTE | 2019-02-26 13:44 | PDOC ---
PULMONARY PROGRESS NOTES Subjective no increase soa Vitals Vital Signs Date Time Temp Pulse Resp B/P (MAP) Pulse Ox O2 Delivery O2 Flow Rate FiO2 02/26/19 11:32 97.8 62 24 174/94 (120) 94 Nasal Cannula 2.0 97.8 General: Alert, No acute distress Lungs: Other (decrease bases) Cardiovascular: S1 Abdomen: Soft, Other (obese) Extremities: Other (lymphedema) Labs Laboratory Tests Test 02/24/19 16:38 02/24/19 21:19 02/25/19 04:50 02/25/19 07:14 Glucose (Fingerstick) 133 mg/dL (70-99) 136 mg/dL (70-99) 133 mg/dL (70-99) Sodium Level 144 mmol/L (136-145) Potassium Level 4.0 mmol/L (3.5-5.1) Chloride Level 106 mmol/L (98-107) Carbon Dioxide Level 33 mmol/L (21-32) Anion Gap 5 (6-14) Blood Urea Nitrogen 35 mg/dL (8-26) Creatinine 1.1 mg/dL (0.7-1.3) Estimated GFR (Cockcroft-Gault) 69.8 Glucose Level 149 mg/dL (70-99) Calcium Level 8.4 mg/dL (8.5-10.1) Phosphorus Level 3.5 mg/dL (2.6-4.7) Magnesium Level 1.7 mg/dL (1.8-2.4) Albumin 1.1 g/dL (3.4-5.0) Test 02/25/19 11:31 02/25/19 16:15 02/25/19 20:39 02/26/19 06:07 Glucose (Fingerstick) 158 mg/dL (70-99) 177 mg/dL (70-99) 153 mg/dL (70-99) White Blood Count 11.5 x10^3/uL (4.0-11.0) Red Blood Count 3.75 x10^6/uL (4.30-5.70) Hemoglobin 11.1 g/dL (13.0-17.5) Hematocrit 34.4 % (39.0-53.0) Mean Corpuscular Volume 92 fL (79-100) Mean Corpuscular Hemoglobin 29 pg (25-35) Mean Corpuscular Hemoglobin Concent 32 g/dL (31-37) Red Cell Distribution Width 16.2 % (11.5-14.5) Platelet Count 387 x10^3/uL (140-400) Neutrophils (%) (Auto) 82 % (31-73) Lymphocytes (%) (Auto) 12 % (24-48) Monocytes (%) (Auto) 4 % (0-9) Eosinophils (%) (Auto) 1 % (0-3) Basophils (%) (Auto) 1 % (0-3) Neutrophils # (Auto) 9.4 x10^3/uL (1.8-7.7) Lymphocytes # (Auto) 1.4 x10^3/uL (1.0-4.8) Monocytes # (Auto) 0.5 x10^3/uL (0.0-1.1) Eosinophils # (Auto) 0.1 x10^3/uL (0.0-0.7) Basophils # (Auto) 0.1 x10^3/uL (0.0-0.2) Sodium Level 138 mmol/L (136-145) Potassium Level 4.0 mmol/L (3.5-5.1) Chloride Level 102 mmol/L (98-107) Carbon Dioxide Level 35 mmol/L (21-32) Anion Gap 1 (6-14) Blood Urea Nitrogen 23 mg/dL (8-26) Creatinine 0.9 mg/dL (0.7-1.3) Estimated GFR (Cockcroft-Gault) 87.9 Glucose Level 137 mg/dL (70-99) Calcium Level 8.4 mg/dL (8.5-10.1) Phosphorus Level 2.7 mg/dL (2.6-4.7) Magnesium Level 1.4 mg/dL (1.8-2.4) Albumin 1.2 g/dL (3.4-5.0) Test 02/26/19 07:43 02/26/19 11:25 Glucose (Fingerstick) 133 mg/dL (70-99) 165 mg/dL (70-99) Laboratory Tests Test 02/25/19 16:15 02/25/19 20:39 02/26/19 06:07 02/26/19 07:43 Glucose (Fingerstick) 177 mg/dL (70-99) 153 mg/dL (70-99) 133 mg/dL (70-99) White Blood Count 11.5 x10^3/uL (4.0-11.0) Red Blood Count 3.75 x10^6/uL (4.30-5.70) Hemoglobin 11.1 g/dL (13.0-17.5) Hematocrit 34.4 % (39.0-53.0) Mean Corpuscular Volume 92 fL (79-100) Mean Corpuscular Hemoglobin 29 pg (25-35) Mean Corpuscular Hemoglobin Concent 32 g/dL (31-37) Red Cell Distribution Width 16.2 % (11.5-14.5) Platelet Count 387 x10^3/uL (140-400) Neutrophils (%) (Auto) 82 % (31-73) Lymphocytes (%) (Auto) 12 % (24-48) Monocytes (%) (Auto) 4 % (0-9) Eosinophils (%) (Auto) 1 % (0-3) Basophils (%) (Auto) 1 % (0-3) Neutrophils # (Auto) 9.4 x10^3/uL (1.8-7.7) Lymphocytes # (Auto) 1.4 x10^3/uL (1.0-4.8) Monocytes # (Auto) 0.5 x10^3/uL (0.0-1.1) Eosinophils # (Auto) 0.1 x10^3/uL (0.0-0.7) Basophils # (Auto) 0.1 x10^3/uL (0.0-0.2) Sodium Level 138 mmol/L (136-145) Potassium Level 4.0 mmol/L (3.5-5.1) Chloride Level 102 mmol/L (98-107) Carbon Dioxide Level 35 mmol/L (21-32) Anion Gap 1 (6-14) Blood Urea Nitrogen 23 mg/dL (8-26) Creatinine 0.9 mg/dL (0.7-1.3) Estimated GFR (Cockcroft-Gault) 87.9 Glucose Level 137 mg/dL (70-99) Calcium Level 8.4 mg/dL (8.5-10.1) Phosphorus Level 2.7 mg/dL (2.6-4.7) Magnesium Level 1.4 mg/dL (1.8-2.4) Albumin 1.2 g/dL (3.4-5.0) Test 02/26/19 11:25 Glucose (Fingerstick) 165 mg/dL (70-99) Medications Active Scripts Medications Dose Route/Sig Max Daily Dose Days Date Category Glipizide 5 Mg Tablet 1 Tab PO BID 02/21/19 Reported Metformin Hcl 1,000 Mg Tablet 1,000 Mg PO BIDWMEALS 02/21/19 Reported Atenolol 50 Mg Tablet 1 Tab PO DAILY 02/21/19 Reported Chlorthalidone (Chlorthalidone) 25 Mg Tablet 25 Mg PO DAILY 02/21/19 Reported Impression . 1. Acute on chronic respiratory failure secondary to multifactorial etiologies, including acute on chronic right heart failure, possible acute bronchitis. The patient is a nonsmoker. 2. Status post fall with profound weakness causing immobility for 12 hours. His BUN and creatinine suggesting a prerenal azotemia. 3. Severe protein-calorie malnutrition with an albumin level of 1.1. 4. Underlying obstructive sleep apnea with obesity hypoventilation syndrome. 5. Chronic compensated respiratory acidosis. Plan . 1. Discussed with RN. Continue with present oxygen. 2. BiPAP at bedtime and p.r.n. during the day. 3. Monitor white cell count. 4. Monitor renal function. At this point, we will withhold any diuretics. 5. Antibiotics per Infectious Disease. 6. Continue bronchodilators. 7. DVT prophylaxis. 8. Discussed with RN / CARYL Abrams MD Feb 26, 2019 13:44
--- NOTE | 2019-02-26 15:23 | PDOC ---
Renal-Progress Notes Subjective Notes Notes NONE History of Present Illness Hx of present illness STABLE Vitals Vitals Vital Signs Date Time Temp Pulse Resp B/P (MAP) Pulse Ox O2 Delivery O2 Flow Rate FiO2 02/26/19 11:32 97.8 62 24 174/94 (120) 94 Nasal Cannula 2.0 97.8 Weight Weight [ ] I.O. Intake and Output Intake and Output 02/26/19 07:00 Intake Total 1900 ml Output Total 2800 ml Balance -900 ml Intake Oral 1900 ml Output Urine Total 2800 ml Labs Labs Laboratory Tests Test 02/25/19 16:15 02/25/19 20:39 02/26/19 06:07 02/26/19 07:43 Glucose (Fingerstick) 177 mg/dL (70-99) 153 mg/dL (70-99) 133 mg/dL (70-99) White Blood Count 11.5 x10^3/uL (4.0-11.0) Red Blood Count 3.75 x10^6/uL (4.30-5.70) Hemoglobin 11.1 g/dL (13.0-17.5) Hematocrit 34.4 % (39.0-53.0) Mean Corpuscular Volume 92 fL (79-100) Mean Corpuscular Hemoglobin 29 pg (25-35) Mean Corpuscular Hemoglobin Concent 32 g/dL (31-37) Red Cell Distribution Width 16.2 % (11.5-14.5) Platelet Count 387 x10^3/uL (140-400) Neutrophils (%) (Auto) 82 % (31-73) Lymphocytes (%) (Auto) 12 % (24-48) Monocytes (%) (Auto) 4 % (0-9) Eosinophils (%) (Auto) 1 % (0-3) Basophils (%) (Auto) 1 % (0-3) Neutrophils # (Auto) 9.4 x10^3/uL (1.8-7.7) Lymphocytes # (Auto) 1.4 x10^3/uL (1.0-4.8) Monocytes # (Auto) 0.5 x10^3/uL (0.0-1.1) Eosinophils # (Auto) 0.1 x10^3/uL (0.0-0.7) Basophils # (Auto) 0.1 x10^3/uL (0.0-0.2) Sodium Level 138 mmol/L (136-145) Potassium Level 4.0 mmol/L (3.5-5.1) Chloride Level 102 mmol/L (98-107) Carbon Dioxide Level 35 mmol/L (21-32) Anion Gap 1 (6-14) Blood Urea Nitrogen 23 mg/dL (8-26) Creatinine 0.9 mg/dL (0.7-1.3) Estimated GFR (Cockcroft-Gault) 87.9 Glucose Level 137 mg/dL (70-99) Calcium Level 8.4 mg/dL (8.5-10.1) Phosphorus Level 2.7 mg/dL (2.6-4.7) Magnesium Level 1.4 mg/dL (1.8-2.4) Albumin 1.2 g/dL (3.4-5.0) Test 02/26/19 11:25 Glucose (Fingerstick) 165 mg/dL (70-99) Micro Micro Microbiology 02/21/19 Blood Culture - Final, Complete Review of Systems Constitutional: yes: weakness, alert Ears/Nose/Throat: Yes: no symptom reported Pulmonary: Yes no symptom reported Cardiovascular: Yes edema Gastrointestional: Yes: no symptom reported Genitourinary: Yes: no symptom reported Musculoskeletal: Yes: joint pain, muscle pain, muscle stiffness Psychiatric/Neurological: Yes: no symptom reported Physical Exam General Appearance: no apparent distress Skin: warm Respiratory: decreased breath sounds Heart: S1S2 Genitourinary: distended bladder Extremities: edema Neurology: alert Assessment Assessment IMP SEEMA RESOLVED WITH CR OF 1.1 PROB EXTRACELLULAR VOLUME DEPLETION RLE CELLULITIS RHABDOMYOLYSIS-RESOLVED MALNUTRITION D M II SUSPECT NEPHROTIC SYNDROME LOW MAG MALNUTRITION PLAN MAG REPLACEMENT WILL SIGN OFF JOSE BELL MD Feb 26, 2019 15:23
[2019-02-26 15:51] VITALS: BP 151/71
[2019-02-26 20:00] VITALS: BP 160/86
[2019-02-26 23:58] VITALS: BP 159/93
--- NOTE | 2019-02-27 01:05 | NUR ---
0037: Rn waked by the room and saw pt sitting on side of bed - blood noted to chest. RN entered room and pt confused. Had pulled off tele, had pulled out TLIJ - tip intact, pulled on barnett - urine now pink tinged. BiPAP mask on floor, NC on floor. Mild circumoral cyanosis noted. 0055: 20g placed in POP by MINDY Pascual with one attempt. 0100: Rapid response called for change in mentation. 0107: Rapid response team in room - pt able to answer orientation questions. Pt mental status changed from start of shift - is more confused. RT placed Bipap on - instructed pt to leave Bipap on - pt has pulled Bipap off several times during the shift and thrown nasal cannula on floor. Pt cleaned up - wound noted to R hip, previously shallow and scabbed over - pt has scratched and further deepened the wound. Will get pics in AM. 0111: RN supervisor brew house informed moving pt to room closer to RN station. 0117: RR 28, 163/92, 72, O2 - 98 on 40% O2 bled into Bipap, 97.4 axillary. 0121: RT in room - reported "everything perfect for him - I'm just going to lower his oxygen." Will continue to monitor pt status closely.
[2019-02-27 01:15] LABS: BASE EXCESS ABG 8 mmol/L (-3-3); HCO3 ABG 34 mmol/L (21-28); PCO2 ABG 51 mmHg (35-46); PO2 ABG 99 mmHg (75-108); SAT O2 ABG 97 % (92-99)
[2019-02-27 01:18] LABS: FIO2 ABG 40
--- NOTE | 2019-02-27 01:29 | NUR ---
RAPID RESPONSE NOTE Rapid response called by 6S RN at 0100. ICU CN, Nursing Instrumental Teacher, and RT x2 arrived to room. Patient had pulled out central line, tele, and bipap. RT placed patient back on bipap (40%). 6S RN stated that he had not been like this last night and that he had been completely with it--so this was a big change. RT funmi ABG. ICU CN assessed patient--S1S2 heart tones heard with regular rhythm, lungs diminished, pupils 3 mm equal and reactive to light. Patient was sleeping, but arousable to name and able to state he is on the 6th floor and that it is 2019. When asked why patient was pulling at things he stated "I don't know". VSS (163/92, 70 bpm, 28 respirs, 98%, 97.4 temp axillary). CL tip intact and site on neck looks good--no swelling or excessive bleeding. 6S RN placed dressing over insertion site. Informed that patient does have CIWA on board, but that he had been scoring 0's all day and had not required any Ativan. Recommendations from ADZING AND BORING MACHINE HELPER and Instrumental Teacher were to place mitts on patient and possibly give medication such as Ativan to calm patient. 6S RN stated that they would move patient to a room where he could be more closely watched. Blood gas stable (pH 7.434, pCO2 51.4, pO2 98.8, HCO3 33.7, BE 8). RT turned patient down to 30% on bipap, ICU CN told 6S RN to call with any further issues. Rapid response complete at 0117.
[2019-02-27 04:00] VITALS: BP 162/94
[2019-02-27 05:41] LABS: BASO % 0 % (0-3); EOS # 0.1 x10^3/uL (0.0-0.7); EOS % 1 % (0-3); HEMATOCRIT 34.7 % (39.0-53.0); HEMOGLOBIN 11.4 g/dL (13.0-17.5); LYMPH # 1.2 x10^3/uL (1.0-4.8); LYMPH % 13 % (24-48); MEAN CORPUSCULAR HEMOGLOBIN 30 pg (25-35); MEAN CORPUSCULAR HGB CONC 33 g/dL (31-37); MEAN CORPUSCULAR VOLUME 92 fL (79-100); MONO # 0.4 x10^3/uL (0.0-1.1); MONO % 4 % (0-9); NEUT # 7.9 x10^3/uL (1.8-7.7); NEUT % 83 % (31-73); PLATELET COUNT 362 x10^3/uL (140-400); RED BLOOD COUNT 3.78 x10^6/uL (4.30-5.70); RED CELL DISTRIBUTION WIDTH 16.3 % (11.5-14.5); WHITE BLOOD COUNT 9.6 x10^3/uL (4.0-11.0)
[2019-02-27 06:05] LABS: CALCIUM 8.4 mg/dL (8.5-10.1); CREATININE 0.9 mg/dL (0.7-1.3); GFR 87.9; POTASSIUM 4.1 mmol/L (3.5-5.1)
[2019-02-27 06:13] LABS: ALBUMIN 1.3 g/dL (3.4-5.0); CREATININE 0.9 mg/dL (0.7-1.3); GFR 87.9; PHOSPHORUS 3.2 mg/dL (2.6-4.7); POTASSIUM 4.2 mmol/L (3.5-5.1)
[2019-02-27] MEDS: IPRATRPIUM/ALBUTEROL 0.5/2.5MG 3 ML NEBU. NEB SCH ×4 (07:22→20:59)
[2019-02-27 07:50] VITALS: BP 160/84
[2019-02-27] MEDS: INSULIN LISPRO 300 UNITS/3 ML VIAL. SQ SCH ×3 (08:00→17:00)
[2019-02-27] MEDS: THIAMINE 100 MG TABLET. PO SCH (08:33)
[2019-02-27] MEDS: AMOXICILLIN/K CLAV 875/125MG TABLET. PO SCH ×2 (08:33→21:40)
[2019-02-27] MEDS: FOLIC ACID 1 MG TABLET. PO SCH (08:33)
[2019-02-27] MEDS: FAMOTIDINE 20 MG TABLET. PO SCH ×2 (08:33→21:40)
[2019-02-27] MEDS: MULTIVITAMIN with MINERAL TABLET. PO SCH (08:33)
[2019-02-27] MEDS: ASPIRIN 325 MG TABLET PO SCH (08:33)
[2019-02-27] MEDS: LINEZOLID 600 MG TABLET PO SCH ×2 (08:33→21:40)
[2019-02-27] MEDS: LACTOBACILLUS RHAMNOSUS GG 1 CAPSULE. PO SCH ×2 (08:33→21:40)
[2019-02-27] MEDS: ATENOLOL 50 MG TABLET. PO SCH (08:36)
[2019-02-27] MEDS: DOCUSATE SODIUM 100 MG CAPSULE. PO SCH ×2 (09:00→21:40)
--- NOTE | 2019-02-27 09:32 | PDOC ---
Infectious Disease Note Subjective Subjective pt is feeling ok, very weak ROS ROS no n/v/d/ Vital Sign Vital Signs Vital Signs Date Time Temp Pulse Resp B/P (MAP) Pulse Ox O2 Delivery O2 Flow Rate FiO2 02/27/19 08:36 72 160/84 02/27/19 07:25 96 Nasal Cannula 2.0 02/27/19 04:00 98.2 28 98.2 Physical Exam PHYSICAL EXAM GENERAL: Propped up in bed, alert, in NAD HEENT: Pupils are round and reacting. No conjunctival lesion, Oral cavity clear NECK: Supple, no JVP, no lymphadenopathy. LUNGS: Clear. HEART: S1, S2 regular. ABDOMEN: Obese, soft, nontender : Kimbrough in place, urine cloudy EXTREMITIES: Right swollen and red extending to groin area. Chronic venous insufficiency and stasis dermatitis changes present. An ulcer on the left posterior thigh. NEUROLOGIC: ALert, appropriate. Unable to lift left arm off bed, + wiggles fingers, sensation intact RIJ clean LEJ ok Labs Lab Laboratory Tests Test 02/26/19 11:25 02/26/19 16:48 02/26/19 21:12 02/26/19 21:54 Glucose (Fingerstick) 165 mg/dL (70-99) 140 mg/dL (70-99) 80 mg/dL (70-99) 128 mg/dL (70-99) Test 02/27/19 01:10 02/27/19 04:10 02/27/19 07:45 O2 Saturation 97 % (92-99) Arterial Blood pH 7.43 (7.35-7.45) Arterial Blood pCO2 at Patient Temp 51 mmHg (35-46) Arterial Blood pO2 at Patient Temp 99 mmHg (75-108) Arterial Blood HCO3 34 mmol/L (21-28) Arterial Blood Base Excess 8 mmol/L (-3-3) FiO2 40 White Blood Count 9.6 x10^3/uL (4.0-11.0) Red Blood Count 3.78 x10^6/uL (4.30-5.70) Hemoglobin 11.4 g/dL (13.0-17.5) Hematocrit 34.7 % (39.0-53.0) Mean Corpuscular Volume 92 fL (79-100) Mean Corpuscular Hemoglobin 30 pg (25-35) Mean Corpuscular Hemoglobin Concent 33 g/dL (31-37) Red Cell Distribution Width 16.3 % (11.5-14.5) Platelet Count 362 x10^3/uL (140-400) Neutrophils (%) (Auto) 83 % (31-73) Lymphocytes (%) (Auto) 13 % (24-48) Monocytes (%) (Auto) 4 % (0-9) Eosinophils (%) (Auto) 1 % (0-3) Basophils (%) (Auto) 0 % (0-3) Neutrophils # (Auto) 7.9 x10^3/uL (1.8-7.7) Lymphocytes # (Auto) 1.2 x10^3/uL (1.0-4.8) Monocytes # (Auto) 0.4 x10^3/uL (0.0-1.1) Eosinophils # (Auto) 0.1 x10^3/uL (0.0-0.7) Basophils # (Auto) 0.0 x10^3/uL (0.0-0.2) Sodium Level 138 mmol/L (136-145) Potassium Level 4.1 mmol/L (3.5-5.1) Chloride Level 102 mmol/L (98-107) Carbon Dioxide Level 33 mmol/L (21-32) Anion Gap 3 (6-14) Blood Urea Nitrogen 17 mg/dL (8-26) Creatinine 0.9 mg/dL (0.7-1.3) Estimated GFR (Cockcroft-Gault) 87.9 Glucose Level 121 mg/dL (70-99) Calcium Level 8.4 mg/dL (8.5-10.1) Phosphorus Level 3.2 mg/dL (2.6-4.7) Albumin 1.3 g/dL (3.4-5.0) Glucose (Fingerstick) 124 mg/dL (70-99) Micro BC 1/3 G + cocci BLOOD CULTURE LC Preliminary Preliminary report BLD CULT RESULT 1 Preliminary Comment Staphylococcus species Performed at: DA - [facility] [address], [place], [place] [id number] [employer] Plant Operator: TRENTON Bo MD, Phone: [phone] Objective Assessment Right lower extremity extensive cellulitis. Leukocytosis - some better Lactic acidosis with the early sepsis. Morbid obesity. Diabetes. Hypertension. Venous insufficiency and stasis dermatitis. Left arm weakness BC 1/3 likely contaminant, ID pending Plan Plan of Care po zyvox and augmentin Probiotics Leg elevation PT/OT ANA LUISA COUGHLIN MD Feb 27, 2019 09:32
[2019-02-27] MEDS: MAGNESIUM OXIDE 400 MG TABLET PO SCH (10:55)
[2019-02-27] MEDS: ENOXAPARIN 40 MG/0.4 ML SYRINGE. SQ SCH (10:57)
--- NOTE | 2019-02-27 11:26 | PDOC ---
PULMONARY PROGRESS NOTES Subjective WAS CONFUSED LAST NIGHT MORE AWAKE, ABG ADEQUATE no increase soa Vitals Vital Signs Date Time Temp Pulse Resp B/P (MAP) Pulse Ox O2 Delivery O2 Flow Rate FiO2 02/27/19 11:14 Nasal Cannula 2.0 02/27/19 08:36 72 160/84 02/27/19 07:50 98.6 32 92 98.6 General: Alert, No acute distress Lungs: Other (decrease bases) Cardiovascular: S1 Abdomen: Soft, Other (obese) Extremities: Other (lymphedema) Labs Laboratory Tests Test 02/25/19 11:31 02/25/19 16:15 02/25/19 20:39 02/26/19 06:07 Glucose (Fingerstick) 158 mg/dL (70-99) 177 mg/dL (70-99) 153 mg/dL (70-99) White Blood Count 11.5 x10^3/uL (4.0-11.0) Red Blood Count 3.75 x10^6/uL (4.30-5.70) Hemoglobin 11.1 g/dL (13.0-17.5) Hematocrit 34.4 % (39.0-53.0) Mean Corpuscular Volume 92 fL (79-100) Mean Corpuscular Hemoglobin 29 pg (25-35) Mean Corpuscular Hemoglobin Concent 32 g/dL (31-37) Red Cell Distribution Width 16.2 % (11.5-14.5) Platelet Count 387 x10^3/uL (140-400) Neutrophils (%) (Auto) 82 % (31-73) Lymphocytes (%) (Auto) 12 % (24-48) Monocytes (%) (Auto) 4 % (0-9) Eosinophils (%) (Auto) 1 % (0-3) Basophils (%) (Auto) 1 % (0-3) Neutrophils # (Auto) 9.4 x10^3/uL (1.8-7.7) Lymphocytes # (Auto) 1.4 x10^3/uL (1.0-4.8) Monocytes # (Auto) 0.5 x10^3/uL (0.0-1.1) Eosinophils # (Auto) 0.1 x10^3/uL (0.0-0.7) Basophils # (Auto) 0.1 x10^3/uL (0.0-0.2) Sodium Level 138 mmol/L (136-145) Potassium Level 4.0 mmol/L (3.5-5.1) Chloride Level 102 mmol/L (98-107) Carbon Dioxide Level 35 mmol/L (21-32) Anion Gap 1 (6-14) Blood Urea Nitrogen 23 mg/dL (8-26) Creatinine 0.9 mg/dL (0.7-1.3) Estimated GFR (Cockcroft-Gault) 87.9 Glucose Level 137 mg/dL (70-99) Calcium Level 8.4 mg/dL (8.5-10.1) Phosphorus Level 2.7 mg/dL (2.6-4.7) Magnesium Level 1.4 mg/dL (1.8-2.4) Albumin 1.2 g/dL (3.4-5.0) Test 02/26/19 07:43 02/26/19 11:25 02/26/19 16:48 02/26/19 21:12 Glucose (Fingerstick) 133 mg/dL (70-99) 165 mg/dL (70-99) 140 mg/dL (70-99) 80 mg/dL (70-99) Test 02/26/19 21:54 02/27/19 01:10 02/27/19 04:10 02/27/19 07:45 Glucose (Fingerstick) 128 mg/dL (70-99) 124 mg/dL (70-99) O2 Saturation 97 % (92-99) Arterial Blood pH 7.43 (7.35-7.45) Arterial Blood pCO2 at Patient Temp 51 mmHg (35-46) Arterial Blood pO2 at Patient Temp 99 mmHg (75-108) Arterial Blood HCO3 34 mmol/L (21-28) Arterial Blood Base Excess 8 mmol/L (-3-3) FiO2 40 White Blood Count 9.6 x10^3/uL (4.0-11.0) Red Blood Count 3.78 x10^6/uL (4.30-5.70) Hemoglobin 11.4 g/dL (13.0-17.5) Hematocrit 34.7 % (39.0-53.0) Mean Corpuscular Volume 92 fL (79-100) Mean Corpuscular Hemoglobin 30 pg (25-35) Mean Corpuscular Hemoglobin Concent 33 g/dL (31-37) Red Cell Distribution Width 16.3 % (11.5-14.5) Platelet Count 362 x10^3/uL (140-400) Neutrophils (%) (Auto) 83 % (31-73) Lymphocytes (%) (Auto) 13 % (24-48) Monocytes (%) (Auto) 4 % (0-9) Eosinophils (%) (Auto) 1 % (0-3) Basophils (%) (Auto) 0 % (0-3) Neutrophils # (Auto) 7.9 x10^3/uL (1.8-7.7) Lymphocytes # (Auto) 1.2 x10^3/uL (1.0-4.8) Monocytes # (Auto) 0.4 x10^3/uL (0.0-1.1) Eosinophils # (Auto) 0.1 x10^3/uL (0.0-0.7) Basophils # (Auto) 0.0 x10^3/uL (0.0-0.2) Sodium Level 138 mmol/L (136-145) Potassium Level 4.1 mmol/L (3.5-5.1) Chloride Level 102 mmol/L (98-107) Carbon Dioxide Level 33 mmol/L (21-32) Anion Gap 3 (6-14) Blood Urea Nitrogen 17 mg/dL (8-26) Creatinine 0.9 mg/dL (0.7-1.3) Estimated GFR (Cockcroft-Gault) 87.9 Glucose Level 121 mg/dL (70-99) Calcium Level 8.4 mg/dL (8.5-10.1) Phosphorus Level 3.2 mg/dL (2.6-4.7) Albumin 1.3 g/dL (3.4-5.0) Laboratory Tests Test 02/26/19 11:25 02/26/19 16:48 02/26/19 21:12 02/26/19 21:54 Glucose (Fingerstick) 165 mg/dL (70-99) 140 mg/dL (70-99) 80 mg/dL (70-99) 128 mg/dL (70-99) Test 02/27/19 01:10 02/27/19 04:10 02/27/19 07:45 O2 Saturation 97 % (92-99) Arterial Blood pH 7.43 (7.35-7.45) Arterial Blood pCO2 at Patient Temp 51 mmHg (35-46) Arterial Blood pO2 at Patient Temp 99 mmHg (75-108) Arterial Blood HCO3 34 mmol/L (21-28) Arterial Blood Base Excess 8 mmol/L (-3-3) FiO2 40 White Blood Count 9.6 x10^3/uL (4.0-11.0) Red Blood Count 3.78 x10^6/uL (4.30-5.70) Hemoglobin 11.4 g/dL (13.0-17.5) Hematocrit 34.7 % (39.0-53.0) Mean Corpuscular Volume 92 fL (79-100) Mean Corpuscular Hemoglobin 30 pg (25-35) Mean Corpuscular Hemoglobin Concent 33 g/dL (31-37) Red Cell Distribution Width 16.3 % (11.5-14.5) Platelet Count 362 x10^3/uL (140-400) Neutrophils (%) (Auto) 83 % (31-73) Lymphocytes (%) (Auto) 13 % (24-48) Monocytes (%) (Auto) 4 % (0-9) Eosinophils (%) (Auto) 1 % (0-3) Basophils (%) (Auto) 0 % (0-3) Neutrophils # (Auto) 7.9 x10^3/uL (1.8-7.7) Lymphocytes # (Auto) 1.2 x10^3/uL (1.0-4.8) Monocytes # (Auto) 0.4 x10^3/uL (0.0-1.1) Eosinophils # (Auto) 0.1 x10^3/uL (0.0-0.7) Basophils # (Auto) 0.0 x10^3/uL (0.0-0.2) Sodium Level 138 mmol/L (136-145) Potassium Level 4.1 mmol/L (3.5-5.1) Chloride Level 102 mmol/L (98-107) Carbon Dioxide Level 33 mmol/L (21-32) Anion Gap 3 (6-14) Blood Urea Nitrogen 17 mg/dL (8-26) Creatinine 0.9 mg/dL (0.7-1.3) Estimated GFR (Cockcroft-Gault) 87.9 Glucose Level 121 mg/dL (70-99) Calcium Level 8.4 mg/dL (8.5-10.1) Phosphorus Level 3.2 mg/dL (2.6-4.7) Albumin 1.3 g/dL (3.4-5.0) Glucose (Fingerstick) 124 mg/dL (70-99) Medications Active Scripts Medications Dose Route/Sig Max Daily Dose Days Date Category Glipizide 5 Mg Tablet 1 Tab PO BID 02/21/19 Reported Metformin Hcl 1,000 Mg Tablet 1,000 Mg PO BIDWMEALS 02/21/19 Reported Atenolol 50 Mg Tablet 1 Tab PO DAILY 02/21/19 Reported Chlorthalidone (Chlorthalidone) 25 Mg Tablet 25 Mg PO DAILY 02/21/19 Reported Impression . 1. Acute on chronic respiratory failure secondary to multifactorial etiologies, including acute on chronic right heart failure, possible acute bronchitis. The patient is a nonsmoker. 2. Status post fall with profound weakness causing immobility for 12 hours. His BUN and creatinine suggesting a prerenal azotemia. 3. Severe protein-calorie malnutrition with an albumin level of 1.1. 4. Underlying obstructive sleep apnea with obesity hypoventilation syndrome. 5. Chronic compensated respiratory acidosis. Plan . 1. Discussed with RN. Continue with present oxygen. 2. BiPAP at bedtime and p.r.n. during the day. 3. Monitor white cell count. NORMAL NOW 4. Monitor renal function. 5. Antibiotics per Infectious Disease. 6. Continue bronchodilators. 7. DVT prophylaxis. 8. Discussed with RN / awaiting CARYL LAGOS MD Feb 27, 2019 11:26
[2019-02-27 11:28] VITALS: BP 152/94
--- NOTE | 2019-02-27 11:48 | PDOC ---
PROGRESS NOTES Assessment Problems Medical Problems: (1) Acute renal failure Status: Acute (2) Cellulitis of right leg Status: Acute (3) Dehydration Status: Acute (4) Dyspnea Status: Acute (5) Hypoglycemia Status: Acute (6) Severe sepsis Status: Acute Left side weakness, possible stroke, weakness way out of proportion in left arm, consider brachial plexopathy. Strength is a little improved. I now doubt psychogenic conversion reaction. I have observed slow improvement Metabolic encephalopathy. Lactic acidosis. Hypoglycemia, glucose level 20. Leukocytosis, WBC 28.8 Renal failure or SEEMA. Fall DM. HTN. HLD. Alcohol use/abuse. Cellulitis, right leg. Morbid obesity, BMI 62.6 Venous insufficiency and stasis dermatitis. Plan Subjective still has diffuse pain Objective Vital Signs Date Time Temp Pulse Resp B/P (MAP) Pulse Ox O2 Delivery O2 Flow Rate FiO2 02/26/19 11:32 97.8 62 24 174/94 (120) 94 Nasal Cannula 2.0 97.8 Intake and Output 02/26/19 07:00 Intake Total 1900 ml Output Total 2800 ml Balance -900 ml Intake Oral 1900 ml Output Urine Total 2800 ml PHYSICAL EXAM Plan Aspirin No need for statin, normal lipids! Can't do brain MRI, too heavy. Couldn't do carotid Doppler, not a good candidate for carotid surgery anyway. Also has renal insufficiency making CT angiogram problematic As per ID. OT/PT. He wants to go home to [place] and have rehab there, note he's accepted at [facility]. Consider EMG if left arm no better in 3 weeks. Subjective no new symptoms Objective Vital Signs Date Time Temp Pulse Resp B/P (MAP) Pulse Ox O2 Delivery O2 Flow Rate FiO2 02/27/19 11:28 97.7 72 30 152/94 (113) 97 Nasal Cannula 2.0 97.7 Intake and Output 02/27/19 07:00 Intake Total 1200 ml Output Total 1925 ml Balance -725 ml Intake Oral 1200 ml Output Urine Total 1925 ml PHYSICAL EXAM Alert. Oriented to time, place and person. PERRL. EOMI. CN: no focal findings. Muscle tone: normal. Muscle strength: 3/5 right, 3-/5 left leg, 1-2/5 left arm DTR: 0-1+ Plantar reflex: flexor Gait: not examined in bed. Sensory exam: stocking loss. No cerebellar signs elicited. Review of Relevant I have reviewed the following items robert (where applicable) has been applied. Labs Laboratory Tests Test 02/25/19 16:15 02/25/19 20:39 02/26/19 06:07 02/26/19 07:43 Glucose (Fingerstick) 177 mg/dL (70-99) 153 mg/dL (70-99) 133 mg/dL (70-99) White Blood Count 11.5 x10^3/uL (4.0-11.0) Red Blood Count 3.75 x10^6/uL (4.30-5.70) Hemoglobin 11.1 g/dL (13.0-17.5) Hematocrit 34.4 % (39.0-53.0) Mean Corpuscular Volume 92 fL (79-100) Mean Corpuscular Hemoglobin 29 pg (25-35) Mean Corpuscular Hemoglobin Concent 32 g/dL (31-37) Red Cell Distribution Width 16.2 % (11.5-14.5) Platelet Count 387 x10^3/uL (140-400) Neutrophils (%) (Auto) 82 % (31-73) Lymphocytes (%) (Auto) 12 % (24-48) Monocytes (%) (Auto) 4 % (0-9) Eosinophils (%) (Auto) 1 % (0-3) Basophils (%) (Auto) 1 % (0-3) Neutrophils # (Auto) 9.4 x10^3/uL (1.8-7.7) Lymphocytes # (Auto) 1.4 x10^3/uL (1.0-4.8) Monocytes # (Auto) 0.5 x10^3/uL (0.0-1.1) Eosinophils # (Auto) 0.1 x10^3/uL (0.0-0.7) Basophils # (Auto) 0.1 x10^3/uL (0.0-0.2) Sodium Level 138 mmol/L (136-145) Potassium Level 4.0 mmol/L (3.5-5.1) Chloride Level 102 mmol/L (98-107) Carbon Dioxide Level 35 mmol/L (21-32) Anion Gap 1 (6-14) Blood Urea Nitrogen 23 mg/dL (8-26) Creatinine 0.9 mg/dL (0.7-1.3) Estimated GFR (Cockcroft-Gault) 87.9 Glucose Level 137 mg/dL (70-99) Calcium Level 8.4 mg/dL (8.5-10.1) Phosphorus Level 2.7 mg/dL (2.6-4.7) Magnesium Level 1.4 mg/dL (1.8-2.4) Albumin 1.2 g/dL (3.4-5.0) Test 02/26/19 11:25 02/26/19 16:48 02/26/19 21:12 02/26/19 21:54 Glucose (Fingerstick) 165 mg/dL (70-99) 140 mg/dL (70-99) 80 mg/dL (70-99) 128 mg/dL (70-99) Test 02/27/19 01:10 02/27/19 04:10 02/27/19 07:45 O2 Saturation 97 % (92-99) Arterial Blood pH 7.43 (7.35-7.45) Arterial Blood pCO2 at Patient Temp 51 mmHg (35-46) Arterial Blood pO2 at Patient Temp 99 mmHg (75-108) Arterial Blood HCO3 34 mmol/L (21-28) Arterial Blood Base Excess 8 mmol/L (-3-3) FiO2 40 White Blood Count 9.6 x10^3/uL (4.0-11.0) Red Blood Count 3.78 x10^6/uL (4.30-5.70) Hemoglobin 11.4 g/dL (13.0-17.5) Hematocrit 34.7 % (39.0-53.0) Mean Corpuscular Volume 92 fL (79-100) Mean Corpuscular Hemoglobin 30 pg (25-35) Mean Corpuscular Hemoglobin Concent 33 g/dL (31-37) Red Cell Distribution Width 16.3 % (11.5-14.5) Platelet Count 362 x10^3/uL (140-400) Neutrophils (%) (Auto) 83 % (31-73) Lymphocytes (%) (Auto) 13 % (24-48) Monocytes (%) (Auto) 4 % (0-9) Eosinophils (%) (Auto) 1 % (0-3) Basophils (%) (Auto) 0 % (0-3) Neutrophils # (Auto) 7.9 x10^3/uL (1.8-7.7) Lymphocytes # (Auto) 1.2 x10^3/uL (1.0-4.8) Monocytes # (Auto) 0.4 x10^3/uL (0.0-1.1) Eosinophils # (Auto) 0.1 x10^3/uL (0.0-0.7) Basophils # (Auto) 0.0 x10^3/uL (0.0-0.2) Sodium Level 138 mmol/L (136-145) Potassium Level 4.1 mmol/L (3.5-5.1) Chloride Level 102 mmol/L (98-107) Carbon Dioxide Level 33 mmol/L (21-32) Anion Gap 3 (6-14) Blood Urea Nitrogen 17 mg/dL (8-26) Creatinine 0.9 mg/dL (0.7-1.3) Estimated GFR (Cockcroft-Gault) 87.9 Glucose Level 121 mg/dL (70-99) Calcium Level 8.4 mg/dL (8.5-10.1) Phosphorus Level 3.2 mg/dL (2.6-4.7) Albumin 1.3 g/dL (3.4-5.0) Glucose (Fingerstick) 124 mg/dL (70-99) Laboratory Tests Test 02/26/19 16:48 02/26/19 21:12 02/26/19 21:54 02/27/19 01:10 Glucose (Fingerstick) 140 mg/dL (70-99) 80 mg/dL (70-99) 128 mg/dL (70-99) O2 Saturation 97 % (92-99) Arterial Blood pH 7.43 (7.35-7.45) Arterial Blood pCO2 at Patient Temp 51 mmHg (35-46) Arterial Blood pO2 at Patient Temp 99 mmHg (75-108) Arterial Blood HCO3 34 mmol/L (21-28) Arterial Blood Base Excess 8 mmol/L (-3-3) FiO2 40 Test 02/27/19 04:10 02/27/19 07:45 White Blood Count 9.6 x10^3/uL (4.0-11.0) Red Blood Count 3.78 x10^6/uL (4.30-5.70) Hemoglobin 11.4 g/dL (13.0-17.5) Hematocrit 34.7 % (39.0-53.0) Mean Corpuscular Volume 92 fL (79-100) Mean Corpuscular Hemoglobin 30 pg (25-35) Mean Corpuscular Hemoglobin Concent 33 g/dL (31-37) Red Cell Distribution Width 16.3 % (11.5-14.5) Platelet Count 362 x10^3/uL (140-400) Neutrophils (%) (Auto) 83 % (31-73) Lymphocytes (%) (Auto) 13 % (24-48) Monocytes (%) (Auto) 4 % (0-9) Eosinophils (%) (Auto) 1 % (0-3) Basophils (%) (Auto) 0 % (0-3) Neutrophils # (Auto) 7.9 x10^3/uL (1.8-7.7) Lymphocytes # (Auto) 1.2 x10^3/uL (1.0-4.8) Monocytes # (Auto) 0.4 x10^3/uL (0.0-1.1) Eosinophils # (Auto) 0.1 x10^3/uL (0.0-0.7) Basophils # (Auto) 0.0 x10^3/uL (0.0-0.2) Sodium Level 138 mmol/L (136-145) Potassium Level 4.1 mmol/L (3.5-5.1) Chloride Level 102 mmol/L (98-107) Carbon Dioxide Level 33 mmol/L (21-32) Anion Gap 3 (6-14) Blood Urea Nitrogen 17 mg/dL (8-26) Creatinine 0.9 mg/dL (0.7-1.3) Estimated GFR (Cockcroft-Gault) 87.9 Glucose Level 121 mg/dL (70-99) Calcium Level 8.4 mg/dL (8.5-10.1) Phosphorus Level 3.2 mg/dL (2.6-4.7) Albumin 1.3 g/dL (3.4-5.0) Glucose (Fingerstick) 124 mg/dL (70-99) Microbiology 02/21/19 Blood Culture - Preliminary, Resulted 02/21/19 Blood Culture Result 1 (SHASTA) - Preliminary, Resulted Medications Current Medications Dextrose (Dextrose 50%-Water Syringe) 25 gm STK-MED ONCE IV ; Start 02/21/19 at 03:08; Stop 02/21/19 at 03:08; Status DC Dextrose (Dextrose 50%-Water Syringe) 25 gm 1X ONCE IV Last administered on 02/21/19at 05:59; Start 02/21/19 at 04:30; Stop 02/21/19 at 04:31; Status DC Sodium Chloride 1,000 ml @ 1,000 mls/hr Q1H IV Last administered on 02/21/19at 0 4:44; Start 02/21/19 at 04:30; Stop 02/21/19 at 05:29; Status DC Albuterol/ Ipratropium (Duoneb) 3 ml 1X ONCE NEB Last administered on 02/21/19at 04:19; Start 02/21/19 at 04:30; Stop 02/21/19 at 04:31; Status DC Methylprednisolone Sodium Succinate (SOLU-Medrol 125MG VIAL) 125 mg 1X ONCE IV Last administered on 02/21/19at 04:11; Start 02/21/19 at 04:30; Stop 02/21/19 at 04:31; Status DC Dextrose 500 ml @ 150 mls/hr 1X ONCE IV Last administered on 02/21/19at 04:30; Start 02/21/19 at 04:30; Stop 02/21/19 at 07:49; Status DC Vancomycin HCl 2 gm/Sodium Chloride 500 ml @ 250 mls/hr 1X ONCE IV Last administered on 02/21/19at 04:49; Start 02/21/19 at 04:30; Stop 02/21/19 at 06:29; Status DC Sodium Chloride 1,000 ml @ 1,000 mls/hr 1X ONCE IV ; Start 02/21/19 at 05:30; Stop 02/21/19 at 06:29; Status DC Ondansetron HCl (Zofran) 4 mg PRN Q8HRS PRN IV NAUSEA/VOMITING 1ST CHOICE; Start 02/21/19 at 05:30; Stop 02/21/19 at 11:17; Status DC Morphine Sulfate (Morphine Sulfate) 4 mg PRN Q2HR PRN IV SEVERE PAIN 7-10 Last administered on 02/21/19at 09:07; Start 02/21/19 at 05:30; Stop 02/22/19 at 05:29; Status DC Sodium Chloride 1,000 ml @ 100 mls/hr Q10H IV ; Start 02/21/19 at 06:00; Stop 02/21/19 at 12:45; Status DC Acetaminophen (Tylenol) 650 mg PRN Q4HRS PRN PO FEVER; Start 02/21/19 at 05:30; Stop 02/21/19 at 11:18; Status DC Albuterol/ Ipratropium (Duoneb) 3 ml RTQID NEB Last administered on 02/22/19at 07:51; Start 02/21/19 at 08:00; Stop 02/22/19 at 07:59; Status DC Piperacillin Sod/ Tazobactam Sod 3.375 gm/Sodium Chloride 50 ml @ 100 mls/hr 1X ONCE IV Last administered on 02/21/19at 05:47; Start 02/21/19 at 06:00; Stop 02/21/19 at 06:29; Status DC Acetaminophen (Tylenol) 650 mg PRN Q6HRS PRN PO Headaches, Temp > 101.5'; Start 02/21/19 at 11:15 Ondansetron HCl (Zofran) 4 mg PRN Q6HRS PRN IV NAUSEA/VOMITING; Start 02/21/19 at 11:15 Famotidine (Pepcid Vial) 20 mg BID IVP Last administered on 02/23/19at 09:39; Start 02/21/19 at 11:30; Stop 02/23/19 at 15:27; Status DC Info (Icu Electrolyte Protocol) 1 ea DAILY MC Last administered on 02/22/19at 08:07; Start 02/22/19 at 09:00; Stop 02/23/19 at 15:22; Status DC Heparin Sodium (Porcine) (Heparin Sodium) 5,000 unit Q8HRS SQ Last administered on 02/24/19at 06:16; Start 02/21/19 at 14:00; Stop 02/24/19 at 09:32; Status DC Sodium Chloride (Normal Saline Flush) 3 ml QSHIFT PRN IV AFTER MEDS AND BLOOD DRAWS; Start 02/21/19 at 11:15 Docusate Sodium (Colace) 100 mg BID PO Last administered on 02/25/19at 21:49; Start 02/21/19 at 12:00 Bisacodyl (Dulcolax Supp) 10 mg PRN DAILY PRN [place] CONSTIPATION; Start 02/21/19 at 11:15 Atenolol (Tenormin) 50 mg DAILY PO Last administered on 02/27/19at 08:36; Start 02/21/19 at 12:00 Chlorthalidone (Thalitone) 25 mg DAILY PO ; Start 02/21/19 at 12:00; Stop 02/21/19 at 12:45; Status DC Multivitamins (Thera M Plus) 1 tab DAILY PO Last administered on 02/25/19at 10:10; Start 02/21/19 at 12:00; Stop 02/25/19 at 15:20; Status DC Folic Acid (Folic Acid) 1 mg DAILY PO Last administered on 02/27/19at 08:33; Start 02/21/19 at 12:00 Thiamine Mononitrate (Vitamin B-1) 100 mg DAILY PO Last administered on 02/27/19at 08:33; Start 02/21/19 at 12:00 Lorazepam (Ativan) 4 mg PRN Q1HR PRN PO For CIWA 8-14 Last administered on 02/24/19at 08:49; Start 02/21/19 at 11:30 Lorazepam (Ativan) 8 mg PRN Q1HR PRN PO For CIWA 15 or greater; Start 02/21/19 at 11:30 Lorazepam (Ativan Inj) 2 mg PRN Q1HR PRN IV For CIWA 8-14 Last administered on 02/26/19at 21:08; Start 02/21/19 at 11:30 Lorazepam (Ativan Inj) 4 mg PRN Q1HR PRN IV For CIWA 15 or greater; Start 02/21/19 at 11:30 Haloperidol Lactate (Haldol Inj) 5 mg PRN Q4HRS PRN IVP Hallucinatns,Confusn,Delirium; Start 02/21/19 at 11:30 Clonidine HCl (Catapres) 0.1 mg PRN Q1HR PRN PO SBP > 180 or DBP > 100, MRX3 Last administered on 02/23/19at 20:24; Start 02/21/19 at 11:30 Lorazepam (Ativan Inj) 2 mg PRN Q15MIN PRN IV SEE COMMENTS; Start 02/21/19 at 11:30; Stop 02/23/19 at 15:23; Status DC Lorazepam (Ativan Inj) 4 mg PRN Q15MIN PRN IV SEE COMMENTS; Start 02/21/19 at 11:30; Stop 02/23/19 at 15:24; Status DC Potassium Chloride (Klor-Con) 20 meq 1X ONCE PO Last administered on 02/21/19at 13:53; Start 02/21/19 at 12:00; Stop 02/21/19 at 12:01; Status DC Ringer's Solution 1,000 ml @ 75 mls/hr [id number] IV Last administered on 02/21/19at 13:54; Start 02/21/19 at 13:00; Stop 02/21/19 at 16:07; Status DC Magnesium Sulfate 50 ml @ 25 mls/hr PRN DAILY PRN IV for Mag < 1.7 on am labs Last administered on 02/26/19at 08:54; Start 02/21/19 at 13:00 Linezolid (Zyvox) 600 mg BID PO Last administered on 02/27/19at 08:33; Start 02/21/19 at 13:30 Piperacillin Sod/ Tazobactam Sod 3.375 gm/Sodium Chloride 50 ml @ 100 mls/hr Q6HRS IV Last administered on 02/25/19at 04:49; Start 02/21/19 at 13:30; Stop 02/25/19 at 11:36; Status DC Lactobacillus Rhamnosus (Culturelle) 1 cap BID PO Last administered on 02/27/19at 08:33; Start 02/21/19 at 21:00 Aspirin (Children'S Aspirin) 81 mg [id number] PO Last administered on 02/21/19at 16:23; Start 02/21/19 at 15:30; Stop 02/21/19 at 16:46; Status DC Sodium Chloride 1,000 ml @ 75 mls/hr [id number] IV ; Start 02/22/19 at 03:00; Stop 02/21/19 at 16:14; Status DC Sodium Chloride 1,000 ml @ 75 mls/hr [id number] IV Last administered on 02/22/19at 07:58; Start 02/21/19 at 17:00; Stop 02/22/19 at 08:57; Status DC Aspirin (Flavia Aspirin) 325 mg [id number] PO Last administered on 02/27/19at 08:33; Start 02/22/19 at 08:00 Albuterol/ Ipratropium (Duoneb) 3 ml RTQID NEB Last administered on 02/27/19at 11:12; Start 02/22/19 at 08:00 Potassium Chloride (Klor-Con) 40 meq 1X ONCE PO Last administered on 02/22/19at 08:16; Start 02/22/19 at 08:15; Stop 02/22/19 at 08:16; Status DC Potassium Chloride/Water 100 ml @ 100 mls/hr Q1H IV ; Start 02/22/19 at 09:00; Stop 02/22/19 at 10:59; Status DC Insulin Human Lispro (HumaLOG) 0-7 UNITS TIDWMEALS SQ Last administered on 02/26/19at 12:39; Start 02/22/19 at 17:00 Dextrose (Dextrose 50%-Water Syringe) 12.5 gm PRN Q15MIN PRN IV SEE COMMENTS; Start 02/22/19 at 14:45 Dextrose (Iv Dextrose 5%) 250 ml PRN Q15MIN PRN IV SEE COMMENTS; Start 02/22/19 at 14:45 Info (Non-Icu Electrolyte Protocol) 1 ea CONT PRN PRN MC SEE COMMENTS; Start 02/23/19 at 15:30 Famotidine (Pepcid) 20 mg BID PO Last administered on 02/27/19at 08:33; Start 02/23/19 at 21:00 Multivitamins (Thera M Plus) 1 tab DAILY PO Last administered on 02/27/19at 08:33; Start 02/24/19 at 09:00 Enoxaparin Sodium (Lovenox 40mg Syringe) 40 mg Q24H SQ Last administered on 12/07at 10:57; Start 02/24/19 at 10:00 Amoxicillin/ Clavulanate Potassium (Augmentin 875/ 125mg) 1 tab BID PO Last administered on 02/27/19at 08:33; Start 02/25/19 at 21:00 Magnesium Sulfate 50 ml @ 25 mls/hr 1X ONCE IV Last administered on 02/25/19at 15:00; Start 02/25/19 at 13:45; Stop 02/25/19 at 15:44; Status DC Magnesium Oxide (Magnesium Oxide) 400 mg DAILY PO Last administered on 02/27/19at 10:55; Start 02/27/19 at 09:00 Active Scripts Active Reported Glipizide 5 Mg Tablet 1 Tab PO BID Metformin Hcl 1,000 Mg Tablet 1,000 Mg PO BIDWMEALS Atenolol 50 Mg Tablet 1 Tab PO DAILY Chlorthalidone (Chlorthalidone) 25 Mg Tablet 25 Mg PO DAILY Vitals/I & O Vital Sign - Last 24 Hours 02/26/19 02/26/19 02/26/19 02/26/19 15:51 20:00 20:00 20:48 Temp 98.4 98.1 98.4 98.1 Pulse 68 82 Resp 28 22 B/P (MAP) 151/71 (97) 160/86 (110) Pulse Ox 94 97 O2 Delivery Nasal Cannula Nasal Cannula Nasal Cannula O2 Flow Rate 2.0 2.0 2.0 02/26/19 02/26/19 02/26/19 02/27/19 22:05 23:31 23:58 01:26 Pulse 84 Resp 22 B/P (MAP) 159/93 (115) Pulse Ox 96 99 93 100 O2 Delivery BiPAP/CPAP Nasal Cannula BiPAP/CPAP O2 Flow Rate 2.0 02/27/19 02/27/19 02/27/19 02/27/19 03:20 04:00 07:25 07:50 Temp 98.2 98.6 98.2 98.6 Pulse 71 72 Resp 28 32 B/P (MAP) 162/94 (116) 160/84 (109) Pulse Ox 98 98 96 92 O2 Delivery BiPAP/CPAP BiPAP/CPAP Nasal Cannula Nasal Cannula O2 Flow Rate 2.0 2.0 02/27/19 02/27/19 02/27/19 02/27/19 08:00 08:00 08:36 11:14 Pulse 72 B/P (MAP) 160/84 O2 Delivery Nasal Cannula Nasal Cannula O2 Flow Rate 2.0 2.0 2.0 02/27/19 11:28 Temp 97.7 97.7 Pulse 72 Resp 30 B/P (MAP) 152/94 (113) Pulse Ox 97 O2 Delivery Nasal Cannula O2 Flow Rate 2.0 Intake and Output 02/26/19 02/26/19 02/27/19 15:00 23:00 07:00 Intake Total 700 ml 500 ml Output Total 1350 ml 575 ml Balance 700 ml -1350 ml -75 ml MALINDA GORDILLO MD Feb 27, 2019 11:48
--- NOTE | 2019-02-27 13:26 | NUR ---
SS following up with discharge planning. Insurance authorization still pending for [facility]. Pt is 475 pounds and requires BIPAP. Insurance denied for acute rehabilitation. Pt is bed bound. SS will continue to follow for discharge planning.
[2019-02-27 15:30] VITALS: BP 159/82
--- NOTE | 2019-02-27 15:55 | PDOC ---
PROGRESS NOTES Chief Complaint Chief Complaint Resp failure resolved Severe sepsis resolved Extreme morbid obesity with BMI of 60 BCT hypoventilation syndrome Cellulitis of right leg, severe with lymphedema, chronic venous stasis Hypoglycemia sec to glipizide secondary to most likely due to renal dysfunction Acute renal failure improved Dehydration improved Dyspnea Hypoglycemia History of Severe alcohol abuse no evidence of withdrawal of the present time Fall at home Severe debility CHF Proteinuria in the nephritic range. Patient also has low anion gap and hypercalcemia of 10.3 once is corrected for albumin. this raises concern for underlying paraproteinemia. i.e. myeloma multiple. Patient may benefit from a skeletal survey but given his size which has prevented further diagnosis might prove quite challenging. Left arm weakness, patient has been seen by neurology and unfortunately given his size again cannot undergo further imaging studies. EMGs planned to be done in a couple of weeks, as per test consultant this could also may well be a conversion syndrome. As per nursing staff his symptoms seem to be resolving and improving on a daily basis. We will continue to follow clinically Plan antibiotics Supportive measures Wound care Encourage ambulation Increase activity as tolerated Case management to help with placement History of Present Illness History of Present Illness 02/27/19 Patient with no new complaints. Sitting in chair in no acute distress Patient still having quite a bit of fluid draining from his right lower extremity Fevers overnight Laboratory data has been reviewed Case management working on disposition 02/26/19 Pt seen and examined Pt was up in his bed He was being seen by PT He looks good today DW pt Reviewed pt's chart 02/25/19 Pt seen and examined Pt is in bed, better today and was more responsive DW pt Reviewed pt's chart 02/24/19 Pt seen and examined Pt is in bed, continuing to use accessory muscles for breathing He continues to be quite ill He needs to use BiPAP Reviewed pt's chart 02/23/19 Pt seen and examined Hes is quite ill. BARBARA RN and RT Put him back on BiPAP DW pt code status. He wants Full Code Vitals Vitals Vital Signs Date Time Temp Pulse Resp B/P (MAP) Pulse Ox O2 Delivery O2 Flow Rate FiO2 02/27/19 15:20 97 Nasal Cannula 2.0 02/27/19 11:28 97.7 72 30 152/94 (113) 97.7 Physical Exam Physical Exam GENERAL: Propped up in bed, alert, in NAD HEENT: Pupils are round and reacting. No conjunctival lesion, Oral cavity clear NECK: Supple, no JVP, no lymphadenopathy. LUNGS: Clear. HEART: S1, S2 regular. ABDOMEN: Obese, soft, nontender : Kimbrough in place, urine cloudy EXTREMITIES: Right swollen and red extending to groin area. Chronic venous insufficiency and stasis dermatitis changes present. An ulcer on the left posterior thigh. NEUROLOGIC: ALert, appropriate. Unable to lift left arm off bed, + wiggles fingers, sensation intact RIJ clean LEJ ok General: Cooperative, mild distress Heart: Regular rate, Normal S1 Lungs: Other (decrease bases) Abdomen: Normal bowel sounds, Soft, No tenderness, No hepatosplenomegaly, Other (morbidly obese) Extremities: Other (2-3+ pitting edema with chronic changes and hyperemia RLE, 1+ edema with hyperpigmentation LLE) Skin: Other (massive rash on r leg) Labs LABS Laboratory Tests Test 02/26/19 16:48 02/26/19 21:12 02/26/19 21:54 02/27/19 01:10 Glucose (Fingerstick) 140 mg/dL (70-99) 80 mg/dL (70-99) 128 mg/dL (70-99) O2 Saturation 97 % (92-99) Arterial Blood pH 7.43 (7.35-7.45) Arterial Blood pCO2 at Patient Temp 51 mmHg (35-46) Arterial Blood pO2 at Patient Temp 99 mmHg (75-108) Arterial Blood HCO3 34 mmol/L (21-28) Arterial Blood Base Excess 8 mmol/L (-3-3) FiO2 40 Test 02/27/19 04:10 02/27/19 07:45 02/27/19 11:54 White Blood Count 9.6 x10^3/uL (4.0-11.0) Red Blood Count 3.78 x10^6/uL (4.30-5.70) Hemoglobin 11.4 g/dL (13.0-17.5) Hematocrit 34.7 % (39.0-53.0) Mean Corpuscular Volume 92 fL (79-100) Mean Corpuscular Hemoglobin 30 pg (25-35) Mean Corpuscular Hemoglobin Concent 33 g/dL (31-37) Red Cell Distribution Width 16.3 % (11.5-14.5) Platelet Count 362 x10^3/uL (140-400) Neutrophils (%) (Auto) 83 % (31-73) Lymphocytes (%) (Auto) 13 % (24-48) Monocytes (%) (Auto) 4 % (0-9) Eosinophils (%) (Auto) 1 % (0-3) Basophils (%) (Auto) 0 % (0-3) Neutrophils # (Auto) 7.9 x10^3/uL (1.8-7.7) Lymphocytes # (Auto) 1.2 x10^3/uL (1.0-4.8) Monocytes # (Auto) 0.4 x10^3/uL (0.0-1.1) Eosinophils # (Auto) 0.1 x10^3/uL (0.0-0.7) Basophils # (Auto) 0.0 x10^3/uL (0.0-0.2) Sodium Level 138 mmol/L (136-145) Potassium Level 4.1 mmol/L (3.5-5.1) Chloride Level 102 mmol/L (98-107) Carbon Dioxide Level 33 mmol/L (21-32) Anion Gap 3 (6-14) Blood Urea Nitrogen 17 mg/dL (8-26) Creatinine 0.9 mg/dL (0.7-1.3) Estimated GFR (Cockcroft-Gault) 87.9 Glucose Level 121 mg/dL (70-99) Calcium Level 8.4 mg/dL (8.5-10.1) Phosphorus Level 3.2 mg/dL (2.6-4.7) Albumin 1.3 g/dL (3.4-5.0) Glucose (Fingerstick) 124 mg/dL (70-99) 141 mg/dL (70-99) Review of Systems Review of Systems As per history of present illness otherwise 14 point review of system is negative Assessment and Plan Assessmemt and Plan Problems Medical Problems: (1) Acute renal failure Status: Acute (2) Cellulitis of right leg Status: Acute (3) Dehydration Status: Acute (4) Dyspnea Status: Acute (5) Hypoglycemia Status: Acute (6) Severe sepsis Status: Acute Comment Review of Relevant I have reviewed the following items robert (where applicable) has been applied. Labs Laboratory Tests Test 02/25/19 16:15 02/25/19 20:39 02/26/19 06:07 02/26/19 07:43 Glucose (Fingerstick) 177 mg/dL (70-99) 153 mg/dL (70-99) 133 mg/dL (70-99) White Blood Count 11.5 x10^3/uL (4.0-11.0) Red Blood Count 3.75 x10^6/uL (4.30-5.70) Hemoglobin 11.1 g/dL (13.0-17.5) Hematocrit 34.4 % (39.0-53.0) Mean Corpuscular Volume 92 fL (79-100) Mean Corpuscular Hemoglobin 29 pg (25-35) Mean Corpuscular Hemoglobin Concent 32 g/dL (31-37) Red Cell Distribution Width 16.2 % (11.5-14.5) Platelet Count 387 x10^3/uL (140-400) Neutrophils (%) (Auto) 82 % (31-73) Lymphocytes (%) (Auto) 12 % (24-48) Monocytes (%) (Auto) 4 % (0-9) Eosinophils (%) (Auto) 1 % (0-3) Basophils (%) (Auto) 1 % (0-3) Neutrophils # (Auto) 9.4 x10^3/uL (1.8-7.7) Lymphocytes # (Auto) 1.4 x10^3/uL (1.0-4.8) Monocytes # (Auto) 0.5 x10^3/uL (0.0-1.1) Eosinophils # (Auto) 0.1 x10^3/uL (0.0-0.7) Basophils # (Auto) 0.1 x10^3/uL (0.0-0.2) Sodium Level 138 mmol/L (136-145) Potassium Level 4.0 mmol/L (3.5-5.1) Chloride Level 102 mmol/L (98-107) Carbon Dioxide Level 35 mmol/L (21-32) Anion Gap 1 (6-14) Blood Urea Nitrogen 23 mg/dL (8-26) Creatinine 0.9 mg/dL (0.7-1.3) Estimated GFR (Cockcroft-Gault) 87.9 Glucose Level 137 mg/dL (70-99) Calcium Level 8.4 mg/dL (8.5-10.1) Phosphorus Level 2.7 mg/dL (2.6-4.7) Magnesium Level 1.4 mg/dL (1.8-2.4) Albumin 1.2 g/dL (3.4-5.0) Test 02/26/19 11:25 02/26/19 16:48 02/26/19 21:12 02/26/19 21:54 Glucose (Fingerstick) 165 mg/dL (70-99) 140 mg/dL (70-99) 80 mg/dL (70-99) 128 mg/dL (70-99) Test 02/27/19 01:10 02/27/19 04:10 02/27/19 07:45 02/27/19 11:54 O2 Saturation 97 % (92-99) Arterial Blood pH 7.43 (7.35-7.45) Arterial Blood pCO2 at Patient Temp 51 mmHg (35-46) Arterial Blood pO2 at Patient Temp 99 mmHg (75-108) Arterial Blood HCO3 34 mmol/L (21-28) Arterial Blood Base Excess 8 mmol/L (-3-3) FiO2 40 White Blood Count 9.6 x10^3/uL (4.0-11.0) Red Blood Count 3.78 x10^6/uL (4.30-5.70) Hemoglobin 11.4 g/dL (13.0-17.5) Hematocrit 34.7 % (39.0-53.0) Mean Corpuscular Volume 92 fL (79-100) Mean Corpuscular Hemoglobin 30 pg (25-35) Mean Corpuscular Hemoglobin Concent 33 g/dL (31-37) Red Cell Distribution Width 16.3 % (11.5-14.5) Platelet Count 362 x10^3/uL (140-400) Neutrophils (%) (Auto) 83 % (31-73) Lymphocytes (%) (Auto) 13 % (24-48) Monocytes (%) (Auto) 4 % (0-9) Eosinophils (%) (Auto) 1 % (0-3) Basophils (%) (Auto) 0 % (0-3) Neutrophils # (Auto) 7.9 x10^3/uL (1.8-7.7) Lymphocytes # (Auto) 1.2 x10^3/uL (1.0-4.8) Monocytes # (Auto) 0.4 x10^3/uL (0.0-1.1) Eosinophils # (Auto) 0.1 x10^3/uL (0.0-0.7) Basophils # (Auto) 0.0 x10^3/uL (0.0-0.2) Sodium Level 138 mmol/L (136-145) Potassium Level 4.1 mmol/L (3.5-5.1) Chloride Level 102 mmol/L (98-107) Carbon Dioxide Level 33 mmol/L (21-32) Anion Gap 3 (6-14) Blood Urea Nitrogen 17 mg/dL (8-26) Creatinine 0.9 mg/dL (0.7-1.3) Estimated GFR (Cockcroft-Gault) 87.9 Glucose Level 121 mg/dL (70-99) Calcium Level 8.4 mg/dL (8.5-10.1) Phosphorus Level 3.2 mg/dL (2.6-4.7) Albumin 1.3 g/dL (3.4-5.0) Glucose (Fingerstick) 124 mg/dL (70-99) 141 mg/dL (70-99) Laboratory Tests Test 02/26/19 16:48 02/26/19 21:12 02/26/19 21:54 02/27/19 01:10 Glucose (Fingerstick) 140 mg/dL (70-99) 80 mg/dL (70-99) 128 mg/dL (70-99) O2 Saturation 97 % (92-99) Arterial Blood pH 7.43 (7.35-7.45) Arterial Blood pCO2 at Patient Temp 51 mmHg (35-46) Arterial Blood pO2 at Patient Temp 99 mmHg (75-108) Arterial Blood HCO3 34 mmol/L (21-28) Arterial Blood Base Excess 8 mmol/L (-3-3) FiO2 40 Test 02/27/19 04:10 02/27/19 07:45 02/27/19 11:54 White Blood Count 9.6 x10^3/uL (4.0-11.0) Red Blood Count 3.78 x10^6/uL (4.30-5.70) Hemoglobin 11.4 g/dL (13.0-17.5) Hematocrit 34.7 % (39.0-53.0) Mean Corpuscular Volume 92 fL (79-100) Mean Corpuscular Hemoglobin 30 pg (25-35) Mean Corpuscular Hemoglobin Concent 33 g/dL (31-37) Red Cell Distribution Width 16.3 % (11.5-14.5) Platelet Count 362 x10^3/uL (140-400) Neutrophils (%) (Auto) 83 % (31-73) Lymphocytes (%) (Auto) 13 % (24-48) Monocytes (%) (Auto) 4 % (0-9) Eosinophils (%) (Auto) 1 % (0-3) Basophils (%) (Auto) 0 % (0-3) Neutrophils # (Auto) 7.9 x10^3/uL (1.8-7.7) Lymphocytes # (Auto) 1.2 x10^3/uL (1.0-4.8) Monocytes # (Auto) 0.4 x10^3/uL (0.0-1.1) Eosinophils # (Auto) 0.1 x10^3/uL (0.0-0.7) Basophils # (Auto) 0.0 x10^3/uL (0.0-0.2) Sodium Level 138 mmol/L (136-145) Potassium Level 4.1 mmol/L (3.5-5.1) Chloride Level 102 mmol/L (98-107) Carbon Dioxide Level 33 mmol/L (21-32) Anion Gap 3 (6-14) Blood Urea Nitrogen 17 mg/dL (8-26) Creatinine 0.9 mg/dL (0.7-1.3) Estimated GFR (Cockcroft-Gault) 87.9 Glucose Level 121 mg/dL (70-99) Calcium Level 8.4 mg/dL (8.5-10.1) Phosphorus Level 3.2 mg/dL (2.6-4.7) Albumin 1.3 g/dL (3.4-5.0) Glucose (Fingerstick) 124 mg/dL (70-99) 141 mg/dL (70-99) Microbiology 02/21/19 Blood Culture - Preliminary, Resulted 02/21/19 Blood Culture Result 1 (SHASTA) - Preliminary, Resulted Medications Current Medications Dextrose (Dextrose 50%-Water Syringe) 25 gm STK-MED ONCE IV ; Start 02/21/19 at 03:08; Stop 02/21/19 at 03:08; Status DC Dextrose (Dextrose 50%-Water Syringe) 25 gm 1X ONCE IV Last administered on 02/21/19at 05:59; Start 02/21/19 at 04:30; Stop 02/21/19 at 04:31; Status DC Sodium Chloride 1,000 ml @ 1,000 mls/hr Q1H IV Last administered on 02/21/19at 04:44; Start 02/21/19 at 04:30; Stop 02/21/19 at 05:29; Status DC Albuterol/ Ipratropium (Duoneb) 3 ml 1X ONCE NEB Last administered on 02/21/19at 04:19; Start 02/21/19 at 04:30; Stop 02/21/19 at 04:31; Status DC Methylprednisolone Sodium Succinate (SOLU-Medrol 125MG VIAL) 125 mg 1X ONCE IV Last administered on 02/21/19at 04:11; Start 02/21/19 at 04:30; Stop 02/21/19 at 04:31; Status DC Dextrose 500 ml @ 150 mls/hr 1X ONCE IV Last administered on 02/21/19at 04:30; Start 02/21/19 at 04:30; Stop 02/21/19 at 07:49; Status DC Vancomycin HCl 2 gm/Sodium Chloride 500 ml @ 250 mls/hr 1X ONCE IV Last administered on 02/21/19at 04:49; Start 02/21/19 at 04:30; Stop 02/21/19 at 06:29; Status DC Sodium Chloride 1,000 ml @ 1,000 mls/hr 1X ONCE IV ; Start 02/21/19 at 05:30; Stop 02/21/19 at 06:29; Status DC Ondansetron HCl (Zofran) 4 mg PRN Q8HRS PRN IV NAUSEA/VOMITING 1ST CHOICE; Start 02/21/19 at 05:30; Stop 02/21/19 at 11:17; Status DC Morphine Sulfate (Morphine Sulfate) 4 mg PRN Q2HR PRN IV SEVERE PAIN 7-10 Last administered on 02/21/19at 09:07; Start 02/21/19 at 05:30; Stop 02/22/19 at 05:29; Status DC Sodium Chloride 1,000 ml @ 100 mls/hr Q10H IV ; Start 02/21/19 at 06:00; Stop 02/21/19 at 12:45; Status DC Acetaminophen (Tylenol) 650 mg PRN Q4HRS PRN PO FEVER; Start 02/21/19 at 05:30; Stop 02/21/19 at 11:18; Status DC Albuterol/ Ipratropium (Duoneb) 3 ml RTQID NEB Last administered on 02/22/19at 07:51; Start 02/21/19 at 08:00; Stop 02/22/19 at 07:59; Status DC Piperacillin Sod/ Tazobactam Sod 3.375 gm/Sodium Chloride 50 ml @ 100 mls/hr 1X ONCE IV Last administered on 02/21/19at 05:47; Start 02/21/19 at 06:00; Stop 02/21/19 at 06:29; Status DC Acetaminophen (Tylenol) 650 mg PRN Q6HRS PRN PO Headaches, Temp > 101.5'; Start 02/21/19 at 11:15 Ondansetron HCl (Zofran) 4 mg PRN Q6HRS PRN IV NAUSEA/VOMITING; Start 02/21/19 at 11:15 Famotidine (Pepcid Vial) 20 mg BID IVP Last administered on 02/23/19at 09:39; Start 02/21/19 at 11:30; Stop 02/23/19 at 15:27; Status DC Info (Icu Electrolyte Protocol) 1 ea DAILY MC Last administered on 02/22/19at 08:07; Start 02/22/19 at 09:00; Stop 02/23/19 at 15:22; Status DC Heparin Sodium (Porcine) (Heparin Sodium) 5,000 unit Q8HRS SQ Last administered on 02/24/19at 06:16; Start 02/21/19 at 14:00; Stop 02/24/19 at 09:32; Status DC Sodium Chloride (Normal Saline Flush) 3 ml QSHIFT PRN IV AFTER MEDS AND BLOOD DRAWS; Start 02/21/19 at 11:15 Docusate Sodium (Colace) 100 mg BID PO Last administered on 02/25/19at 21:49; Start 02/21/19 at 12:00 Bisacodyl (Dulcolax Supp) 10 mg PRN DAILY PRN MT CONSTIPATION; Start 02/21/19 at 11:15 Atenolol (Tenormin) 50 mg DAILY PO Last administered on 02/27/19at 08:36; Start 02/21/19 at 12:00 Chlorthalidone (Thalitone) 25 mg DAILY PO ; Start 02/21/19 at 12:00; Stop 02/21/19 at 12:45; Status DC Multivitamins (Thera M Plus) 1 tab DAILY PO Last administered on 02/25/19at 10:10; Start 02/21/19 at 12:00; Stop 02/25/19 at 15:20; Status DC Folic Acid (Folic Acid) 1 mg DAILY PO Last administered on 02/27/19at 08:33; Start 02/21/19 at 12:00 Thiamine Mononitrate (Vitamin B-1) 100 mg DAILY PO Last administered on 02/27/19at 08:33; Start 02/21/19 at 12:00 Lorazepam (Ativan) 4 mg PRN Q1HR PRN PO For CIWA 8-14 Last administered on 02/24/19at 08:49; Start 02/21/19 at 11:30 Lorazepam (Ativan) 8 mg PRN Q1HR PRN PO For CIWA 15 or greater; Start 02/21/19 at 11:30 Lorazepam (Ativan Inj) 2 mg PRN Q1HR PRN IV For CIWA 8-14 Last administered on 02/26/19at 21:08; Start 02/21/19 at 11:30 Lorazepam (Ativan Inj) 4 mg PRN Q1HR PRN IV For CIWA 15 or greater; Start 02/21/19 at 11:30 Haloperidol Lactate (Haldol Inj) 5 mg PRN Q4HRS PRN IVP Hallucinatns,Confusn,Delirium; Start 02/21/19 at 11:30 Clonidine HCl (Catapres) 0.1 mg PRN Q1HR PRN PO SBP > 180 or DBP > 100, MRX3 Last administered on 02/23/19at 20:24; Start 02/21/19 at 11:30 Lorazepam (Ativan Inj) 2 mg PRN Q15MIN PRN IV SEE COMMENTS; Start 02/21/19 at 11:30; Stop 02/23/19 at 15:23; Status DC Lorazepam (Ativan Inj) 4 mg PRN Q15MIN PRN IV SEE COMMENTS; Start 02/21/19 at 11:30; Stop 02/23/19 at 15:24; Status DC Potassium Chloride (Klor-Con) 20 meq 1X ONCE PO Last administered on 02/21/19at 13:53; Start 02/21/19 at 12:00; Stop 02/21/19 at 12:01; Status DC Ringer's Solution 1,000 ml @ 75 mls/hr [id number] IV Last administered on 02/21/19at 13:54; Start 02/21/19 at 13:00; Stop 02/21/19 at 16:07; Status DC Magnesium Sulfate 50 ml @ 25 mls/hr PRN DAILY PRN IV for Mag < 1.7 on am labs Last administered on 02/26/19at 08:54; Start 02/21/19 at 13:00 Linezolid (Zyvox) 600 mg BID PO Last administered on 02/27/19at 08:33; Start 02/21/19 at 13:30 Piperacillin Sod/ Tazobactam Sod 3.375 gm/Sodium Chloride 50 ml @ 100 mls/hr Q6HRS IV Last administered on 02/25/19at 04:49; Start 02/21/19 at 13:30; Stop 02/25/19 at 11:36; Status DC Lactobacillus Rhamnosus (Culturelle) 1 cap BID PO Last administered on 0at 08:33; Start 02/21/19 at 21:00 Aspirin (Children'S Aspirin) 81 mg [id number] PO Last administered on 02/21/19at 16:23; Start 02/21/19 at 15:30; Stop 02/21/19 at 16:46; Status DC Sodium Chloride 1,000 ml @ 75 mls/hr [id number] IV ; Start 02/22/19 at 03:00; Stop 02/21/19 at 16:14; Status DC Sodium Chloride 1,000 ml @ 75 mls/hr [id number] IV Last administered on 02/22/19at 07:58; Start 02/21/19 at 17:00; Stop 02/22/19 at 08:57; Status DC Aspirin (Flavia Aspirin) 325 mg [id number] PO Last administered on 02/27/19at 08 :33; Start 02/22/19 at 08:00 Albuterol/ Ipratropium (Duoneb) 3 ml RTQID NEB Last administered on 02/27/19at 15:18; Start 02/22/19 at 08:00 Potassium Chloride (Klor-Con) 40 meq 1X ONCE PO Last administered on 02/22/19at 08:16; Start 02/22/19 at 08:15; Stop 02/22/19 at 08:16; Status DC Potassium Chloride/Water 100 ml @ 100 mls/hr Q1H IV ; Start 02/22/19 at 09:00; Stop 02/22/19 at 10:59; Status DC Insulin Human Lispro (HumaLOG) 0-7 UNITS TIDWMEALS SQ Last administered on 02/26/19at 12:39; Start 02/22/19 at 17:00 Dextrose (Dextrose 50%-Water Syringe) 12.5 gm PRN Q15MIN PRN IV SEE COMMENTS; Start 02/22/19 at 14:45 Dextrose (Iv Dextrose 5%) 250 ml PRN Q15MIN PRN IV SEE COMMENTS; Start 02/22/19 at 14:45 Info (Non-Icu Electrolyte Protocol) 1 ea CONT PRN PRN MC SEE COMMENTS; Start 02/23/19 at 15:30 Famotidine (Pepcid) 20 mg BID PO Last administered on 02/27/19at 08:33; Start 02/23/19 at 21:00 Multivitamins (Thera M Plus) 1 tab DAILY PO Last administered on 02/27/19at 08:33; Start 02/24/19 at 09:00 Enoxaparin Sodium (Lovenox 40mg Syringe) 40 mg Q24H SQ Last administered on 02/27/19at 10:57; Start 02/24/19 at 10:00; Stop 02/27/19 at 14:04; Status DC Amoxicillin/ Clavulanate Potassium (Augmentin 875/ 125mg) 1 tab BID PO Last administered on 02/27/19at 08:33; Start 02/25/19 at 21:00 Magnesium Sulfate 50 ml @ 25 mls/hr 1X ONCE IV Last administered on 02/25/19at 15:00; Start 02/25/19 at 13:45; Stop 02/25/19 at 15:44; Status DC Magnesium Oxide (Magnesium Oxide) 400 mg DAILY PO Last administered on 02/27/19at 10:55; Start 02/27/19 at 09:00 Enoxaparin Sodium (Lovenox 60mg Syringe) 60 mg Q12HR SQ ; Start 02/27/19 at 21:00 Active Scripts Active Reported Glipizide 5 Mg Tablet 1 Tab PO BID Metformin Hcl 1,000 Mg Tablet 1,000 Mg PO BIDWMEALS Atenolol 50 Mg Tablet 1 Tab PO DAILY Chlorthalidone (Chlorthalidone) 25 Mg Tablet 25 Mg PO DAILY Vitals/I & O Vital Sign - Last 24 Hours 02/26/19 02/26/19 02/26/19 02/26/19 15:51 20:00 20:00 20:48 Temp 98.4 98.1 98.4 98.1 Pulse 68 82 Resp 28 22 B/P (MAP) 151/71 (97) 160/86 (110) Pulse Ox 94 97 O2 Delivery Nasal Cannula Nasal Cannula Nasal Cannula O2 Flow Rate 2.0 2.0 2.0 02/26/19 02/26/19 02/26/19 02/27/19 22:05 23:31 23:58 01:26 Pulse 84 Resp 22 B/P (MAP) 159/93 (115) Pulse Ox 96 99 93 100 O2 Delivery BiPAP/CPAP Nasal Cannula BiPAP/CPAP O2 Flow Rate 2.0 02/27/19 02/27/19 02/27/19 02/27/19 03:20 04:00 07:25 07:50 Temp 98.2 98.6 98.2 98.6 Pulse 71 72 Resp 28 32 B/P (MAP) 162/94 (116) 160/84 (109) Pulse Ox 98 98 96 92 O2 Delivery BiPAP/CPAP BiPAP/CPAP Nasal Cannula Nasal Cannula O2 Flow Rate 2.0 2.0 02/27/19 02/27/19 02/27/19 02/27/19 08:00 08:00 08:36 11:14 Pulse 72 B/P (MAP) 160/84 O2 Delivery Nasal Cannula Nasal Cannula O2 Flow Rate 2.0 2.0 2.0 02/27/19 02/27/19 11:28 15:20 Temp 97.7 97.7 Pulse 72 Resp 30 B/P (MAP) 152/94 (113) Pulse Ox 97 97 O2 Delivery Nasal Cannula Nasal Cannula O2 Flow Rate 2.0 2.0 Intake and Output 02/26/19 02/26/19 02/27/19 15:00 23:00 07:00 Intake Total 700 ml 500 ml Output Total 1350 ml 575 ml Balance 700 ml -1350 ml -75 ml ALBINO SAAVEDRA MD Feb 27, 2019 15:55
[2019-02-27] MEDS: ACETAMINOPHEN 325 MG TABLET. PO PRN (16:46)
--- NOTE | 2019-02-27 17:23 | NUR ---
Patient up in chair for few hours, participated with PT. He was alert, oriented x 4 throughout the shift, no respiratory distress noted. Patient was more interactive with staff. We'll continue to monitor.
[2019-02-27 19:40] VITALS: BP 158/93
[2019-02-27 23:39] VITALS: BP 161/86
[2019-02-28 03:34] VITALS: BP 141/75
[2019-02-28 05:19] LABS: BASO # 0.1 x10^3/uL (0.0-0.2); BASO % 1 % (0-3); EOS # 0.1 x10^3/uL (0.0-0.7); EOS % 2 % (0-3); HEMATOCRIT 34.1 % (39.0-53.0); HEMOGLOBIN 11.2 g/dL (13.0-17.5); LYMPH # 1.4 x10^3/uL (1.0-4.8); LYMPH % 16 % (24-48); MEAN CORPUSCULAR HEMOGLOBIN 30 pg (25-35); MEAN CORPUSCULAR HGB CONC 33 g/dL (31-37); MEAN CORPUSCULAR VOLUME 92 fL (79-100); MONO # 0.4 x10^3/uL (0.0-1.1); MONO % 5 % (0-9); NEUT # 6.5 x10^3/uL (1.8-7.7); NEUT % 76 % (31-73); PLATELET COUNT 366 x10^3/uL (140-400); RED CELL DISTRIBUTION WIDTH 16.2 % (11.5-14.5); WHITE BLOOD COUNT 8.6 x10^3/uL (4.0-11.0)
[2019-02-28 05:38] LABS: ALBUMIN 1.4 g/dL (3.4-5.0); CALCIUM 7.8 mg/dL (8.5-10.1); CREATININE 0.8 mg/dL (0.7-1.3); GFR 100.7; PHOSPHORUS 3.4 mg/dL (2.6-4.7); POTASSIUM 4.7 mmol/L (3.5-5.1)
[2019-02-28 07:00] VITALS: BP 154/83
[2019-02-28] MEDS: INSULIN LISPRO 300 UNITS/3 ML VIAL. SQ SCH ×3 (08:00→17:00)
[2019-02-28] MEDS: DOCUSATE SODIUM 100 MG CAPSULE. PO SCH ×2 (09:00→20:29)
[2019-02-28] MEDS: LINEZOLID 600 MG TABLET PO SCH ×2 (09:07→20:28)
[2019-02-28] MEDS: FAMOTIDINE 20 MG TABLET. PO SCH ×2 (09:07→20:28)
[2019-02-28] MEDS: AMOXICILLIN/K CLAV 875/125MG TABLET. PO SCH ×2 (09:07→20:28)
[2019-02-28] MEDS: ASPIRIN 325 MG TABLET PO SCH (09:07)
--- NOTE | 2019-02-28 09:07 | PDOC ---
PULMONARY PROGRESS NOTES Subjective remains on 2 liters N/C, wore BIPAP a few hours last night, reports SOA on exertion, denies increase in cough no overnight concerns Vitals Vital Signs Date Time Temp Pulse Resp B/P (MAP) Pulse Ox O2 Delivery O2 Flow Rate FiO2 02/28/19 07:00 98.2 73 20 154/83 (106) 96 Nasal Cannula 2.0 98.2 ROS: No Nausea, No Chest Pain, No Abdominal Pain, No Increase Cough General: Alert, No acute distress Lungs: Other (decrease bases) Cardiovascular: S1 Abdomen: Soft, Other (obese) Neuro Exam: Alert Extremities: Other (lymphedema) Skin: Other (wounds of various stages) Labs Laboratory Tests Test 02/26/19 11:25 02/26/19 16:48 02/26/19 21:12 02/26/19 21:54 Glucose (Fingerstick) 165 mg/dL (70-99) 140 mg/dL (70-99) 80 mg/dL (70-99) 128 mg/dL (70-99) Test 02/27/19 01:10 02/27/19 04:10 02/27/19 07:45 02/27/19 11:54 O2 Saturation 97 % (92-99) Arterial Blood pH 7.43 (7.35-7.45) Arterial Blood pCO2 at Patient Temp 51 mmHg (35-46) Arterial Blood pO2 at Patient Temp 99 mmHg (75-108) Arterial Blood HCO3 34 mmol/L (21-28) Arterial Blood Base Excess 8 mmol/L (-3-3) FiO2 40 White Blood Count 9.6 x10^3/uL (4.0-11.0) Red Blood Count 3.78 x10^6/uL (4.30-5.70) Hemoglobin 11.4 g/dL (13.0-17.5) Hematocrit 34.7 % (39.0-53.0) Mean Corpuscular Volume 92 fL (79-100) Mean Corpuscular Hemoglobin 30 pg (25-35) Mean Corpuscular Hemoglobin Concent 33 g/dL (31-37) Red Cell Distribution Width 16.3 % (11.5-14.5) Platelet Count 362 x10^3/uL (140-400) Neutrophils (%) (Auto) 83 % (31-73) Lymphocytes (%) (Auto) 13 % (24-48) Monocytes (%) (Auto) 4 % (0-9) Eosinophils (%) (Auto) 1 % (0-3) Basophils (%) (Auto) 0 % (0-3) Neutrophils # (Auto) 7.9 x10^3/uL (1.8-7.7) Lymphocytes # (Auto) 1.2 x10^3/uL (1.0-4.8) Monocytes # (Auto) 0.4 x10^3/uL (0.0-1.1) Eosinophils # (Auto) 0.1 x10^3/uL (0.0-0.7) Basophils # (Auto) 0.0 x10^3/uL (0.0-0.2) Sodium Level 138 mmol/L (136-145) Potassium Level 4.1 mmol/L (3.5-5.1) Chloride Level 102 mmol/L (98-107) Carbon Dioxide Level 33 mmol/L (21-32) Anion Gap 3 (6-14) Blood Urea Nitrogen 17 mg/dL (8-26) Creatinine 0.9 mg/dL (0.7-1.3) Estimated GFR (Cockcroft-Gault) 87.9 Glucose Level 121 mg/dL (70-99) Calcium Level 8.4 mg/dL (8.5-10.1) Phosphorus Level 3.2 mg/dL (2.6-4.7) Albumin 1.3 g/dL (3.4-5.0) Glucose (Fingerstick) 124 mg/dL (70-99) 141 mg/dL (70-99) Test 02/27/19 17:01 02/27/19 21:02 02/28/19 03:40 02/28/19 07:15 Glucose (Fingerstick) 137 mg/dL (70-99) 165 mg/dL (70-99) 125 mg/dL (70-99) White Blood Count 8.6 x10^3/uL (4.0-11.0) Red Blood Count 3.70 x10^6/uL (4.30-5.70) Hemoglobin 11.2 g/dL (13.0-17.5) Hematocrit 34.1 % (39.0-53.0) Mean Corpuscular Volume 92 fL (79-100) Mean Corpuscular Hemoglobin 30 pg (25-35) Mean Corpuscular Hemoglobin Concent 33 g/dL (31-37) Red Cell Distribution Width 16.2 % (11.5-14.5) Platelet Count 366 x10^3/uL (140-400) Neutrophils (%) (Auto) 76 % (31-73) Lymphocytes (%) (Auto) 16 % (24-48) Monocytes (%) (Auto) 5 % (0-9) Eosinophils (%) (Auto) 2 % (0-3) Basophils (%) (Auto) 1 % (0-3) Neutrophils # (Auto) 6.5 x10^3/uL (1.8-7.7) Lymphocytes # (Auto) 1.4 x10^3/uL (1.0-4.8) Monocytes # (Auto) 0.4 x10^3/uL (0.0-1.1) Eosinophils # (Auto) 0.1 x10^3/uL (0.0-0.7) Basophils # (Auto) 0.1 x10^3/uL (0.0-0.2) Sodium Level 137 mmol/L (136-145) Potassium Level 4.7 mmol/L (3.5-5.1) Chloride Level 100 mmol/L (98-107) Carbon Dioxide Level 31 mmol/L (21-32) Anion Gap 6 (6-14) Blood Urea Nitrogen 18 mg/dL (8-26) Creatinine 0.8 mg/dL (0.7-1.3) Estimated GFR (Cockcroft-Gault) 100.7 Glucose Level 122 mg/dL (70-99) Calcium Level 7.8 mg/dL (8.5-10.1) Phosphorus Level 3.4 mg/dL (2.6-4.7) Albumin 1.4 g/dL (3.4-5.0) Laboratory Tests Test 02/27/19 11:54 02/27/19 17:01 02/27/19 21:02 02/28/19 03:40 Glucose (Fingerstick) 141 mg/dL (70-99) 137 mg/dL (70-99) 165 mg/dL (70-99) White Blood Count 8.6 x10^3/uL (4.0-11.0) Red Blood Count 3.70 x10^6/uL (4.30-5.70) Hemoglobin 11.2 g/dL (13.0-17.5) Hematocrit 34.1 % (39.0-53.0) Mean Corpuscular Volume 92 fL (79-100) Mean Corpuscular Hemoglobin 30 pg (25-35) Mean Corpuscular Hemoglobin Concent 33 g/dL (31-37) Red Cell Distribution Width 16.2 % (11.5-14.5) Platelet Count 366 x10^3/uL (140-400) Neutrophils (%) (Auto) 76 % (31-73) Lymphocytes (%) (Auto) 16 % (24-48) Monocytes (%) (Auto) 5 % (0-9) Eosinophils (%) (Auto) 2 % (0-3) Basophils (%) (Auto) 1 % (0-3) Neutrophils # (Auto) 6.5 x10^3/uL (1.8-7.7) Lymphocytes # (Auto) 1.4 x10^3/uL (1.0-4.8) Monocytes # (Auto) 0.4 x10^3/uL (0.0-1.1) Eosinophils # (Auto) 0.1 x10^3/uL (0.0-0.7) Basophils # (Auto) 0.1 x10^3/uL (0.0-0.2) Sodium Level 137 mmol/L (136-145) Potassium Level 4.7 mmol/L (3.5-5.1) Chloride Level 100 mmol/L (98-107) Carbon Dioxide Level 31 mmol/L (21-32) Anion Gap 6 (6-14) Blood Urea Nitrogen 18 mg/dL (8-26) Creatinine 0.8 mg/dL (0.7-1.3) Estimated GFR (Cockcroft-Gault) 100.7 Glucose Level 122 mg/dL (70-99) Calcium Level 7.8 mg/dL (8.5-10.1) Phosphorus Level 3.4 mg/dL (2.6-4.7) Albumin 1.4 g/dL (3.4-5.0) Test 02/28/19 07:15 Glucose (Fingerstick) 125 mg/dL (70-99) Medications Active Scripts Medications Dose Route/Sig Max Daily Dose Days Date Category Glipizide 5 Mg Tablet 1 Tab PO BID 02/21/19 Reported Metformin Hcl 1,000 Mg Tablet 1,000 Mg PO BIDWMEALS 02/21/19 Reported Atenolol 50 Mg Tablet 1 Tab PO DAILY 02/21/19 Reported Chlorthalidone (Chlorthalidone) 25 Mg Tablet 25 Mg PO DAILY 02/21/19 Reported Impression . 1. Acute on chronic respiratory failure secondary to multifactorial etiologies, including acute on chronic right heart failure, possible acute bronchitis. The patient is a nonsmoker. 2. Status post fall with profound weakness causing immobility for 12 hours. His BUN and creatinine suggesting a prerenal azotemia. 3. Severe protein-calorie malnutrition with an albumin level of 1.1. 4. Underlying obstructive sleep apnea with obesity hypoventilation syndrome. 5. Chronic compensated respiratory acidosis. Plan . 1. Discussed with RN. Continue with present oxygen. 2. BiPAP at bedtime and p.r.n. during the day. 3. Monitor white cell count, 8.6 today 4. SEEMA resolved cr. is 0.8 today 5. Antibiotics per Infectious Disease currently on Augmentin 6. Continue bronchodilators. 7. DVT prophylaxis: lovenox 8. HTN per PCP Discussed with RN / awaiting CARYL LAGOS MD Feb 28, 2019 09:07
[2019-02-28] MEDS: ATENOLOL 50 MG TABLET. PO SCH (09:08)
[2019-02-28] MEDS: THIAMINE 100 MG TABLET. PO SCH (09:08)
[2019-02-28] MEDS: LACTOBACILLUS RHAMNOSUS GG 1 CAPSULE. PO SCH ×2 (09:08→20:28)
[2019-02-28] MEDS: MAGNESIUM OXIDE 400 MG TABLET PO SCH (09:08)
[2019-02-28] MEDS: FOLIC ACID 1 MG TABLET. PO SCH (09:08)
[2019-02-28] MEDS: MULTIVITAMIN with MINERAL TABLET. PO SCH (09:08)
[2019-02-28] MEDS: IPRATRPIUM/ALBUTEROL 0.5/2.5MG 3 ML NEBU. NEB SCH ×4 (09:18→20:11)
[2019-02-28 11:00] VITALS: BP 147/81
--- NOTE | 2019-02-28 11:28 | PDOC ---
Infectious Disease Note Subjective Subjective Comfortable, denies pain/N/V/D No fevers/chills ROS ROS per HPI Vital Sign Vital Signs Vital Signs Date Time Temp Pulse Resp B/P (MAP) Pulse Ox O2 Delivery O2 Flow Rate FiO2 02/28/19 11:12 96 Nasal Cannula 2.0 02/28/19 09:08 73 154/83 02/28/19 07:00 98.2 20 98.2 Physical Exam PHYSICAL EXAM GENERAL: Propped up in bed, alert, watching TV HEENT: Pupils are round and reacting. Oral cavity clear, Crusts lips NECK: Supple LUNGS: Clear. HEART: S1, S2 regular. ABDOMEN: Obese, soft, nontender : Kimbrough in place EXTREMITIES: RLE mildly red, Chronic venous insufficiency and stasis dermatitis changes present. An ulcer on the left posterior thigh. NEUROLOGIC: Alert, appropriate. Unable to lift left arm off bed, + wiggles fingers, sensation intact RIJ out PIV ok Labs Lab Laboratory Tests Test 02/27/19 11:54 02/27/19 17:01 02/27/19 21:02 02/28/19 03:40 Glucose (Fingerstick) 141 mg/dL (70-99) 137 mg/dL (70-99) 165 mg/dL (70-99) White Blood Count 8.6 x10^3/uL (4.0-11.0) Red Blood Count 3.70 x10^6/uL (4.30-5.70) Hemoglobin 11.2 g/dL (13.0-17.5) Hematocrit 34.1 % (39.0-53.0) Mean Corpuscular Volume 92 fL (79-100) Mean Corpuscular Hemoglobin 30 pg (25-35) Mean Corpuscular Hemoglobin Concent 33 g/dL (31-37) Red Cell Distribution Width 16.2 % (11.5-14.5) Platelet Count 366 x10^3/uL (140-400) Neutrophils (%) (Auto) 76 % (31-73) Lymphocytes (%) (Auto) 16 % (24-48) Monocytes (%) (Auto) 5 % (0-9) Eosinophils (%) (Auto) 2 % (0-3) Basophils (%) (Auto) 1 % (0-3) Neutrophils # (Auto) 6.5 x10^3/uL (1.8-7.7) Lymphocytes # (Auto) 1.4 x10^3/uL (1.0-4.8) Monocytes # (Auto) 0.4 x10^3/uL (0.0-1.1) Eosinophils # (Auto) 0.1 x10^3/uL (0.0-0.7) Basophils # (Auto) 0.1 x10^3/uL (0.0-0.2) Sodium Level 137 mmol/L (136-145) Potassium Level 4.7 mmol/L (3.5-5.1) Chloride Level 100 mmol/L (98-107) Carbon Dioxide Level 31 mmol/L (21-32) Anion Gap 6 (6-14) Blood Urea Nitrogen 18 mg/dL (8-26) Creatinine 0.8 mg/dL (0.7-1.3) Estimated GFR (Cockcroft-Gault) 100.7 Glucose Level 122 mg/dL (70-99) Calcium Level 7.8 mg/dL (8.5-10.1) Phosphorus Level 3.4 mg/dL (2.6-4.7) Albumin 1.4 g/dL (3.4-5.0) Test 02/28/19 07:15 Glucose (Fingerstick) 125 mg/dL (70-99) Micro /. BLD CULT RESULT 1 Final Comment Staphylococcus species Performed at: - [facility] [address], [place], [place] [id number] Brewing Director: TRENTON Bo MD, Phone: [phone] Staphylococcus hominis Based on resistance to oxacillin this isolate would be resistant to all currently available beta-lactam antimicrobial agents, with the exception of the newer cephalosporins with anti-MRSA activity, such as Ceftaroline ANTIMICROBIAL SUSCEPTIBILITY Final Comment S = Susceptible; I = Intermediate; R = Resistant P = Positive; N = Negative MICS are expressed in micrograms per mL Antibiotic RSLT#1 RSLT#2 RSLT#3 RSLT#4 Ciprofloxacin S<=0.5 Clindamycin S<=0.25 Erythromycin S<=0.25 Gentamicin S<=0.5 Levofloxacin S =0.5 Oxacillin R =R Penicillin R>=0.5 Rifampin S<=0.5 Tetracycline S<=1 Trimethoprim/Sulfa S =40 Vancomycin S<=0.5 Objective Assessment Right lower extremity extensive cellulitis. Leukocytosis - some better Lactic acidosis with the early sepsis. Morbid obesity. Diabetes. Hypertension. Venous insufficiency and stasis dermatitis. Left arm weakness BC 1/3 likely contaminant, Staphylococcus hominis-oxicillin R Plan Plan of Care po zyvox and augmentin Probiotics Leg elevation PT/OT Attending Co-Sign The patient was seen and interviewed as well as examined at the bedside. The chart was reviewed. The case was discussed. Agree with the plan of care. FRANCESCA VIGIL APRN Feb 28, 2019 11:28 ANA LUISA COUGHLIN MD Feb 28, 2019 12:09
--- NOTE | 2019-02-28 14:38 | PDOC ---
PROGRESS NOTES Chief Complaint Chief Complaint Resp failure resolved Severe sepsis resolved Extreme morbid obesity with BMI of 60 BCT hypoventilation syndrome Cellulitis of right leg, severe with lymphedema, chronic venous stasis Hypoglycemia sec to glipizide secondary to most likely due to renal dysfunction Acute renal failure improved Dehydration improved Dyspnea Hypoglycemia History of Severe alcohol abuse no evidence of withdrawal of the present time Fall at home Severe debility CHF Proteinuria in the nephritic range. Patient also has low anion gap and hypercalcemia of 10.3 once is corrected for albumin. this raises concern for underlying paraproteinemia. i.e. myeloma multiple. Patient may benefit from a skeletal survey but given his size which has prevented further diagnosis might prove quite challenging. Left arm weakness, patient has been seen by neurology and unfortunately given his size again cannot undergo further imaging studies. EMGs planned to be done in a couple of weeks, as per media consultant this could also may well be a conversion syndrome. As per nursing staff his symptoms seem to be resolving and improving on a daily basis. We will continue to follow clinically Plan antibiotics Supportive measures Wound care Encourage ambulation Increase activity as tolerated Case management to help with placement History of Present Illness History of Present Illness 02/28/19 Patient with no new complaints. Sitting in chair in no acute distress Patient still having quite a bit of fluid draining from his right lower extremity Fevers overnight Laboratory data has been reviewed Case management working on disposition dc soon Vitals Vitals Vital Signs Date Time Temp Pulse Resp B/P (MAP) Pulse Ox O2 Delivery O2 Flow Rate FiO2 02/28/19 11:12 96 Nasal Cannula 2.0 02/28/19 11:00 97.9 79 20 147/81 (103) 97.9 Physical Exam Physical Exam GENERAL: Propped up in bed, alert, watching TV HEENT: Pupils are round and reacting. Oral cavity clear, Crusts lips NECK: Supple LUNGS: Clear. HEART: S1, S2 regular. ABDOMEN: Obese, soft, nontender : Kimbrough in place EXTREMITIES: RLE mildly red, Chronic venous insufficiency and stasis dermatitis changes present. An ulcer on the left posterior thigh. NEUROLOGIC: Alert, appropriate. Unable to lift left arm off bed, + wiggles fingers, sensation intact RIJ out PIV ok General: Cooperative, mild distress Heart: Regular rate, Normal S1 Lungs: Other (decrease bases) Abdomen: Normal bowel sounds, Soft, No tenderness, No hepatosplenomegaly, Other (morbidly obese) Extremities: Other (2-3+ pitting edema with chronic changes and hyperemia RLE, 1+ edema with hyperpigmentation LLE) Skin: Other (massive rash on r leg) Labs LABS Laboratory Tests Test 02/27/19 17:01 02/27/19 21:02 02/28/19 03:40 02/28/19 07:15 Glucose (Fingerstick) 137 mg/dL (70-99) 165 mg/dL (70-99) 125 mg/dL (70-99) White Blood Count 8.6 x10^3/uL (4.0-11.0) Red Blood Count 3.70 x10^6/uL (4.30-5.70) Hemoglobin 11.2 g/dL (13.0-17.5) Hematocrit 34.1 % (39.0-53.0) Mean Corpuscular Volume 92 fL (79-100) Mean Corpuscular Hemoglobin 30 pg (25-35) Mean Corpuscular Hemoglobin Concent 33 g/dL (31-37) Red Cell Distribution Width 16.2 % (11.5-14.5) Platelet Count 366 x10^3/uL (140-400) Neutrophils (%) (Auto) 76 % (31-73) Lymphocytes (%) (Auto) 16 % (24-48) Monocytes (%) (Auto) 5 % (0-9) Eosinophils (%) (Auto) 2 % (0-3) Basophils (%) (Auto) 1 % (0-3) Neutrophils # (Auto) 6.5 x10^3/uL (1.8-7.7) Lymphocytes # (Auto) 1.4 x10^3/uL (1.0-4.8) Monocytes # (Auto) 0.4 x10^3/uL (0.0-1.1) Eosinophils # (Auto) 0.1 x10^3/uL (0.0-0.7) Basophils # (Auto) 0.1 x10^3/uL (0.0-0.2) Sodium Level 137 mmol/L (136-145) Potassium Level 4.7 mmol/L (3.5-5.1) Chloride Level 100 mmol/L (98-107) Carbon Dioxide Level 31 mmol/L (21-32) Anion Gap 6 (6-14) Blood Urea Nitrogen 18 mg/dL (8-26) Creatinine 0.8 mg/dL (0.7-1.3) Estimated GFR (Cockcroft-Gault) 100.7 Glucose Level 122 mg/dL (70-99) Calcium Level 7.8 mg/dL (8.5-10.1) Phosphorus Level 3.4 mg/dL (2.6-4.7) Albumin 1.4 g/dL (3.4-5.0) Test 02/28/19 11:42 Glucose (Fingerstick) 168 mg/dL (70-99) Assessment and Plan Assessmemt and Plan Problems Medical Problems: (1) Acute renal failure Status: Acute (2) Cellulitis of right leg Status: Acute (3) Dehydration Status: Acute (4) Dyspnea Status: Acute (5) Hypoglycemia Status: Acute (6) Severe sepsis Status: Acute Comment Review of Relevant I have reviewed the following items robert (where applicable) has been applied. Labs Laboratory Tests Test 02/26/19 16:48 02/26/19 21:12 02/26/19 21:54 02/27/19 01:10 Glucose (Fingerstick) 140 mg/dL (70-99) 80 mg/dL (70-99) 128 mg/dL (70-99) O2 Saturation 97 % (92-99) Arterial Blood pH 7.43 (7.35-7.45) Arterial Blood pCO2 at Patient Temp 51 mmHg (35-46) Arterial Blood pO2 at Patient Temp 99 mmHg (75-108) Arterial Blood HCO3 34 mmol/L (21-28) Arterial Blood Base Excess 8 mmol/L (-3-3) FiO2 40 Test 02/27/19 04:10 02/27/19 07:45 02/27/19 11:54 02/27/19 17:01 White Blood Count 9.6 x10^3/uL (4.0-11.0) Red Blood Count 3.78 x10^6/uL (4.30-5.70) Hemoglobin 11.4 g/dL (13.0-17.5) Hematocrit 34.7 % (39.0-53.0) Mean Corpuscular Volume 92 fL (79-100) Mean Corpuscular Hemoglobin 30 pg (25-35) Mean Corpuscular Hemoglobin Concent 33 g/dL (31-37) Red Cell Distribution Width 16.3 % (11.5-14.5) Platelet Count 362 x10^3/uL (140-400) Neutrophils (%) (Auto) 83 % (31-73) Lymphocytes (%) (Auto) 13 % (24-48) Monocytes (%) (Auto) 4 % (0-9) Eosinophils (%) (Auto) 1 % (0-3) Basophils (%) (Auto) 0 % (0-3) Neutrophils # (Auto) 7.9 x10^3/uL (1.8-7.7) Lymphocytes # (Auto) 1.2 x10^3/uL (1.0-4.8) Monocytes # (Auto) 0.4 x10^3/uL (0.0-1.1) Eosinophils # (Auto) 0.1 x10^3/uL (0.0-0.7) Basophils # (Auto) 0.0 x10^3/uL (0.0-0.2) Sodium Level 138 mmol/L (136-145) Potassium Level 4.1 mmol/L (3.5-5.1) Chloride Level 102 mmol/L (98-107) Carbon Dioxide Level 33 mmol/L (21-32) Anion Gap 3 (6-14) Blood Urea Nitrogen 17 mg/dL (8-26) Creatinine 0.9 mg/dL (0.7-1.3) Estimated GFR (Cockcroft-Gault) 87.9 Glucose Level 121 mg/dL (70-99) Calcium Level 8.4 mg/dL (8.5-10.1) Phosphorus Level 3.2 mg/dL (2.6-4.7) Albumin 1.3 g/dL (3.4-5.0) Glucose (Fingerstick) 124 mg/dL (70-99) 141 mg/dL (70-99) 137 mg/dL (70-99) Test 02/27/19 21:02 02/28/19 03:40 02/28/19 07:15 02/28/19 11:42 Glucose (Fingerstick) 165 mg/dL (70-99) 125 mg/dL (70-99) 168 mg/dL (70-99) White Blood Count 8.6 x10^3/uL (4.0-11.0) Red Blood Count 3.70 x10^6/uL (4.30-5.70) Hemoglobin 11.2 g/dL (13.0-17.5) Hematocrit 34.1 % (39.0-53.0) Mean Corpuscular Volume 92 fL (79-100) Mean Corpuscular Hemoglobin 30 pg (25-35) Mean Corpuscular Hemoglobin Concent 33 g/dL (31-37) Red Cell Distribution Width 16.2 % (11.5-14.5) Platelet Count 366 x10^3/uL (140-400) Neutrophils (%) (Auto) 76 % (31-73) Lymphocytes (%) (Auto) 16 % (24-48) Monocytes (%) (Auto) 5 % (0-9) Eosinophils (%) (Auto) 2 % (0-3) Basophils (%) (Auto) 1 % (0-3) Neutrophils # (Auto) 6.5 x10^3/uL (1.8-7.7) Lymphocytes # (Auto) 1.4 x10^3/uL (1.0-4.8) Monocytes # (Auto) 0.4 x10^3/uL (0.0-1.1) Eosinophils # (Auto) 0.1 x10^3/uL (0.0-0.7) Basophils # (Auto) 0.1 x10^3/uL (0.0-0.2) Sodium Level 137 mmol/L (136-145) Potassium Level 4.7 mmol/L (3.5-5.1) Chloride Level 100 mmol/L (98-107) Carbon Dioxide Level 31 mmol/L (21-32) Anion Gap 6 (6-14) Blood Urea Nitrogen 18 mg/dL (8-26) Creatinine 0.8 mg/dL (0.7-1.3) Estimated GFR (Cockcroft-Gault) 100.7 Glucose Level 122 mg/dL (70-99) Calcium Level 7.8 mg/dL (8.5-10.1) Phosphorus Level 3.4 mg/dL (2.6-4.7) Albumin 1.4 g/dL (3.4-5.0) Laboratory Tests Test 02/27/19 17:01 02/27/19 21:02 02/28/19 03:40 1/11/20 07:15 Glucose (Fingerstick) 137 mg/dL (70-99) 165 mg/dL (70-99) 125 mg/dL (70-99) White Blood Count 8.6 x10^3/uL (4.0-11.0) Red Blood Count 3.70 x10^6/uL (4.30-5.70) Hemoglobin 11.2 g/dL (13.0-17.5) Hematocrit 34.1 % (39.0-53.0) Mean Corpuscular Volume 92 fL (79-100) Mean Corpuscular Hemoglobin 30 pg (25-35) Mean Corpuscular Hemoglobin Concent 33 g/dL (31-37) Red Cell Distribution Width 16.2 % (11.5-14.5) Platelet Count 366 x10^3/uL (140-400) Neutrophils (%) (Auto) 76 % (31-73) Lymphocytes (%) (Auto) 16 % (24-48) Monocytes (%) (Auto) 5 % (0-9) Eosinophils (%) (Auto) 2 % (0-3) Basophils (%) (Auto) 1 % (0-3) Neutrophils # (Auto) 6.5 x10^3/uL (1.8-7.7) Lymphocytes # (Auto) 1.4 x10^3/uL (1.0-4.8) Monocytes # (Auto) 0.4 x10^3/uL (0.0-1.1) Eosinophils # (Auto) 0.1 x10^3/uL (0.0-0.7) Basophils # (Auto) 0.1 x10^3/uL (0.0-0.2) Sodium Level 137 mmol/L (136-145) Potassium Level 4.7 mmol/L (3.5-5.1) Chloride Level 100 mmol/L (98-107) Carbon Dioxide Level 31 mmol/L (21-32) Anion Gap 6 (6-14) Blood Urea Nitrogen 18 mg/dL (8-26) Creatinine 0.8 mg/dL (0.7-1.3) Estimated GFR (Cockcroft-Gault) 100.7 Glucose Level 122 mg/dL (70-99) Calcium Level 7.8 mg/dL (8.5-10.1) Phosphorus Level 3.4 mg/dL (2.6-4.7) Albumin 1.4 g/dL (3.4-5.0) Test 02/28/19 11:42 Glucose (Fingerstick) 168 mg/dL (70-99) Microbiology 02/21/19 Blood Culture - Final, Complete 02/21/19 Blood Culture Result 1 (SHASTA) - Final, Complete 02/21/19 Antimicrobic Susceptibility - Final, Complete Medications Current Medications Dextrose (Dextrose 50%-Water Syringe) 25 gm STK-MED ONCE IV ; Start 02/21/19 at 03:08; Stop 02/21/19 at 03:08; Status DC Dextrose (Dextrose 50%-Water Syringe) 25 gm 1X ONCE IV Last administered on 02/21/19at 05:59; Start 02/21/19 at 04:30; Stop 02/21/19 at 04:31; Status DC Sodium Chloride 1,000 ml @ 1,000 mls/hr Q1H IV Last administered on 02/21/19at 04:44; Start 02/21/19 at 04:30; Stop 02/21/19 at 05:29; Status DC Albuterol/ Ipratropium (Duoneb) 3 ml 1X ONCE NEB Last administered on 02/21/19at 04:19; Start 02/21/19 at 04:30; Stop 02/21/19 at 04:31; Status DC Methylprednisolone Sodium Succinate (SOLU-Medrol 125MG VIAL) 125 mg 1X ONCE IV Last administered on 02/21/19at 04:11; Start 02/21/19 at 04:30; Stop 02/21/19 at 04:31; Status DC Dextrose 500 ml @ 150 mls/hr 1X ONCE IV Last administered on 02/21/19at 04:30; Start 02/21/19 at 04:30; Stop 02/21/19 at 07:49; Status DC Vancomycin HCl 2 gm/Sodium Chloride 500 ml @ 250 mls/hr 1X ONCE IV Last administered on 02/21/19at 04:49; Start 02/21/19 at 04:30; Stop 02/21/19 at 06:29; Status DC Sodium Chloride 1,000 ml @ 1,000 mls/hr 1X ONCE IV ; Start 02/21/19 at 05:30; Stop 02/21/19 at 06:29; Status DC Ondansetron HCl (Zofran) 4 mg PRN Q8HRS PRN IV NAUSEA/VOMITING 1ST CHOICE; Start 02/21/19 at 05:30; Stop 02/21/19 at 11:17; Status DC Morphine Sulfate (Morphine Sulfate) 4 mg PRN Q2HR PRN IV SEVERE PAIN 7-10 Last administered on 02/21/19at 09:07; Start 02/21/19 at 05:30; Stop 02/22/19 at 05:29; Status DC Sodium Chloride 1,000 ml @ 100 mls/hr Q10H IV ; Start 02/21/19 at 06:00; Stop 02/21/19 at 12:45; Status DC Acetaminophen (Tylenol) 650 mg PRN Q4HRS PRN PO FEVER; Start 02/21/19 at 05:30; Stop 02/21/19 at 11:18; Status DC Albuterol/ Ipratropium (Duoneb) 3 ml RTQID NEB Last administered on 02/22/19at 07:51; Start 02/21/19 at 08:00; Stop 02/22/19 at 07:59; Status DC Piperacillin Sod/ Tazobactam Sod 3.375 gm/Sodium Chloride 50 ml @ 100 mls/hr 1X ONCE IV Last administered on 02/21/19at 05:47; Start 02/21/19 at 06:00; Stop at 06:29; Status DC Acetaminophen (Tylenol) 650 mg PRN Q6HRS PRN PO Headaches, Temp > 101.5' Last administered on 02/27/19at 16:46; Start 02/21/19 at 11:15 Ondansetron HCl (Zofran) 4 mg PRN Q6HRS PRN IV NAUSEA/VOMITING; Start 02/21/19 at 11:15 Famotidine (Pepcid Vial) 20 mg BID IVP Last administered on 02/23/19at 09:39; Start 02/21/19 at 11:30; Stop 02/23/19 at 15:27; Status DC Info (Icu Electrolyte Protocol) 1 ea DAILY MC Last administered on 02/22/19at 08:07; Start 02/22/19 at 09:00; Stop 02/23/19 at 15:22; Status DC Heparin Sodium (Porcine) (Heparin Sodium) 5,000 unit Q8HRS SQ Last administered on 02/24/19at 06:16; Start 02/21/19 at 14:00; Stop 02/24/19 at 09:32; Status DC Sodium Chloride (Normal Saline Flush) 3 ml QSHIFT PRN IV AFTER MEDS AND BLOOD DRAWS; Start 02/21/19 at 11:15 Docusate Sodium (Colace) 100 mg BID PO Last administered on 02/27/19at 21:40; Start 02/21/19 at 12:00 Bisacodyl (Dulcolax Supp) 10 mg PRN DAILY PRN ND CONSTIPATION; Start 02/21/19 at 11:15 Atenolol (Tenormin) 50 mg DAILY PO Last administered on 02/28/19at 09:08; Start 02/21/19 at 12:00 Chlorthalidone (Thalitone) 25 mg DAILY PO ; Start 02/21/19 at 12:00; Stop 02/21/19 at 12:45; Status DC Multivitamins (Thera M Plus) 1 tab DAILY PO Last administered on 02/25/19at 10:10; Start 02/21/19 at 12:00; Stop 02/25/19 at 15:20; Status DC Folic Acid (Folic Acid) 1 mg DAILY PO Last administered on 02/28/19at 09:08; Start 02/21/19 at 12:00 Thiamine Mononitrate (Vitamin B-1) 100 mg DAILY PO Last administered on 02/28/19at 09:08; Start 02/21/19 at 12:00 Lorazepam (Ativan) 4 mg PRN Q1HR PRN PO For CIWA 8-14 Last administered on 02/24/19at 08:49; Start 02/21/19 at 11:30 Lorazepam (Ativan) 8 mg PRN Q1HR PRN PO For CIWA 15 or greater; Start 02/21/19 at 11:30 Lorazepam (Ativan Inj) 2 mg PRN Q1HR PRN IV For CIWA 8-14 Last administered on 02/26/19at 21:08; Start 02/21/19 at 11:30 Lorazepam (Ativan Inj) 4 mg PRN Q1HR PRN IV For CIWA 15 or greater; Start 02/21/19 at 11:30 Haloperidol Lactate (Haldol Inj) 5 mg PRN Q4HRS PRN IVP Hallucinatns,Confusn,Delirium; Start 02/21/19 at 11:30 Clonidine HCl (Catapres) 0.1 mg PRN Q1HR PRN PO SBP > 180 or DBP > 100, MRX3 Last administered on 02/23/19at 20:24; Start 02/21/19 at 11:30 Lorazepam (Ativan Inj) 2 mg PRN Q15MIN PRN IV SEE COMMENTS; Start 02/21/19 at 11:30; Stop 02/23/19 at 15:23; Status DC Lorazepam (Ativan Inj) 4 mg PRN Q15MIN PRN IV SEE COMMENTS; Start 02/21/19 at 11:30; Stop 02/23/19 at 15:24; Status DC Potassium Chloride (Klor-Con) 20 meq 1X ONCE PO Last administered on 02/21/19at 13:53; Start 02/21/19 at 12:00; Stop 02/21/19 at 12:01; Status DC Ringer's Solution 1,000 ml @ 75 mls/hr [id number] IV Last administered on 02/21/19at 13:54; Start 02/21/19 at 13:00; Stop 02/21/19 at 16:07; Status DC Magnesium Sulfate 50 ml @ 25 mls/hr PRN DAILY PRN IV for Mag < 1.7 on am labs Last administered on 02/26/19at 08:54; Start 02/21/19 at 13:00 Linezolid (Zyvox) 600 mg BID PO Last administered on 02/28/19at 09:07; Start 02/21/19 at 13:30 Piperacillin Sod/ Tazobactam Sod 3.375 gm/Sodium Chloride 50 ml @ 100 mls/hr Q6HRS IV Last administered on 02/25/19at 04:49; Start 02/21/19 at 13:30; Stop 02/25/19 at 11:36; Status DC Lactobacillus Rhamnosus (Culturelle) 1 cap BID PO Last administered on 02/28/19at 09:08; Start 02/21/19 at 21:00 Aspirin (Children'S Aspirin) 81 mg [id number] PO Last administered on 02/21/19at 16:23; Start 02/21/19 at 15:30; Stop 02/21/19 at 16:46; Status DC Sodium Chloride 1,000 ml @ 75 mls/hr [id number] IV ; Start 02/22/19 at 03:00; Stop 02/21/19 at 16:14; Status DC Sodium Chloride 1,000 ml @ 75 mls/hr [id number] IV Last administered on 02/22/19at 07:58; Start 02/21/19 at 17:00; Stop 02/22/19 at 08:57; Status DC Aspirin (Flavia Aspirin) 325 mg DAILYWBKFT PO Last administered on 02/28/19at 09:07; Start 02/22/19 at 08:00 Albuterol/ Ipratropium (Duoneb) 3 ml RTQID NEB Last administered on 02/28/19at 11:09; Start 02/22/19 at 08:00 Potassium Chloride (Klor-Con) 40 meq 1X ONCE PO Last administered on 02/22/19at 08:16; Start 02/22/19 at 08:15; Stop 02/22/19 at 08:16; Status DC Potassium Chloride/Water 100 ml @ 100 mls/hr Q1H IV ; Start 02/22/19 at 09:00; Stop 02/22/19 at 10:59; Status DC Insulin Human Lispro (HumaLOG) 0-7 UNITS TIDWMEALS SQ Last administered on 02/28/19at 12:18; Start 02/22/19 at 17:00 Dextrose (Dextrose 50%-Water Syringe) 12.5 gm PRN Q15MIN PRN IV SEE COMMENTS; Start 02/22/19 at 14:45 Dextrose (Iv Dextrose 5%) 250 ml PRN Q15MIN PRN IV SEE COMMENTS; Start 02/22/19 at 14:45 Info (Non-Icu Electrolyte Protocol) 1 ea CONT PRN PRN MC SEE COMMENTS; Start 02/23/19 at 15:30 Famotidine (Pepcid) 20 mg BID PO Last administered on 02/28/19at 09:07; Start 02/23/19 at 21:00 Multivitamins (Thera M Plus) 1 tab DAILY PO Last administered on 02/28/19at 09:08; Start 02/24/19 at 09:00 Enoxaparin Sodium (Lovenox 40mg Syringe) 40 mg Q24H SQ Last administered on 02/27/19at 10:57; Start 02/24/19 at 10:00; Stop 02/27/19 at 14:04; Status DC Amoxicillin/ Clavulanate Potassium (Augmentin 875/ 125mg) 1 tab BID PO Last administered on 02/28/19at 09:07; Start 02/25/19 at 21:00 Magnesium Sulfate 50 ml @ 25 mls/hr 1X ONCE IV Last administered on 02/25/19at 15:00; Start 02/25/19 at 13:45; Stop 02/25/19 at 15:44; Status DC Magnesium Oxide (Magnesium Oxide) 400 mg DAILY PO Last administered on 02/28/19at 09:08; Start 02/27/19 at 09:00 Enoxaparin Sodium (Lovenox 60mg Syringe) 60 mg Q12HR SQ Last administered on 02/28/19at 09:07; Start 02/27/19 at 21:00 Active Scripts Active Reported Glipizide 5 Mg Tablet 1 Tab PO BID Metformin Hcl 1,000 Mg Tablet 1,000 Mg PO BIDWMEALS Atenolol 50 Mg Tablet 1 Tab PO DAILY Chlorthalidone (Chlorthalidone) 25 Mg Tablet 25 Mg PO DAILY Vitals/I & O Vital Sign - Last 24 Hours 02/27/19 02/27/19 02/27/19 02/27/19 15:20 15:30 19:40 20:00 Temp 97.3 97.6 97.3 97.6 Pulse 82 78 Resp 32 24 B/P (MAP) 159/82 (107) 158/93 (114) Pulse Ox 97 95 94 O2 Delivery Nasal Cannula Nasal Cannula Nasal Cannula O2 Flow Rate 2.0 2.0 2.0 2.0 02/27/19 02/27/19 02/27/19 02/28/19 20:00 21:02 23:39 03:34 Temp 98.3 97.5 98.3 97.5 Pulse 83 71 Resp 24 20 B/P (MAP) 161/86 (111) 141/75 (97) Pulse Ox 97 96 96 O2 Delivery Nasal Cannula BiPAP/CPAP Nasal Cannula Nasal Cannula O2 Flow Rate 2.0 2.0 2.0 02/28/19 02/28/19 02/28/1911/20 07:00 08:00 08:00 09:08 Temp 98.2 98.2 Pulse 73 73 Resp 20 B/P (MAP) 154/83 (106) 154/83 Pulse Ox 96 O2 Delivery Nasal Cannula Nasal Cannula O2 Flow Rate 2.0 2.0 2.0 02/28/19 02/28/19 02/28/19 02/28/19 09:18 11:00 11:11 11:12 Temp 97.9 97.9 Pulse 79 Resp 20 B/P (MAP) 147/81 (103) Pulse Ox 96 94 96 96 O2 Delivery Nasal Cannula Nasal Cannula Nasal Cannula Nasal Cannula O2 Flow Rate 2.0 2.0 2.0 2.0 Intake and Output 02/27/19 02/27/19 02/28/19 15:00 23:00 07:00 Intake Total 550 ml 230 ml 700 ml Output Total 325 ml 500 ml 850 ml Balance 225 ml -270 ml -150 ml CHRISTOPHER MATTHEWS MD Feb 28, 2019 14:38
[2019-02-28 15:00] VITALS: BP 162/87
[2019-02-28 19:00] VITALS: BP 149/77
[2019-02-28] MEDS: ACETAMINOPHEN 325 MG TABLET. PO PRN (20:41)
[2019-02-28 23:00] VITALS: BP 149/86
[2019-03-01 03:00] VITALS: BP 157/87
[2019-03-01 05:44] LABS: CALCIUM 7.8 mg/dL (8.5-10.1); CREATININE 0.8 mg/dL (0.7-1.3); GFR 100.7
[2019-03-01 05:46] LABS: POTASSIUM 4.8 mmol/L (3.5-5.1)
[2019-03-01 05:49] LABS: BASO # 0.1 x10^3/uL (0.0-0.2); BASO % 2 % (0-3); EOS # 0.1 x10^3/uL (0.0-0.7); EOS % 2 % (0-3); HEMATOCRIT 35.8 % (39.0-53.0); HEMOGLOBIN 11.6 g/dL (13.0-17.5); LYMPH # 1.2 x10^3/uL (1.0-4.8); LYMPH % 16 % (24-48); MEAN CORPUSCULAR HEMOGLOBIN 30 pg (25-35); MEAN CORPUSCULAR HGB CONC 33 g/dL (31-37); MEAN CORPUSCULAR VOLUME 93 fL (79-100); MONO # 0.4 x10^3/uL (0.0-1.1); MONO % 6 % (0-9); NEUT # 5.9 x10^3/uL (1.8-7.7); NEUT % 75 % (31-73); PLATELET COUNT 331 x10^3/uL (140-400); RED BLOOD COUNT 3.85 x10^6/uL (4.30-5.70); RED CELL DISTRIBUTION WIDTH 16.6 % (11.5-14.5); WHITE BLOOD COUNT 7.8 x10^3/uL (4.0-11.0)
[2019-03-01 07:00] VITALS: BP 154/92
[2019-03-01] MEDS: IPRATRPIUM/ALBUTEROL 0.5/2.5MG 3 ML NEBU. NEB SCH ×4 (07:29→19:27)
[2019-03-01] MEDS: INSULIN LISPRO 300 UNITS/3 ML VIAL. SQ SCH ×3 (08:00→16:43)
[2019-03-01] MEDS: DOCUSATE SODIUM 100 MG CAPSULE. PO SCH ×2 (09:00→20:26)
[2019-03-01] MEDS: AMOXICILLIN/K CLAV 875/125MG TABLET. PO SCH ×2 (09:28→20:26)
[2019-03-01] MEDS: FOLIC ACID 1 MG TABLET. PO SCH (09:28)
[2019-03-01] MEDS: LINEZOLID 600 MG TABLET PO SCH ×2 (09:28→20:26)
[2019-03-01] MEDS: FAMOTIDINE 20 MG TABLET. PO SCH ×2 (09:28→20:25)
[2019-03-01] MEDS: ASPIRIN 325 MG TABLET PO SCH (09:28)
[2019-03-01] MEDS: LACTOBACILLUS RHAMNOSUS GG 1 CAPSULE. PO SCH ×2 (09:28→20:25)
[2019-03-01] MEDS: MULTIVITAMIN with MINERAL TABLET. PO SCH (09:28)
[2019-03-01] MEDS: ATENOLOL 50 MG TABLET. PO SCH (09:29)
[2019-03-01] MEDS: MAGNESIUM OXIDE 400 MG TABLET PO SCH (09:29)
[2019-03-01] MEDS: THIAMINE 100 MG TABLET. PO SCH (09:29)
--- NOTE | 2019-03-01 10:15 | PDOC ---
PULMONARY PROGRESS NOTES Subjective remains on 2 liters N/C, wore BIPAP a few hours last night, denies increase in cough up to chair today no overnight concerns Vitals Vital Signs Date Time Temp Pulse Resp B/P (MAP) Pulse Ox O2 Delivery O2 Flow Rate FiO2 03/01/19 09:29 74 154/92 03/01/19 07:31 96 Nasal Cannula 2.0 03/01/19 07:00 97.7 21 97.7 ROS: No Nausea, No Chest Pain, No Abdominal Pain, No Increase Cough General: Alert, No acute distress Lungs: Other (decrease bases) Cardiovascular: S1 Abdomen: Soft, Other (obese) Neuro Exam: Alert Extremities: Other (lymphedema) Skin: Other (wounds of various stages) Labs Laboratory Tests Test 02/27/19 11:54 02/27/19 17:01 02/27/19 21:02 02/28/19 03:40 Glucose (Fingerstick) 141 mg/dL (70-99) 137 mg/dL (70-99) 165 mg/dL (70-99) White Blood Count 8.6 x10^3/uL (4.0-11.0) Red Blood Count 3.70 x10^6/uL (4.30-5.70) Hemoglobin 11.2 g/dL (13.0-17.5) Hematocrit 34.1 % (39.0-53.0) Mean Corpuscular Volume 92 fL (79-100) Mean Corpuscular Hemoglobin 30 pg (25-35) Mean Corpuscular Hemoglobin Concent 33 g/dL (31-37) Red Cell Distribution Width 16.2 % (11.5-14.5) Platelet Count 366 x10^3/uL (140-400) Neutrophils (%) (Auto) 76 % (31-73) Lymphocytes (%) (Auto) 16 % (24-48) Monocytes (%) (Auto) 5 % (0-9) Eosinophils (%) (Auto) 2 % (0-3) Basophils (%) (Auto) 1 % (0-3) Neutrophils # (Auto) 6.5 x10^3/uL (1.8-7.7) Lymphocytes # (Auto) 1.4 x10^3/uL (1.0-4.8) Monocytes # (Auto) 0.4 x10^3/uL (0.0-1.1) Eosinophils # (Auto) 0.1 x10^3/uL (0.0-0.7) Basophils # (Auto) 0.1 x10^3/uL (0.0-0.2) Sodium Level 137 mmol/L (136-145) Potassium Level 4.7 mmol/L (3.5-5.1) Chloride Level 100 mmol/L (98-107) Carbon Dioxide Level 31 mmol/L (21-32) Anion Gap 6 (6-14) Blood Urea Nitrogen 18 mg/dL (8-26) Creatinine 0.8 mg/dL (0.7-1.3) Estimated GFR (Cockcroft-Gault) 100.7 Glucose Level 122 mg/dL (70-99) Calcium Level 7.8 mg/dL (8.5-10.1) Phosphorus Level 3.4 mg/dL (2.6-4.7) Albumin 1.4 g/dL (3.4-5.0) Test 02/28/19 07:15 02/28/19 11:42 02/28/19 16:59 02/28/19 20:23 Glucose (Fingerstick) 125 mg/dL (70-99) 168 mg/dL (70-99) 145 mg/dL (70-99) 153 mg/dL (70-99) Test 03/01/19 04:25 03/01/19 07:40 White Blood Count 7.8 x10^3/uL (4.0-11.0) Red Blood Count 3.85 x10^6/uL (4.30-5.70) Hemoglobin 11.6 g/dL (13.0-17.5) Hematocrit 35.8 % (39.0-53.0) Mean Corpuscular Volume 93 fL (79-100) Mean Corpuscular Hemoglobin 30 pg (25-35) Mean Corpuscular Hemoglobin Concent 33 g/dL (31-37) Red Cell Distribution Width 16.6 % (11.5-14.5) Platelet Count 331 x10^3/uL (140-400) Neutrophils (%) (Auto) 75 % (31-73) Lymphocytes (%) (Auto) 16 % (24-48) Monocytes (%) (Auto) 6 % (0-9) Eosinophils (%) (Auto) 2 % (0-3) Basophils (%) (Auto) 2 % (0-3) Neutrophils # (Auto) 5.9 x10^3/uL (1.8-7.7) Lymphocytes # (Auto) 1.2 x10^3/uL (1.0-4.8) Monocytes # (Auto) 0.4 x10^3/uL (0.0-1.1) Eosinophils # (Auto) 0.1 x10^3/uL (0.0-0.7) Basophils # (Auto) 0.1 x10^3/uL (0.0-0.2) Sodium Level 136 mmol/L (136-145) Potassium Level 4.8 mmol/L (3.5-5.1) Chloride Level 102 mmol/L (98-107) Carbon Dioxide Level 28 mmol/L (21-32) Anion Gap 6 (6-14) Blood Urea Nitrogen 15 mg/dL (8-26) Creatinine 0.8 mg/dL (0.7-1.3) Estimated GFR (Cockcroft-Gault) 100.7 Glucose Level 120 mg/dL (70-99) Calcium Level 7.8 mg/dL (8.5-10.1) Glucose (Fingerstick) 99 mg/dL (70-99) Laboratory Tests Test 02/28/19 11:42 02/28/19 16:59 02/28/19 20:23 03/01/19 04:25 Glucose (Fingerstick) 168 mg/dL (70-99) 145 mg/dL (70-99) 153 mg/dL (70-99) White Blood Count 7.8 x10^3/uL (4.0-11.0) Red Blood Count 3.85 x10^6/uL (4.30-5.70) Hemoglobin 11.6 g/dL (13.0-17.5) Hematocrit 35.8 % (39.0-53.0) Mean Corpuscular Volume 93 fL (79-100) Mean Corpuscular Hemoglobin 30 pg (25-35) Mean Corpuscular Hemoglobin Concent 33 g/dL (31-37) Red Cell Distribution Width 16.6 % (11.5-14.5) Platelet Count 331 x10^3/uL (140-400) Neutrophils (%) (Auto) 75 % (31-73) Lymphocytes (%) (Auto) 16 % (24-48) Monocytes (%) (Auto) 6 % (0-9) Eosinophils (%) (Auto) 2 % (0-3) Basophils (%) (Auto) 2 % (0-3) Neutrophils # (Auto) 5.9 x10^3/uL (1.8-7.7) Lymphocytes # (Auto) 1.2 x10^3/uL (1.0-4.8) Monocytes # (Auto) 0.4 x10^3/uL (0.0-1.1) Eosinophils # (Auto) 0.1 x10^3/uL (0.0-0.7) Basophils # (Auto) 0.1 x10^3/uL (0.0-0.2) Sodium Level 136 mmol/L (136-145) Potassium Level 4.8 mmol/L (3.5-5.1) Chloride Level 102 mmol/L (98-107) Carbon Dioxide Level 28 mmol/L (21-32) Anion Gap 6 (6-14) Blood Urea Nitrogen 15 mg/dL (8-26) Creatinine 0.8 mg/dL (0.7-1.3) Estimated GFR (Cockcroft-Gault) 100.7 Glucose Level 120 mg/dL (70-99) Calcium Level 7.8 mg/dL (8.5-10.1) Test 03/01/19 07:40 Glucose (Fingerstick) 99 mg/dL (70-99) Medications Active Scripts Medications Dose Route/Sig Max Daily Dose Days Date Category Glipizide 5 Mg Tablet 1 Tab PO BID 02/21/19 Reported Metformin Hcl 1,000 Mg Tablet 1,000 Mg PO BIDWMEALS 02/21/19 Reported Atenolol 50 Mg Tablet 1 Tab PO DAILY 02/21/19 Reported Chlorthalidone (Chlorthalidone) 25 Mg Tablet 25 Mg PO DAILY 02/21/19 Reported Impression . 1. Acute on chronic respiratory failure secondary to multifactorial etiologies, including acute on chronic right heart failure, possible acute bronchitis. The patient is a nonsmoker. 2. Status post fall with profound weakness causing immobility for 12 hours. His BUN and creatinine suggesting a prerenal azotemia. 3. Severe protein-calorie malnutrition with an albumin level of 1.1. 4. Underlying obstructive sleep apnea with obesity hypoventilation syndrome. 5. Chronic compensated respiratory acidosis. Plan . 1. Discussed with RN. Continue with present oxygen. 2. BiPAP at bedtime and p.r.n. during the day, bring home CPAP to assist increase compliance 3. Monitor white cell count, normal for last three days 4. SEEMA resolved 5. Antibiotics per Infectious Disease currently on Augmentin 6. Continue bronchodilators. 7. DVT prophylaxis: lovenox 8. HTN per PCP 9. PT/OT Discussed with RN / awaiting CARYL LAGOS MD Mar 01, 2019 10:15
--- NOTE | 2019-03-01 10:43 | PDOC ---
Infectious Disease Note Subjective Subjective Comfortable, denies pain/N/V/D No fevers/chills Vital Sign Vital Signs Vital Signs Date Time Temp Pulse Resp B/P (MAP) Pulse Ox O2 Delivery O2 Flow Rate FiO2 03/01/19 09:29 74 154/92 03/01/19 07:31 96 Nasal Cannula 2.0 03/01/19 07:00 97.7 21 97.7 Physical Exam PHYSICAL EXAM GENERAL: Sitting in the chair, alert, legs down HEENT: Pupils are round and reacting. Oral cavity clear, Crusts lips NECK: Supple LUNGS: Clear. HEART: S1, S2 regular. ABDOMEN: Obese, soft, nontender : Kimbrough in place EXTREMITIES: RLE mildly red, Chronic venous insufficiency and stasis dermatitis changes present. NEUROLOGIC: Alert, ansers questions appropriately PIV Labs Lab Laboratory Tests Test 02/28/19 11:42 02/28/19 16:59 02/28/19 20:23 03/01/19 04:25 Glucose (Fingerstick) 168 mg/dL (70-99) 145 mg/dL (70-99) 153 mg/dL (70-99) White Blood Count 7.8 x10^3/uL (4.0-11.0) Red Blood Count 3.85 x10^6/uL (4.30-5.70) Hemoglobin 11.6 g/dL (13.0-17.5) Hematocrit 35.8 % (39.0-53.0) Mean Corpuscular Volume 93 fL (79-100) Mean Corpuscular Hemoglobin 30 pg (25-35) Mean Corpuscular Hemoglobin Concent 33 g/dL (31-37) Red Cell Distribution Width 16.6 % (11.5-14.5) Platelet Count 331 x10^3/uL (140-400) Neutrophils (%) (Auto) 75 % (31-73) Lymphocytes (%) (Auto) 16 % (24-48) Monocytes (%) (Auto) 6 % (0-9) Eosinophils (%) (Auto) 2 % (0-3) Basophils (%) (Auto) 2 % (0-3) Neutrophils # (Auto) 5.9 x10^3/uL (1.8-7.7) Lymphocytes # (Auto) 1.2 x10^3/uL (1.0-4.8) Monocytes # (Auto) 0.4 x10^3/uL (0.0-1.1) Eosinophils # (Auto) 0.1 x10^3/uL (0.0-0.7) Basophils # (Auto) 0.1 x10^3/uL (0.0-0.2) Sodium Level 136 mmol/L (136-145) Potassium Level 4.8 mmol/L (3.5-5.1) Chloride Level 102 mmol/L (98-107) Carbon Dioxide Level 28 mmol/L (21-32) Anion Gap 6 (6-14) Blood Urea Nitrogen 15 mg/dL (8-26) Creatinine 0.8 mg/dL (0.7-1.3) Estimated GFR (Cockcroft-Gault) 100.7 Glucose Level 120 mg/dL (70-99) Calcium Level 7.8 mg/dL (8.5-10.1) Test 03/01/19 07:40 Glucose (Fingerstick) 99 mg/dL (70-99) Micro /. BLD CULT RESULT 1 Final Comment Staphylococcus species Performed at: DA - [facility] [address], [place], [place] [id number] Meter/Relay Technician: TRENTON Bo MD, Phone: [phone] Staphylococcus hominis Based on resistance to oxacillin this isolate would be resistant to all currently available beta-lactam antimicrobial agents, with the exception of the newer cephalosporins with anti-MRSA activity, such as Ceftaroline ANTIMICROBIAL SUSCEPTIBILITY Final Comment S = Susceptible; I = Intermediate; R = Resistant P = Positive; N = Negative MICS are expressed in micrograms per mL Antibiotic RSLT#1 RSLT#2 RSLT#3 RSLT#4 Ciprofloxacin S<=0.5 Clindamycin S<=0.25 Erythromycin S<=0.25 Gentamicin S<=0.5 Levofloxacin S =0.5 Oxacillin R =R Penicillin R>=0.5 Rifampin S<=0.5 Tetracycline S<=1 Trimethoprim/Sulfa S =40 Vancomycin S<=0.5 Objective Assessment Right lower extremity extensive cellulitis. Leukocytosis - some better Lactic acidosis with the early sepsis. Morbid obesity. Diabetes. Hypertension. Venous insufficiency and stasis dermatitis. Left arm weakness BC 1/ likely contaminant, Staphylococcus hominis-oxicillin R Plan Plan of Care po zyvox (02/21) and Augmentin (02/25) Probiotics Leg elevation PT/OT Attending Co-Sign The patient was seen and interviewed as well as examined at the bedside. The chart was reviewed. The case was discussed. Agree with the plan of care. FRANCESCA VIGIL APRN Mar 01, 2019 10:43 ANA LUISA COUGHLIN MD Mar 01, 2019 11:04
[2019-03-01 11:00] VITALS: BP 147/88
--- NOTE | 2019-03-01 14:50 | PDOC ---
PROGRESS NOTES Chief Complaint Chief Complaint Resp failure resolved Severe sepsis resolved Extreme morbid obesity with BMI of 60 BCT hypoventilation syndrome Cellulitis of right leg, severe with lymphedema, chronic venous stasis Hypoglycemia sec to glipizide secondary to most likely due to renal dysfunction Acute renal failure improved Dehydration improved Dyspnea Hypoglycemia History of Severe alcohol abuse no evidence of withdrawal of the present time Fall at home Severe debility CHF Proteinuria in the nephritic range. Patient also has low anion gap and hypercalcemia of 10.3 once is corrected for albumin. this raises concern for underlying paraproteinemia. i.e. myeloma multiple. Patient may benefit from a skeletal survey but given his size which has prevented further diagnosis might prove quite challenging. Left arm weakness, patient has been seen by neurology and unfortunately given his size again cannot undergo further imaging studies. EMGs planned to be done in a couple of weeks, as per software consultant this could also may well be a conversion syndrome. As per nursing staff his symptoms seem to be resolving and improving on a daily basis. We will continue to follow clinically Plan antibiotics Supportive measures Wound care Encourage ambulation Increase activity as tolerated Case management to help with placement History of Present Illness History of Present Illness 02/28: Patient with no new complaints. Sitting in chair in no acute distress, Patient still having quite a bit of fluid draining from his right lower extremity, Fevers overnight Today is the first day he has been out of bed. Legs still weeping. Kimbrough still in place, he does not feel comfortable with removing it. Encouraged to ambulated. SOB improved. Overnight BIPAP. No CP. Vitals Vitals Vital Signs Date Time Temp Pulse Resp B/P (MAP) Pulse Ox O2 Delivery O2 Flow Rate FiO2 03/01/19 11:30 96 Nasal Cannula 2.0 03/01/19 11:00 97.9 74 21 147/88 (107) 97.9 Physical Exam Physical Exam GENERAL: Sitting in the chair, alert, legs down HEENT: Pupils are round and reacting. Oral cavity clear, Crusts lips NECK: Supple LUNGS: Clear. HEART: S1, S2 regular. ABDOMEN: Obese, soft, nontender : Kimbrough in place EXTREMITIES: RLE mildly red, Chronic venous insufficiency and stasis dermatitis changes present. NEUROLOGIC: Alert, ansers questions appropriately PIV General: Cooperative, mild distress Heart: Regular rate, Normal S1 Lungs: Other (decrease bases) Abdomen: Normal bowel sounds, Soft, No tenderness, No hepatosplenomegaly, Other (morbidly obese) Extremities: Other (2-3+ pitting edema with chronic changes and hyperemia RLE, 1+ edema with hyperpigmentation LLE) Skin: Other (massive rash on r leg) Labs LABS Laboratory Tests Test 02/28/19 16:59 02/28/19 20:23 03/01/19 04:25 03/01/19 07:40 Glucose (Fingerstick) 145 mg/dL (70-99) 153 mg/dL (70-99) 99 mg/dL (70-99) White Blood Count 7.8 x10^3/uL (4.0-11.0) Red Blood Count 3.85 x10^6/uL (4.30-5.70) Hemoglobin 11.6 g/dL (13.0-17.5) Hematocrit 35.8 % (39.0-53.0) Mean Corpuscular Volume 93 fL (79-100) Mean Corpuscular Hemoglobin 30 pg (25-35) Mean Corpuscular Hemoglobin Concent 33 g/dL (31-37) Red Cell Distribution Width 16.6 % (11.5-14.5) Platelet Count 331 x10^3/uL (140-400) Neutrophils (%) (Auto) 75 % (31-73) Lymphocytes (%) (Auto) 16 % (24-48) Monocytes (%) (Auto) 6 % (0-9) Eosinophils (%) (Auto) 2 % (0-3) Basophils (%) (Auto) 2 % (0-3) Neutrophils # (Auto) 5.9 x10^3/uL (1.8-7.7) Lymphocytes # (Auto) 1.2 x10^3/uL (1.0-4.8) Monocytes # (Auto) 0.4 x10^3/uL (0.0-1.1) Eosinophils # (Auto) 0.1 x10^3/uL (0.0-0.7) Basophils # (Auto) 0.1 x10^3/uL (0.0-0.2) Sodium Level 136 mmol/L (136-145) Potassium Level 4.8 mmol/L (3.5-5.1) Chloride Level 102 mmol/L (98-107) Carbon Dioxide Level 28 mmol/L (21-32) Anion Gap 6 (6-14) Blood Urea Nitrogen 15 mg/dL (8-26) Creatinine 0.8 mg/dL (0.7-1.3) Estimated GFR (Cockcroft-Gault) 100.7 Glucose Level 120 mg/dL (70-99) Calcium Level 7.8 mg/dL (8.5-10.1) Test 03/01/19 11:41 Glucose (Fingerstick) 211 mg/dL (70-99) Assessment and Plan Assessmemt and Plan Problems Medical Problems: (1) Acute renal failure Status: Acute (2) Cellulitis of right leg Status: Acute (3) Dehydration Status: Acute (4) Dyspnea Status: Acute (5) Hypoglycemia Status: Acute (6) Severe sepsis Status: Acute Comment Review of Relevant I have reviewed the following items robert (where applicable) has been applied. Labs Laboratory Tests Test 02/27/19 17:01 02/27/19 21:02 02/28/19 03:40 02/28/19 07:15 Glucose (Fingerstick) 137 mg/dL (70-99) 165 mg/dL (70-99) 125 mg/dL (70-99) White Blood Count 8.6 x10^3/uL (4.0-11.0) Red Blood Count 3.70 x10^6/uL (4.30-5.70) Hemoglobin 11.2 g/dL (13.0-17.5) Hematocrit 34.1 % (39.0-53.0) Mean Corpuscular Volume 92 fL (79-100) Mean Corpuscular Hemoglobin 30 pg (25-35) Mean Corpuscular Hemoglobin Concent 33 g/dL (31-37) Red Cell Distribution Width 16.2 % (11.5-14.5) Platelet Count 366 x10^3/uL (140-400) Neutrophils (%) (Auto) 76 % (31-73) Lymphocytes (%) (Auto) 16 % (24-48) Monocytes (%) (Auto) 5 % (0-9) Eosinophils (%) (Auto) 2 % (0-3) Basophils (%) (Auto) 1 % (0-3) Neutrophils # (Auto) 6.5 x10^3/uL (1.8-7.7) Lymphocytes # (Auto) 1.4 x10^3/uL (1.0-4.8) Monocytes # (Auto) 0.4 x10^3/uL (0.0-1.1) Eosinophils # (Auto) 0.1 x10^3/uL (0.0-0.7) Basophils # (Auto) 0.1 x10^3/uL (0.0-0.2) Sodium Level 137 mmol/L (136-145) Potassium Level 4.7 mmol/L (3.5-5.1) Chloride Level 100 mmol/L (98-107) Carbon Dioxide Level 31 mmol/L (21-32) Anion Gap 6 (6-14) Blood Urea Nitrogen 18 mg/dL (8-26) Creatinine 0.8 mg/dL (0.7-1.3) Estimated GFR (Cockcroft-Gault) 100.7 Glucose Level 122 mg/dL (70-99) Calcium Level 7.8 mg/dL (8.5-10.1) Phosphorus Level 3.4 mg/dL (2.6-4.7) Albumin 1.4 g/dL (3.4-5.0) Test 02/28/19 11:42 02/28/19 16:59 02/28/19 20:23 03/01/19 04:25 Glucose (Fingerstick) 168 mg/dL (70-99) 145 mg/dL (70-99) 153 mg/dL (70-99) White Blood Count 7.8 x10^3/uL (4.0-11.0) Red Blood Count 3.85 x10^6/uL (4.30-5.70) Hemoglobin 11.6 g/dL (13.0-17.5) Hematocrit 35.8 % (39.0-53.0) Mean Corpuscular Volume 93 fL (79-100) Mean Corpuscular Hemoglobin 30 pg (25-35) Mean Corpuscular Hemoglobin Concent 33 g/dL (31-37) Red Cell Distribution Width 16.6 % (11.5-14.5) Platelet Count 331 x10^3/uL (140-400) Neutrophils (%) (Auto) 75 % (31-73) Lymphocytes (%) (Auto) 16 % (24-48) Monocytes (%) (Auto) 6 % (0-9) Eosinophils (%) (Auto) 2 % (0-3) Basophils (%) (Auto) 2 % (0-3) Neutrophils # (Auto) 5.9 x10^3/uL (1.8-7.7) Lymphocytes # (Auto) 1.2 x10^3/uL (1.0-4.8) Monocytes # (Auto) 0.4 x10^3/uL (0.0-1.1) Eosinophils # (Auto) 0.1 x10^3/uL (0.0-0.7) Basophils # (Auto) 0.1 x10^3/uL (0.0-0.2) Sodium Level 136 mmol/L (136-145) Potassium Level 4.8 mmol/L (3.5-5.1) Chloride Level 102 mmol/L (98-107) Carbon Dioxide Level 28 mmol/L (21-32) Anion Gap 6 (6-14) Blood Urea Nitrogen 15 mg/dL (8-26) Creatinine 0.8 mg/dL (0.7-1.3) Estimated GFR (Cockcroft-Gault) 100.7 Glucose Level 120 mg/dL (70-99) Calcium Level 7.8 mg/dL (8.5-10.1) Test 03/01/19 07:40 03/01/19 11:41 Glucose (Fingerstick) 99 mg/dL (70-99) 211 mg/dL (70-99) Laboratory Tests Test 02/28/19 16:59 02/28/19 20:23 03/01/19 04:25 03/01/19 07:40 Glucose (Fingerstick) 145 mg/dL (70-99) 153 mg/dL (70-99) 99 mg/dL (70-99) White Blood Count 7.8 x10^3/uL (4.0-11.0) Red Blood Count 3.85 x10^6/uL (4.30-5.70) Hemoglobin 11.6 g/dL (13.0-17.5) Hematocrit 35.8 % (39.0-53.0) Mean Corpuscular Volume 93 fL (79-100) Mean Corpuscular Hemoglobin 30 pg (25-35) Mean Corpuscular Hemoglobin Concent 33 g/dL (31-37) Red Cell Distribution Width 16.6 % (11.5-14.5) Platelet Count 331 x10^3/uL (140-400) Neutrophils (%) (Auto) 75 % (31-73) Lymphocytes (%) (Auto) 16 % (24-48) Monocytes (%) (Auto) 6 % (0-9) Eosinophils (%) (Auto) 2 % (0-3) Basophils (%) (Auto) 2 % (0-3) Neutrophils # (Auto) 5.9 x10^3/uL (1.8-7.7) Lymphocytes # (Auto) 1.2 x10^3/uL (1.0-4.8) Monocytes # (Auto) 0.4 x10^3/uL (0.0-1.1) Eosinophils # (Auto) 0.1 x10^3/uL (0.0-0.7) Basophils # (Auto) 0.1 x10^3/uL (0.0-0.2) Sodium Level 136 mmol/L (136-145) Potassium Level 4.8 mmol/L (3.5-5.1) Chloride Level 102 mmol/L (98-107) Carbon Dioxide Level 28 mmol/L (21-32) Anion Gap 6 (6-14) Blood Urea Nitrogen 15 mg/dL (8-26) Creatinine 0.8 mg/dL (0.7-1.3) Estimated GFR (Cockcroft-Gault) 100.7 Glucose Level 120 mg/dL (70-99) Calcium Level 7.8 mg/dL (8.5-10.1) Test 03/01/19 11:41 Glucose (Fingerstick) 211 mg/dL (70-99) Microbiology 02/21/19 Blood Culture - Final, Complete 02/21/19 Blood Culture Result 1 (SHASTA) - Final, Complete 02/21/19 Antimicrobic Susceptibility - Final, Complete Medications Current Medications Dextrose (Dextrose 50%-Water Syringe) 25 gm STK-MED ONCE IV ; Start 02/21/19 at 03:08; Stop 02/21/19 at 03:08; Status DC Dextrose (Dextrose 50%-Water Syringe) 25 gm 1X ONCE IV Last administered on 02/21/19at 05:59; Start 02/21/19 at 04:30; Stop 02/21/19 at 04:31; Status DC Sodium Chloride 1,000 ml @ 1,000 mls/hr Q1H IV Last administered on 02/21/19at 04:44; Start 02/21/19 at 04:30; Stop 02/21/19 at 05:29; Status DC Albuterol/ Ipratropium (Duoneb) 3 ml 1X ONCE NEB Last administered on 02/21/19at 04:19; Start 02/21/19 at 04:30; Stop 02/21/19 at 04:31; Status DC Methylprednisolone Sodium Succinate (SOLU-Medrol 125MG VIAL) 125 mg 1X ONCE IV Last administered on 02/21/19at 04:11; Start 02/21/19 at 04:30; Stop 02/21/19 at 04:31; Status DC Dextrose 500 ml @ 150 mls/hr 1X ONCE IV Last administered on 02/21/19at 04:30; Start 02/21/19 at 04:30; Stop 02/21/19 at 07:49; Status DC Vancomycin HCl 2 gm/Sodium Chloride 500 ml @ 250 mls/hr 1X ONCE IV Last administered on 02/21/19at 04:49; Start 02/21/19 at 04:30; Stop 02/21/19 at 06:29; Status DC Sodium Chloride 1,000 ml @ 1,000 mls/hr 1X ONCE IV ; Start 02/21/19 at 05:30; Stop 02/21/19 at 06:29; Status DC Ondansetron HCl (Zofran) 4 mg PRN Q8HRS PRN IV NAUSEA/VOMITING 1ST CHOICE; Start 02/21/19 at 05:30; Stop 02/21/19 at 11:17; Status DC Morphine Sulfate (Morphine Sulfate) 4 mg PRN Q2HR PRN IV SEVERE PAIN 7-10 Last administered on 02/21/19at 09:07; Start 02/21/19 at 05:30; Stop 02/22/19 at 05:29; Status DC Sodium Chloride 1,000 ml @ 100 mls/hr Q10H IV ; Start 02/21/19 at 06:00; Stop 02/21/19 at 12:45; Status DC Acetaminophen (Tylenol) 650 mg PRN Q4HRS PRN PO FEVER; Start 02/21/19 at 05:30; Stop 02/21/19 at 11:18; Status DC Albuterol/ Ipratropium (Duoneb) 3 ml RTQID NEB Last administered on 02/22/19at 07:51; Start 02/21/19 at 08:00; Stop 02/22/19 at 07:59; Status DC Piperacillin Sod/ Tazobactam Sod 3.375 gm/Sodium Chloride 50 ml @ 100 mls/hr 1X ONCE IV Last administered on 02/21/19at 05:47; Start 02/21/19 at 06:00; Stop 02/21/19 at 06:29; Status DC Acetaminophen (Tylenol) 650 mg PRN Q6HRS PRN PO Headaches, Temp > 101.5' Last administered on 02/28/19at 20:41; Start 02/21/19 at 11:15 Ondansetron HCl (Zofran) 4 mg PRN Q6HRS PRN IV NAUSEA/VOMITING; Start 02/21/19 at 11:15 Famotidine (Pepcid Vial) 20 mg BID IVP Last administered on 02/23/19at 09:39; Start 02/21/19 at 11:30; Stop 02/23/19 at 15:27; Status DC Info (Icu Electrolyte Protocol) 1 ea DAILY MC Last administered on 02/22/19at 0 8:07; Start 02/22/19 at 09:00; Stop 02/23/19 at 15:22; Status DC Heparin Sodium (Porcine) (Heparin Sodium) 5,000 unit Q8HRS SQ Last administered on 02/24/19at 06:16; Start 02/21/19 at 14:00; Stop 02/24/19 at 09:32; Status DC Sodium Chloride (Normal Saline Flush) 3 ml QSHIFT PRN IV AFTER MEDS AND BLOOD DRAWS; Start 02/21/19 at 11:15 Docusate Sodium (Colace) 100 mg BID PO Last administered on 02/27/19at 21:40; Start 02/21/19 at 12:00 Bisacodyl (Dulcolax Supp) 10 mg PRN DAILY PRN OR CONSTIPATION; Start 02/21/19 at 11:15 Atenolol (Tenormin) 50 mg DAILY PO Last administered on 03/01/19at 09:29; Start 02/21/19 at 12:00 Chlorthalidone (Thalitone) 25 mg DAILY PO ; Start 02/21/19 at 12:00; Stop 02/21/19 at 12:45; Status DC Multivitamins (Thera M Plus) 1 tab DAILY PO Last administered on 02/25/19at 10:10; Start 02/21/19 at 12:00; Stop 02/25/19 at 15:20; Status DC Folic Acid (Folic Acid) 1 mg DAILY PO Last administered on 03/01/19at 09:28; Start 02/21/19 at 12:00 Thiamine Mononitrate (Vitamin B-1) 100 mg DAILY PO Last administered on 03/01/19at 09:29; Start 02/21/19 at 12:00 Lorazepam (Ativan) 4 mg PRN Q1HR PRN PO For CIWA 8-14 Last administered on 02/24/19at 08:49; Start 02/21/19 at 11:30 Lorazepam (Ativan) 8 mg PRN Q1HR PRN PO For CIWA 15 or greater; Start 02/21/19 at 11:30 Lorazepam (Ativan Inj) 2 mg PRN Q1HR PRN IV For CIWA 8-14 Last administered on 02/26/19at 21:08; Start 02/21/19 at 11:30 Lorazepam (Ativan Inj) 4 mg PRN Q1HR PRN IV For CIWA 15 or greater; Start 02/21/19 at 11:30 Haloperidol Lactate (Haldol Inj) 5 mg PRN Q4HRS PRN IVP Hallucinatns,Confusn,Delirium; Start 02/21/19 at 11:30 Clonidine HCl (Catapres) 0.1 mg PRN Q1HR PRN PO SBP > 180 or DBP > 100, MRX3 Last administered on 02/23/19at 20:24; Start 02/21/19 at 11:30 Lorazepam (Ativan Inj) 2 mg PRN Q15MIN PRN IV SEE COMMENTS; Start 02/21/19 at 11:30; Stop 02/23/19 at 15:23; Status DC Lorazepam (Ativan Inj) 4 mg PRN Q15MIN PRN IV SEE COMMENTS; Start 02/21/19 at 11:30; Stop 02/23/19 at 15:24; Status DC Potassium Chloride (Klor-Con) 20 meq 1X ONCE PO Last administered on 02/21/19at 13:53; Start 02/21/19 at 12:00; Stop 02/21/19 at 12:01; Status DC Ringer's Solution 1,000 ml @ 75 mls/hr [id number] IV Last administered on 02/21/19at 13:54; Start 02/21/19 at 13:00; Stop 02/21/19 at 16:07; Status DC Magnesium Sulfate 50 ml @ 25 mls/hr PRN DAILY PRN IV for Mag < 1.7 on am labs Last administered on 02/26/19at 08:54; Start 02/21/19 at 13:00 Linezolid (Zyvox) 600 mg BID PO Last administered on 03/01/19at 09:28; Start 02/21/19 at 13:30 Piperacillin Sod/ Tazobactam Sod 3.375 gm/Sodium Chloride 50 ml @ 100 mls/hr Q6HRS IV Last administered on 02/25/19at 04:49; Start 02/21/19 at 13:30; Stop 02/25/19 at 11:36; Status DC Lactobacillus Rhamnosus (Culturelle) 1 cap BID PO Last administered on 03/01/19at 09:28; Start 02/21/19 at 21:00 Aspirin (Children'S Aspirin) 81 mg [id number] PO Last administered on 02/21/19at 16:23; Start 02/21/19 at 15:30; Stop 02/21/19 at 16:46; Status DC Sodium Chloride 1,000 ml @ 75 mls/hr [id number] IV ; Start 02/22/19 at 03:00; Stop 02/21/19 at 16:14; Status DC Sodium Chloride 1,000 ml @ 75 mls/hr [id number] IV Last administered on 02/22/19at 07:58; Start 02/21/19 at 17:00; Stop 02/22/19 at 08:57; Status DC Aspirin (Flavia Aspirin) 325 mg [id number] PO Last administered on 03/01/19at 09:28; Start 02/22/19 at 08:00 Albuterol/ Ipratropium (Duoneb) 3 ml RTQID NEB Last administered on 03/01/19at 11:28; Start 02/22/19 at 08:00 Potassium Chloride (Klor-Con) 40 meq 1X ONCE PO Last administered on 02/22/19at 08:16; Start 02/22/19 at 08:15; Stop 02/22/19 at 08:16; Status DC Potassium Chloride/Water 100 ml @ 100 mls/hr Q1H IV ; Start 02/22/19 at 09:00; Stop 02/22/19 at 10:59; Status DC Insulin Human Lispro (HumaLOG) 0-7 UNITS TIDWMEALS SQ Last administered on 03/01/19at 12:14; Start 02/22/19 at 17:00 Dextrose (Dextrose 50%-Water Syringe) 12.5 gm PRN Q15MIN PRN IV SEE COMMENTS; Start 02/22/19 at 14:45 Dextrose (Iv Dextrose 5%) 250 ml PRN Q15MIN PRN IV SEE COMMENTS; Start 02/22/19 at 14:45 Info (Non-Icu Electrolyte Protocol) 1 ea CONT PRN PRN MC SEE COMMENTS; Start 02/23/19 at 15:30 Famotidine (Pepcid) 20 mg BID PO Last administered on 03/01/19at 09:28; Start 02/23/19 at 21:00 Multivitamins (Thera M Plus) 1 tab DAILY PO Last administered on 03/01/19at 09:28; Start 02/24/19 at 09:00 Enoxaparin Sodium (Lovenox 40mg Syringe) 40 mg Q24H SQ Last administered on 02/27/19at 10:57; Start 02/24/19 at 10:00; Stop 02/27/19 at 14:04; Status DC Amoxicillin/ Clavulanate Potassium (Augmentin 875/ 125mg) 1 tab BID PO Last administered on 03/01/19at 09:28; Start 02/25/19 at 21:00 Magnesium Sulfate 50 ml @ 25 mls/hr 1X ONCE IV Last administered on 02/25/19at 15:00; Start 02/25/19 at 13:45; Stop 02/25/19 at 15:44; Status DC Magnesium Oxide (Magnesium Oxide) 400 mg DAILY PO Last administered on 03/01/19at 09:29; Start 02/27/19 at 09:00 Enoxaparin Sodium (Lovenox 60mg Syringe) 60 mg Q12HR SQ Last administered on 03/01/19at 09:33; Start 02/27/19 at 21:00 Active Scripts Active Reported Glipizide 5 Mg Tablet 1 Tab PO BID Metformin Hcl 1,000 Mg Tablet 1,000 Mg PO BIDWMEALS Atenolol 50 Mg Tablet 1 Tab PO DAILY Chlorthalidone (Chlorthalidone) 25 Mg Tablet 25 Mg PO DAILY Vitals/I & O Vital Sign - Last 24 Hours 02/28/19 02/28/19 02/28/19 02/28/19 15:00 15:58 19:00 20:00 Temp 98.6 98.5 98.6 98.5 Pulse 73 74 Resp 20 18 B/P (MAP) 162/87 (112) 149/77 (101) Pulse Ox 95 96 94 O2 Delivery Nasal Cannula Nasal Cannula Nasal Cannula Nasal Cannula O2 Flow Rate 2.0 2.0 2.0 2.0 02/28/19 02/28/19 02/28/19 02/28/19 20:00 20:11 22:35 23:00 Temp 98.3 98.3 Pulse 71 Resp 20 B/P (MAP) 149/86 (107) Pulse Ox 96 95 O2 Delivery Nasal Cannula BiPAP/CPAP Nasal Cannula O2 Flow Rate 2.0 2.0 2.0 02/28/19 03/01/19 03/01/19 03/01/19 23:41 03:00 07:00 07:31 Temp 98.3 97.7 98.3 97.7 Pulse 69 74 Resp 21 21 B/P (MAP) 157/87 (110) 154/92 (112) Pulse Ox 95 97 96 96 O2 Delivery BiPAP/CPAP Nasal Cannula Nasal Cannula Nasal Cannula O2 Flow Rate 2.0 2.0 2.0 03/01/19 03/01/19 03/01/19 03/01/19 08:00 08:00 09:29 11:00 Temp 97.9 97.9 Pulse 74 74 Resp 21 B/P (MAP) 154/92 147/88 (107) Pulse Ox 98 O2 Delivery Nasal Cannula Nasal Cannula O2 Flow Rate 2.0 2.0 2.0 03/01/19 11:30 Pulse Ox 96 O2 Delivery Nasal Cannula O2 Flow Rate 2.0 Intake and Output 02/28/19 02/28/19 03/01/19 15:00 23:00 07:00 Output Total 775 ml 500 ml Balance -775 ml -500 ml SRAVANI BARNEY MD Mar 01, 2019 14:50
[2019-03-01 15:00] VITALS: BP 147/89
[2019-03-01 19:10] VITALS: BP 156/80
[2019-03-01] MEDS: ACETAMINOPHEN 325 MG TABLET. PO PRN (20:25)
[2019-03-01 23:05] VITALS: BP 154/87
[2019-03-02 03:15] VITALS: BP 149/83
[2019-03-02] MEDS: IPRATRPIUM/ALBUTEROL 0.5/2.5MG 3 ML NEBU. NEB SCH ×4 (07:05→20:52)
[2019-03-02 07:35] LABS: BASO # 0.1 x10^3/uL (0.0-0.2); BASO % 1 % (0-3); EOS # 0.1 x10^3/uL (0.0-0.7); EOS % 1 % (0-3); HEMATOCRIT 33.5 % (39.0-53.0); LYMPH # 1.4 x10^3/uL (1.0-4.8); LYMPH % 13 % (24-48); MEAN CORPUSCULAR HEMOGLOBIN 30 pg (25-35); MEAN CORPUSCULAR HGB CONC 33 g/dL (31-37); MEAN CORPUSCULAR VOLUME 92 fL (79-100); MONO # 0.6 x10^3/uL (0.0-1.1); MONO % 6 % (0-9); NEUT # 8.7 x10^3/uL (1.8-7.7); NEUT % 79 % (31-73); PLATELET COUNT 365 x10^3/uL (140-400); RED BLOOD COUNT 3.65 x10^6/uL (4.30-5.70); RED CELL DISTRIBUTION WIDTH 16.1 % (11.5-14.5)
[2019-03-02 07:50] VITALS: BP 144/88
[2019-03-02] MEDS: INSULIN LISPRO 300 UNITS/3 ML VIAL. SQ SCH ×3 (08:00→16:40)
[2019-03-02 08:16] LABS: CALCIUM 8.3 mg/dL (8.5-10.1); CREATININE 0.9 mg/dL (0.7-1.3); GFR 87.9; POTASSIUM 4.4 mmol/L (3.5-5.1)
[2019-03-02] MEDS: MULTIVITAMIN with MINERAL TABLET. PO SCH (08:43)
[2019-03-02] MEDS: ASPIRIN 325 MG TABLET PO SCH (08:43)
[2019-03-02] MEDS: AMOXICILLIN/K CLAV 875/125MG TABLET. PO SCH ×2 (08:43→20:55)
[2019-03-02] MEDS: THIAMINE 100 MG TABLET. PO SCH (08:44)
[2019-03-02] MEDS: FAMOTIDINE 20 MG TABLET. PO SCH ×2 (08:44→20:55)
[2019-03-02] MEDS: LINEZOLID 600 MG TABLET PO SCH ×2 (08:44→20:54)
[2019-03-02] MEDS: FOLIC ACID 1 MG TABLET. PO SCH (08:44)
[2019-03-02] MEDS: MAGNESIUM OXIDE 400 MG TABLET PO SCH (08:44)
[2019-03-02] MEDS: ATENOLOL 50 MG TABLET. PO SCH (08:44)
[2019-03-02] MEDS: DOCUSATE SODIUM 100 MG CAPSULE. PO SCH ×2 (09:00→20:55)
--- NOTE | 2019-03-02 10:41 | PDOC ---
PULMONARY PROGRESS NOTES Subjective remains on 2 liters N/C, wore BIPAP a few hours last night, denies increase in cough no overnight concerns, complaining of new right arm pain Vitals Vital Signs Date Time Temp Pulse Resp B/P (MAP) Pulse Ox O2 Delivery O2 Flow Rate FiO2 03/02/19 08:44 75 144/88 03/02/19 08:00 2.0 03/02/19 07:50 98.0 20 98 Room Air 98.0 ROS: No Nausea, No Chest Pain, No Abdominal Pain, No Increase Cough General: Alert, No acute distress Lungs: Other (decrease bases) Cardiovascular: S1 Abdomen: Soft, Other (obese) Neuro Exam: Alert Extremities: Other (lymphedema) Skin: Other (wounds of various stages) Labs Laboratory Tests Test 02/28/19 11:42 02/28/19 16:59 02/28/19 20:23 03/01/19 04:25 Glucose (Fingerstick) 168 mg/dL (70-99) 145 mg/dL (70-99) 153 mg/dL (70-99) White Blood Count 7.8 x10^3/uL (4.0-11.0) Red Blood Count 3.85 x10^6/uL (4.30-5.70) Hemoglobin 11.6 g/dL (13.0-17.5) Hematocrit 35.8 % (39.0-53.0) Mean Corpuscular Volume 93 fL (79-100) Mean Corpuscular Hemoglobin 30 pg (25-35) Mean Corpuscular Hemoglobin Concent 33 g/dL (31-37) Red Cell Distribution Width 16.6 % (11.5-14.5) Platelet Count 331 x10^3/uL (140-400) Neutrophils (%) (Auto) 75 % (31-73) Lymphocytes (%) (Auto) 16 % (24-48) Monocytes (%) (Auto) 6 % (0-9) Eosinophils (%) (Auto) 2 % (0-3) Basophils (%) (Auto) 2 % (0-3) Neutrophils # (Auto) 5.9 x10^3/uL (1.8-7.7) Lymphocytes # (Auto) 1.2 x10^3/uL (1.0-4.8) Monocytes # (Auto) 0.4 x10^3/uL (0.0-1.1) Eosinophils # (Auto) 0.1 x10^3/uL (0.0-0.7) Basophils # (Auto) 0.1 x10^3/uL (0.0-0.2) Sodium Level 136 mmol/L (136-145) Potassium Level 4.8 mmol/L (3.5-5.1) Chloride Level 102 mmol/L (98-107) Carbon Dioxide Level 28 mmol/L (21-32) Anion Gap 6 (6-14) Blood Urea Nitrogen 15 mg/dL (8-26) Creatinine 0.8 mg/dL (0.7-1.3) Estimated GFR (Cockcroft-Gault) 100.7 Glucose Level 120 mg/dL (70-99) Calcium Level 7.8 mg/dL (8.5-10.1) Test 03/01/19 07:40 03/01/19 11:41 03/01/19 16:17 03/01/19 20:38 Glucose (Fingerstick) 99 mg/dL (70-99) 211 mg/dL (70-99) 149 mg/dL (70-99) 182 mg/dL (70-99) Test 03/02/19 07:00 03/02/19 07:02 White Blood Count 11.0 x10^3/uL (4.0-11.0) Red Blood Count 3.65 x10^6/uL (4.30-5.70) Hemoglobin 11.0 g/dL (13.0-17.5) Hematocrit 33.5 % (39.0-53.0) Mean Corpuscular Volume 92 fL (79-100) Mean Corpuscular Hemoglobin 30 pg (25-35) Mean Corpuscular Hemoglobin Concent 33 g/dL (31-37) Red Cell Distribution Width 16.1 % (11.5-14.5) Platelet Count 365 x10^3/uL (140-400) Neutrophils (%) (Auto) 79 % (31-73) Lymphocytes (%) (Auto) 13 % (24-48) Monocytes (%) (Auto) 6 % (0-9) Eosinophils (%) (Auto) 1 % (0-3) Basophils (%) (Auto) 1 % (0-3) Neutrophils # (Auto) 8.7 x10^3/uL (1.8-7.7) Lymphocytes # (Auto) 1.4 x10^3/uL (1.0-4.8) Monocytes # (Auto) 0.6 x10^3/uL (0.0-1.1) Eosinophils # (Auto) 0.1 x10^3/uL (0.0-0.7) Basophils # (Auto) 0.1 x10^3/uL (0.0-0.2) Sodium Level 135 mmol/L (136-145) Potassium Level 4.4 mmol/L (3.5-5.1) Chloride Level 98 mmol/L (98-107) Carbon Dioxide Level 32 mmol/L (21-32) Anion Gap 5 (6-14) Blood Urea Nitrogen 13 mg/dL (8-26) Creatinine 0.9 mg/dL (0.7-1.3) Estimated GFR (Cockcroft-Gault) 87.9 Glucose Level 126 mg/dL (70-99) Calcium Level 8.3 mg/dL (8.5-10.1) Glucose (Fingerstick) 117 mg/dL (70-99) Laboratory Tests Test 03/01/19 11:41 03/01/19 16:17 03/01/19 20:38 03/02/19 07:00 Glucose (Fingerstick) 211 mg/dL (70-99) 149 mg/dL (70-99) 182 mg/dL (70-99) White Blood Count 11.0 x10^3/uL (4.0-11.0) Red Blood Count 3.65 x10^6/uL (4.30-5.70) Hemoglobin 11.0 g/dL (13.0-17.5) Hematocrit 33.5 % (39.0-53.0) Mean Corpuscular Volume 92 fL (79-100) Mean Corpuscular Hemoglobin 30 pg (25-35) Mean Corpuscular Hemoglobin Concent 33 g/dL (31-37) Red Cell Distribution Width 16.1 % (11.5-14.5) Platelet Count 365 x10^3/uL (140-400) Neutrophils (%) (Auto) 79 % (31-73) Lymphocytes (%) (Auto) 13 % (24-48) Monocytes (%) (Auto) 6 % (0-9) Eosinophils (%) (Auto) 1 % (0-3) Basophils (%) (Auto) 1 % (0-3) Neutrophils # (Auto) 8.7 x10^3/uL (1.8-7.7) Lymphocytes # (Auto) 1.4 x10^3/uL (1.0-4.8) Monocytes # (Auto) 0.6 x10^3/uL (0.0-1.1) Eosinophils # (Auto) 0.1 x10^3/uL (0.0-0.7) Basophils # (Auto) 0.1 x10^3/uL (0.0-0.2) Sodium Level 135 mmol/L (136-145) Potassium Level 4.4 mmol/L (3.5-5.1) Chloride Level 98 mmol/L (98-107) Carbon Dioxide Level 32 mmol/L (21-32) Anion Gap 5 (6-14) Blood Urea Nitrogen 13 mg/dL (8-26) Creatinine 0.9 mg/dL (0.7-1.3) Estimated GFR (Cockcroft-Gault) 87.9 Glucose Level 126 mg/dL (70-99) Calcium Level 8.3 mg/dL (8.5-10.1) Test 03/02/19 07:02 Glucose (Fingerstick) 117 mg/dL (70-99) Medications Active Scripts Medications Dose Route/Sig Max Daily Dose Days Date Category Glipizide 5 Mg Tablet 1 Tab PO BID 02/21/19 Reported Metformin Hcl 1,000 Mg Tablet 1,000 Mg PO BIDWMEALS 02/21/19 Reported Atenolol 50 Mg Tablet 1 Tab PO DAILY 02/21/19 Reported Chlorthalidone (Chlorthalidone) 25 Mg Tablet 25 Mg PO DAILY 02/21/19 Reported Impression . 1. Acute on chronic respiratory failure secondary to multifactorial etiologies, including acute on chronic right heart failure, possible acute bronchitis. The patient is a nonsmoker. 2. Status post fall with profound weakness causing immobility for 12 hours. His BUN and creatinine suggesting a prerenal azotemia. 3. Severe protein-calorie malnutrition with an albumin level of 1.1. 4. Underlying obstructive sleep apnea with obesity hypoventilation syndrome. 5. Chronic compensated respiratory acidosis. Plan . 1. Continue with present oxygen. 2. BiPAP at bedtime and p.r.n. during the day, bring home CPAP to assist increase compliance 3. Monitor white cell count, normal for last three days 4. SEEMA resolved 5. Antibiotics per Infectious Disease currently on Augmentin and zyvox 6. Continue bronchodilators. 7. DVT prophylaxis: lovenox 8. HTN per PCP 9. PT/OT Discussed with RN / awaiting CARYL LAGOS MD Mar 02, 2019 10:41
[2019-03-02] MEDS: LACTOBACILLUS RHAMNOSUS GG 1 CAPSULE. PO SCH ×2 (10:54→20:54)
--- NOTE | 2019-03-02 10:59 | NUR ---
SS following up with discharge planning. Insurance denied LTAC. SS discussed with PT. Pt made improvements and would be appropriate for penitentiary unit. SS discussed with [facility] as pt is over 450 pounds. [facility] requested referral be phoned and faxed. They reported that they can accommodate up to 600 pounds. SS phoned and faxed referral to [facility], ; fax [phone]. SS will await acceptance decision and insurance determination and will proceed accordingly with discharge planning.
--- NOTE | 2019-03-02 11:06 | PDOC ---
Infectious Disease Note Subjective: Subjective Comfortable, denies rt leg pain/N/V/D has some Lt shoulder discomfort No fevers/chills Vital Signs: Vital Signs Vital Signs Date Time Temp Pulse Resp B/P (MAP) Pulse Ox O2 Delivery O2 Flow Rate FiO2 03/02/19 08:44 75 144/88 03/02/19 08:00 2.0 03/02/19 07:50 98.0 20 98 Room Air 98.0 Physical Exam: PHYSICAL EXAM GENERAL: Sitting in the chair, alert, legs down HEENT: Pupils are round and reacting. Oral cavity clear, Crusts lips NECK: Supple LUNGS: Clear. HEART: S1, S2 regular. ABDOMEN: Obese, soft, nontender : Kimbrough in place EXTREMITIES: RLE mildly red, Chronic venous insufficiency and stasis dermatitis changes present. NEUROLOGIC: Alert, ansers questions appropriately PIV Medications: Inpatient Meds: Current Medications Medications (Trade) Dose Ordered Sig/Lilliam Start Time Stop Time Status Last Admin Dose Admin Acetaminophen (Tylenol) 650 mg PRN Q6HRS PRN 02/21/19 11:15 03/01/19 20:25 650 MG Albuterol/ Ipratropium (Duoneb) 3 ml RTQID 02/22/19 08:00 03/02/19 07:05 3 ML Amoxicillin/ Clavulanate Potassium (Augmentin 875/ 125mg) 1 tab BID 02/25/19 21:00 03/02/19 08:43 1 TAB Aspirin (Flavia Aspirin) 325 mg [id number] 02/22/19 08:00 03/02/19 08:43 325 MG Aspirin (Children'S Aspirin) 81 mg [id number] 02/21/19 15:30 02/21/19 16:46 DC 02/21/19 16:23 81 MG Atenolol (Tenormin) 50 mg DAILY 02/21/19 12:00 03/02/19 08:44 50 MG Bisacodyl (Dulcolax Supp) 10 mg PRN DAILY PRN 02/21/19 11:15 Chlorthalidone (Thalitone) 25 mg DAILY 02/21/19 12:00 02/21/19 12:45 DC Clonidine HCl (Catapres) 0.1 mg PRN Q1HR PRN 02/21/19 11:30 02/23/19 20:24 0.1 MG Dextrose (Dextrose 50%-Water Syringe) 12.5 gm PRN Q15MIN PRN 02/22/19 14:45 Dextrose (Iv Dextrose 5%) 250 ml PRN Q15MIN PRN 02/22/19 14:45 Docusate Sodium (Colace) 100 mg BID 02/21/19 12:00 03/01/19 20:26 100 MG Enoxaparin Sodium (Lovenox 40mg Syringe) 40 mg Q24H 02/24/19 10:00 02/27/19 14:04 DC 02/27/19 10:57 40 MG Enoxaparin Sodium (Lovenox 60mg Syringe) 60 mg Q12HR 02/27/19 21:00 03/02/19 08:45 60 MG Famotidine (Pepcid Vial) 20 mg BID 02/21/19 11:30 02/23/19 15:27 DC 02/23/19 09:39 20 MG Famotidine (Pepcid) 20 mg BID 02/23/19 21:00 03/02/19 08:44 20 MG Folic Acid (Folic Acid) 1 mg DAILY 02/21/19 12:00 03/02/19 08:44 1 MG Haloperidol Lactate (Haldol Inj) 5 mg PRN Q4HRS PRN 02/21/19 11:30 Heparin Sodium (Porcine) (Heparin Sodium) 5,000 unit Q8HRS 02/21/19 14:00 02/24/19 09:32 DC 02/24/19 06:16 5,000 UNIT Info (Icu Electrolyte Protocol) 1 ea DAILY 02/22/19 09:00 02/23/19 15:22 DC 02/22/19 08:07 1 EA Info (Non-Icu Electrolyte Protocol) 1 ea CONT PRN PRN 02/23/19 15:30 Insulin Human Lispro (HumaLOG) 0-7 UNITS TIDWMEALS 02/22/19 17:00 03/01/19 12:14 4 UNITS Lactobacillus Rhamnosus (Culturelle) 1 cap BID 02/21/19 21:00 03/02/19 10:54 1 CAP Linezolid (Zyvox) 600 mg BID 02/21/19 13:30 03/02/19 08:44 600 MG Lorazepam (Ativan Inj) 4 mg PRN Q15MIN PRN 02/21/19 11:30 02/23/19 15:24 DC Lorazepam (Ativan) 8 mg PRN Q1HR PRN 02/21/19 11:30 Magnesium Oxide (Magnesium Oxide) 400 mg DAILY 02/27/19 09:00 03/02/19 08:44 400 MG Magnesium Sulfate 50 ml @ 25 mls/hr 1X ONCE 02/25/19 13:45 02/25/19 15:44 DC 02/25/19 15:00 25 MLS/HR Methylprednisolone Sodium Succinate (SOLU-Medrol 125MG VIAL) 125 mg 1X ONCE 02/21/19 04:30 02/21/19 04:31 DC 02/21/19 04:11 125 MG Morphine Sulfate (Morphine Sulfate) 4 mg PRN Q2HR PRN 02/21/19 05:30 02/22/19 05:29 DC 02/21/19 09:07 4 MG Multivitamins (Thera M Plus) 1 tab DAILY 02/24/19 09:00 03/02/19 08:43 1 TAB Ondansetron HCl (Zofran) 4 mg PRN Q6HRS PRN 02/21/19 11:15 Piperacillin Sod/ Tazobactam Sod 3.375 gm/Sodium Chloride 50 ml @ 100 mls/hr Q6HRS 02/21/19 13:30 02/25/19 11:36 DC 02/25/19 04:49 100 MLS/HR Potassium Chloride/Water 100 ml @ 100 mls/hr Q1H 02/22/19 09:00 02/22/19 10:59 DC Potassium Chloride (Klor-Con) 40 meq 1X ONCE 02/22/19 08:15 02/22/19 08:16 DC 02/22/19 08:16 40 MEQ Ringer's Solution 1,000 ml @ 75 mls/hr [id number] 02/21/19 13:00 02/21/19 16:07 DC 02/21/19 13:54 75 MLS/HR Sodium Chloride 1,000 ml @ 75 mls/hr [id number] 02/21/19 17:00 02/22/19 08:57 DC 02/22/19 07:58 75 MLS/HR Sodium Chloride (Normal Saline Flush) 3 ml QSHIFT PRN 02/21/19 11:15 Thiamine Mononitrate (Vitamin B-1) 100 mg DAILY 02/21/19 12:00 03/02/19 08:44 100 MG Vancomycin HCl 2 gm/Sodium Chloride 500 ml @ 250 mls/hr 1X ONCE 02/21/19 04:30 02/21/19 06:29 DC 02/21/19 04:49 250 MLS/HR Labs: Lab Laboratory Tests Test 03/01/19 11:41 03/01/19 16:17 03/01/19 20:38 03/02/19 07:00 Glucose (Fingerstick) 211 mg/dL (70-99) 149 mg/dL (70-99) 182 mg/dL (70-99) White Blood Count 11.0 x10^3/uL (4.0-11.0) Red Blood Count 3.65 x10^6/uL (4.30-5.70) Hemoglobin 11.0 g/dL (13.0-17.5) Hematocrit 33.5 % (39.0-53.0) Mean Corpuscular Volume 92 fL (79-100) Mean Corpuscular Hemoglobin 30 pg (25-35) Mean Corpuscular Hemoglobin Concent 33 g/dL (31-37) Red Cell Distribution Width 16.1 % (11.5-14.5) Platelet Count 365 x10^3/uL (140-400) Neutrophils (%) (Auto) 79 % (31-73) Lymphocytes (%) (Auto) 13 % (24-48) Monocytes (%) (Auto) 6 % (0-9) Eosinophils (%) (Auto) 1 % (0-3) Basophils (%) (Auto) 1 % (0-3) Neutrophils # (Auto) 8.7 x10^3/uL (1.8-7.7) Lymphocytes # (Auto) 1.4 x10^3/uL (1.0-4.8) Monocytes # (Auto) 0.6 x10^3/uL (0.0-1.1) Eosinophils # (Auto) 0.1 x10^3/uL (0.0-0.7) Basophils # (Auto) 0.1 x10^3/uL (0.0-0.2) Sodium Level 135 mmol/L (136-145) Potassium Level 4.4 mmol/L (3.5-5.1) Chloride Level 98 mmol/L (98-107) Carbon Dioxide Level 32 mmol/L (21-32) Anion Gap 5 (6-14) Blood Urea Nitrogen 13 mg/dL (8-26) Creatinine 0.9 mg/dL (0.7-1.3) Estimated GFR (Cockcroft-Gault) 87.9 Glucose Level 126 mg/dL (70-99) Calcium Level 8.3 mg/dL (8.5-10.1) Test 03/02/19 07:02 Glucose (Fingerstick) 117 mg/dL (70-99) Objective: Assessment: Right lower extremity extensive cellulitis. Leukocytosis - some better Lactic acidosis with the early sepsis. Morbid obesity. Diabetes. Hypertension. Venous insufficiency and stasis dermatitis. Left arm weakness BC 1/ likely contaminant, Staphylococcus hominis-oxicillin R Plan: Plan of Care po zyvox (02/21) and Augmentin (02/25) Probiotics Leg elevation PT/OT ABDIFATAH COUGHLIN MD Mar 02, 2019 11:06
[2019-03-02] MEDS: ACETAMINOPHEN 325 MG TABLET. PO PRN ×2 (11:55→11:56)
--- NOTE | 2019-03-02 12:58 | RAD ---
CT scan of the head without contrast 03/02/2019 Clinical History: Left upper extremity weakness. Technique: Unenhanced, contiguous, 5 mm axial sections were obtained through the head. One or more of the following individualized dose reduction techniques were utilized for this study: 1. Automated exposure control. 2. Adjustment of the mA and/or kV according to patient size. 3. Use of iterative reconstruction technique. Findings: Comparison study is dated 02/21/2019. There is generalized parenchymal atrophy. Areas of decreased attenuation are seen within the periventricular and subcortical white matter of both cerebral hemispheres consistent with areas of small vessel ischemic disease. No acute parenchymal abnormality is seen. No extra-axial fluid collection is noted. No skull fracture is seen. Complete opacification of the right maxillary sinus due to mucosal thickening and/or fluid is seen. Mild to moderate mucosal thickening is seen involving the right ethmoid air cells. Impression: No acute intracranial abnormality is seen. CT scan of the cervical spine without contrast 03/02/2019 Clinical history: Left upper extremity weakness Technique: Unenhanced, contiguous, 0.625 mm axial sections were obtained through the cervical spine. Axial, coronal and sagittal reconstructed images were obtained. One or more of the following individualized dose reduction techniques were utilized for this study: 1. Automated exposure control. 2. Adjustment of the mA and/or kV according to patient size. 3. Use of iterative reconstruction technique. Findings: Comparison study is dated 02/21/2019. Sagittal and coronal reconstructed images demonstrate mild lateral curvature of the cervical spine, convex to the left. Degenerative changes consisting of disc space narrowing, vertebral endplate sclerosis and mild to moderate anterior vertebral body osteophyte formation are seen throughout the mid and lower cervical disc spaces. No fracture or subluxation of the cervical vertebrae is seen. Degenerative changes consisting of minimal to mild generalized disc bulges and degenerative changes involving the uncovertebral and facet joints (right greater than left) are seen throughout the cervical disc spaces. These findings do not result in definite areas of significant central spinal canal or neural foraminal stenosis at any level. Mild right-sided neural foraminal stenosis is seen at C2-3 and C6-7. Mild to moderate right-sided neural foraminal stenosis is seen at C3-4. Impression: Degenerative changes are seen involving cervical spine as discussed above. No acute osseous abnormality is seen. Electronically signed by: Marlon Webb MD (03/02/2019 12:55 PM) [facility]
--- NOTE | 2019-03-02 13:45 | PDOC ---
PROGRESS NOTES Chief Complaint Chief Complaint Resp failure resolved Severe sepsis resolved Extreme morbid obesity with BMI of 60 BCT hypoventilation syndrome Cellulitis of right leg, severe with lymphedema, chronic venous stasis Hypoglycemia sec to glipizide secondary to most likely due to renal dysfunction Acute renal failure improved Dehydration improved Dyspnea Hypoglycemia History of Severe alcohol abuse no evidence of withdrawal of the present time Fall at home Severe debility CHF History of Present Illness History of Present Illness LTAC denied, CAse mx requests peer to peer Patient is ON ORAL meds Hates the bipap, has cpap at home - came from home has help/ - i would SNU screen for now - dw case mx Sharon I inspected the wound today, oozing blood, on lood thinners HE also has dried blood in his lips Wound care has yet to see him Back hurts from laying on one spot PLAn: SW working on HCR REady to dc there , tmr , he still has to be seen by wound care today - waiting for insurance auth etc Dc tmr snu dc tele today dc barnett today MAy transfer out to NON tele bed Blader scan protocol Vitals Vitals Vital Signs Date Time Temp Pulse Resp B/P (MAP) Pulse Ox O2 Delivery O2 Flow Rate FiO2 03/02/19 11:07 Nasal Cannula 2.0 03/02/19 08:44 75 144/88 03/02/19 07:50 98.0 20 98 98.0 Physical Exam Physical Exam GENERAL: Sitting in the chair, alert, legs down HEENT: Pupils are round and reacting. Oral cavity clear, Crusts lips NECK: Supple LUNGS: Clear. HEART: S1, S2 regular. ABDOMEN: Obese, soft, nontender : Barnett in place EXTREMITIES: RLE mildly red, Chronic venous insufficiency and stasis dermatitis changes present. NEUROLOGIC: Alert, ansers questions appropriately PIV General: Cooperative, mild distress Heart: Regular rate, Normal S1 Lungs: Other (decrease bases) Abdomen: Normal bowel sounds, Soft, No tenderness, No hepatosplenomegaly, Other (morbidly obese) Extremities: Other (2-3+ pitting edema with chronic changes and hyperemia RLE, 1+ edema with hyperpigmentation LLE) Skin: Other (massive rash on r leg) Labs LABS Laboratory Tests Test 03/01/19 16:17 03/01/19 20:38 03/02/19 07:00 03/02/19 07:02 Glucose (Fingerstick) 149 mg/dL (70-99) 182 mg/dL (70-99) 117 mg/dL (70-99) White Blood Count 11.0 x10^3/uL (4.0-11.0) Red Blood Count 3.65 x10^6/uL (4.30-5.70) Hemoglobin 11.0 g/dL (13.0-17.5) Hematocrit 33.5 % (39.0-53.0) Mean Corpuscular Volume 92 fL (79-100) Mean Corpuscular Hemoglobin 30 pg (25-35) Mean Corpuscular Hemoglobin Concent 33 g/dL (31-37) Red Cell Distribution Width 16.1 % (11.5-14.5) Platelet Count 365 x10^3/uL (140-400) Neutrophils (%) (Auto) 79 % (31-73) Lymphocytes (%) (Auto) 13 % (24-48) Monocytes (%) (Auto) 6 % (0-9) Eosinophils (%) (Auto) 1 % (0-3) Basophils (%) (Auto) 1 % (0-3) Neutrophils # (Auto) 8.7 x10^3/uL (1.8-7.7) Lymphocytes # (Auto) 1.4 x10^3/uL (1.0-4.8) Monocytes # (Auto) 0.6 x10^3/uL (0.0-1.1) Eosinophils # (Auto) 0.1 x10^3/uL (0.0-0.7) Basophils # (Auto) 0.1 x10^3/uL (0.0-0.2) Sodium Level 135 mmol/L (136-145) Potassium Level 4.4 mmol/L (3.5-5.1) Chloride Level 98 mmol/L (98-107) Carbon Dioxide Level 32 mmol/L (21-32) Anion Gap 5 (6-14) Blood Urea Nitrogen 13 mg/dL (8-26) Creatinine 0.9 mg/dL (0.7-1.3) Estimated GFR (Cockcroft-Gault) 87.9 Glucose Level 126 mg/dL (70-99) Calcium Level 8.3 mg/dL (8.5-10.1) Review of Systems Review of Systems weak, back hurts from bed, all else is neg Assessment and Plan Assessmemt and Plan Problems Medical Problems: (1) Acute renal failure Status: Acute (2) Cellulitis of right leg Status: Acute (3) Dehydration Status: Acute (4) Dyspnea Status: Acute (5) Hypoglycemia Status: Acute (6) Severe sepsis Status: Acute Comment Review of Relevant I have reviewed the following items robert (where applicable) has been applied. Labs Laboratory Tests Test 02/28/19 16:59 02/28/19 20:23 03/01/19 04:25 03/01/19 07:40 Glucose (Fingerstick) 145 mg/dL (70-99) 153 mg/dL (70-99) 99 mg/dL (70-99) White Blood Count 7.8 x10^3/uL (4.0-11.0) Red Blood Count 3.85 x10^6/uL (4.30-5.70) Hemoglobin 11.6 g/dL (13.0-17.5) Hematocrit 35.8 % (39.0-53.0) Mean Corpuscular Volume 93 fL (79-100) Mean Corpuscular Hemoglobin 30 pg (25-35) Mean Corpuscular Hemoglobin Concent 33 g/dL (31-37) Red Cell Distribution Width 16.6 % (11.5-14.5) Platelet Count 331 x10^3/uL (140-400) Neutrophils (%) (Auto) 75 % (31-73) Lymphocytes (%) (Auto) 16 % (24-48) Monocytes (%) (Auto) 6 % (0-9) Eosinophils (%) (Auto) 2 % (0-3) Basophils (%) (Auto) 2 % (0-3) Neutrophils # (Auto) 5.9 x10^3/uL (1.8-7.7) Lymphocytes # (Auto) 1.2 x10^3/uL (1.0-4.8) Monocytes # (Auto) 0.4 x10^3/uL (0.0-1.1) Eosinophils # (Auto) 0.1 x10^3/uL (0.0-0.7) Basophils # (Auto) 0.1 x10^3/uL (0.0-0.2) Sodium Level 136 mmol/L (136-145) Potassium Level 4.8 mmol/L (3.5-5.1) Chloride Level 102 mmol/L (98-107) Carbon Dioxide Level 28 mmol/L (21-32) Anion Gap 6 (6-14) Blood Urea Nitrogen 15 mg/dL (8-26) Creatinine 0.8 mg/dL (0.7-1.3) Estimated GFR (Cockcroft-Gault) 100.7 Glucose Level 120 mg/dL (70-99) Calcium Level 7.8 mg/dL (8.5-10.1) Test 03/01/19 11:41 03/01/19 16:17 03/01/19 20:38 03/02/19 07:00 Glucose (Fingerstick) 211 mg/dL (70-99) 149 mg/dL (70-99) 182 mg/dL (70-99) White Blood Count 11.0 x10^3/uL (4.0-11.0) Red Blood Count 3.65 x10^6/uL (4.30-5.70) Hemoglobin 11.0 g/dL (13.0-17.5) Hematocrit 33.5 % (39.0-53.0) Mean Corpuscular Volume 92 fL (79-100) Mean Corpuscular Hemoglobin 30 pg (25-35) Mean Corpuscular Hemoglobin Concent 33 g/dL (31-37) Red Cell Distribution Width 16.1 % (11.5-14.5) Platelet Count 365 x10^3/uL (140-400) Neutrophils (%) (Auto) 79 % (31-73) Lymphocytes (%) (Auto) 13 % (24-48) Monocytes (%) (Auto) 6 % (0-9) Eosinophils (%) (Auto) 1 % (0-3) Basophils (%) (Auto) 1 % (0-3) Neutrophils # (Auto) 8.7 x10^3/uL (1.8-7.7) Lymphocytes # (Auto) 1.4 x10^3/uL (1.0-4.8) Monocytes # (Auto) 0.6 x10^3/uL (0.0-1.1) Eosinophils # (Auto) 0.1 x10^3/uL (0.0-0.7) Basophils # (Auto) 0.1 x10^3/uL (0.0-0.2) Sodium Level 135 mmol/L (136-145) Potassium Level 4.4 mmol/L (3.5-5.1) Chloride Level 98 mmol/L (98-107) Carbon Dioxide Level 32 mmol/L (21-32) Anion Gap 5 (6-14) Blood Urea Nitrogen 13 mg/dL (8-26) Creatinine 0.9 mg/dL (0.7-1.3) Estimated GFR (Cockcroft-Gault) 87.9 Glucose Level 126 mg/dL (70-99) Calcium Level 8.3 mg/dL (8.5-10.1) Test 03/02/19 07:02 Glucose (Fingerstick) 117 mg/dL (70-99) Laboratory Tests Test 03/01/19 16:17 03/01/19 20:38 03/02/19 07:00 03/02/19 07:02 Glucose (Fingerstick) 149 mg/dL (70-99) 182 mg/dL (70-99) 117 mg/dL (70-99) White Blood Count 11.0 x10^3/uL (4.0-11.0) Red Blood Count 3.65 x10^6/uL (4.30-5.70) Hemoglobin 11.0 g/dL (13.0-17.5) Hematocrit 33.5 % (39.0-53.0) Mean Corpuscular Volume 92 fL (79-100) Mean Corpuscular Hemoglobin 30 pg (25-35) Mean Corpuscular Hemoglobin Concent 33 g/dL (31-37) Red Cell Distribution Width 16.1 % (11.5-14.5) Platelet Count 365 x10^3/uL (140-400) Neutrophils (%) (Auto) 79 % (31-73) Lymphocytes (%) (Auto) 13 % (24-48) Monocytes (%) (Auto) 6 % (0-9) Eosinophils (%) (Auto) 1 % (0-3) Basophils (%) (Auto) 1 % (0-3) Neutrophils # (Auto) 8.7 x10^3/uL (1.8-7.7) Lymphocytes # (Auto) 1.4 x10^3/uL (1.0-4.8) Monocytes # (Auto) 0.6 x10^3/uL (0.0-1.1) Eosinophils # (Auto) 0.1 x10^3/uL (0.0-0.7) Basophils # (Auto) 0.1 x10^3/uL (0.0-0.2) Sodium Level 135 mmol/L (136-145) Potassium Level 4.4 mmol/L (3.5-5.1) Chloride Level 98 mmol/L (98-107) Carbon Dioxide Level 32 mmol/L (21-32) Anion Gap 5 (6-14) Blood Urea Nitrogen 13 mg/dL (8-26) Creatinine 0.9 mg/dL (0.7-1.3) Estimated GFR (Cockcroft-Gault) 87.9 Glucose Level 126 mg/dL (70-99) Calcium Level 8.3 mg/dL (8.5-10.1) Microbiology 02/21/19 Blood Culture - Final, Complete 02/21/19 Blood Culture Result 1 (SHASTA) - Final, Complete 02/21/19 Antimicrobic Susceptibility - Final, Complete Medications Current Medications Dextrose (Dextrose 50%-Water Syringe) 25 gm STK-MED ONCE IV ; Start 02/21/19 at 03:08; Stop 02/21/19 at 03:08; Status DC Dextrose (Dextrose 50%-Water Syringe) 25 gm 1X ONCE IV Last administered on 02/21/19at 05:59; Start 02/21/19 at 04:30; Stop 02/21/19 at 04:31; Status DC Sodium Chloride 1,000 ml @ 1,000 mls/hr Q1H IV Last administered on 02/21/19at 04:44; Start 02/21/19 at 04:30; Stop 02/21/19 at 05:29; Status DC Albuterol/ Ipratropium (Duoneb) 3 ml 1X ONCE NEB Last administered on 02/21/19at 04:19; Start 02/21/19 at 04:30; Stop 02/21/19 at 04:31; Status DC Methylprednisolone Sodium Succinate (SOLU-Medrol 125MG VIAL) 125 mg 1X ONCE IV Last administered on 02/21/19at 04:11; Start 02/21/19 at 04:30; Stop 02/21/19 at 04:31; Status DC Dextrose 500 ml @ 150 mls/hr 1X ONCE IV Last administered on 02/21/19at 04:30; Start 02/21/19 at 04:30; Stop 02/21/19 at 07:49; Status DC Vancomycin HCl 2 gm/Sodium Chloride 500 ml @ 250 mls/hr 1X ONCE IV Last administered on 02/21/19at 04:49; Start 02/21/19 at 04:30; Stop 02/21/19 at 06:29; Status DC Sodium Chloride 1,000 ml @ 1,000 mls/hr 1X ONCE IV ; Start 02/21/19 at 05:30; Stop 02/21/19 at 06:29; Status DC Ondansetron HCl (Zofran) 4 mg PRN Q8HRS PRN IV NAUSEA/VOMITING 1ST CHOICE; Start 02/21/19 at 05:30; Stop 02/21/19 at 11:17; Status DC Morphine Sulfate (Morphine Sulfate) 4 mg PRN Q2HR PRN IV SEVERE PAIN 7-10 Last administered on 02/21/19at 09:07; Start 02/21/19 at 05:30; Stop 02/22/19 at 05:29; Status DC Sodium Chloride 1,000 ml @ 100 mls/hr Q10H IV ; Start 02/21/19 at 06:00; Stop 02/21/19 at 12:45; Status DC Acetaminophen (Tylenol) 650 mg PRN Q4HRS PRN PO FEVER; Start 02/21/19 at 05:30; Stop 02/21/19 at 11:18; Status DC Albuterol/ Ipratropium (Duoneb) 3 ml RTQID NEB Last administered on 02/22/19at 07:51; Start 02/21/19 at 08:00; Stop 02/22/19 at 07:59; Status DC Piperacillin Sod/ Tazobactam Sod 3.375 gm/Sodium Chloride 50 ml @ 100 mls/hr 1X ONCE IV Last administered on 02/21/19at 05:47; Start 02/21/19 at 06:00; Stop 02/21/19 at 06:29; Status DC Acetaminophen (Tylenol) 650 mg PRN Q6HRS PRN PO Headaches, Temp > 101.5' Last administered on 03/02/19at 11:56; Start 02/21/19 at 11:15 Ondansetron HCl (Zofran) 4 mg PRN Q6HRS PRN IV NAUSEA/VOMITING; Start 02/21/19 at 11:15 Famotidine (Pepcid Vial) 20 mg BID IVP Last administered on 02/23/19at 09:39; Start 02/21/19 at 11:30; Stop 02/23/19 at 15:27; Status DC Info (Icu Electrolyte Protocol) 1 ea DAILY MC Last administered on 02/22/19at 08:07; Start 02/22/19 at 09:00; Stop 02/23/19 at 15:22; Status DC Heparin Sodium (Porcine) (Heparin Sodium) 5,000 unit Q8HRS SQ Last administered on 02/24/19at 06:16; Start 02/21/19 at 14:00; Stop 02/24/19 at 09:32; Status DC Sodium Chloride (Normal Saline Flush) 3 ml QSHIFT PRN IV AFTER MEDS AND BLOOD DRAWS; Start 02/21/19 at 11:15 Docusate Sodium (Colace) 100 mg BID PO Last administered on 03/01/19at 20:26; Start 02/21/19 at 12:00 Bisacodyl (Dulcolax Supp) 10 mg PRN DAILY PRN VT CONSTIPATION; Start 02/21/19 at 11:15 Atenolol (Tenormin) 50 mg DAILY PO Last administered on 03/02/19at 08:44; Start 02/21/19 at 12:00 Chlorthalidone (Thalitone) 25 mg DAILY PO ; Start 02/21/19 at 12:00; Stop 02/21/19 at 12:45; Status DC Multivitamins (Thera M Plus) 1 tab DAILY PO Last administered on 02/25/19at 10:10; Start 02/21/19 at 12:00; Stop 02/25/19 at 15:20; Status DC Folic Acid (Folic Acid) 1 mg DAILY PO Last administered on 03/02/19at 08:44; Start 02/21/19 at 12:00 Thiamine Mononitrate (Vitamin B-1) 100 mg DAILY PO Last administered on 03/02/19at 08:44; Start 02/21/19 at 12:00 Lorazepam (Ativan) 4 mg PRN Q1HR PRN PO For CIWA 8-14 Last administered on 02/24/19at 08:49; Start 02/21/19 at 11:30 Lorazepam (Ativan) 8 mg PRN Q1HR PRN PO For CIWA 15 or greater; Start 02/21/19 at 11:30 Lorazepam (Ativan Inj) 2 mg PRN Q1HR PRN IV For CIWA 8-14 Last administered on 02/26/19at 21:08; Start 02/21/19 at 11:30 Lorazepam (Ativan Inj) 4 mg PRN Q1HR PRN IV For CIWA 15 or greater; Start 02/21/19 at 11:30 Haloperidol Lactate (Haldol Inj) 5 mg PRN Q4HRS PRN IVP Hallucinatns,Confusn,Delirium; Start 02/21/19 at 11:30 Clonidine HCl (Catapres) 0.1 mg PRN Q1HR PRN PO SBP > 180 or DBP > 100, MRX3 Last administered on 02/23/19at 20:24; Start 02/21/19 at 11:30 Lorazepam (Ativan Inj) 2 mg PRN Q15MIN PRN IV SEE COMMENTS; Start 02/21/19 at 11:30; Stop 02/23/19 at 15:23; Status DC Lorazepam (Ativan Inj) 4 mg PRN Q15MIN PRN IV SEE COMMENTS; Start 02/21/19 at 11:30; Stop 02/23/19 at 15:24; Status DC Potassium Chloride (Klor-Con) 20 meq 1X ONCE PO Last administered on 02/21/19at 13:53; Start 02/21/19 at 12:00; Stop 02/21/19 at 12:01; Status DC Ringer's Solution 1,000 ml @ 75 mls/hr [id number] IV Last administered on 02/21/19at 13:54; Start 02/21/19 at 13:00; Stop 02/21/19 at 16:07; Status DC Magnesium Sulfate 50 ml @ 25 mls/hr PRN DAILY PRN IV for Mag < 1.7 on am labs Last administered on 02/26/19at 08:54; Start 02/21/19 at 13:00 Linezolid (Zyvox) 600 mg BID PO Last administered on 03/02/19at 08:44; Start 02/21/19 at 13:30 Piperacillin Sod/ Tazobactam Sod 3.375 gm/Sodium Chloride 50 ml @ 100 mls/hr Q6HRS IV Last administered on 02/25/19at 04:49; Start 02/21/19 at 13:30; Stop 02/25/19 at 11:36; Status DC Lactobacillus Rhamnosus (Culturelle) 1 cap BID PO Last administered on 03/02/19at 10:54; Start 02/21/19 at 21:00 Aspirin (Children'S Aspirin) 81 mg [id number] PO Last administered on 02/21/19at 16:23; Start 02/21/19 at 15:30; Stop 02/21/19 at 16:46; Status DC Sodium Chloride 1,000 ml @ 75 mls/hr [id number] IV ; Start 02/22/19 at 03:00; Stop 02/21/19 at 16:14; Status DC Sodium Chloride 1,000 ml @ 75 mls/hr [id number] IV Last administered on 02/22/19at 07:58; Start 02/21/19 at 17:00; Stop 02/22/19 at 08:57; Status DC Aspirin (Flavia Aspirin) 325 mg [id number] PO Last administered on 03/02/19at 08:43; Start 02/22/19 at 08:00 Albuterol/ Ipratropium (Duoneb) 3 ml RTQID NEB Last administered on 03/02/19at 11:07; Start 02/22/19 at 08:00 Potassium Chloride (Klor-Con) 40 meq 1X ONCE PO Last administered on 02/22/19at 08:16; Start 02/22/19 at 08:15; Stop 02/22/19 at 08:16; Status DC Potassium Chloride/Water 100 ml @ 100 mls/hr Q1H IV ; Start 02/22/19 at 09:00; Stop 02/22/19 at 10:59; Status DC Insulin Human Lispro (HumaLOG) 0-7 UNITS TIDWMEALS SQ Last administered on 03/01/19at 12:14; Start 02/22/19 at 17:00 Dextrose (Dextrose 50%-Water Syringe) 12.5 gm PRN Q15MIN PRN IV SEE COMMENTS; Start 02/22/19 at 14:45 Dextrose (Iv Dextrose 5%) 250 ml PRN Q15MIN PRN IV SEE COMMENTS; Start 02/22/19 at 14:45 Info (Non-Icu Electrolyte Protocol) 1 ea CONT PRN PRN MC SEE COMMENTS; Start 02/23/19 at 15:30 Famotidine (Pepcid) 20 mg BID PO Last administered on 03/02/19at 08:44; Start 02/23/19 at 21:00 Multivitamins (Thera M Plus) 1 tab DAILY PO Last administered on 03/02/19at 08:43; Start 02/24/19 at 09:00 Enoxaparin Sodium (Lovenox 40mg Syringe) 40 mg Q24H SQ Last administered on 02/27/19at 10:57; Start 02/24/19 at 10:00; Stop 02/27/19 at 14:04; Status DC Amoxicillin/ Clavulanate Potassium (Augmentin 875/ 125mg) 1 tab BID PO Last administered on 03/02/19at 08:43; Start 02/25/19 at 21:00 Magnesium Sulfate 50 ml @ 25 mls/hr 1X ONCE IV Last administered on 02/25/19at 15:00; Start 02/25/19 at 13:45; Stop 02/25/19 at 15:44; Status DC Magnesium Oxide (Magnesium Oxide) 400 mg DAILY PO Last administered on 03/02/19at 08:44; Start 02/27/19 at 09:00 Enoxaparin Sodium (Lovenox 60mg Syringe) 60 mg Q12HR SQ Last administered on 03/02/19at 08:45; Start 02/27/19 at 21:00 Active Scripts Active Reported Glipizide 5 Mg Tablet 1 Tab PO BID Metformin Hcl 1,000 Mg Tablet 1,000 Mg PO BIDWMEALS Atenolol 50 Mg Tablet 1 Tab PO DAILY Chlorthalidone (Chlorthalidone) 25 Mg Tablet 25 Mg PO DAILY Vitals/I & O Vital Sign - Last 24 Hours 03/01/19 03/01/19 03/01/19 03/01/19 15:00 15:26 19:10 19:27 Temp 98.0 98.2 98.0 98.2 Pulse 81 81 Resp 21 20 B/P (MAP) 147/89 (108) 156/80 (105) Pulse Ox 97 96 93 95 O2 Delivery Nasal Cannula Nasal Cannula Nasal Cannula Nasal Cannula O2 Flow Rate 2.0 2.0 2.0 2.0 03/01/19 03/01/19 03/01/19 03/01/19 20:00 20:00 22:28 23:05 Temp 98.5 98.5 Pulse 80 Resp 20 B/P (MAP) 154/87 (109) Pulse Ox 93 O2 Delivery Nasal Cannula BiPAP/CPAP BiPAP/CPAP O2 Flow Rate 2.0 2.0 03/02/19 03/02/19 03/02/19 03/02/19 00:18 03:15 07:05 07:50 Temp 98.1 98.0 98.1 98.0 Pulse 80 75 Resp 20 20 B/P (MAP) 149/83 (105) 144/88 (106) Pulse Ox 96 98 98 O2 Delivery BiPAP/CPAP Room Air Nasal Cannula Room Air O2 Flow Rate 2.0 03/02/19 03/02/19 03/02/19 03/02/19 08:00 08:00 08:44 11:07 Pulse 75 B/P (MAP) 144/88 O2 Delivery Nasal Cannula Nasal Cannula O2 Flow Rate 2.0 2.0 2.0 Intake and Output 03/01/19 03/01/19 03/02/19 15:00 23:00 07:00 Intake Total 100 ml Output Total 1100 ml 600 ml 700 ml Balance -1100 ml -600 ml -600 ml MARLON DUKES MD Mar 02, 2019 13:45
--- NOTE | 2019-03-02 14:26 | NUR ---
Kimbrough catheter removed at 1415, no redness, swelling on site, no complications noted; we'll await spontaneous voiding.
--- NOTE | 2019-03-02 14:39 | NUR ---
SS following up with discharge planning. [facility] reported that they could accept pt but when pt's insurance was ran. Pt has a $300 deductible that has to be met and then once met pt's insurance will only cover 70% of pt's shelter stay and pt would have 30% out of pocket cost for skilled stay. SS attempted to discuss with pt and pt reported that we needed to speak with his spouse. SS attempting to reach pt's spouse. SS will continue to follow for discharge planning.
[2019-03-02 15:00] VITALS: BP 152/86
[2019-03-02] MEDS: LIDOCAINE (700MG/PATCH) PATCH. TD SCH (15:00)
--- NOTE | 2019-03-02 16:14 | PDOC ---
PROGRESS NOTES Assessment Assessment Left side weakness. CVA syndrome. Metabolic encephalopathy. Lactic acidosis. Hypoglycemia, glucose level 20. Leukocytosis, WBC 28.8 Renal failure or SEEMA. Fall on the floor? DM. HTN. HLD. Alcohol use/abuse. Cellulitis, LE ? Left shoulder pain. Morbid obesity, BMI 62.6 No evidence of large vessel CVA this time, 2 HCT negative. Repeat CCT no C3 fractures. RECOMMENDATIONS/PLAN: Treat medical diseases. ASA 325 mg daily. Left shoulder X-ray. Weight reduction. OT/PT. SUBJECTIVE: Left UE weakness, and left shoulder pain. OBJECTIVE: 2 HCT negative. Past Medical History Morbid obesity Possible lymph edema right lower extremity Cardiovascular: HTN, Hyperlipidemia Musculoskeletal: low back pain, Osteoarthritis Endocrine: Diabetes Past Surgical History Knee surgery. Family History High Cholestrol, Hypertension, Kidney Disease (son has reflux nephropathy, required nephrectomy). Social History ALCOHOL: heavy Drugs: None Lives: with Family ALLERGY: NKDA MEDICATIONS: Refer to MAR REVIEW OF SYSTEMS: Constitutional: Morbid obesity. Head: No acute traumatic brain or head injury. Skin: No edema, or rash. Ear: No infection. Eyes: No vision loss or color blindness. Nose: No bleeding or purulent discharges. Hearing: Mild hearing decrease. Neck: No injury. Cardiac: HTN, HLD. Pulmonary: No COPD. GI: No GI ulcer, GI bleeding. Urinary/genital: No dysuria, incontinence, urinary retention. Endocrinologic: Diabetes Mellitus, morbid obesity. Skeletomuscular: No muscular atrophy, deformity. Neurological: see HP. Psychiatric: ETOH use/abuse. Otherwise, not [id number] review of systems. PHYSICAL EXAMINATION: General appearance is in subacute distress. HEENT: Normocephalic and nontraumatic. Eyes, nose, ears, and throat are unremarkable. Neck is supple. No lymphadenopathy. No crepitus. Cardiovascular: S1, S2, regular rate and rhythm. Pulmonary: Decreased to auscultation bilaterally. Abdomen: Bowel sounds are positive. Extremities: Lesions and skin changes noted. NEUROLOGICAL EXAMINATION: Awake. Oriented to time, place and person. PERRL. EOMI. CN: no focal findings. Muscle tone: Decreased. Muscle strength: 3 left UE and 3-4 left LE, 4+ right side. DTR: 0-1 due to obesity. Plantar reflex: Neutral response bilaterally Gait: not examined in bed. Sensory exam: no abnormal findings. No cerebellar signs elicited. F-T-N test fine on the right side. Objective Objective Vital Signs Date Time Temp Pulse Resp B/P (MAP) Pulse Ox O2 Delivery O2 Flow Rate FiO2 03/02/19 15:00 98.2 78 20 152/86 (108) 98 Nasal Cannula 2.0 98.2 Intake and Output 03/02/19 07:00 Intake Total 100 ml Output Total 2400 ml Balance -2300 ml Intake Oral 100 ml Output Urine Total 2400 ml # Bowel Movements 1 Vitals Signs Vitals VS - Last 72 Hours, by Label Date Time Temp Pulse Resp B/P (MAP) Pulse Ox O2 Delivery O2 Flow Rate FiO2 03/02/19 15:00 98.2 78 20 152/86 (108) 98 Nasal Cannula 2.0 98.2 03/02/19 11:07 Nasal Cannula 2.0 03/02/19 08:44 75 144/88 03/02/19 08:00 2.0 03/02/19 08:00 Nasal Cannula 2.0 03/02/19 07:50 98.0 75 20 144/88 (106) 98 Room Air 98.0 03/02/19 07:05 98 Nasal Cannula 2.0 03/02/19 03:15 98.1 80 20 149/83 (105) 96 Room Air 98.1 03/02/19 00:18 BiPAP/CPAP 03/01/19 23:05 98.5 80 20 154/87 (109) 93 BiPAP/CPAP 98.5 03/01/19 22:28 BiPAP/CPAP 03/01/19 20:00 2.0 03/01/19 20:00 Nasal Cannula 2.0 03/01/19 19:27 95 Nasal Cannula 2.0 03/01/19 19:10 98.2 81 20 156/80 (105) 93 Nasal Cannula 2.0 98.2 03/01/19 15:26 96 Nasal Cannula 2.0 03/01/19 15:00 98.0 81 21 147/89 (108) 97 Nasal Cannula 2.0 98.0 03/01/19 11:30 96 Nasal Cannula 2.0 03/01/19 11:00 97.9 74 21 147/88 (107) 98 Nasal Cannula 2.0 97.9 03/01/19 09:29 74 154/92 03/01/19 08:00 2.0 03/01/19 08:00 Nasal Cannula 2.0 03/01/19 07:31 96 Nasal Cannula 2.0 03/01/19 07:00 97.7 74 21 154/92 (112) 96 Nasal Cannula 2.0 97.7 Laboratory Laboratory Laboratory Tests Test 03/01/19 16:17 03/01/19 20:38 03/02/19 07:00 03/02/19 07:02 Glucose (Fingerstick) 149 mg/dL (70-99) 182 mg/dL (70-99) 117 mg/dL (70-99) White Blood Count 11.0 x10^3/uL (4.0-11.0) Red Blood Count 3.65 x10^6/uL (4.30-5.70) Hemoglobin 11.0 g/dL (13.0-17.5) Hematocrit 33.5 % (39.0-53.0) Mean Corpuscular Volume 92 fL (79-100) Mean Corpuscular Hemoglobin 30 pg (25-35) Mean Corpuscular Hemoglobin Concent 33 g/dL (31-37) Red Cell Distribution Width 16.1 % (11.5-14.5) Platelet Count 365 x10^3/uL (140-400) Neutrophils (%) (Auto) 79 % (31-73) Lymphocytes (%) (Auto) 13 % (24-48) Monocytes (%) (Auto) 6 % (0-9) Eosinophils (%) (Auto) 1 % (0-3) Basophils (%) (Auto) 1 % (0-3) Neutrophils # (Auto) 8.7 x10^3/uL (1.8-7.7) Lymphocytes # (Auto) 1.4 x10^3/uL (1.0-4.8) Monocytes # (Auto) 0.6 x10^3/uL (0.0-1.1) Eosinophils # (Auto) 0.1 x10^3/uL (0.0-0.7) Basophils # (Auto) 0.1 x10^3/uL (0.0-0.2) Sodium Level 135 mmol/L (136-145) Potassium Level 4.4 mmol/L (3.5-5.1) Chloride Level 98 mmol/L (98-107) Carbon Dioxide Level 32 mmol/L (21-32) Anion Gap 5 (6-14) Blood Urea Nitrogen 13 mg/dL (8-26) Creatinine 0.9 mg/dL (0.7-1.3) Estimated GFR (Cockcroft-Gault) 87.9 Glucose Level 126 mg/dL (70-99) Calcium Level 8.3 mg/dL (8.5-10.1) Test 03/02/19 13:58 Glucose (Fingerstick) 183 mg/dL (70-99) Microbiology 02/21/19 Blood Culture - Final, Complete 02/21/19 Blood Culture Result 1 (SHASTA) - Final, Complete 02/21/19 Antimicrobic Susceptibility - Final, Complete Medication Medications Current Medications Lidocaine (Lidoderm) 1 patch DAILY TD Last administered on 03/02/19at 15:00; Start 03/02/19 at 14:30 Miscellaneous (Lidoderm Patch Removal) 1 [facility] ; Start 03/02/19 at 21:00 Comment Review of Relevant I have reviewed the following items robert (where applicable) has been applied. ADAIR DÍAZ MD Mar 02, 2019 16:14
[2019-03-02 19:00] VITALS: BP 160/89
[2019-03-02] MEDS: PATCH REMOVAL. MC SCH (20:55)
[2019-03-02 23:00] VITALS: BP 155/86
[2019-03-03 03:00] VITALS: BP 147/85
[2019-03-03 07:00] VITALS: BP 151/82
[2019-03-03] MEDS: INSULIN LISPRO 300 UNITS/3 ML VIAL. SQ SCH ×3 (07:54→16:59)
[2019-03-03] MEDS: IPRATRPIUM/ALBUTEROL 0.5/2.5MG 3 ML NEBU. NEB SCH ×4 (08:00→19:16)
[2019-03-03] MEDS: FOLIC ACID 1 MG TABLET. PO SCH (08:13)
[2019-03-03] MEDS: MAGNESIUM OXIDE 400 MG TABLET PO SCH (08:13)
[2019-03-03] MEDS: FAMOTIDINE 20 MG TABLET. PO SCH ×2 (08:14→20:50)
[2019-03-03] MEDS: LACTOBACILLUS RHAMNOSUS GG 1 CAPSULE. PO SCH ×2 (08:14→20:50)
[2019-03-03] MEDS: LINEZOLID 600 MG TABLET PO SCH ×2 (08:14→20:50)
[2019-03-03] MEDS: AMOXICILLIN/K CLAV 875/125MG TABLET. PO SCH ×2 (08:14→20:50)
[2019-03-03] MEDS: ASPIRIN 325 MG TABLET PO SCH (08:14)
[2019-03-03] MEDS: ATENOLOL 50 MG TABLET. PO SCH ×3 (08:14→20:53)
[2019-03-03] MEDS: THIAMINE 100 MG TABLET. PO SCH (08:14)
[2019-03-03] MEDS: DOCUSATE SODIUM 100 MG CAPSULE. PO SCH ×4 (08:15→21:00)
[2019-03-03] MEDS: MULTIVITAMIN with MINERAL TABLET. PO SCH (08:15)
[2019-03-03] MEDS ORDERED: Folic Acid PO (08:39)
[2019-03-03] MEDS ORDERED: LIDO700A21 TD (08:39)
[2019-03-03] MEDS ORDERED: HYDR-3164 PO (08:39)
[2019-03-03] MEDS ORDERED: AMOX1TAB11 PO (08:39)
[2019-03-03] MEDS ORDERED: LINE600T12 PO (08:39)
[2019-03-03] MEDS ORDERED: ATEN50TA PO (08:39)
[2019-03-03] MEDS ORDERED: THIA100T22 PO (08:39)
[2019-03-03] MEDS ORDERED: ALBU2.5V8 IH (08:39)
--- NOTE | 2019-03-03 08:40 | SNU/HH DC ---
DISCHARGE WITH HOME HEALTH DISCHARGE INFORMATION: Discharge Date: Mar 03, 2019 Final Diagnosis: Problems Medical Problems: (1) Acute renal failure Status: Acute (2) Cellulitis of right leg Status: Acute (3) Dehydration Status: Acute (4) Dyspnea Status: Acute (5) Hypoglycemia Status: Acute (6) Severe sepsis Status: Acute Condition on Discharge: Stable CODE STATUS: Code Status: Full HOME HEALTH: Face to Face: I certify this patient is under my care and that I, or a nurse practitioner or physician's wet process assistant head miller working with me, had a face to face encounter that meets the physician face to face encounter requirements with this patient on []. RN For Eval/Treatment: Yes Physical Therapy For: Evalulation/Treatment Occupational Therapy For: Evaluation/Treatment Home Health Aide For: Self-care DOORPERSON For: Community Resources Pt Meets Homebound Status: Extreme weakness w/ amb. POST DISCHARGE ORDERS: DIET AFTER DISCHARGE: ADA CHECKS AFTER DISCHARGE: Checks after discharge: Check blood press - daily, Check blood sugar, ac/hs FOLLOW-UP: PCP to follow Home Health: use your CPAP/bipap at home, WOUND CARE, RT lower leg CERTIFICATION STATEMENT: Certification Statement: Certification Statement: Based on the above finding, I certify that this patient is confined to the home and needs intermittent penitentiary care, physical therapy and/or speech therapy, or continues to need occupational therapy.~ This patient is under my care, and I have initiated the establishment of the plan of care.~ This patient will be followed by myself or a community physician who will periodically review the plan of care. Home Meds Active Scripts Albuterol Sulfate (PROAIR HFA INHALER) 8.5 Gm Hfa.aer.ad, 2 PUFF IH PRN Q4-6HRS PRN for wheezing for 21 Days, #1 INHALER 0 Refills Prov:MARLON DUKES MD 03/03/19 Hydrocodone/Apap 5-325 (NORCO 5-325 TABLET) 1 Each Tablet, 1 TAB PO TID for pain, #20 TAB Prov:MARLON DUKES MD 03/03/19 Thiamine Mononitrate (VITAMIN B-1) 100 Mg Tablet, 100 MG PO DAILY for mvi, #60 TAB Prov:MARLON DUKES MD 03/03/19 [Folic Acid] 1 MG TABLET No Conflict Check, 1 MG PO DAILY for mvi, #60 Prov:MARLON DUKES MD 03/03/19 Lidocaine (Lidocaine PATCH ) 1 Each Adh..patch, 1 PATCH TD DAILY for back pain, #14 PATCH Prov:MARLON DUKES MD 03/03/19 Atenolol (ATENOLOL) 50 Mg Tablet, 50 MG PO BID for htn, #60 TAB Prov:MARLON DUKES MD 03/03/19 Linezolid (ZYVOX) 600 Mg Tablet, 600 MG PO BID for rt leg cellulitis, #14 TAB Prov:MARLON DUKES MD 03/03/19 Amoxicillin/Potassium Clav (AMOX TR-K CLV 875-125 MG TAB) 1 Each Tablet, 1 TAB PO BID for rt leg cellulitsi for 7 Days, #14 TAB Prov:MARLON DUKES MD 03/03/19 Reported Medications Glipizide (GLIPIZIDE) 5 Mg Tablet, 1 TAB PO BID for CONTROL BLOOD SUGAR, #60 TAB 3 Refills 02/21/19 Metformin Hcl (METFORMIN HCL) 1,000 Mg Tablet, 1000 MG PO BIDWMEALS for CONTROL BLOOD SUGAR, TAB 02/21/19 Chlorthalidone (CHLORTHALIDONE ) 25 Mg Tablet, 25 MG PO DAILY for DIURETIC, TAB 02/21/19 Discontinued Reported Medications Atenolol (ATENOLOL) 50 Mg Tablet, 1 TAB PO DAILY for HTN, #30 TAB 5 Refills 02/21/19 MARLON DUKES MD Mar 03, 2019 08:40
--- NOTE | 2019-03-03 08:44 | RAD ---
PROCEDURE: SHOULDER 2+V LEFT STUDY DATE: 03/02/2019 CLINICAL INDICATION / HISTORY: Left upper extremity weakness and left shoulder pain.. TECHNIQUE: AP internal and external rotation views with a Y- view were obtained. COMPARISON: None FINDINGS: No fracture, dislocation or bone destruction is identified. There are moderately severe degenerative changes at the left AC joint. No calcifications are seen in relation to the rotator cuff insertion. IMPRESSION: Degenerative changes of the acromioclavicular joint. No fracture or malalignment in the left shoulder. Electronically signed by: Louis Vanessa MD (03/03/2019 8:41 AM) [facility]
[2019-03-03] MEDS: LIDOCAINE (700MG/PATCH) PATCH. TD SCH (09:00)
--- NOTE | 2019-03-03 10:20 | PDOC ---
Infectious Disease Note Subjective: Subjective Comfortable, denies rt leg pain/N/V/D has some Lt shoulder discomfort No fevers/chills Vital Signs: Vital Signs Vital Signs Date Time Temp Pulse Resp B/P (MAP) Pulse Ox O2 Delivery O2 Flow Rate FiO2 03/03/19 08:30 2.0 03/03/19 08:30 Nasal Cannula 03/03/19 08:14 72 151/82 03/03/19 08:02 98 03/03/19 07:00 97.7 14 97.7 Physical Exam: PHYSICAL EXAM GENERAL: Sitting in the chair, alert, legs down HEENT: Pupils are round and reacting. Oral cavity clear, Crusts lips NECK: Supple LUNGS: Clear. HEART: S1, S2 regular. ABDOMEN: Obese, soft, nontender : Kimbrough in place EXTREMITIES: RLE mildly red, Chronic venous insufficiency and stasis dermatitis changes present. NEUROLOGIC: Alert, ansers questions appropriately PIV Medications: Inpatient Meds: Current Medications Medications (Trade) Dose Ordered Sig/Lilliam Start Time Stop Time Status Last Admin Dose Admin Acetaminophen (Tylenol) 650 mg PRN Q6HRS PRN 02/21/19 11:15 03/02/19 11:56 650 MG Albuterol/ Ipratropium (Duoneb) 3 ml RTQID 02/22/19 08:00 03/03/19 08:00 3 ML Amoxicillin/ Clavulanate Potassium (Augmentin 875/ 125mg) 1 tab BID 02/25/19 21:00 03/03/19 08:14 1 TAB Aspirin (Flavia Aspirin) 325 mg DAILYWBKFT 02/22/19 08:00 03/03/19 08:14 325 MG Aspirin (Children'S Aspirin) 81 mg DAILYWBKFT 02/21/19 15:30 02/21/19 16:46 DC 02/21/19 16:23 81 MG Atenolol (Tenormin) 50 mg BID 03/03/19 09:00 Bisacodyl (Dulcolax Supp) 10 mg PRN DAILY PRN 02/21/19 11:15 Chlorthalidone (Thalitone) 25 mg DAILY 03/03/19 09:00 Clonidine HCl (Catapres) 0.1 mg PRN Q1HR PRN 02/21/19 11:30 02/23/19 20:24 0.1 MG Dextrose (Dextrose 50%-Water Syringe) 12.5 gm PRN Q15MIN PRN 02/22/19 14:45 Dextrose (Iv Dextrose 5%) 250 ml PRN Q15MIN PRN 02/22/19 14:45 Docusate Sodium (Colace) 100 mg BID 02/21/19 12:00 03/01/19 20:26 100 MG Enoxaparin Sodium (Lovenox 40mg Syringe) 40 mg Q24H 02/24/19 10:00 02/27/19 14:04 DC 02/27/19 10:57 40 MG Enoxaparin Sodium (Lovenox 60mg Syringe) 60 mg Q12HR 02/27/19 21:00 03/03/19 08:17 60 MG Famotidine (Pepcid Vial) 20 mg BID 02/21/19 11:30 02/23/19 15:27 DC 02/23/19 09:39 20 MG Famotidine (Pepcid) 20 mg BID 02/23/19 21:00 03/03/19 08:14 20 MG Folic Acid (Folic Acid) 1 mg DAILY 02/21/19 12:00 03/03/19 08:13 1 MG Haloperidol Lactate (Haldol Inj) 5 mg PRN Q4HRS PRN 02/21/19 11:30 Heparin Sodium (Porcine) (Heparin Sodium) 5,000 unit Q8HRS 02/21/19 14:00 02/24/19 09:32 DC 02/24/19 06:16 5,000 UNIT Info (Icu Electrolyte Protocol) 1 ea DAILY 02/22/19 09:00 02/23/19 15:22 DC 02/22/19 08:07 1 EA Info (Non-Icu Electrolyte Protocol) 1 ea CONT PRN PRN 02/23/19 15:30 Insulin Human Lispro (HumaLOG) 0-7 UNITS TIDWMEALS 02/22/19 17:00 03/02/19 16:40 3 UNITS Lactobacillus Rhamnosus (Culturelle) 1 cap BID 02/21/19 21:00 03/03/19 08:14 1 CAP Lidocaine (Lidoderm) 1 patch DAILY 03/02/19 14:30 03/02/19 15:00 1 PATCH Linezolid (Zyvox) 600 mg BID 02/21/19 13:30 03/03/19 08:14 600 MG Lorazepam (Ativan Inj) 4 mg PRN Q15MIN PRN 02/21/19 11:30 02/23/19 15:24 DC Lorazepam (Ativan) 8 mg PRN Q1HR PRN 02/21/19 11:30 Magnesium Oxide (Magnesium Oxide) 400 mg DAILY 02/27/19 09:00 03/03/19 08:13 400 MG Magnesium Sulfate 50 ml @ 25 mls/hr 1X ONCE 02/25/19 13:45 02/25/19 15:44 DC 02/25/19 15:00 25 MLS/HR Methylprednisolone Sodium Succinate (SOLU-Medrol 125MG VIAL) 125 mg 1X ONCE 02/21/19 04:30 02/21/19 04:31 DC 02/21/19 04:11 125 MG Miscellaneous (Lidoderm Patch Removal) 1 ea QHS 03/02/19 21:00 03/02/19 20:55 1 EA Morphine Sulfate (Morphine Sulfate) 4 mg PRN Q2HR PRN 02/21/19 05:30 02/22/19 05:29 DC 02/21/19 09:07 4 MG Multivitamins (Thera M Plus) 1 tab DAILY 02/24/19 09:00 03/03/19 08:15 1 TAB Ondansetron HCl (Zofran) 4 mg PRN Q6HRS PRN 02/21/19 11:15 Piperacillin Sod/ Tazobactam Sod 3.375 gm/Sodium Chloride 50 ml @ 100 mls/hr Q6HRS 02/21/19 13:30 02/25/19 11:36 DC 02/25/19 04:49 100 MLS/HR Potassium Chloride/Water 100 ml @ 100 mls/hr Q1H 02/22/19 09:00 02/22/19 10:59 DC Potassium Chloride (Klor-Con) 40 meq 1X ONCE 02/22/19 08:15 02/22/19 08:16 DC 02/22/19 08:16 40 MEQ Ringer's Solution 1,000 ml @ 75 mls/hr [id number] 02/21/19 13:00 02/21/19 16:07 DC 02/21/19 13:54 75 MLS/HR Sodium Chloride 1,000 ml @ 75 mls/hr [id number] 02/21/19 17:00 02/22/19 08:57 DC 02/22/19 07:58 75 MLS/HR Sodium Chloride (Normal Saline Flush) 3 ml QSHIFT PRN 02/21/19 11:15 Thiamine Mononitrate (Vitamin B-1) 100 mg DAILY 02/21/19 12:00 03/03/19 08:14 100 MG Vancomycin HCl 2 gm/Sodium Chloride 500 ml @ 250 mls/hr 1X ONCE 02/21/19 04:30 02/21/19 06:29 DC 02/21/19 04:49 250 MLS/HR Labs: Lab Laboratory Tests Test 03/02/19 13:58 03/02/19 16:15 03/02/19 20:40 03/03/19 07:09 Glucose (Fingerstick) 183 mg/dL (70-99) 154 mg/dL (70-99) 149 mg/dL (70-99) 120 mg/dL (70-99) Objective: Assessment: Right lower extremity extensive cellulitis. Leukocytosis - some better Lactic acidosis with the early sepsis. Morbid obesity. Diabetes. Hypertension. Venous insufficiency and stasis dermatitis. Left arm weakness BC 02/20 likely contaminant, Staphylococcus hominis-oxicillin R Plan: Plan of Care po zyvox (02/21) and Augmentin (02/25) cont local wound care Probiotics Leg elevation PT/OT ABDIFATAH COUGHLIN MD Mar 03, 2019 10:20
[2019-03-03] MEDS: CHLORTHALIDONE 25 MG TABLET. PO SCH (10:41)
[2019-03-03 11:00] VITALS: BP 146/76
--- NOTE | 2019-03-03 11:12 | PDOC ---
PROGRESS NOTES Chief Complaint Chief Complaint Resp failure resolved Severe sepsis resolved Extreme morbid obesity with BMI of 60 BCT hypoventilation syndrome Cellulitis of right leg, severe with lymphedema, chronic venous stasis Hypoglycemia sec to glipizide secondary to most likely due to renal dysfunction Acute renal failure improved Dehydration improved Dyspnea Hypoglycemia History of Severe alcohol abuse no evidence of withdrawal of the present time Fall at home Severe debility CHF History of Present Illness History of Present Illness BP high , no sxs Placement issues, insurance wont pay snu for full [place] pay $300 plus - unable to afford adamant he cant take pt home PLAN: INc atenolol to 50 BID from once a day Add prn REsume home chlorthalidone 25 once a day Ready to medically dc, placement is the issue Vitals Vitals Vital Signs Date Time Temp Pulse Resp B/P (MAP) Pulse Ox O2 Delivery O2 Flow Rate FiO2 03/03/19 10:56 93 Room Air 03/03/19 08:30 2.0 03/03/19 08:14 72 151/82 03/03/19 07:00 97.7 14 97.7 Physical Exam Physical Exam GENERAL: Sitting in the chair, alert, legs down HEENT: Pupils are round and reacting. Oral cavity clear, Crusts lips NECK: Supple LUNGS: Clear. HEART: S1, S2 regular. ABDOMEN: Obese, soft, nontender : Kimbrough in place EXTREMITIES: RLE mildly red, Chronic venous insufficiency and stasis dermatitis changes present. NEUROLOGIC: Alert, ansers questions appropriately PIV General: Cooperative, mild distress Heart: Regular rate, Normal S1 Lungs: Other (decrease bases) Abdomen: Normal bowel sounds, Soft, No tenderness, No hepatosplenomegaly, Other (morbidly obese) Extremities: Other (2-3+ pitting edema with chronic changes and hyperemia RLE, 1+ edema with hyperpigmentation LLE) Skin: Other (massive rash on r leg) Labs LABS Laboratory Tests Test 03/02/19 13:58 03/02/19 16:15 03/02/19 20:40 03/03/19 07:09 Glucose (Fingerstick) 183 mg/dL (70-99) 154 mg/dL (70-99) 149 mg/dL (70-99) 120 mg/dL (70-99) Review of Systems Review of Systems weak on exertion. all else is neg Assessment and Plan Assessmemt and Plan Problems Medical Problems: (1) Acute renal failure Status: Acute (2) Cellulitis of right leg Status: Acute (3) Dehydration Status: Acute (4) Dyspnea Status: Acute (5) Hypoglycemia Status: Acute (6) Severe sepsis Status: Acute Comment Review of Relevant I have reviewed the following items robert (where applicable) has been applied. Labs Laboratory Tests Test 03/01/19 11:41 03/01/19 16:17 03/01/19 20:38 03/02/19 07:00 Glucose (Fingerstick) 211 mg/dL (70-99) 149 mg/dL (70-99) 182 mg/dL (70-99) White Blood Count 11.0 x10^3/uL (4.0-11.0) Red Blood Count 3.65 x10^6/uL (4.30-5.70) Hemoglobin 11.0 g/dL (13.0-17.5) Hematocrit 33.5 % (39.0-53.0) Mean Corpuscular Volume 92 fL (79-100) Mean Corpuscular Hemoglobin 30 pg (25-35) Mean Corpuscular Hemoglobin Concent 33 g/dL (31-37) Red Cell Distribution Width 16.1 % (11.5-14.5) Platelet Count 365 x10^3/uL (140-400) Neutrophils (%) (Auto) 79 % (31-73) Lymphocytes (%) (Auto) 13 % (24-48) Monocytes (%) (Auto) 6 % (0-9) Eosinophils (%) (Auto) 1 % (0-3) Basophils (%) (Auto) 1 % (0-3) Neutrophils # (Auto) 8.7 x10^3/uL (1.8-7.7) Lymphocytes # (Auto) 1.4 x10^3/uL (1.0-4.8) Monocytes # (Auto) 0.6 x10^3/uL (0.0-1.1) Eosinophils # (Auto) 0.1 x10^3/uL (0.0-0.7) Basophils # (Auto) 0.1 x10^3/uL (0.0-0.2) Sodium Level 135 mmol/L (136-145) Potassium Level 4.4 mmol/L (3.5-5.1) Chloride Level 98 mmol/L (98-107) Carbon Dioxide Level 32 mmol/L (21-32) Anion Gap 5 (6-14) Blood Urea Nitrogen 13 mg/dL (8-26) Creatinine 0.9 mg/dL (0.7-1.3) Estimated GFR (Cockcroft-Gault) 87.9 Glucose Level 126 mg/dL (70-99) Calcium Level 8.3 mg/dL (8.5-10.1) Test 03/02/19 07:02 03/02/19 13:58 03/02/19 16:15 03/02/19 20:40 Glucose (Fingerstick) 117 mg/dL (70-99) 183 mg/dL (70-99) 154 mg/dL (70-99) 149 mg/dL (70-99) Test 03/03/19 07:09 Glucose (Fingerstick) 120 mg/dL (70-99) Laboratory Tests Test 03/02/19 13:58 03/02/19 16:15 03/02/19 20:40 03/03/19 07:09 Glucose (Fingerstick) 183 mg/dL (70-99) 154 mg/dL (70-99) 149 mg/dL (70-99) 120 mg/dL (70-99) Microbiology 02/21/19 Blood Culture - Final, Complete 02/21/19 Blood Culture Result 1 (SHASTA) - Final, Complete 02/21/19 Antimicrobic Susceptibility - Final, Complete Medications Current Medications Dextrose (Dextrose 50%-Water Syringe) 25 gm STK-MED ONCE IV ; Start 02/21/19 at 03:08; Stop 02/21/19 at 03:08; Status DC Dextrose (Dextrose 50%-Water Syringe) 25 gm 1X ONCE IV Last administered on 02/21/19at 05:59; Start 02/21/19 at 04:30; Stop 02/21/19 at 04:31; Status DC Sodium Chloride 1,000 ml @ 1,000 mls/hr Q1H IV Last administered on 02/21/19at 04:44; Start 02/21/19 at 04:30; Stop 02/21/19 at 05:29; Status DC Albuterol/ Ipratropium (Duoneb) 3 ml 1X ONCE NEB Last administered on 02/21/19at 04:19; Start 02/21/19 at 04:30; Stop 02/21/19 at 04:31; Status DC Methylprednisolone Sodium Succinate (SOLU-Medrol 125MG VIAL) 125 mg 1X ONCE IV Last administered on 02/21/19at 04:11; Start 02/21/19 at 04:30; Stop 02/21/19 at 04:31; Status DC Dextrose 500 ml @ 150 mls/hr 1X ONCE IV Last administered on 02/21/19at 04:30; Start 02/21/19 at 04:30; Stop 02/21/19 at 07:49; Status DC Vancomycin HCl 2 gm/Sodium Chloride 500 ml @ 250 mls/hr 1X ONCE IV Last administered on 02/21/19at 04:49; Start 02/21/19 at 04:30; Stop 02/21/19 at 06:29; Status DC Sodium Chloride 1,000 ml @ 1,000 mls/hr 1X ONCE IV ; Start 02/21/19 at 05:30; Stop 02/21/19 at 06:29; Status DC Ondansetron HCl (Zofran) 4 mg PRN Q8HRS PRN IV NAUSEA/VOMITING 1ST CHOICE; Start 02/21/19 at 05:30; Stop 02/21/19 at 11:17; Status DC Morphine Sulfate (Morphine Sulfate) 4 mg PRN Q2HR PRN IV SEVERE PAIN 7-10 Last administered on 02/21/19at 09:07; Start 02/21/19 at 05:30; Stop 02/22/19 at 05:29; Status DC Sodium Chloride 1,000 ml @ 100 mls/hr Q10H IV ; Start 02/21/19 at 06:00; Stop 02/21/19 at 12:45; Status DC Acetaminophen (Tylenol) 650 mg PRN Q4HRS PRN PO FEVER; Start 02/21/19 at 05:30; Stop 02/21/19 at 11:18; Status DC Albuterol/ Ipratropium (Duoneb) 3 ml RTQID NEB Last administered on 02/22/19at 07:51; Start 02/21/19 at 08:00; Stop 02/22/19 at 07:59; Status DC Piperacillin Sod/ Tazobactam Sod 3.375 gm/Sodium Chloride 50 ml @ 100 mls/hr 1X ONCE IV Last administered on 02/21/19at 05:47; Start 02/21/19 at 06:00; Stop 02/21/19 at 06:29; Status DC Acetaminophen (Tylenol) 650 mg PRN Q6HRS PRN PO Headaches, Temp > 101.5' Last administered on 03/02/19at 11:56; Start 02/21/19 at 11:15 Ondansetron HCl (Zofran) 4 mg PRN Q6HRS PRN IV NAUSEA/VOMITING; Start 02/21/19 at 11:15 Famotidine (Pepcid Vial) 20 mg BID IVP Last administered on 02/23/19at 09:39; Start 02/21/19 at 11:30; Stop 02/23/19 at 15:27; Status DC Info (Icu Electrolyte Protocol) 1 ea DAILY MC Last administered on 02/22/19at 08:07; Start 02/22/19 at 09:00; Stop 02/23/19 at 15:22; Status DC Heparin Sodium (Porcine) (Heparin Sodium) 5,000 unit Q8HRS SQ Last administered on 02/24/19at 06:16; Start 02/21/19 at 14:00; Stop 02/24/19 at 09:32; Status DC Sodium Chloride (Normal Saline Flush) 3 ml QSHIFT PRN IV AFTER MEDS AND BLOOD DRAWS; Start 02/21/19 at 11:15 Docusate Sodium (Colace) 100 mg BID PO Last administered on 03/01/19at 20:26; Start 02/21/19 at 12:00 Bisacodyl (Dulcolax Supp) 10 mg PRN DAILY PRN [place] CONSTIPATION; Start 02/21/19 at 11:15 Atenolol (Tenormin) 50 mg DAILY PO Last administered on 03/03/19at 08:14; Start 02/21/19 at 12:00; Stop 03/03/19 at 08:35; Status DC Chlorthalidone (Thalitone) 25 mg DAILY PO ; Start 02/21/19 at 12:00; Stop 02/21/19 at 12:45; Status DC Multivitamins (Thera M Plus) 1 tab DAILY PO Last administered on 02/25/19at 10:10; Start 02/21/19 at 12:00; Stop 02/25/19 at 15:20; Status DC Folic Acid (Folic Acid) 1 mg DAILY PO Last administered on 03/03/19at 08:13; Start 02/21/19 at 12:00 Thiamine Mononitrate (Vitamin B-1) 100 mg DAILY PO Last administered on 03/03/19at 08:14; Start 02/21/19 at 12:00 Lorazepam (Ativan) 4 mg PRN Q1HR PRN PO For CIWA 8-14 Last administered on 02/24/19at 08:49; Start 02/21/19 at 11:30 Lorazepam (Ativan) 8 mg PRN Q1HR PRN PO For CIWA 15 or greater; Start 02/21/19 at 11:30 Lorazepam (Ativan Inj) 2 mg PRN Q1HR PRN IV For CIWA 8-14 Last administered on 02/26/19at 21:08; Start 02/21/19 at 11:30 Lorazepam (Ativan Inj) 4 mg PRN Q1HR PRN IV For CIWA 15 or greater; Start 02/21/19 at 11:30 Haloperidol Lactate (Haldol Inj) 5 mg PRN Q4HRS PRN IVP Hallucinatns,Confusn,Delirium; Start 02/21/19 at 11:30 Clonidine HCl (Catapres) 0.1 mg PRN Q1HR PRN PO SBP > 180 or DBP > 100, MRX3 Last administered on 02/23/19at 20:24; Start 02/21/19 at 11:30 Lorazepam (Ativan Inj) 2 mg PRN Q15MIN PRN IV SEE COMMENTS; Start 02/21/19 at 11:30; Stop 02/23/19 at 15:23; Status DC Lorazepam (Ativan Inj) 4 mg PRN Q15MIN PRN IV SEE COMMENTS; Start 02/21/19 at 11:30; Stop 02/23/19 at 15:24; Status DC Potassium Chloride (Klor-Con) 20 meq 1X ONCE PO Last administered on 02/21/19at 13:53; Start 02/21/19 at 12:00; Stop 02/21/19 at 12:01; Status DC Ringer's Solution 1,000 ml @ 75 mls/hr [id number] IV Last administered on 02/21/19at 13:54; Start 02/21/19 at 13:00; Stop 02/21/19 at 16:07; Status DC Magnesium Sulfate 50 ml @ 25 mls/hr PRN DAILY PRN IV for Mag < 1.7 on am labs Last administered on 02/26/19at 08:54; Start 02/21/19 at 13:00 Linezolid (Zyvox) 600 mg BID PO Last administered on 03/03/19at 08:14; Start 02/21/19 at 13:30 Piperacillin Sod/ Tazobactam Sod 3.375 gm/Sodium Chloride 50 ml @ 100 mls/hr Q6HRS IV Last administered on 02/25/19at 04:49; Start 02/21/19 at 13:30; Stop 02/25/19 at 11:36; Status DC Lactobacillus Rhamnosus (Culturelle) 1 cap BID PO Last administered on 03/03/19at 08:14; Start 02/21/19 at 21:00 Aspirin (Children'S Aspirin) 81 mg DAILYWBKFT PO Last administered on 02/21/19at 16:23; Start 02/21/19 at 15:30; Stop 02/21/19 at 16:46; Status DC Sodium Chloride 1,000 ml @ 75 mls/hr [id number] IV ; Start 02/22/19 at 03:00; Stop 02/21/19 at 16:14; Status DC Sodium Chloride 1,000 ml @ 75 mls/hr [id number] IV Last administered on 02/22/19at 07:58; Start 02/21/19 at 17:00; Stop 02/22/19 at 08:57; Status DC Aspirin (Flavia Aspirin) 325 mg DAILYWBKFT PO Last administered on 03/03/19at 08:14; Start 02/22/19 at 08:00 Albuterol/ Ipratropium (Duoneb) 3 ml RTQID NEB Last administered on 03/03/19at 10:54; Start 02/22/19 at 08:00 Potassium Chloride (Klor-Con) 40 meq 1X ONCE PO Last administered on 02/22/19at 08:16; Start 02/22/19 at 08:15; Stop 02/22/19 at 08:16; Status DC Potassium Chloride/Water 100 ml @ 100 mls/hr Q1H IV ; Start 02/22/19 at 09:00; Stop 02/22/19 at 10:59; Status DC Insulin Human Lispro (HumaLOG) 0-7 UNITS TIDWMEALS SQ Last administered on 03/02/19at 16:40; Start 02/22/19 at 17:00 Dextrose (Dextrose 50%-Water Syringe) 12.5 gm PRN Q15MIN PRN IV SEE COMMENTS; Start 02/22/19 at 14:45 Dextrose (Iv Dextrose 5%) 250 ml PRN Q15MIN PRN IV SEE COMMENTS; Start 02/22/19 at 14:45 Info (Non-Icu Electrolyte Protocol) 1 ea CONT PRN PRN MC SEE COMMENTS; Start 02/23/19 at 15:30 Famotidine (Pepcid) 20 mg BID PO Last administered on 03/03/19at 08:14; Start 02/23/19 at 21:00 Multivitamins (Thera M Plus) 1 tab DAILY PO Last administered on 03/03/19at 08:15; Start 02/24/19 at 09:00 Enoxaparin Sodium (Lovenox 40mg Syringe) 40 mg Q24H SQ Last administered on 02/27/19at 10:57; Start 02/24/19 at 10:00; Stop 02/27/19 at 14:04; Status DC Amoxicillin/ Clavulanate Potassium (Augmentin 875/ 125mg) 1 tab BID PO Last administered on 03/03/19at 08:14; Start 02/25/19 at 21:00 Magnesium Sulfate 50 ml @ 25 mls/hr 1X ONCE IV Last administered on 02/25/19at 15:00; Start 02/25/19 at 13:45; Stop 02/25/19 at 15:44; Status DC Magnesium Oxide (Magnesium Oxide) 400 mg DAILY PO Last administered on 03/03/19at 08:13; Start 02/27/19 at 09:00 Enoxaparin Sodium (Lovenox 60mg Syringe) 60 mg Q12HR SQ Last administered on 03/03/19at 08:17; Start 02/27/19 at 21:00 Lidocaine (Lidoderm) 1 patch DAILY TD Last administered on 03/02/19at 15:00; Start 03/02/19 at 14:30 Miscellaneous (Lidoderm Patch Removal) 1 ea QHS MC Last administered on 03/02/19at 20:55; Start 03/02/19 at 21:00 Atenolol (Tenormin) 50 mg BID PO ; Start 03/03/19 at 09:00 Chlorthalidone (Thalitone) 25 mg DAILY PO Last administered on 03/03/19at 10:41; Start 03/03/19 at 09:00 Active Scripts Active Proair Hfa Inhaler (Albuterol Sulfate) 8.5 Gm Hfa.aer.ad 2 Puff IH PRN Q4-6HRS PRN 21 Days [place] 5-325 Tablet (Acetaminophen/Hydrocodone Bitart) 1 Each Tablet 1 Tab PO TID Vitamin B-1 (Thiamine Mononitrate) 100 Mg Tablet 100 Mg PO DAILY [Folic Acid] 1 MG Tablet 1 Mg PO DAILY Lidocaine PATCH (Lidocaine) 1 Each Adh..patch 1 Patch TD DAILY Atenolol 50 Mg Tablet 50 Mg PO BID Zyvox (Linezolid) 600 Mg Tablet 600 Mg PO BID Amox Tr-K Clv 875-125 Mg Tab (Amoxicillin/Potassium Clav) 1 Each Tablet 1 Tab PO BID 7 Days Reported Glipizide 5 Mg Tablet 1 Tab PO BID Metformin Hcl 1,000 Mg Tablet 1,000 Mg PO BIDWMEALS Chlorthalidone (Chlorthalidone) 25 Mg Tablet 25 Mg PO DAILY Vitals/I & O Vital Sign - Last 24 Hours 03/02/19 03/02/19 03/02/19 03/02/19 15:00 16:14 19:00 20:00 Temp 98.2 98.7 98.2 98.7 Pulse 78 81 Resp 20 20 B/P (MAP) 152/86 (108) 160/89 (112) Pulse Ox 98 96 O2 Delivery Nasal Cannula Nasal Cannula Nasal Cannula Nasal Cannula O2 Flow Rate 2.0 2.0 2.0 2.0 03/02/19 03/02/19 03/02/19 03/02/19 20:00 20:52 22:33 23:00 Temp 98.6 98.6 Pulse 83 Resp 20 B/P (MAP) 155/86 (109) Pulse Ox 96 96 95 O2 Delivery Nasal Cannula BiPAP/CPAP Nasal Cannula O2 Flow Rate 2.0 2.0 2.0 03/03/19 03/03/19 03/03/19 03/03/19 00:08 02:10 03:00 07:00 Temp 97.9 97.7 97.9 97.7 Pulse 77 72 Resp 20 14 B/P (MAP) 147/85 (105) 151/82 (105) Pulse Ox 98 97 O2 Delivery BiPAP/CPAP BiPAP/CPAP Nasal Cannula Nasal Cannula O2 Flow Rate 2.0 2.0 03/03/19 03/03/19 03/03/19 03/03/19 08:02 08:14 08:30 08:30 Pulse 72 B/P (MAP) 151/82 Pulse Ox 98 O2 Delivery Nasal Cannula Nasal Cannula O2 Flow Rate 2.0 2.0 2.0 03/03/19 10:56 Pulse Ox 93 O2 Delivery Room Air Intake and Output 03/02/19 03/02/19 03/03/19 15:00 23:00 07:00 Intake Total 300 ml 200 ml Output Total 400 ml Balance 300 ml -200 ml MARLON DUKES MD Mar 03, 2019 11:12
--- NOTE | 2019-03-03 13:37 | NUR ---
RAMO following. Discussed with RN, pt's insurance has denied for [facility] and [facility]. Pt has a 30% pt responsibility for SNU which for [facility] would be $117 a day. RAMO spoke with pt's , who lives in [place], she does not think they can afford 30%, SW had [facility] contact pt's to discuss. Pt is from [place], however when the care home he worked out closed, he was transferred to [place]. Family considering moving pt back to [place] or [place] to be closer to family and find a facility there. [facility] advised they have denied pt due to "daily drinking" SW requested a reconsideration due to pt being at [facility] for 10 days and has not had a drink, nor has had any problems. SW awaiting further information from [facility] and pt's , Kailyn (ph: [phone]). RAMO will continue to follow. RN notified. Addendum: 03/03/19 at 1557 by IVAN RALPH RAMO reached out to Anita at [facility] multiple times since last note, with no response. Finally at 1550 [facility] advised they now cannot take pt due to pt being near the max of their weight limit, and there being safety concerns. RAMO contacted pt's , [facility] never called her. RAMO advised the amount for [facility] was going to be around $117 a day, pt's agreed they would have to pay and are agreeable to RAMO faxing to another facility. Pt does not have a bed at home and per is not able to go home. 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 RAMO had Juliette (floor school secretary) fax referral to [facility], as they have taken a 600lb patient before. RAMO will continue to follow. RN notified.
[2019-03-03 15:00] VITALS: BP 131/77
--- NOTE | 2019-03-03 15:04 | PDOC ---
PROGRESS NOTES Assessment Assessment Left side weakness. CVA syndrome. Metabolic encephalopathy. Lactic acidosis. Hypoglycemia, glucose level 20. Leukocytosis, WBC 28.8 Renal failure or SEEMA. Fall on the floor? DM. HTN. HLD. Alcohol use/abuse. Cellulitis, LE ? Left shoulder pain. Morbid obesity, BMI 62.6 No evidence of large vessel CVA this time, 2 HCT negative. Repeated CCT no C3 fractures. RECOMMENDATIONS/PLAN: Treat medical diseases. ASA 325 mg daily. Weight reduction. OT/PT. SUBJECTIVE: Left UE weakness, and left shoulder pain. OBJECTIVE: 2 HCT negative. Left shoulder X-ray on 03/02/19: Degenerative joint disease. No acute findings. Past Medical History Morbid obesity Possible lymph edema right lower extremity Cardiovascular: HTN, Hyperlipidemia Musculoskeletal: low back pain, Osteoarthritis Endocrine: Diabetes Past Surgical History Knee surgery. Family History High Cholestrol, Hypertension, Kidney Disease (son has reflux nephropathy, required nephrectomy). Social History ALCOHOL: heavy Drugs: None Lives: with Family ALLERGY: NKDA MEDICATIONS: Refer to MAR REVIEW OF SYSTEMS: Constitutional: Morbid obesity. Head: No acute traumatic brain or head injury. Skin: No edema, or rash. Ear: No infection. Eyes: No vision loss or color blindness. Nose: No bleeding or purulent discharges. Hearing: Mild hearing decrease. Neck: No injury. Cardiac: HTN, HLD. Pulmonary: No COPD. GI: No GI ulcer, GI bleeding. Urinary/genital: No dysuria, incontinence, urinary retention. Endocrinologic: Diabetes Mellitus, morbid obesity. Skeletomuscular: No muscular atrophy, deformity. Neurological: see HP. Psychiatric: ETOH use/abuse. Otherwise, not [id number] review of systems. PHYSICAL EXAMINATION: General appearance is in subacute distress. HEENT: Normocephalic and nontraumatic. Eyes, nose, ears, and throat are unremarkable. Neck is supple. No lymphadenopathy. No crepitus. Cardiovascular: S1, S2, regular rate and rhythm. Pulmonary: Decreased to auscultation bilaterally. Abdomen: Bowel sounds are positive. Extremities: Lesions and skin changes noted. NEUROLOGICAL EXAMINATION: Awake. Oriented to time, place and person. PERRL. EOMI. CN: no focal findings. Muscle tone: Decreased. Muscle strength: 3 left UE and 3-4 left LE, 4+ right side. DTR: 0-1 due to obesity. Plantar reflex: Neutral response bilaterally Gait: Able to walk in room. Sensory exam: no abnormal findings. No cerebellar signs elicited. F-T-N test fine on the right side. Objective Objective Vital Signs Date Time Temp Pulse Resp B/P (MAP) Pulse Ox O2 Delivery O2 Flow Rate FiO2 03/03/19 11:00 97.9 67 16 146/76 (99) 100 Nasal Cannula 2.0 97.9 Intake and Output 03/03/19 07:00 Intake Total 500 ml Output Total 400 ml Balance 100 ml Intake Oral 500 ml Output Urine Total 400 ml # Bowel Movements 1 Vitals Signs Vitals VS - Last 72 Hours, by Label Date Time Temp Pulse Resp B/P (MAP) Pulse Ox O2 Delivery O2 Flow Rate FiO2 03/03/19 11:00 97.9 67 16 146/76 (99) 100 Nasal Cannula 2.0 97.9 03/03/19 10:56 93 Room Air 03/03/19 08:30 2.0 03/03/19 08:30 Nasal Cannula 2.0 03/03/19 08:14 72 151/82 03/03/19 08:02 98 Nasal Cannula 2.0 03/03/19 07:00 97.7 72 14 151/82 (105) 97 Nasal Cannula 2.0 97.7 03/03/19 03:00 97.9 77 20 147/85 (105) 98 Nasal Cannula 2.0 97.9 03/03/19 02:10 BiPAP/CPAP 03/03/19 00:08 BiPAP/CPAP 03/02/19 23:00 98.6 83 20 155/86 (109) 95 Nasal Cannula 2.0 98.6 03/02/19 22:33 96 BiPAP/CPAP 03/02/19 20:52 96 Nasal Cannula 2.0 03/02/19 20:00 2.0 03/02/19 20:00 Nasal Cannula 2.0 03/02/19 19:00 98.7 81 20 160/89 (112) 96 Nasal Cannula 2.0 98.7 03/02/19 16:14 Nasal Cannula 2.0 03/02/19 15:00 98.2 78 20 152/86 (108) 98 Nasal Cannula 2.0 98.2 03/02/19 11:07 Nasal Cannula 2.0 03/02/19 08:44 75 144/88 03/02/19 08:00 2.0 03/02/19 08:00 Nasal Cannula 2.0 03/02/19 07:50 98.0 75 20 144/88 (106) 98 Room Air 98.0 03/02/19 07:05 98 Nasal Cannula 2.0 Laboratory Laboratory Laboratory Tests Test 03/02/19 16:15 03/02/19 20:40 03/03/19 07:09 03/03/19 11:29 Glucose (Fingerstick) 154 mg/dL (70-99) 149 mg/dL (70-99) 120 mg/dL (70-99) 130 mg/dL (70-99) Microbiology 02/21/19 Blood Culture - Final, Complete 02/21/19 Blood Culture Result 1 (SHASTA) - Final, Complete 02/21/19 Antimicrobic Susceptibility - Final, Complete Medication Medications Current Medications Atenolol (Tenormin) 50 mg BID PO ; Start 03/03/19 at 09:00 Chlorthalidone (Thalitone) 25 mg DAILY PO Last administered on 03/03/19at 10:41; Start 03/03/19 at 09:00 Miscellaneous (Lidoderm Patch Removal) 1 ea [facility] Last administered on 03/02/19at 20:55; Start 03/02/19 at 21:00 Comment Review of Relevant I have reviewed the following items robert (where applicable) has been applied. ADAIR DÍAZ MD Mar 03, 2019 15:04
--- NOTE | 2019-03-03 15:38 | NUR ---
Wound Care: Wound care follow up on multiple wounds, see wound intervention for further details. All wounds cleansed, pictured, measured and redressed. Recommendations for therahoney (left in room) and xeroform to posterior part of right leg wound, anterior side xovered with xeroform, wrapped with abd and kerlix. Posterior left upper leg dressed with elissa collagen (left in room) and foam. R hip covered with contact layer and foam. No other wounds noted upon skin assessment. POC communicated with MINDY Justin.
[2019-03-03] MEDS: ACETAMINOPHEN 325 MG TABLET. PO PRN (16:07)
[2019-03-03 19:00] VITALS: BP 143/77
[2019-03-03] MEDS: PATCH REMOVAL. MC SCH (20:58)
[2019-03-03 23:00] VITALS: BP 145/78
[2019-03-04 03:00] VITALS: BP 143/84
[2019-03-04 05:06] LABS: BASO # 0.1 x10^3/uL (0.0-0.2); BASO % 1 % (0-3); EOS # 0.1 x10^3/uL (0.0-0.7); EOS % 1 % (0-3); HEMATOCRIT 32.7 % (39.0-53.0); HEMOGLOBIN 10.9 g/dL (13.0-17.5); LYMPH # 1.4 x10^3/uL (1.0-4.8); LYMPH % 14 % (24-48); MEAN CORPUSCULAR HEMOGLOBIN 30 pg (25-35); MEAN CORPUSCULAR HGB CONC 33 g/dL (31-37); MEAN CORPUSCULAR VOLUME 91 fL (79-100); MONO # 0.6 x10^3/uL (0.0-1.1); MONO % 6 % (0-9); NEUT # 7.5 x10^3/uL (1.8-7.7); NEUT % 78 % (31-73); PLATELET COUNT 359 x10^3/uL (140-400); WHITE BLOOD COUNT 9.7 x10^3/uL (4.0-11.0)
[2019-03-04 05:23] LABS: CALCIUM 8.4 mg/dL (8.5-10.1); CREATININE 0.9 mg/dL (0.7-1.3); GFR 87.9; POTASSIUM 4.3 mmol/L (3.5-5.1)
[2019-03-04 07:00] VITALS: BP 106/67
[2019-03-04] MEDS: IPRATRPIUM/ALBUTEROL 0.5/2.5MG 3 ML NEBU. NEB SCH ×3 (07:54→15:28)
[2019-03-04] MEDS: INSULIN LISPRO 300 UNITS/3 ML VIAL. SQ SCH ×3 (08:00→17:12)
[2019-03-04] MEDS: LINEZOLID 600 MG TABLET PO SCH (08:32)
[2019-03-04] MEDS: AMOXICILLIN/K CLAV 875/125MG TABLET. PO SCH (08:32)
[2019-03-04] MEDS: ASPIRIN 325 MG TABLET PO SCH (08:32)
[2019-03-04] MEDS: THIAMINE 100 MG TABLET. PO SCH (08:32)
[2019-03-04] MEDS: FOLIC ACID 1 MG TABLET. PO SCH (08:32)
[2019-03-04] MEDS: MAGNESIUM OXIDE 400 MG TABLET PO SCH (08:32)
[2019-03-04] MEDS: LACTOBACILLUS RHAMNOSUS GG 1 CAPSULE. PO SCH (08:32)
[2019-03-04] MEDS: MULTIVITAMIN with MINERAL TABLET. PO SCH (08:32)
[2019-03-04] MEDS: FAMOTIDINE 20 MG TABLET. PO SCH (08:32)
[2019-03-04] MEDS: CHLORTHALIDONE 25 MG TABLET. PO SCH (08:32)
[2019-03-04] MEDS: ATENOLOL 50 MG TABLET. PO SCH (08:33)
[2019-03-04] MEDS: LIDOCAINE (700MG/PATCH) PATCH. TD SCH (08:33)
[2019-03-04] MEDS: DOCUSATE SODIUM 100 MG CAPSULE. PO SCH (08:34)
--- NOTE | 2019-03-04 09:28 | PDOC ---
Infectious Disease Note Subjective: Subjective Comfortable, denies rt leg pain/N/V/D has some Lt shoulder discomfort No fevers/chills Vital Signs: Vital Signs Vital Signs Date Time Temp Pulse Resp B/P (MAP) Pulse Ox O2 Delivery O2 Flow Rate FiO2 03/04/19 08:33 82 106/67 03/04/19 07:54 94 Room Air 03/04/19 07:00 98.3 98.3 03/04/19 03:00 20 03/03/19 15:00 2.0 Physical Exam: PHYSICAL EXAM GENERAL: Sitting in the chair, alert, legs down HEENT: Pupils are round and reacting. Oral cavity clear, Crusts lips NECK: Supple LUNGS: Clear. HEART: S1, S2 regular. ABDOMEN: Obese, soft, nontender : Kimbrough in place EXTREMITIES: RLE mildly red, Chronic venous insufficiency and stasis dermatitis changes present. NEUROLOGIC: Alert, ansers questions appropriately PIV Medications: Inpatient Meds: Current Medications Medications (Trade) Dose Ordered Sig/Lilliam Start Time Stop Time Status Last Admin Dose Admin Acetaminophen (Tylenol) 650 mg PRN Q6HRS PRN 02/21/19 11:15 03/03/19 16:07 650 MG Albuterol/ Ipratropium (Duoneb) 3 ml RTQID 02/22/19 08:00 03/04/19 07:54 3 ML Amoxicillin/ Clavulanate Potassium (Augmentin 875/ 125mg) 1 tab BID 02/25/19 21:00 03/04/19 08:32 1 TAB Aspirin (Flavia Aspirin) 325 mg [id number] 02/22/19 08:00 03/04/19 08:32 325 MG Aspirin (Children'S Aspirin) 81 mg DAILYWBKFT 02/21/19 15:30 02/21/19 16:46 DC 02/21/19 16:23 81 MG Atenolol (Tenormin) 50 mg BID 03/03/19 09:00 03/04/19 08:33 50 MG Bisacodyl (Dulcolax Supp) 10 mg PRN DAILY PRN 02/21/19 11:15 Chlorthalidone (Thalitone) 25 mg DAILY 03/03/19 09:00 03/04/19 08:32 25 MG Clonidine HCl (Catapres) 0.1 mg PRN Q1HR PRN 02/21/19 11:30 02/23/19 20:24 0.1 MG Dextrose (Dextrose 50%-Water Syringe) 12.5 gm PRN Q15MIN PRN 02/22/19 14:45 Dextrose (Iv Dextrose 5%) 250 ml PRN Q15MIN PRN 02/22/19 14:45 Docusate Sodium (Colace) 100 mg BID 02/21/19 12:00 03/01/19 20:26 100 MG Enoxaparin Sodium (Lovenox 40mg Syringe) 40 mg Q24H 02/24/19 10:00 02/27/19 14:04 DC 02/27/19 10:57 40 MG Enoxaparin Sodium (Lovenox 60mg Syringe) 60 mg Q12HR 02/27/19 21:00 03/04/19 08:33 60 MG Famotidine (Pepcid Vial) 20 mg BID 02/21/19 11:30 02/23/19 15:27 DC 02/23/19 09:39 20 MG Famotidine (Pepcid) 20 mg BID 02/23/19 21:00 03/04/19 08:32 20 MG Folic Acid (Folic Acid) 1 mg DAILY 02/21/19 12:00 03/04/19 08:32 1 MG Haloperidol Lactate (Haldol Inj) 5 mg PRN Q4HRS PRN 02/21/19 11:30 Heparin Sodium (Porcine) (Heparin Sodium) 5,000 unit Q8HRS 02/21/19 14:00 02/24/19 09:32 DC 02/24/19 06:16 5,000 UNIT Info (Icu Electrolyte Protocol) 1 ea DAILY 02/22/19 09:00 02/23/19 15:22 DC 02/22/19 08:07 1 EA Info (Non-Icu Electrolyte Protocol) 1 ea CONT PRN PRN 02/23/19 15:30 Insulin Human Lispro (HumaLOG) 0-7 UNITS TIDWMEALS 02/22/19 17:00 03/03/19 16:59 3 UNITS Lactobacillus Rhamnosus (Culturelle) 1 cap BID 02/21/19 21:00 03/04/19 08:32 1 CAP Lidocaine (Lidoderm) 1 patch DAILY 03/02/19 14:30 03/04/19 08:33 1 PATCH Linezolid (Zyvox) 600 mg BID 02/21/19 13:30 03/04/19 08:32 600 MG Lorazepam (Ativan Inj) 4 mg PRN Q15MIN PRN 02/21/19 11:30 02/23/19 15:24 DC Lorazepam (Ativan) 8 mg PRN Q1HR PRN 02/21/19 11:30 Magnesium Oxide (Magnesium Oxide) 400 mg DAILY 02/27/19 09:00 03/04/19 08:32 400 MG Magnesium Sulfate 50 ml @ 25 mls/hr 1X ONCE 02/25/19 13:45 02/25/19 15:44 DC 02/25/19 15:00 25 MLS/HR Methylprednisolone Sodium Succinate (SOLU-Medrol 125MG VIAL) 125 mg 1X ONCE 02/21/19 04:30 02/21/19 04:31 DC 02/21/19 04:11 125 MG Miscellaneous (Lidoderm Patch Removal) 1 ea QHS 03/02/19 21:00 03/03/19 20:58 1 EA Morphine Sulfate (Morphine Sulfate) 4 mg PRN Q2HR PRN 02/21/19 05:30 02/22/19 05:29 DC 02/21/19 09:07 4 MG Multivitamins (Thera M Plus) 1 tab DAILY 02/24/19 09:00 03/04/19 08:32 1 TAB Ondansetron HCl (Zofran) 4 mg PRN Q6HRS PRN 02/21/19 11:15 Piperacillin Sod/ Tazobactam Sod 3.375 gm/Sodium Chloride 50 ml @ 100 mls/hr Q6HRS 02/21/19 13:30 02/25/19 11:36 DC 02/25/19 04:49 100 MLS/HR Potassium Chloride/Water 100 ml @ 100 mls/hr Q1H 02/22/19 09:00 02/22/19 10:59 DC Potassium Chloride (Klor-Con) 40 meq 1X ONCE 02/22/19 08:15 02/22/19 08:16 DC 02/22/19 08:16 40 MEQ Ringer's Solution 1,000 ml @ 75 mls/hr [id number] 02/21/19 13:00 02/21/19 16:07 DC 02/21/19 13:54 75 MLS/HR Sodium Chloride 1,000 ml @ 75 mls/hr [id number] 02/21/19 17:00 02/22/19 08:57 DC 02/22/19 07:58 75 MLS/HR Sodium Chloride (Normal Saline Flush) 3 ml QSHIFT PRN 02/21/19 11:15 Thiamine Mononitrate (Vitamin B-1) 100 mg DAILY 02/21/19 12:00 03/04/19 08:32 100 MG Vancomycin HCl 2 gm/Sodium Chloride 500 ml @ 250 mls/hr 1X ONCE 02/21/19 04:30 02/21/19 06:29 DC 02/21/19 04:49 250 MLS/HR Labs: Lab Laboratory Tests Test 03/03/19 11:29 03/03/19 16:43 03/03/19 21:06 03/04/19 04:25 Glucose (Fingerstick) 130 mg/dL (70-99) 166 mg/dL (70-99) 148 mg/dL (70-99) White Blood Count 9.7 x10^3/uL (4.0-11.0) Red Blood Count 3.60 x10^6/uL (4.30-5.70) Hemoglobin 10.9 g/dL (13.0-17.5) Hematocrit 32.7 % (39.0-53.0) Mean Corpuscular Volume 91 fL (79-100) Mean Corpuscular Hemoglobin 30 pg (25-35) Mean Corpuscular Hemoglobin Concent 33 g/dL (31-37) Red Cell Distribution Width 16.0 % (11.5-14.5) Platelet Count 359 x10^3/uL (140-400) Neutrophils (%) (Auto) 78 % (31-73) Lymphocytes (%) (Auto) 14 % (24-48) Monocytes (%) (Auto) 6 % (0-9) Eosinophils (%) (Auto) 1 % (0-3) Basophils (%) (Auto) 1 % (0-3) Neutrophils # (Auto) 7.5 x10^3/uL (1.8-7.7) Lymphocytes # (Auto) 1.4 x10^3/uL (1.0-4.8) Monocytes # (Auto) 0.6 x10^3/uL (0.0-1.1) Eosinophils # (Auto) 0.1 x10^3/uL (0.0-0.7) Basophils # (Auto) 0.1 x10^3/uL (0.0-0.2) Sodium Level 134 mmol/L (136-145) Potassium Level 4.3 mmol/L (3.5-5.1) Chloride Level 99 mmol/L (98-107) Carbon Dioxide Level 29 mmol/L (21-32) Anion Gap 6 (6-14) Blood Urea Nitrogen 12 mg/dL (8-26) Creatinine 0.9 mg/dL (0.7-1.3) Estimated GFR (Cockcroft-Gault) 87.9 Glucose Level 125 mg/dL (70-99) Calcium Level 8.4 mg/dL (8.5-10.1) Test 03/04/19 08:02 Glucose (Fingerstick) 127 mg/dL (70-99) Objective: Assessment: Right lower extremity extensive cellulitis. Leukocytosis - some better Lactic acidosis with the early sepsis. Morbid obesity. Diabetes. Hypertension. Venous insufficiency and stasis dermatitis. Left arm weakness BC 1/ likely contaminant, Staphylococcus hominis-oxicillin R Plan: Plan of Care ok to dc home on po zyvox 3 more days and augmentin for 7 more days cont local wound care leg elevation ABDIFATAH COUGHLIN MD Mar 04, 2019 09:28
[2019-03-04 11:00] VITALS: BP 133/74
--- NOTE | 2019-03-04 12:14 | PDOC ---
PROGRESS NOTES Chief Complaint Chief Complaint Resp failure resolved Severe sepsis resolved Extreme morbid obesity with BMI of 60 BCT hypoventilation syndrome Cellulitis of right leg, severe with lymphedema, chronic venous stasis Hypoglycemia sec to glipizide secondary to most likely due to renal dysfunction Acute renal failure improved Dehydration improved Dyspnea Hypoglycemia History of Severe alcohol abuse no evidence of withdrawal of the present time Fall at home Severe debility CHF GOUT left second digit? OA left hand , possible History of Present Illness History of Present Illness BP better since my adjustments ONly on PO meds now Waiting on insurance auth for SNU at bedside BUt pt now has left hand swelling and left index finger that he cant flex/cant make a fist, some redness swelling left index PIP jt - denies trauma, happened this AM PLAN ESR, Uric acid hand left xray, looks like arthritis AND GOUT on left index finger Colrys 1,.2 PO now then o,.6 daily Start nsaid 500 BID naproxen Dw THEY ASK ME TO Fill up an at least 10 page long FMLA? paperwork Vitals Vitals Vital Signs Date Time Temp Pulse Resp B/P (MAP) Pulse Ox O2 Delivery O2 Flow Rate FiO2 03/04/19 11:40 94 Room Air 03/04/19 08:33 82 106/67 03/04/19 08:30 2.0 03/04/19 07:00 98.3 98.3 03/04/19 03:00 20 Physical Exam Physical Exam GENERAL: Sitting in the chair, alert, legs down HEENT: Pupils are round and reacting. Oral cavity clear, Crusts lips NECK: Supple LUNGS: Clear. HEART: S1, S2 regular. ABDOMEN: Obese, soft, nontender : Kimbrough in place EXTREMITIES: RLE mildly red, Chronic venous insufficiency and stasis dermatitis changes present. NEUROLOGIC: Alert, ansers questions appropriately PIV General: Cooperative, mild distress Heart: Regular rate, Normal S1 Lungs: Other (decrease bases) Abdomen: Normal bowel sounds, Soft, No tenderness, No hepatosplenomegaly, Other (morbidly obese) Extremities: No clubbing, No cyanosis, Normal pulses, Other (2-3+ pitting edema with chronic changes and hyperemia RLE, 1+ edema with hyperpigmentation LLE) Skin: Other (massive rash on r leg; left index PIP swollen, red, unable to flex) Labs LABS Laboratory Tests Test 03/03/19 16:43 03/03/19 21:06 03/04/19 04:25 03/04/19 08:02 Glucose (Fingerstick) 166 mg/dL (70-99) 148 mg/dL (70-99) 127 mg/dL (70-99) White Blood Count 9.7 x10^3/uL (4.0-11.0) Red Blood Count 3.60 x10^6/uL (4.30-5.70) Hemoglobin 10.9 g/dL (13.0-17.5) Hematocrit 32.7 % (39.0-53.0) Mean Corpuscular Volume 91 fL (79-100) Mean Corpuscular Hemoglobin 30 pg (25-35) Mean Corpuscular Hemoglobin Concent 33 g/dL (31-37) Red Cell Distribution Width 16.0 % (11.5-14.5) Platelet Count 359 x10^3/uL (140-400) Neutrophils (%) (Auto) 78 % (31-73) Lymphocytes (%) (Auto) 14 % (24-48) Monocytes (%) (Auto) 6 % (0-9) Eosinophils (%) (Auto) 1 % (0-3) Basophils (%) (Auto) 1 % (0-3) Neutrophils # (Auto) 7.5 x10^3/uL (1.8-7.7) Lymphocytes # (Auto) 1.4 x10^3/uL (1.0-4.8) Monocytes # (Auto) 0.6 x10^3/uL (0.0-1.1) Eosinophils # (Auto) 0.1 x10^3/uL (0.0-0.7) Basophils # (Auto) 0.1 x10^3/uL (0.0-0.2) Sodium Level 134 mmol/L (136-145) Potassium Level 4.3 mmol/L (3.5-5.1) Chloride Level 99 mmol/L (98-107) Carbon Dioxide Level 29 mmol/L (21-32) Anion Gap 6 (6-14) Blood Urea Nitrogen 12 mg/dL (8-26) Creatinine 0.9 mg/dL (0.7-1.3) Estimated GFR (Cockcroft-Gault) 87.9 Glucose Level 125 mg/dL (70-99) Calcium Level 8.4 mg/dL (8.5-10.1) Test 03/04/19 11:58 Glucose (Fingerstick) 168 mg/dL (70-99) Review of Systems Review of Systems as per above, all else neg except for progressive ambulatory weakness Assessment and Plan Assessmemt and Plan Problems Medical Problems: (1) Acute renal failure Status: Acute (2) Cellulitis of right leg Status: Acute (3) Dehydration Status: Acute (4) Dyspnea Status: Acute (5) Hypoglycemia Status: Acute (6) Severe sepsis Status: Acute Comment Review of Relevant I have reviewed the following items robert (where applicable) has been applied. Labs Laboratory Tests Test 03/02/19 13:58 03/02/19 16:15 03/02/19 20:40 03/03/19 07:09 Glucose (Fingerstick) 183 mg/dL (70-99) 154 mg/dL (70-99) 149 mg/dL (70-99) 120 mg/dL (70-99) Test 03/03/19 11:29 03/03/19 16:43 03/03/19 21:06 03/04/19 04:25 Glucose (Fingerstick) 130 mg/dL (70-99) 166 mg/dL (70-99) 148 mg/dL (70-99) White Blood Count 9.7 x10^3/uL (4.0-11.0) Red Blood Count 3.60 x10^6/uL (4.30-5.70) Hemoglobin 10.9 g/dL (13.0-17.5) Hematocrit 32.7 % (39.0-53.0) Mean Corpuscular Volume 91 fL (79-100) Mean Corpuscular Hemoglobin 30 pg (25-35) Mean Corpuscular Hemoglobin Concent 33 g/dL (31-37) Red Cell Distribution Width 16.0 % (11.5-14.5) Platelet Count 359 x10^3/uL (140-400) Neutrophils (%) (Auto) 78 % (31-73) Lymphocytes (%) (Auto) 14 % (24-48) Monocytes (%) (Auto) 6 % (0-9) Eosinophils (%) (Auto) 1 % (0-3) Basophils (%) (Auto) 1 % (0-3) Neutrophils # (Auto) 7.5 x10^3/uL (1.8-7.7) Lymphocytes # (Auto) 1.4 x10^3/uL (1.0-4.8) Monocytes # (Auto) 0.6 x10^3/uL (0.0-1.1) Eosinophils # (Auto) 0.1 x10^3/uL (0.0-0.7) Basophils # (Auto) 0.1 x10^3/uL (0.0-0.2) Sodium Level 134 mmol/L (136-145) Potassium Level 4.3 mmol/L (3.5-5.1) Chloride Level 99 mmol/L (98-107) Carbon Dioxide Level 29 mmol/L (21-32) Anion Gap 6 (6-14) Blood Urea Nitrogen 12 mg/dL (8-26) Creatinine 0.9 mg/dL (0.7-1.3) Estimated GFR (Cockcroft-Gault) 87.9 Glucose Level 125 mg/dL (70-99) Calcium Level 8.4 mg/dL (8.5-10.1) Test 03/04/19 08:02 03/04/19 11:58 Glucose (Fingerstick) 127 mg/dL (70-99) 168 mg/dL (70-99) Laboratory Tests Test 03/03/19 16:43 03/03/19 21:06 03/04/19 04:25 03/04/19 08:02 Glucose (Fingerstick) 166 mg/dL (70-99) 148 mg/dL (70-99) 127 mg/dL (70-99) White Blood Count 9.7 x10^3/uL (4.0-11.0) Red Blood Count 3.60 x10^6/uL (4.30-5.70) Hemoglobin 10.9 g/dL (13.0-17.5) Hematocrit 32.7 % (39.0-53.0) Mean Corpuscular Volume 91 fL (79-100) Mean Corpuscular Hemoglobin 30 pg (25-35) Mean Corpuscular Hemoglobin Concent 33 g/dL (31-37) Red Cell Distribution Width 16.0 % (11.5-14.5) Platelet Count 359 x10^3/uL (140-400) Neutrophils (%) (Auto) 78 % (31-73) Lymphocytes (%) (Auto) 14 % (24-48) Monocytes (%) (Auto) 6 % (0-9) Eosinophils (%) (Auto) 1 % (0-3) Basophils (%) (Auto) 1 % (0-3) Neutrophils # (Auto) 7.5 x10^3/uL (1.8-7.7) Lymphocytes # (Auto) 1.4 x10^3/uL (1.0-4.8) Monocytes # (Auto) 0.6 x10^3/uL (0.0-1.1) Eosinophils # (Auto) 0.1 x10^3/uL (0.0-0.7) Basophils # (Auto) 0.1 x10^3/uL (0.0-0.2) Sodium Level 134 mmol/L (136-145) Potassium Level 4.3 mmol/L (3.5-5.1) Chloride Level 99 mmol/L (98-107) Carbon Dioxide Level 29 mmol/L (21-32) Anion Gap 6 (6-14) Blood Urea Nitrogen 12 mg/dL (8-26) Creatinine 0.9 mg/dL (0.7-1.3) Estimated GFR (Cockcroft-Gault) 87.9 Glucose Level 125 mg/dL (70-99) Calcium Level 8.4 mg/dL (8.5-10.1) Test 03/04/19 11:58 Glucose (Fingerstick) 168 mg/dL (70-99) Microbiology 02/21/19 Blood Culture - Final, Complete 02/21/19 Blood Culture Result 1 (SHASTA) - Final, Complete 02/21/19 Antimicrobic Susceptibility - Final, Complete Medications Current Medications Dextrose (Dextrose 50%-Water Syringe) 25 gm STK-MED ONCE IV ; Start 02/21/19 at 03:08; Stop 02/21/19 at 03:08; Status DC Dextrose (Dextrose 50%-Water Syringe) 25 gm 1X ONCE IV Last administered on 02/21/19at 05:59; Start 02/21/19 at 04:30; Stop 02/21/19 at 04:31; Status DC Sodium Chloride 1,000 ml @ 1,000 mls/hr Q1H IV Last administered on 02/21/19at 04:44; Start 02/21/19 at 04:30; Stop 02/21/19 at 05:29; Status DC Albuterol/ Ipratropium (Duoneb) 3 ml 1X ONCE NEB Last administered on 02/21/19at 04:19; Start 02/21/19 at 04:30; Stop 02/21/19 at 04:31; Status DC Methylprednisolone Sodium Succinate (SOLU-Medrol 125MG VIAL) 125 mg 1X ONCE IV Last administered on 02/21/19at 04:11; Start 02/21/19 at 04:30; Stop 02/21/19 at 04:31; Status DC Dextrose 500 ml @ 150 mls/hr 1X ONCE IV Last administered on 02/21/19at 04:30; Start 02/21/19 at 04:30; Stop 02/21/19 at 07:49; Status DC Vancomycin HCl 2 gm/Sodium Chloride 500 ml @ 250 mls/hr 1X ONCE IV Last administered on 02/21/19at 04:49; Start 02/21/19 at 04:30; Stop 02/21/19 at 06:29; Status DC Sodium Chloride 1,000 ml @ 1,000 mls/hr 1X ONCE IV ; Start 02/21/19 at 05:30; Stop 02/21/19 at 06:29; Status DC Ondansetron HCl (Zofran) 4 mg PRN Q8HRS PRN IV NAUSEA/VOMITING 1ST CHOICE; Start 02/21/19 at 05:30; Stop 02/21/19 at 11:17; Status DC Morphine Sulfate (Morphine Sulfate) 4 mg PRN Q2HR PRN IV SEVERE PAIN 7-10 Last administered on 02/21/19at 09:07; Start 02/21/19 at 05:30; Stop 02/22/19 at 05:29; Status DC Sodium Chloride 1,000 ml @ 100 mls/hr Q10H IV ; Start 02/21/19 at 06:00; Stop 02/21/19 at 12:45; Status DC Acetaminophen (Tylenol) 650 mg PRN Q4HRS PRN PO FEVER; Start 02/21/19 at 05:30; Stop 02/21/19 at 11:18; Status DC Albuterol/ Ipratropium (Duoneb) 3 ml RTQID NEB Last administered on 02/22/19at 07:51; Start 02/21/19 at 08:00; Stop 02/22/19 at 07:59; Status DC Piperacillin Sod/ Tazobactam Sod 3.375 gm/Sodium Chloride 50 ml @ 100 mls/hr 1X ONCE IV Last administered on 02/21/19at 05:47; Start 02/21/19 at 06:00; Stop 02/21/19 at 06:29; Status DC Acetaminophen (Tylenol) 650 mg PRN Q6HRS PRN PO Headaches, Temp > 101.5' Last administered on 03/03/19at 16:07; Start 02/21/19 at 11:15 Ondansetron HCl (Zofran) 4 mg PRN Q6HRS PRN IV NAUSEA/VOMITING; Start 02/21/19 at 11:15 Famotidine (Pepcid Vial) 20 mg BID IVP Last administered on 02/23/19at 09:39; Start 02/21/19 at 11:30; Stop 02/23/19 at 15:27; Status DC Info (Icu Electrolyte Protocol) 1 ea DAILY MC Last administered on 02/22/19at 08:07; Start 02/22/19 at 09:00; Stop 02/23/19 at 15:22; Status DC Heparin Sodium (Porcine) (Heparin Sodium) 5,000 unit Q8HRS SQ Last administered on 02/24/19at 06:16; Start 02/21/19 at 14:00; Stop 02/24/19 at 09:32; Status DC Sodium Chloride (Normal Saline Flush) 3 ml QSHIFT PRN IV AFTER MEDS AND BLOOD DRAWS; Start 02/21/19 at 11:15 Docusate Sodium (Colace) 100 mg BID PO Last administered on 03/01/19at 20:26; Start 02/21/19 at 12:00 Bisacodyl (Dulcolax Supp) 10 mg PRN DAILY PRN [place] CONSTIPATION; Start 02/21/19 at 11:15 Atenolol (Tenormin) 50 mg DAILY PO Last administered on 03/03/19at 08:14; Start 02/21/19 at 12:00; Stop 03/03/19 at 08:35; Status DC Chlorthalidone (Thalitone) 25 mg DAILY PO ; Start 02/21/19 at 12:00; Stop 02/21/19 at 12:45; Status DC Multivitamins (Thera M Plus) 1 tab DAILY PO Last administered on 02/25/19at 10:10; Start 02/21/19 at 12:00; Stop 02/25/19 at 15:20; Status DC Folic Acid (Folic Acid) 1 mg DAILY PO Last administered on 03/04/19at 08:32; Start 02/21/19 at 12:00 Thiamine Mononitrate (Vitamin B-1) 100 mg DAILY PO Last administered on 03/04/19at 08:32; Start 02/21/19 at 12:00 Lorazepam (Ativan) 4 mg PRN Q1HR PRN PO For CIWA 8-14 Last administered on 02/24/19at 08:49; Start 02/21/19 at 11:30 Lorazepam (Ativan) 8 mg PRN Q1HR PRN PO For CIWA 15 or greater; Start 02/21/19 at 11:30 Lorazepam (Ativan Inj) 2 mg PRN Q1HR PRN IV For CIWA 8-14 Last administered on 02/26/19at 21:08; Start 02/21/19 at 11:30 Lorazepam (Ativan Inj) 4 mg PRN Q1HR PRN IV For CIWA 15 or greater; Start 02/21/19 at 11:30 Haloperidol Lactate (Haldol Inj) 5 mg PRN Q4HRS PRN IVP Hallucinatns,Confusn,Delirium; Start 02/21/19 at 11:30 Clonidine HCl (Catapres) 0.1 mg PRN Q1HR PRN PO SBP > 180 or DBP > 100, MRX3 Last administered on 02/23/19at 20:24; Start 02/21/19 at 11:30 Lorazepam (Ativan Inj) 2 mg PRN Q15MIN PRN IV SEE COMMENTS; Start 02/21/19 at 11:30; Stop 02/23/19 at 15:23; Status DC Lorazepam (Ativan Inj) 4 mg PRN Q15MIN PRN IV SEE COMMENTS; Start 02/21/19 at 11:30; Stop 02/23/19 at 15:24; Status DC Potassium Chloride (Klor-Con) 20 meq 1X ONCE PO Last administered on 02/21/19at 13:53; Start 02/21/19 at 12:00; Stop 02/21/19 at 12:01; Status DC Ringer's Solution 1,000 ml @ 75 mls/hr [id number] IV Last administered on 02/21/19at 13:54; Start 02/21/19 at 13:00; Stop 02/21/19 at 16:07; Status DC Magnesium Sulfate 50 ml @ 25 mls/hr PRN DAILY PRN IV for Mag < 1.7 on am labs Last administered on 02/26/19at 08:54; Start 02/21/19 at 13:00; Stop 03/04/19 at 09:02; Status DC Linezolid (Zyvox) 600 mg BID PO Last administered on 03/04/19at 08:32; Start 02/21/19 at 13:30 Piperacillin Sod/ Tazobactam Sod 3.375 gm/Sodium Chloride 50 ml @ 100 mls/hr Q6HRS IV Last administered on 02/25/19at 04:49; Start 02/21/19 at 13:30; Stop 02/25/19 at 11:36; Status DC Lactobacillus Rhamnosus (Culturelle) 1 cap BID PO Last administered on 03/04at 08:32; Start 02/21/19 at 21:00 Aspirin (Children'S Aspirin) 81 mg [id number] PO Last administered on 02/21/19at 16:23; Start 02/21/19 at 15:30; Stop 02/21/19 at 16:46; Status DC Sodium Chloride 1,000 ml @ 75 mls/hr [id number] IV ; Start 02/22/19 at 03:00; Stop 02/21/19 at 16:14; Status DC Sodium Chloride 1,000 ml @ 75 mls/hr [id number] IV Last administered on 02/22/19at 07:58; Start 02/21/19 at 17:00; Stop 02/22/19 at 08:57; Status DC Aspirin (Flavia Aspirin) 325 mg [id number] PO Last administered on 03/04/19at 08:32; Start 02/22/19 at 08:00 Albuterol/ Ipratropium (Duoneb) 3 ml RTQID NEB Last administered on 03/04/19at 11:40; Start 02/22/19 at 08:00 Potassium Chloride (Klor-Con) 40 meq 1X ONCE PO Last administered on 02/22/19at 08:16; Start 02/22/19 at 08:15; Stop 02/22/19 at 08:16; Status DC Potassium Chloride/Water 100 ml @ 100 mls/hr Q1H IV ; Start 02/22/19 at 09:00; Stop 02/22/19 at 10:59; Status DC Insulin Human Lispro (HumaLOG) 0-7 UNITS TIDWMEALS SQ Last administered on 03/04/19at 12:06; Start 02/22/19 at 17:00 Dextrose (Dextrose 50%-Water Syringe) 12.5 gm PRN Q15MIN PRN IV SEE COMMENTS; Start 02/22/19 at 14:45 Dextrose (Iv Dextrose 5%) 250 ml PRN Q15MIN PRN IV SEE COMMENTS; Start 02/22/19 at 14:45 Info (Non-Icu Electrolyte Protocol) 1 ea CONT PRN PRN MC SEE COMMENTS; Start 02/23/19 at 15:30 Famotidine (Pepcid) 20 mg BID PO Last administered on 03/04/19at 08:32; Start 02/23/19 at 21:00 Multivitamins (Thera M Plus) 1 tab DAILY PO Last administered on 03/04/19at 08:32; Start 02/24/19 at 09:00 Enoxaparin Sodium (Lovenox 40mg Syringe) 40 mg Q24H SQ Last administered on 02/27/19at 10:57; Start 02/24/19 at 10:00; Stop 02/27/19 at 14:04; Status DC Amoxicillin/ Clavulanate Potassium (Augmentin 875/ 125mg) 1 tab BID PO Last administered on 03/04/19at 08:32; Start 02/25/19 at 21:00 Magnesium Sulfate 50 ml @ 25 mls/hr 1X ONCE IV Last administered on 02/25/19at 15:00; Start 02/25/19 at 13:45; Stop 02/25/19 at 15:44; Status DC Magnesium Oxide (Magnesium Oxide) 400 mg DAILY PO Last administered on 03/04/19at 08:32; Start 02/27/19 at 09:00 Enoxaparin Sodium (Lovenox 60mg Syringe) 60 mg Q12HR SQ Last administered on 03/04/19 08:33; Start 02/27/19 at 21:00 Lidocaine (Lidoderm) 1 patch DAILY TD Last administered on 03/04/19at 08:33; Start 03/02/19 at 14:30 Miscellaneous (Lidoderm Patch Removal) 1 ea QHS MC Last administered on 03/03/19at 20:58; Start 03/02/19 at 21:00 Atenolol (Tenormin) 50 mg BID PO Last administered on 03/04/19at 08:33; Start 03/03/19 at 09:00 Chlorthalidone (Thalitone) 25 mg DAILY PO Last administered on 03/04/19at 08:32; Start 03/03/19 at 09:00 Active Scripts Active Proair Hfa Inhaler (Albuterol Sulfate) 8.5 Gm Hfa.aer.ad 2 Puff IH PRN Q4-6HRS PRN 21 Days [place] 5-325 Tablet (Acetaminophen/Hydrocodone Bitart) 1 Each Tablet 1 Tab PO TID Vitamin B-1 (Thiamine Mononitrate) 100 Mg Tablet 100 Mg PO DAILY [Folic Acid] 1 MG Tablet 1 Mg PO DAILY Lidocaine PATCH (Lidocaine) 1 Each Adh..patch 1 Patch TD DAILY Atenolol 50 Mg Tablet 50 Mg PO BID Zyvox (Linezolid) 600 Mg Tablet 600 Mg PO BID Amox Tr-K Clv 875-125 Mg Tab (Amoxicillin/Potassium Clav) 1 Each Tablet 1 Tab PO BID 7 Days Reported Glipizide 5 Mg Tablet 1 Tab PO BID Metformin Hcl 1,000 Mg Tablet 1,000 Mg PO BIDWMEALS Chlorthalidone (Chlorthalidone) 25 Mg Tablet 25 Mg PO DAILY Vitals/I & O Vital Sign - Last 24 Hours 03/03/19 03/03/19 03/03/19 03/03/19 15:00 15:48 19:00 19:16 Temp 98.1 97.7 98.1 97.7 Pulse 76 86 Resp 18 20 B/P (MAP) 131/77 (95) 143/77 (99) Pulse Ox 95 94 93 94 O2 Delivery Nasal Cannula Room Air Room Air Room Air O2 Flow Rate 2.0 03/03/19 03/03/19 03/03/19 03/04/19 20:00 20:53 23:00 03:00 Temp 98.1 97.8 98.1 97.8 Pulse 86 82 76 Resp 20 20 B/P (MAP) 143/77 145/78 (100) 143/84 (103) Pulse Ox 92 92 O2 Delivery Room Air Room Air Room Air 03/04/19 03/04/19 03/04/19 03/04/19 07:00 07:54 08:30 08:30 Temp 98.3 98.3 Pulse 82 B/P (MAP) 106/67 (80) Pulse Ox 94 94 O2 Delivery Room Air Room Air Room Air O2 Flow Rate 2.0 03/04/19 03/04/19 08:33 11:40 Pulse 82 B/P (MAP) 106/67 Pulse Ox 94 O2 Delivery Room Air Intake and Output 03/03/19 03/03/19 03/04/19 15:00 23:00 07:00 Intake Total 360 ml 240 ml 200 ml Output Total 650 ml 100 ml 600 ml Balance -290 ml 140 ml -400 ml MARLON DUKES MD Mar 04, 2019 12:14
[2019-03-04] MEDS ORDERED: NAPR-677 PO (12:39)
[2019-03-04] MEDS ORDERED: COLC0.6T34 PO (12:39)
--- NOTE | 2019-03-04 12:39 | SNU/HH DC ---
DISCHARGE ORDERS DISCHARGE INFORMATION: DISCHARGE DATE: Mar 04, 2019 FINAL DIAGNOSIS Problems Medical Problems: (1) Acute renal failure Status: Acute (2) Cellulitis of right leg Status: Acute (3) Dehydration Status: Acute (4) Dyspnea Status: Acute (5) Hypoglycemia Status: Acute (6) Severe sepsis Status: Acute CONDITION ON DISCHARGE: Stable CODE STATUS: Code Status: Full LONG TERM: SNF STAY <30 DAYS: Yes HOSPICE: HOSPICE: No HOSPICE EVAL & TREAT: No LTAC: ADMIT TO LTAC: No POST DISCHARGE ORDERS: ACTIVITY ORDERS: Activity as tolerated, Progressive ambulation DIET AFTER DISCHARGE: ADA CHECKS AFTER DISCHARGE: CHECKS AFTER DISCHARGE: Check blood press - daily, Check blood sugar, ac/hs FOLLOW-UP: ADDITIONAL FOLLOW-UP: Primary Care Physician as needed. TREATMENT/EQUIPMENT ORDERS: Physical Therapy For: Evalulation/Treatment Occupational Therapy For: Evaluation/Treatment DISCHARGE MEDICATIONS: Home Meds Active Scripts Naproxen Sodium (NAPROXEN SODIUM) 550 Mg Tablet, 1 TAB PO BID for arthritis for 7 Days, #14 TAB 0 Refills Prov:MARLON DUKES MD 03/04/19 Colchicine (COLCRYS) 0.6 Mg Tablet, 1 TAB PO DAILY for gout pain for 5 Days, #5 TAB 0 Refills Prov:MARLON DUKES MD 03/04/19 Albuterol Sulfate (PROAIR HFA INHALER) 8.5 Gm Hfa.aer.ad, 2 PUFF IH PRN Q4-6HRS PRN for wheezing for 21 Days, #1 INHALER 0 Refills Prov:MARLON DUKES MD 03/03/19 Hydrocodone/Apap 5-325 (NORCO 5-325 TABLET) 1 Each Tablet, 1 TAB PO TID for pain, #20 TAB Prov:MARLON DUKES MD 03/03/19 Thiamine Mononitrate (VITAMIN B-1) 100 Mg Tablet, 100 MG PO DAILY for mvi, #60 TAB Prov:MARLON DUKES MD 03/03/19 [Folic Acid] 1 MG TABLET No Conflict Check, 1 MG PO DAILY for mvi, #60 Prov:MARLON DUKES MD 03/03/19 Lidocaine (Lidocaine PATCH ) 1 Each Adh..patch, 1 PATCH TD DAILY for back pain, #14 PATCH Prov:MARLON DUKES MD 03/03/19 Atenolol (ATENOLOL) 50 Mg Tablet, 50 MG PO BID for htn, #60 TAB Prov:MARLON DUKES MD 03/03/19 Linezolid (ZYVOX) 600 Mg Tablet, 600 MG PO BID for rt leg cellulitis, #14 TAB Prov:MARLON DUKES MD 03/03/19 Amoxicillin/Potassium Clav (AMOX TR-K CLV 875-125 MG TAB) 1 Each Tablet, 1 TAB PO BID for rt leg cellulitsi for 7 Days, #14 TAB Prov:MARLON DUKES MD 03/03/19 Reported Medications Glipizide (GLIPIZIDE) 5 Mg Tablet, 1 TAB PO BID for CONTROL BLOOD SUGAR, #60 TAB 3 Refills 02/21/19 Metformin Hcl (METFORMIN HCL) 1,000 Mg Tablet, 1000 MG PO BIDWMEALS for CONTROL BLOOD SUGAR, TAB 02/21/19 Chlorthalidone (CHLORTHALIDONE ) 25 Mg Tablet, 25 MG PO DAILY for DIURETIC, TAB 02/21/19 Discontinued Reported Medications Atenolol (ATENOLOL) 50 Mg Tablet, 1 TAB PO DAILY for HTN, #30 TAB 5 Refills 02/21/19 MARLON DUKES MD Mar 04, 2019 12:39
[2019-03-04] MEDS ORDERED: NAPROXEN 500 MG TABLET PO SCH (13:00)
[2019-03-04] MEDS ORDERED: COLCHICINE 0.6 MG TABLET PO ONE (13:00)
--- NOTE | 2019-03-04 13:24 | RAD ---
PROCEDURE: HAND LEFT 2V STUDY DATE: 03/04/2019 CLINICAL INDICATION / HISTORY: Pain and swelling. Question osteoarthritis.. TECHNIQUE: PA, lateral and oblique views of the left hand. COMPARISON: None FINDINGS: No fracture or dislocation is identified. The bone density is normal. The joint spaces are maintained, and there are no erosions to suggest an inflammatory arthropathy. The soft tissues are unremarkable. There is mild osteophytic spurring of the distal radio ulnar joint. IMPRESSION: Left distal DRUJ degenerative change. Otherwise negative left hand with no acute osseous abnormality. Electronically signed by: Louis Vanessa MD (03/04/2019 1:21 PM) [facility]
[2019-03-04] MEDS: ACETAMINOPHEN 325 MG TABLET. PO PRN (14:00)
--- NOTE | 2019-03-04 14:40 | NUR ---
[facility] following. Discussed with RN, pt's and daughter here today, were planning to possibly take pt back to [place] today. After some discussion, is not sure how she can get pt in and out of car and into the home. would like to get pt to [facility] if insurance approves. [facility] has accepted pt, awaiting insurance auth. MINDY notified. Addendum: 03/04/19 at 1505 by IVAN RALPH Insurance accepted for pt to go to [facility] for SNU. [facility] faxed discharge orders and scripts, transportation set up for [id number]. MINDY notified.
[2019-03-04 15:00] VITALS: BP 138/76
--- NOTE | 2019-03-04 15:21 | PDOC ---
PROGRESS NOTES Assessment Assessment Left shoulder, arm and hand pain and hand joints swelling/redness. Metabolic encephalopathy. Lactic acidosis. Hypoglycemia, glucose level 20. Leukocytosis, WBC 28.8 Renal failure or SEEMA. Fall on the floor? DM. HTN. HLD. Alcohol use/abuse. Cellulitis, LE ? Morbid obesity, BMI 62.6 No evidence of large vessel CVA this time, 2 HCT negative. Repeated CCT no C3 fractures. RECOMMENDATIONS/PLAN: Treat medical diseases. ASA 325 mg daily. Weight reduction. Lab: uric acid. OT/PT. Left shoulder and hand X-Ray: degenerative changes. SUBJECTIVE: Left UE weakness, and left shoulder pain. OBJECTIVE: 2 HCT negative. Left shoulder X-ray on 03/02/19: Degenerative joint disease. No acute findings. Past Medical History Morbid obesity Possible lymph edema right lower extremity Cardiovascular: HTN, Hyperlipidemia Musculoskeletal: low back pain, Osteoarthritis Endocrine: Diabetes Past Surgical History Knee surgery. Family History High Cholestrol, Hypertension, Kidney Disease (son has reflux nephropathy, requ ired nephrectomy). Social History ALCOHOL: heavy Drugs: None Lives: with Family ALLERGY: NKDA MEDICATIONS: Refer to [facility] REVIEW OF SYSTEMS: Constitutional: Morbid obesity. Head: No acute traumatic brain or head injury. Skin: No edema, or rash. Ear: No infection. Eyes: No vision loss or color blindness. Nose: No bleeding or purulent discharges. Hearing: Mild hearing decrease. Neck: No injury. Cardiac: HTN, HLD. Pulmonary: No COPD. GI: No GI ulcer, GI bleeding. Urinary/genital: No dysuria, incontinence, urinary retention. Endocrinologic: Diabetes Mellitus, morbid obesity. Skeletomuscular: No muscular atrophy, deformity. Neurological: see HP. Psychiatric: ETOH use/abuse. Otherwise, not [id number] review of systems. PHYSICAL EXAMINATION: General appearance is in subacute distress. HEENT: Normocephalic and nontraumatic. Eyes, nose, ears, and throat are unremarkable. Neck is supple. No lymphadenopathy. No crepitus. Cardiovascular: S1, S2, regular rate and rhythm. Pulmonary: Decreased to auscultation bilaterally. Abdomen: Bowel sounds are positive. Extremities: Lesions and skin changes noted. NEUROLOGICAL EXAMINATION: Awake. Oriented to time, place and person. PERRL. EOMI. CN: no focal findings. Muscle tone: Decreased. Muscle strength: 3+ left UE and 3-4 left LE, 4+ right side. DTR: 0-1 due to obesity. Plantar reflex: Neutral response bilaterally Gait: Able to walk in room. Sensory exam: no abnormal findings. No cerebellar signs elicited. F-T-N test fine on the right side. Objective Objective Vital Signs Date Time Temp Pulse Resp B/P (MAP) Pulse Ox O2 Delivery O2 Flow Rate FiO2 03/04/19 11:40 94 Room Air 03/04/19 11:00 98.4 64 133/74 (93) 98.4 03/04/19 08:30 2.0 03/04/19 03:00 20 Intake and Output 03/04/19 07:00 Intake Total 800 ml Output Total 1350 ml Balance -550 ml Intake Oral 800 ml Output Urine Total 1350 ml # Bowel Movements 1 Vitals Signs Vitals VS - Last 72 Hours, by Label Date Time Temp Pulse Resp B/P (MAP) Pulse Ox O2 Delivery O2 Flow Rate FiO2 03/04/19 11:40 94 Room Air 03/04/19 11:00 98.4 64 133/74 (93) 94 Room Air 98.4 03/04/19 08:33 82 106/67 03/04/19 08:30 Room Air 03/04/19 08:30 2.0 03/04/19 07:54 94 Room Air 03/04/19 07:00 98.3 82 106/67 (80) 94 Room Air 98.3 03/04/19 03:00 97.8 76 20 143/84 (103) 92 Room Air 97.8 03/03/19 23:00 98.1 82 20 145/78 (100) 92 Room Air 98.1 03/03/19 20:53 86 143/77 03/03/19 20:00 Room Air 03/03/19 19:16 94 Room Air 03/03/19 19:00 97.7 86 20 143/77 (99) 93 Room Air 97.7 03/03/19 15:48 94 Room Air 03/03/19 15:00 98.1 76 18 131/77 (95) 95 Nasal Cannula 2.0 98.1 03/03/19 11:00 97.9 67 16 146/76 (99) 100 Nasal Cannula 2.0 97.9 03/03/19 10:56 93 Room Air 03/03/19 08:30 2.0 03/03/19 08:30 Nasal Cannula 2.0 03/03/19 08:14 72 151/82 03/03/19 08:02 98 Nasal Cannula 2.0 03/03/19 07:00 97.7 72 14 151/82 (105) 97 Nasal Cannula 2.0 97.7 Laboratory Laboratory Laboratory Tests Test 03/03/19 16:43 03/03/19 21:06 03/04/19 04:25 03/04/19 08:02 Glucose (Fingerstick) 166 mg/dL (70-99) 148 mg/dL (70-99) 127 mg/dL (70-99) White Blood Count 9.7 x10^3/uL (4.0-11.0) Red Blood Count 3.60 x10^6/uL (4.30-5.70) Hemoglobin 10.9 g/dL (13.0-17.5) Hematocrit 32.7 % (39.0-53.0) Mean Corpuscular Volume 91 fL (79-100) Mean Corpuscular Hemoglobin 30 pg (25-35) Mean Corpuscular Hemoglobin Concent 33 g/dL (31-37) Red Cell Distribution Width 16.0 % (11.5-14.5) Platelet Count 359 x10^3/uL (140-400) Neutrophils (%) (Auto) 78 % (31-73) Lymphocytes (%) (Auto) 14 % (24-48) Monocytes (%) (Auto) 6 % (0-9) Eosinophils (%) (Auto) 1 % (0-3) Basophils (%) (Auto) 1 % (0-3) Neutrophils # (Auto) 7.5 x10^3/uL (1.8-7.7) Lymphocytes # (Auto) 1.4 x10^3/uL (1.0-4.8) Monocytes # (Auto) 0.6 x10^3/uL (0.0-1.1) Eosinophils # (Auto) 0.1 x10^3/uL (0.0-0.7) Basophils # (Auto) 0.1 x10^3/uL (0.0-0.2) Sodium Level 134 mmol/L (136-145) Potassium Level 4.3 mmol/L (3.5-5.1) Chloride Level 99 mmol/L (98-107) Carbon Dioxide Level 29 mmol/L (21-32) Anion Gap 6 (6-14) Blood Urea Nitrogen 12 mg/dL (8-26) Creatinine 0.9 mg/dL (0.7-1.3) Estimated GFR (Cockcroft-Gault) 87.9 Glucose Level 125 mg/dL (70-99) Uric Acid 4.7 mg/dL (3.5-7.2) Calcium Level 8.4 mg/dL (8.5-10.1) Test 03/04/19 11:58 Glucose (Fingerstick) 168 mg/dL (70-99) Microbiology 02/21/19 Blood Culture - Final, Complete 02/21/19 Blood Culture Result 1 (SHASTA) - Final, Complete 02/21/19 Antimicrobic Susceptibility - Final, Complete Medication Medications Current Medications Colchicine (Colcrys) 0.6 mg DAILY PO ; Start 03/05/19 at 09:00 Colchicine (Colcrys) 1.2 mg 1X ONCE PO Last administered on 03/04/19at 12:39; Start 03/04/19 at 13:00; Stop 03/04/19 at 13:01; Status DC Naproxen (Naprosyn) 500 mg BID PO Last administered on 03/04/19at 12:38; Start 03/04/19 at 13:00 Comment Review of Relevant I have reviewed the following items robert (where applicable) has been applied. ADAIR DÍAZ MD Mar 04, 2019 15:21
--- NOTE | 2019-03-04 16:18 | NUR ---
Report called to [facility] spoke to Lynn GUILLEN that will be accepting patient upon arrival.
--- NOTE | 2019-03-04 19:30 | NUR ---
Discharge Note: BHUMI LOPEZ [facility] Discharge instructions and discharge home medications reviewed with [facility] facility RN and a copy given. All questions have been answered and understanding verbalized. The following instructions and handouts were given: discharge instructions, new prescriptions, plan of care. Discontinued lines and drains: Peripheral IV discontinued intact. Patient discharged to [facility] with Transport Personnel via Wheelchair
--- NOTE | 2019-03-05 08:28 | PDOC3 ---
Discharge Summary Visit Information Date of Admission: Feb 21, 2019 Date of Discharge: Mar 04, 2019 Admitting Diagnosis Comment: Resp failure resolved Severe sepsis resolved Extreme morbid obesity with BMI of 60 BCT hypoventilation syndrome Cellulitis of right leg, severe with lymphedema, chronic venous stasis Hypoglycemia sec to glipizide secondary to most likely due to renal dysfunction Acute renal failure improved Dehydration improved Dyspnea Hypoglycemia History of Severe alcohol abuse no evidence of withdrawal of the present time Fall at home Severe debility CHF GOUT left second digit? OA left hand , possible Final Diagnosis Problems Medical Problems: (1) Acute renal failure Status: Acute (2) Cellulitis of right leg Status: Acute (3) Dehydration Status: Acute (4) Dyspnea Status: Acute (5) Hypoglycemia Status: Acute (6) Severe sepsis Status: Acute Brief Hospital Course Allergies Allergies Coded Allergies Type Severity Reaction Last Updated Verified No Known Drug Allergies 02/21/19 No Vital Signs Vital Signs Date Time Temp Pulse Resp B/P (MAP) Pulse Ox O2 Delivery O2 Flow Rate FiO2 03/04/19 15:00 97.8 79 138/76 (96) 94 Room Air 97.8 03/04/19 08:30 2.0 Lab Results Laboratory Tests Test 03/03/19 11:29 03/03/19 16:43 03/03/19 21:06 03/04/19 04:25 Glucose (Fingerstick) 130 mg/dL (70-99) 166 mg/dL (70-99) 148 mg/dL (70-99) White Blood Count 9.7 x10^3/uL (4.0-11.0) Red Blood Count 3.60 x10^6/uL (4.30-5.70) Hemoglobin 10.9 g/dL (13.0-17.5) Hematocrit 32.7 % (39.0-53.0) Mean Corpuscular Volume 91 fL (79-100) Mean Corpuscular Hemoglobin 30 pg (25-35) Mean Corpuscular Hemoglobin Concent 33 g/dL (31-37) Red Cell Distribution Width 16.0 % (11.5-14.5) Platelet Count 359 x10^3/uL (140-400) Neutrophils (%) (Auto) 78 % (31-73) Lymphocytes (%) (Auto) 14 % (24-48) Monocytes (%) (Auto) 6 % (0-9) Eosinophils (%) (Auto) 1 % (0-3) Basophils (%) (Auto) 1 % (0-3) Neutrophils # (Auto) 7.5 x10^3/uL (1.8-7.7) Lymphocytes # (Auto) 1.4 x10^3/uL (1.0-4.8) Monocytes # (Auto) 0.6 x10^3/uL (0.0-1.1) Eosinophils # (Auto) 0.1 x10^3/uL (0.0-0.7) Basophils # (Auto) 0.1 x10^3/uL (0.0-0.2) Sodium Level 134 mmol/L (136-145) Potassium Level 4.3 mmol/L (3.5-5.1) Chloride Level 99 mmol/L (98-107) Carbon Dioxide Level 29 mmol/L (21-32) Anion Gap 6 (6-14) Blood Urea Nitrogen 12 mg/dL (8-26) Creatinine 0.9 mg/dL (0.7-1.3) Estimated GFR (Cockcroft-Gault) 87.9 Glucose Level 125 mg/dL (70-99) Uric Acid 4.7 mg/dL (3.5-7.2) Calcium Level 8.4 mg/dL (8.5-10.1) Test 03/04/19 08:02 03/04/19 11:58 03/04/19 14:20 03/04/19 17:03 Glucose (Fingerstick) 127 mg/dL (70-99) 168 mg/dL (70-99) 173 mg/dL (70-99) Erythrocyte Sedimentation Rate 122 (0-15) Laboratory Tests Test 03/04/19 11:58 03/04/19 14:20 03/04/19 17:03 Glucose (Fingerstick) 168 mg/dL (70-99) 173 mg/dL (70-99) Erythrocyte Sedimentation Rate 122 (0-15) Brief Hospital Course Mr. Chavis is a 53 old [sex] who presented with respi fialure plus sepsis draining RT leg wound, co managed with pulmo and iD< now shfted to PO abx, HE has mary, obese, cpap at home, needed bipap here (not a fan of it), MAybe some gout left index finger on day of dc, i addressed (2 notes on day of dc). and pt wanted SNU, stairs at home, etc, THEY want me to fill up disability form, I DONT thik he needs to be disabled, i filled up form APPROPRIATELY, ACcepted at SNU (took days to struggle with insurance coverage)S NU 03/04/19 after days Discharge Information Disposition/Orders: Other ([facility]) Scheduled Amoxicillin/Potassium Clav (Amox Tr-K Clv 875-125 Mg Tab) 1 Each Tablet, 1 TAB PO BID for rt leg cellulitsi for 7 Days, #14 Prescribed by: MARLON DUKES on 03/03/19 0839 Atenolol (Atenolol) 50 Mg Tablet, 50 MG PO BID for htn, #60 Prescribed by: MARLON DUKES on 03/03/19 0839 Chlorthalidone (Chlorthalidone ) 25 Mg Tablet, 25 MG PO DAILY for DIURETIC, (Reported) Entered as Reported by: Nathan Kahn on 02/21/19 0950 Last Taken: UNKNOWN on Unknown Date & Time Last Action: Continued on 02/21/191117 by CORTNEY PEÑA MD Colchicine (Colcrys) 0.6 Mg Tablet, 1 TAB PO DAILY for gout pain for 5 Days, #5 Ref 0 Prescribed by: MARLON DUKES on 03/04/19 1239 Glipizide (Glipizide) 5 Mg Tablet, 1 TAB PO BID for CONTROL BLOOD SUGAR, #60 Ref 3 (Reported) Entered as Reported by: Nathan Kahn on 02/21/19 0950 Last Taken: UNKNOWN on Unknown Date & Time Last Action: HELD on 02/21/191117 by CORTNEY PEÑA MD Hydrocodone/Apap 5-325 (Mayflower 5-325 Tablet) 1 Each Tablet, 1 TAB PO TID for pain, #20 Prescribed by: MARLON DUKES on 03/03/19 0839 Lidocaine (Lidocaine PATCH ) 1 Each Adh..patch, 1 PATCH TD DAILY for back pain, #14 Prescribed by: MARLON DUKES on 03/03/19 0839 Linezolid (Zyvox) 600 Mg Tablet, 600 MG PO BID for rt leg cellulitis, #14 Prescribed by: MARLON DUKES on 03/03/19 08 Metformin Hcl (Metformin Hcl) 1,000 Mg Tablet, 1,000 MG PO BIDWMEALS for CONTROL BLOOD SUGAR, (Reported) Entered as Reported by: Nathan Kahn on 02/21/19949 Last Taken: UNKNOWN on Unknown Date & Time Last Action: HELD on 02/21/191117 by CORTNEY PEÑA MD Naproxen Sodium (Naproxen Sodium) 550 Mg Tablet, 1 TAB PO BID for arthritis for 7 Days, #14 Ref 0 Prescribed by: MARLON DUKES on 03/04/19 1239 Thiamine Mononitrate (Vitamin B-1) 100 Mg Tablet, 100 MG PO DAILY for mvi, #60 Prescribed by: MARLON DUKES on 03/03/19 08 [Folic Acid] 1 MG TABLET, 1 MG PO DAILY for mvi, #60 Prescribed by: MARLON DUKES on 03/03/19 0839 Scheduled PRN Albuterol Sulfate (Proair Hfa Inhaler) 8.5 Gm Hfa.aer.ad, 2 PUFF IH PRN Q4-6HRS PRN for wheezing for 21 Days, #1 Ref 0 Prescribed by: MARLON DUKES on 03/03/19 0839 Discontinued Medications Atenolol (Atenolol) 50 Mg Tablet, 1 TAB PO DAILY for HTN, #30 Ref 5 (Reported) Entered as Reported by: Nathan Kahn on 02/21/19949 Last Taken: UNKNOWN on Unknown Date & Time Last Action: Continued on 02/21/191117 by MD ROSELINE YUN CHERRIE Y MD Mar 05, 2019 08:28
[2019-03-05] MEDS ORDERED: COLCHICINE 0.6 MG TABLET PO SCH (09:00)
== END 2019-03-04 19:33 | DRG 871 ==
LOC: ER 02:42 → 1 WEST ICU 05:58 → 6 SOUTH 02-22 16:48 → 5 SOUTH 03-02 15:18
PROVIDERS: ADMIT Internal Medicine; ATTEND Internal Medicine
PROC: 5A09357 Assistance with Respiratory Ventilation, Less than 24 Consecutive Hours, Continuous Positive Airway Pressure (ICD-10-PCS; 2019-02-21)
PROC: 5A09357 Assistance with Respiratory Ventilation, Less than 24 Consecutive Hours, Continuous Positive Airway Pressure (ICD-10-PCS; 2019-02-22)
PROC: 5A09357 Assistance with Respiratory Ventilation, Less than 24 Consecutive Hours, Continuous Positive Airway Pressure (ICD-10-PCS; 2019-02-23)
PROC: 5A09357 Assistance with Respiratory Ventilation, Less than 24 Consecutive Hours, Continuous Positive Airway Pressure (ICD-10-PCS; 2019-02-24)
PROC: 5A09357 Assistance with Respiratory Ventilation, Less than 24 Consecutive Hours, Continuous Positive Airway Pressure (ICD-10-PCS; 2019-02-25)
PROC: 5A09357 Assistance with Respiratory Ventilation, Less than 24 Consecutive Hours, Continuous Positive Airway Pressure (ICD-10-PCS; 2019-02-26)
PROC: 5A09357 Assistance with Respiratory Ventilation, Less than 24 Consecutive Hours, Continuous Positive Airway Pressure (ICD-10-PCS; 2019-02-27)
PROC: 5A09357 Assistance with Respiratory Ventilation, Less than 24 Consecutive Hours, Continuous Positive Airway Pressure (ICD-10-PCS; 2019-02-28)
PROC: 5A09357 Assistance with Respiratory Ventilation, Less than 24 Consecutive Hours, Continuous Positive Airway Pressure (ICD-10-PCS; 2019-03-01)
PROC: 5A09357 Assistance with Respiratory Ventilation, Less than 24 Consecutive Hours, Continuous Positive Airway Pressure (ICD-10-PCS; 2019-03-02)
PROC: 5A09357 Assistance with Respiratory Ventilation, Less than 24 Consecutive Hours, Continuous Positive Airway Pressure (ICD-10-PCS; principal; 2019-03-03)
DX: A41.9 Sepsis, unspecified organism (principal); G93.41 Metabolic encephalopathy; N17.0 Acute kidney failure with tubular necrosis; E43 Unspecified severe protein-calorie malnutrition; J96.20 Acute and chronic respiratory failure, unspecified whether with hypoxia or hypercapnia; E66.2 Morbid (severe) obesity with alveolar hypoventilation; I13.0 Hypertensive heart and chronic kidney disease with heart failure and stage 1 through stage 4 chronic kidney disease, or unspecified chronic kidney disease; J98.11 Atelectasis; L03.115 Cellulitis of right lower limb; M62.82 Rhabdomyolysis; Z68.44 Body mass index [BMI] 60.0-69.9, adult; E78.00 Pure hypercholesterolemia, unspecified; D64.9 Anemia, unspecified; E11.22 Type 2 diabetes mellitus with diabetic chronic kidney disease; E11.41 Type 2 diabetes mellitus with diabetic mononeuropathy; E11.649 Type 2 diabetes mellitus with hypoglycemia without coma; E78.5 Hyperlipidemia, unspecified; F32.9 Major depressive disorder, single episode, unspecified; F41.9 Anxiety disorder, unspecified; E86.0 Dehydration; F10.10 Alcohol abuse, uncomplicated; M10.9 Gout, unspecified; M17.10 Unilateral primary osteoarthritis, unspecified knee; M19.042 Primary osteoarthritis, left hand; N18.9 Chronic kidney disease, unspecified; R65.20 Severe sepsis without septic shock; Z79.82 Long term (current) use of aspirin; Z79.84 Long term (current) use of oral hypoglycemic drugs; Z79.899 Other long term (current) drug therapy; Z82.49 Family history of ischemic heart disease and other diseases of the circulatory system; W18.30XA Fall on same level, unspecified, initial encounter; Y93.89 Activity, other specified; Y99.8 Other external cause status; I87.2 Venous insufficiency (chronic) (peripheral); I50.813 Acute on chronic right heart failure; G56.92 Unspecified mononeuropathy of left upper limb
CPT/HCPCS: 36415; 36600; 70450; 71045; 72125; 73030; 73080; 73120; 73562; 76770; 80048; 80053; 80061; 80069; 80076; 80307; 81001; 82550; 82553; 82607; 82805; 82962; 83520; 83605; 83690; 83735; 83880; 84100; 84165; 84166; 84300; 84443; 84484; 84550; 85007; 85025; 85610; 85651; 85730; 86334; 87040; 87077; 87205; 93005; 93306; 94640; 94660; 94760; 96365; 96366; 96368; 96375; G0480; J1644; J1650; J1815; J2060; J2270; J2543; J2930; J3370; J3475; J3490; J7030; J7040; J7042; J7120; J7620; 92610; 97110; 97116; 97530; 99291-25; G0378